=== PATIENT | male | born 1960 | race Caucasian/White ===

== ENCOUNTER 2020-02-17 07:52 | Day surgery (SDC) | payer OTHER ==
--- NOTE | 2020-02-17 08:25 | XR ---
EXAMINATION TYPE: XR shoulder complete RT DATE OF EXAM: 02/17/2020 COMPARISON: NONE HISTORY: Postsurgical change TECHNIQUE: Three views are submitted. FINDINGS: The osseous structures are intact. There is no acute fracture or dislocation. Postsurgical changes s een. A portion of a metallic screw remains isolated within the diaphysis of the right humerus correla te clinically. Underlying COPD noted. There is a linear density in the right upper lobe which may rep resent scar. Pleural-based thickening noted. There is arthropathy of the AC joint with diffuse osteop enia.. IMPRESSION: 1. Postsurgical changes see above. 2. COPD. Probable scar right upper lobe could be correlated with standard chest x-ray.
[2020-02-17] MEDS ORDERED: ALPRAZolam 0.5 MG TAB PO ONE (08:44)
[2020-02-17 08:52] VITALS: TEMP 99.1
[2020-02-17 09:24] VITALS: RESP 16
[2020-02-17 10:06] VITALS: BP 132/86; PULSE 97
--- NOTE | 2020-02-17 17:24 | US ---
Ultrasound guided right shoulder aspiration Date: 02/17/2020. History: 59-year-old male status post reverse right shoulder arthroplasty, prosthetic joint infection . Procedure: 1. Ultrasound of the posterior right shoulder 2. Attempted aspiration followed by washout and aspiration with ultrasound guidance. Technique: The procedure, risks, and alternatives, were discussed with the patient, who requested huan t we proceed. The consent form was signed, and teach-back occurred. The site/side of the procedure wa s marked with a line with participation by the patient. The accompanying paperwork was verified for c onsistency. A directed history and physical exam was performed prior to the procedure. Medication rec onciliation was performed by ancillary personnel. A critical pause was performed with assisting renee thompson just prior to the procedure and the patient's identity was confirmed using 2 identifiers. Imagin g guidance was utilized to select the precise skin entry point just prior to the procedure. The posterior recess of the prosthetic glenohumeral joint was targeted. A low echo area was identifie d and felt to represent the posterior recess of the joint. The posterior right shoulder was prepped and draped in the usual sterile fashion and local 1% lidocai ne anesthesia was instilled. Under ultrasound guidance, an 18 gauge spinal needle was advanced to the hypoechoic area. Needle tip contact resulted in pain and the area was firm. Needle tip could not successfully be advanced through this area. Aspiration yielded only a drop of blood tinged fluid. Subsequent wash at the margin of th e joint with approximately 5 mL of saline yielded only 1 mL of aspirate. Total 3 mL of saline/aspirat e was present in the syringe, labeled, and sent to the lab for requested analysis. The needle was then removed. The patient tolerated the procedure well. Hemostasis obtained and Tegade rm dressing was placed. Patient instructed to leave the dressing on for 2 days. There were no immediate complications. After the procedure, the patient's condition was unchanged. Es timated blood loss was minimal. IMPRESSION: Attempted aspiration from a posterior approach of the prosthetic glenohumeral joint. What appeared to be the posterior recess of the joint was found to be firm and contact with the needle tip resulted i n pain. Findings may reflect granulation tissue. We were unable to successfully advance the needle th rough this area. A wash was performed directly adjacent and the fluid was sent for analysis.
== END 2020-02-17 10:20 | disposition home or self-care (01) ==
LOC: RADPROMAIN 07:52
PROVIDERS: ATTEND Orthopaedic Surgery
DX: T84.59XA Infection and inflammatory reaction due to other internal joint prosthesis, initial encounter (principal); Z96.611 Presence of right artificial shoulder joint
CPT/HCPCS: 20611; 87070; 87075; 87102; 87205; 89060

== ENCOUNTER → 2020-05-08 | Outpatient (CLI) | payer OTHER ==
[2020-05-08 11:20] LABS: Appearance,Urine Clear (Clear); Bilirubin,Urine Negative (Negative); Blood,Urine Negative (Negative); Color,Urine Yellow; Glucose,Urine (UA) Negative (Negative); Ketones,Urine Negative (Negative); Leukocyte Esterase,Urine Negative (Negative); Nitrite,Urine Negative (Negative); PH, Urine 5.5 (5.0-8.0); Protein,Urine Negative (Negative); Urobilinogen,Urine <2.0 mg/dL (<2.0)
[2020-05-08 11:21] LABS: Basophils # (A) 0.1 k/uL (0-0.2); Basophils % (A) 1 %; Eosinophils # (A) 0.2 k/uL (0-0.7); Eosinophils % (A) 2 %; HCT 54.8 % (39.0-53.0); HGB 18.3 gm/dL (13.0-17.5); Lymphocytes # (A) 1.9 k/uL (1.0-4.8); Lymphocytes % (A) 20 %; MCH 28.5 pg (25.0-35.0); MCHC 33.5 g/dL (31.0-37.0); Mean Platelet Volume 7.6; Monocytes # (A) 0.7 k/uL (0-1.0); Monocytes % (A) 8 %; Neutrophils # (A) 6.5 k/uL (1.3-7.7); Neutrophils % (A) 68 %; Platelet Count 268 k/uL (150-450); RBC 6.45 m/uL (4.30-5.90); RDW 14.5 % (11.5-15.5); WBC 9.6 k/uL (3.8-10.6)
[2020-05-08 11:26] LABS: African American GFR (CKD) >90 (>60 ml/min/1.73 sqM); Anion Gap 5 mmol/L; Blood Urea Nitrogen 16 mg/dL (9-20); Calcium 9.3 mg/dL (8.4-10.2); Carbon Dioxide 28 mmol/L (22-30); Chloride 106 mmol/L (98-107); Glucose 96 mg/dL (74-99); Non-African American GFR(CKD) >90 (>60 ml/min/1.73 sqM); Potassium 4.8 mmol/L (3.5-5.1); Sodium 139 mmol/L (137-145)
== END | disposition home or self-care (01) ==
LOC: LABPAT 09:28
PROVIDERS: ATTEND Urology
DX: Z01.818 Encounter for other preprocedural examination (principal); R35.0 Frequency of micturition; R97.20 Elevated prostate specific antigen [PSA]; Z79.899 Other long term (current) drug therapy
CPT/HCPCS: 36415; 80048; 81003; 85025; 87086

== ENCOUNTER 2020-05-15 07:35 | Day surgery (SDC) | payer OTHER ==
[2020-05-11 13:24] VITALS: BMI 27.0
--- NOTE | 2020-05-14 23:39 | P.HPIHPCON ---
History of Present Illness H&P Date: 05/15/20 Chief Complaint: elevated PSA Mr Mcdaniels is 59 yo male with hx of elevated PSA, he underwent TRUS biopsy on 09/08/19 showing REBECCA. Discussed with him given this finding the recommendation is to repeat a biopsy in 6 months. I discussed with him with the finding of REBECCA there is concern upgrading to prostate cancer in subsequent biopsy. Patient has hx of poor tolerance of office biopsy, I discussed with him the option of doing biopsy under anesthesia. Discussed the risk of bleeding, infection. I also discussed risk from anesthesia. He understood all risks and agreed to proceed Consent for Procedure: I have explained the operation/procedure to the patient, including the risks, benefits, side effects, alternative therapies (including not receiving the proposed treatment or service), the likelihood of the patient achieving his/her goals, and potential recuperation problems for the procedure/sedation/analgesia, as well as any blood products, if indicated. I also explained to the patient the risks, benefits and side effects of the alternatives, as well as the risks related to not receiving the proposed procedure, care, treatment, or services. Past Medical History Past Medical History: COPD, Hyperlipidemia, Hypertension, Respiratory Disorder History of Any Multi-Drug Resistant Organisms: None Reported Past Surgical History: Orthopedic Surgery Additional Past Surgical History / Comment(s): Right rotator cuff - total 4 surgeries of rt shoulder Past Anesthesia/Blood Transfusion Reactions: No Reported Reaction Past Psychological History: No Psychological Hx Reported Smoking Status: Current every day smoker Past Alcohol Use History: None Reported Past Drug Use History: None Reported Additional Drug Use History / Comment(s): pt refuses smoking cessation information, states he will quit on his own - declines info - Past Family History Father Family Medical History: Cancer Additional Family Medical History / Comment(s): unsure what kind of cancer - per pt Medications and Allergies Home Medications Medication Instructions Recorded Confirmed Type Hydrocodone/Acetaminophen [[place] 1 tab PO Q6HR PRN 01/28/20 05/11/20 History 5-325] Ibuprofen [Motrin] 800 mg PO DAILY PRN 05/11/20 05/11/20 History Allergies Allergy/AdvReac Type Severity Reaction Status Date / Time No Known Allergies Allergy Verified 05/11/20 13:17 Surgical - Exam - General well developed, well nourished, no distress - Eyes PERRL, normal ocular movement - ENT normal mucosa, no hearing loss - Respiratory normal expansion, normal respiratory effort - Psychiatric oriented to time, oriented to person, oriented to place Assessment and Plan Assessment: 59 yo male with hx of elevated PSA -OR for TRUS biopsy
[~2020-05-15 07:35] MED LIST: DEXAMETHASONE SOD PHOSPHATE 4 MG/ML 1 ML VIAL IV ONE; HYDROmorphone 0.5 MG/0.5 ML SYRINGE IVP PRN; LACTATED RINGERS 1,000 ML IV SCH; LIDOCAINE 1% (10MG/ML) FOR IV START INTRADERMA PRN; ONDANSETRON 4 MG/2 ML VIAL IVP ONE
[2020-05-15 08:19] LABS: Glucose,Whole Blood 96 mg/dL (75-99)
[2020-05-15] MEDS ORDERED: PHENYLEPHRINE-0.9% NACL SYG 1 MG/10 ML SYRINGE ONE ×2 (08:56)
[2020-05-15] MEDS ORDERED: LIDOCAINE 1% INJ 10MG/ML (20 ML MDV) ONE ×2 (08:56)
[2020-05-15] MEDS ORDERED: PROPOFOL 10 MG/ML 20 ML VIAL IV ONE ×2 (08:56)
[2020-05-15] MEDS ORDERED: fentaNYL (PF) 50 MCG/ML 2 ML AMP ONE ×2 (08:56)
[2020-05-15] MEDS ORDERED: MIDAZOLAM 2 MG/2 ML VIAL ONE ×2 (08:56)
[2020-05-15] MEDS ORDERED: KETOROLAC 15 MG/ML 1 ML VIAL ONE ×2 (08:56)
[2020-05-15] MEDS ORDERED: HYDROmorphone (PF) 1 MG/ML ONE ×2 (08:56)
[2020-05-15] MEDS ORDERED: LIDOCAINE 2% INJ 20 MG/ML SQ ONE (09:35)
[2020-05-15 10:18] VITALS: TEMP 97.2
[2020-05-15 10:32] VITALS: RESP 16
--- NOTE | 2020-05-15 10:37 | P.OP ---
Date of Procedure: 05/15/20 Preoperative Diagnosis: elevated PSA Postoperative Diagnosis: same Procedure(s) Performed: Transperineal prostate saturation biopsy Implants: none Anesthesia: SHERI Surgeon: Horacio Avilez Estimated Blood Loss (ml): 5 Indications for Procedure: Mr Mcdaniels is 59 yo male with hx of elevated PSA, he underwent TRUS biopsy on 09/08/19 showing REBECCA. Discussed with him given this finding the recommendation is to repeat a biopsy in 6 months. I discussed with him with the finding of REBECCA there is concern upgrading to prostate cancer in subsequent biopsy. Patient has hx of poor tolerance of office biopsy, I discussed with him the option of doing biopsy under anesthesia. Discussed the risk of bleeding, infection. I also discussed risk from anesthesia. He understood all risks and agreed to proceed Description of Procedure: Patient was brought to the operating room, general anesthesia was induced. He was prepped and drapped in sterile fashion and placed in dorsal lithotimy position. Local anesthesia was induced, Transrectal ultrasound of the prostate was performed, the prostate was measured using the ultrasound and measured 53g. Ultrasound showed no hypoechoic lesion. Using the template grid, a total of 24 biopsies were performed through the perineum , and each two core were placed in one specimen cup. Patient tolerated the procedure well and taken to recovery in stable condition.
[2020-05-15 11:01] VITALS: BP 116/77; PULSE 89
== END 2020-05-15 11:16 | disposition home or self-care (01) ==
LOC: OR 07:35
PROVIDERS: ATTEND Urology
DX: R97.20 Elevated prostate specific antigen [PSA] (principal); I10 Essential (primary) hypertension; E78.5 Hyperlipidemia, unspecified; J44.9 Chronic obstructive pulmonary disease, unspecified; F17.210 Nicotine dependence, cigarettes, uncomplicated; Z79.899 Other long term (current) drug therapy; Z98.890 Other specified postprocedural states; Z80.9 Family history of malignant neoplasm, unspecified
CPT/HCPCS: 88305; 55700; J2001 ×2; J2250; J1100; J0690; J2405; J3010; J1170; J1885; J2370; J2704

== ENCOUNTER 2023-04-07 08:35 | Emergency (ER) | payer OTHER ==
[2023-04-07 08:48] VITALS: RESP 18; TEMP 97.8
--- NOTE | 2023-04-07 09:09 | XR ---
EXAMINATION TYPE: XR chest 2V DATE OF EXAM: 04/07/2023 COMPARISON: 03/17/2014 TECHNIQUE: PA and lateral views submitted. HISTORY: Shortness of breath FINDINGS: Hyperinflation. Coarsened interstitium suggests chronic interstitial lung disease. There is a vague 1 .5 cm density in the left upper lobe which could represent early infiltrate or mass. Recommend CT [address]. Postsurgical change right shoulder. Bilateral shoulder arthropathy.. Heart size normal and no ov ert failure. Osseous structures demonstrate hypertrophic and degenerative changes of the spine. IMPRESSION: 1. COPD with expected pulmonary fibrosis. Irregular 1.5 cm density left upper lobe could represent ma ss or early infiltrate. Recommend CT scan of the chest.
[2023-04-07] MEDS ORDERED: MORPHINE SULFATE 4 MG/ML SYRINGE IV STA (09:11)
--- NOTE | 2023-04-07 09:11 | XR ---
EXAMINATION TYPE: XR shoulder complete LT DATE OF EXAM: 04/07/2023 COMPARISON: NONE HISTORY: Pain TECHNIQUE: Three views are submitted. FINDINGS: The osseous structures are intact. There is no acute fracture or dislocation. [id number] AC leeann int arthropathy. Diffuse osteopenia. IMPRESSION: 1. AC joint arthropathy correlate for rotator cuff disease.
--- NOTE | 2023-04-07 09:26 | ED ---
General Adult HPI - General Chief complaint: Extremity Injury, Upper Stated complaint: Left shoulder pain Time Seen by Provider: 04/07/23 08:38 Source: patient, EMS Mode of arrival: EMS Limitations: no limitations - History of Present Illness Initial comments: Dictation was produced using [employer] dictation software. please excuse any grammatical, word or spelling errors. Chief Complaint: 62-year-old male with left shoulder pain History of Present Illness: Patient is a 62-year-old male presents to the ER for left shoulder pain. Patient states that he has had dislocations and surgery to the right shoulder. He states that her seizure was 2 years ago. Has not seen a surgeon since because a surgeon apparently moved to [place]. Patient denies any chronic issues with his left shoulder. States that yesterday he was walking with a flat plate in his arm when all of a sudden drop is secondary to the pain. Denies any trauma to the arm. No numbness and paresthesias to the left upper extremity. The ROS documented in this emergency department record has been reviewed and confirmed by me. Those systems with pertinent positive or negative responses have been documented in the HPI. All other systems are other negative and/or noncontributory. - Related Data Home Medications Medication Instructions Recorded Confirmed Hydrocodone/Acetaminophen [[place] 1 tab PO Q6HR PRN 01/28/20 05/11/20 5-325] Ibuprofen [Motrin] 800 mg PO DAILY PRN 05/11/20 05/11/20 Previous Rx's Medication Instructions Recorded Levofloxacin [Levaquin] 500 mg PO DAILY 1 Days #1 tab 05/15/20 oxyCODONE-APAP 10-325MG [Percocet 1 tab PO Q6H PRN 3 Days #12 tab 04/07/23 10-325 mg] Allergies Allergy/AdvReac Type Severity Reaction Status Date / Time No Known Allergies Allergy Verified 05/15/20 07:53 Review of Systems ROS Statement: Those systems with pertinent positive or pertinent negative responses have been documented in the HPI. ROS Other: All systems not noted in ROS Statement are negative. Past Medical History Past Medical History: Cancer, COPD, Hyperlipidemia, Hypertension, Respiratory Disorder Additional Past Medical History / Comment(s): colon CA History of Any Multi-Drug Resistant Organisms: None Reported Past Surgical History: Orthopedic Surgery Additional Past Surgical History / Comment(s): Right rotator cuff - total 4 surgeries of rt shoulder Past Anesthesia/Blood Transfusion Reactions: No Reported Reaction Past Psychological History: No Psychological Hx Reported Smoking Status: Current every day smoker Past Alcohol Use History: Occasional Past Drug Use History: None Reported - Past Family History Father Family Medical History: Cancer Additional Family Medical History / Comment(s): unsure what kind of cancer - per pt General Exam - General Exam Comments Initial Comments: PHYSICAL EXAM: General Impression: Alert and oriented x3, acute distress secondary pain HEENT: Normocephalic atraumatic, extra-ocular movements intact, pupils equal and reactive to light bilaterally, mucous membranes moist. Cardiovascular: Heart regular rate and rhythm Chest: Able to complete full sentences, no retractions, no tachypnea Abdomen: abdomen soft, non-tender, non-distended, no organomegaly Musculoskeletal: Pulses present and equal in all extremities, no peripheral edema Motor: no focal deficits noted Neurological: CN II-XII grossly intact, no focal motor or sensory deficits noted Skin: Intact with no visualized rashes Psych: Normal affect and mood Left shoulder: Palpatory tenderness along the acromion clavicular joint and the entire left shoulder, active range of motion intact to 90. Passive range of motion intact though antalgic Limitations: no limitations Course Vital Signs 04/07/23 04/07/23 08:37 08:42 Temperature 97.8 F Pulse Rate 105 H Respiratory 18 Rate Blood Pressure 139/85 O2 Sat by Pulse 99 Oximetry Medical Decision Making - Medical Decision Making Was pt. sent in by a medical professional or institution (, PA, CLAM GRADER, urgent care, hospital, or jail...) When possible be specific @ -No Did you speak to anyone other than the patient for history (EMS, parent, family, police, friend...)? What history was obtained from this source @ -No Did you review nursing and triage notes (agree or disagree)? Why? @ -I reviewed and agree with nursing and triage notes Were old charts reviewed (outside hosp., previous admission, EMS record, old EKG, old radiological studies, urgent care reports/EKG's, jail records)? Report findings @ -No old charts were reviewed Differential Diagnosis (chest pain, altered mental status, abdominal pain women, abdominal pain men, vaginal bleeding, musculoskeletal, weakness, fever, dyspnea, syncope, headache, dizziness, GI bleed, back pain, seizure, CVA, palpatations, mental health)? @ -not applicable EKG interpreted by me (3pts min.). @ -My EKG interpretation: Ventricular rate 95, sinus rhythm,. Interval 144, QRS 1I, QTC 392. No OR prolongation, no QTC prolongation, no ST or T-wave changes noted. Overall, this EKG is unremarkable X-rays interpreted by me (1pt min.). @ -Shoulder X-ray shows arthropathy at the before meals joint and within the shoulder joint. No dislocation CT interpreted by me (1pt min.). @ -None done U/S interpreted by me (1pt. min.). @ -None done What testing was considered but not performed or refused? (CT, X-rays, U/S, labs)? Why? @ -None What meds were considered but not given or refused? Why? @ -None Did you discuss the management of the patient with other professionals (professionals i.e. , PA, CLAM GRADER, lab, RT, psych nurse, social security specialist, glass bulb silverer, teacher, registration officer, case managers)? Give summary @ -No Was smoking cessation discussed for >3mins.? @ -No Was critical care preformed (if so, how long)? @ -No Were there social determinants of health that impacted care today? How? (Homeles sness, low income, unemployed, alcoholism, drug addiction, transportation, low edu. Level, literacy, decrease access to med. care, custodial, rehab)? @ -No Was there de-escalation of care discussed even if they declined (Discuss DNR or withdrawal of care, Hospice)? DNR status @ -No What co-morbidities impacted this encounter? (DM, HTN, Smoking, COPD, CAD, Cancer, CVA, ARF, Chemo, Hep., AIDS, mental health diagnosis, sleep apnea, morbid obesity)? @ -None Was patient admitted / discharged? Hospital course, mention meds given and route, prescriptions, significant lab abnormalities, going to OR and other pertinent info. @ -62 Year-old male presents with atraumatic left shoulder pain. Vital signs stable. Patient given analgesics. Shoulder x-ray shows before meals joint arthropathy. He has palpatory tenderness to that area. Chest x-ray is nonacute however this does appear to be a nodule that may represent mass or early infiltrate. Patient told the results discharge. Work. Advised up with primary care doctor regarding these changes. She was given referral to surgery for shoulder pain. Undiagnosed new problem with uncertain prognosis? @ -No Drug Therapy requiring intensive monitoring for toxicity (Heparin, Nitro, Insulin, Cardizem)? @ -No Were any procedures done? @ -No Diagnosis/symptom? Acute, or Chronic, or Acute on Chronic? Uncomplicated (without systemic symptoms) or Complicated (systemic symptoms)? @ -Shoulder Arthropathy, incidental finding of lung mass Side effects of treatment? @ -No Exacerbation, Progression, or Severe Exacerbation? @ -No Poses a threat to life or bodily function? How? (Chest pain, [place], [place], pneumonia, PE, COPD, DKA, ARF, appy, cholecystitis, CVA, Diverticulitis, Homicidal, Suicidal, threat to staff... and all critical care pts) @ -yes Disposition Clinical Impression: AC joint arthropathy, Incidental lung nodule Disposition: HOME SELF-CARE Condition: Good Instructions (If sedation given, give patient instructions): Shoulder Pain (ED) Additional Instructions: there was an incidental lung nodule found on your CXR. you must follow up with PCP regarding this. Prescriptions: oxyCODONE-APAP 10-325MG [Percocet 10-325 mg] 1 tab PO Q6H PRN 3 Days #12 tab PRN Reason: Pain Is patient prescribed a controlled substance at d/c from ED?: Yes If prescribed controlled substance>3 days was MAPS reviewed?: Prescribed <3 Days Referrals: Martin Feliz MD [Primary Care Provider] - 1-2 days Marcelo Oconnell DO [Doctor of Osteopathic Medicine] - 1-2 days Time of Disposition: 10:05
[2023-04-07 10:18] VITALS: BP 141/88; PULSE 102
== END 2023-04-07 10:35 | disposition home or self-care (01) ==
LOC: EC 08:35
DX: M19.012 Primary osteoarthritis, left shoulder (principal); R91.1 Solitary pulmonary nodule; J44.9 Chronic obstructive pulmonary disease, unspecified; I10 Essential (primary) hypertension; F17.200 Nicotine dependence, unspecified, uncomplicated; Z79.899 Other long term (current) drug therapy
CPT/HCPCS: 73030; 71046; 99284; 96374; J2270

== ENCOUNTER 2023-06-23 08:33 | Observation (INO) | payer OTHER ==
--- NOTE | 2023-06-23 09:02 | ED ---
General Adult HPI - General Chief complaint: Shortness of Breath Stated complaint: SOB Time Seen by Provider: 06/23/23 08:45 Source: patient, EMS, RN notes reviewed, old records reviewed Mode of arrival: EMS Limitations: no limitations - History of Present Illness Initial comments: This is a 62-year-old male who presents emergency Department with a past medical history significant for COPD and smoking. Patient states he continues to smoke. Patient states over the last 9 days he's been getting more short of breath. Patient states she's also not been eating over the last 9 days. Patient states she's not having any nausea or vomiting patient denies any diarrhea. Patient denies any abdominal pain. Patient denies chest pain palpitations. Patient states he thinks he might of had a fever but he can take his temperature. - Related Data Home Medications Medication Instructions Recorded Confirmed Hydrocodone/Acetaminophen [Cofield 1 tab PO Q6HR PRN 01/28/20 05/11/20 5-325] Ibuprofen [Motrin] 800 mg PO DAILY PRN 05/11/20 05/11/20 Previous Rx's Medication Instructions Recorded Levofloxacin [Levaquin] 500 mg PO DAILY 1 Days #1 tab 05/15/20 oxyCODONE-APAP 10-325MG [Percocet 1 tab PO Q6H PRN 3 Days #12 tab 04/07/23 10-325 mg] Allergies Allergy/AdvReac Type Severity Reaction Status Date / Time No Known Allergies Allergy Verified 05/15/20 07:53 Review of Systems ROS Statement: Those systems with pertinent positive or pertinent negative responses have been documented in the HPI. ROS Other: All systems not noted in ROS Statement are negative. Past Medical History Past Medical History: Cancer, COPD, Hyperlipidemia, Hypertension, Respiratory Disorder Additional Past Medical History / Comment(s): colon CA History of Any Multi-Drug Resistant Organisms: None Reported Past Surgical History: Orthopedic Surgery Additional Past Surgical History / Comment(s): Right rotator cuff - total 4 surgeries of rt shoulder Past Anesthesia/Blood Transfusion Reactions: No Reported Reaction Past Psychological History: No Psychological Hx Reported Smoking Status: Current every day smoker Past Alcohol Use History: Occasional Past Drug Use History: None Reported - Past Family History Father Family Medical History: Cancer Additional Family Medical History / Comment(s): unsure what kind of cancer - per pt General Exam - General Exam Comments Initial Comments: GENERAL: Patient is well-developed and well-nourished. Patient is nontoxic and well-hydrated and is in mild distress. ENT: Neck is soft and supple. No significant lymphadenopathy is noted. Oropharynx is clear. Moist mucous membranes. Neck has full range of motion without eliciting any pain. EYES: The sclera were anicteric and conjunctiva were pink and moist. Extraocular movements were intact and pupils were equal round and reactive to light. Eyelids were unremarkable. PULMONARY: Decreased breath sounds. CARDIOVASCULAR: Patient is tachycardic at 120 beats a minute ABDOMEN: Soft and nontender with normal bowel sounds. SKIN: Skin is clear with no lesions or rashes and otherwise unremarkable. NEUROLOGIC: Patient is alert and oriented x3. Cranial nerves II through XII are grossly intact. Motor and sensory are also intact. Normal speech, volume and content. Symmetrical smile. MUSCULOSKELETAL: Normal extremities with adequate strength and full range of motion. No lower extremity swelling or edema. No calf tenderness. LYMPHATICS: No significant lymphadenopathy is noted PSYCHIATRIC: Normal psychiatric evaluation. Limitations: no limitations Course Vital Signs 06/23/23 06/23/23 06/23/23 08:35 08:38 08:40 Temperature 97.8 F Pulse Rate 107 H 113 H 106 H Respiratory 18 18 18 Rate Blood Pressure 127/90 127/90 O2 Sat by Pulse 98 99 97 Oximetry 06/23/23 06/23/23 06/23/23 08:50 09:00 09:10 Temperature Pulse Rate 110 H 100 106 H Respiratory 18 18 18 Rate Blood Pressure 127/90 127/90 121/80 O2 Sat by Pulse 99 98 98 Oximetry 06/23/23 06/23/23 06/23/23 09:20 09:30 09:40 Temperature Pulse Rate 105 H 112 H 107 H Respiratory 18 30 H 12 Rate Blood Pressure 121/80 121/80 121/80 O2 Sat by Pulse 98 95 99 Oximetry 06/23/23 06/23/23 06/23/23 09:50 10:00 10:10 Temperature Pulse Rate 105 H 101 H 101 H Respiratory 9 L 5 L 26 H Rate Blood Pressure 121/80 121/80 118/87 O2 Sat by Pulse 95 96 96 Oximetry 06/23/23 06/23/23 06/23/23 10:20 10:30 10:40 Temperature Pulse Rate 101 H 105 H 104 H Respiratory 18 11 L 27 H Rate Blood Pressure 118/87 118/87 118/87 O2 Sat by Pulse 95 95 97 Oximetry 06/23/23 06/23/23 06/23/23 10:50 11:00 11:10 Temperature Pulse Rate 101 H 108 H 103 H Respiratory 7 L 20 11 L Rate Blood Pressure 118/87 118/87 117/98 O2 Sat by Pulse 97 98 96 Oximetry 06/23/23 06/23/23 06/23/23 11:20 11:30 11:40 Temperature Pulse Rate 105 H 109 H 100 Respiratory 23 23 33 H Rate Blood Pressure 117/98 117/98 117/98 O2 Sat by Pulse 98 99 97 Oximetry 06/23/23 06/23/23 11:50 11:56 Temperature Pulse Rate 96 100 Respiratory 14 18 Rate Blood Pressure 117/98 117/98 O2 Sat by Pulse 97 98 Oximetry Medical Decision Making - Medical Decision Making EKG is interpreted by myself. EKG shows sinus tachycardia at 109 bpm OR interval 224 QRS is under 4 QT interval 335 QTC is 399. Patient's EKG shows no ST segment elevation or depression. Was pt. sent in by a medical professional or institution (, PA, FLOOR REPRESENTATIVE, urgent care, hospital, or long-term...) When possible be specific @ -No Did you speak to anyone other than the patient for history (EMS, parent, family, police, friend...)? What history was obtained from this source @ -No Did you review nursing and triage notes (agree or disagree)? Why? @ -I reviewed and agree with nursing and triage notes Were old charts reviewed (outside hosp., previous admission, EMS record, old EKG, old radiological studies, urgent care reports/EKG's, long-term records)? Report findings @ -I reviewed prior labs and prior radiological studies in this patient Differential Diagnosis (chest pain, altered mental status, abdominal pain women, abdominal pain men, vaginal bleeding, weakness, fever, dyspnea, syncope, headache, dizziness, GI bleed, back pain, seizure, CVA, palpatations, mental health, musculoskeletal)? @ -Differential Dyspnea: Coronary syndrome, arrhythmia, tamponade, asthma, COPD, pulmonary embolism, pneumonia, pneumothorax, pulmonary effusion, anaphylaxis, diabetic ketoacidosis, flailed chest, pulmonary contusion, diaphragmatic rupture, anemia, neur omuscular, this is not meant to be an all-inclusive list. EKG interpreted by me (3pts min.). @ -As above X-rays interpreted by me (1pt min.). @ -Chest x-ray is consistent with atypical pneumonia CT interpreted by me (1pt min.). @ -None done U/S interpreted by me (1pt. min.). @ -None done What testing was considered but not performed or refused? (CT, X-rays, U/S, labs)? Why? @ -None What meds were considered but not given or refused? Why? @ -None Did you discuss the management of the patient with other professionals (professionals i.e. DrBridger, PA, FLOOR REPRESENTATIVE, lab, RT, psych nurse, social media manager, alley tender, teacher, credit risk officer, renal case manager)? Give summary @ -I spoke with Dr. Feliz and he agreed to admit the patient Was smoking cessation discussed for >3mins.? @ -No Was critical care preformed (if so, how long)? @ -No Were there social determinants of health that impacted care today? How? (Homelessness, low income, unemployed, alcoholism, drug addiction, transportation, low edu. Level, literacy, decrease access to med. care, residential, rehab)? @ -No Was there de-escalation of care discussed even if they declined (Discuss DNR or withdrawal of care, Hospice)? DNR status @ -No What co-morbidities impacted this encounter? (DM, HTN, Smoking, COPD, CAD, Cancer, CVA, ARF, Chemo, Hep., AIDS, mental health diagnosis, sleep apnea, morbid obesity)? @ -None Was patient admitted / discharged? Hospital course, mention meds given and route, prescriptions, significant lab abnormalities, going to OR and other pertinent info. @ -Patient received antibiotics for pneumonia because the chest x-ray indicated pneumonia. I spoke with Dr. Feliz and he agreed to admit the patient admitted the patient wrote admitting orders Undiagnosed new problem with uncertain prognosis? @ -No Drug Therapy requiring intensive monitoring for toxicity (Heparin, Nitro, Insu keira, Cardizem)? @ -No Were any procedures done? @ -No Diagnosis/symptom? @ -Pneumonia Acute, or Chronic, or Acute on Chronic? @ -Acute Uncomplicated (without systemic symptoms) or Complicated (systemic symptoms)? @ -Complicated Side effects of treatment? @ -No Exacerbation, Progression, or Severe Exacerbation? @ -No Poses a threat to life or bodily function? How? (Chest pain, USA, ID, pneumonia, PE, COPD, DKA, ARF, appy, cholecystitis, CVA, Diverticulitis, Homicidal, Suicidal, threat to staff... and all critical care pts) @ -No - Lab Data Result diagrams: 06/23/23 09:30 06/23/23 09:12 Lab Results 06/23/23 06/23/23 06/23/23 Range/Units 09:12 09:12 09:12 WBC (3.8-10.6) k/uL RBC (4.30-5.90) m/uL Hgb (13.0-17.5) gm/dL Hct (39.0-53.0) % MCV (80.0-100.0) fL MCH (25.0-35.0) pg MCHC (31.0-37.0) g/dL RDW (11.5-15.5) % Plt Count (150-450) k/uL MPV Neutrophils % % Lymphocytes % % Monocytes % % Eosinophils % % Basophils % % Neutrophils # (1.3-7.7) k/uL Lymphocytes # (1.0-4.8) k/uL Monocytes # (0-1.0) k/uL Eosinophils # (0-0.7) k/uL Basophils # (0-0.2) k/uL PT (10.0-12.5) sec INR (<1.2) APTT (22.0-30.0) sec D-Dimer (<0.60) mg/L FEU Sodium 140 (137-145) mmol/L Potassium 4.0 (3.5-5.1) mmol/L Chloride 108 H (98-107) mmol/L Carbon Dioxide 16 L (22-30) mmol/L Anion Gap 16 mmol/L BUN 13 (9-20) mg/dL Creatinine 0.59 L (0.66-1.25) mg/dL Est GFR (CKD-EPI)AfAm >90 (>60 ml/min/1.73 sqM) Est GFR (CKD-EPI)NonAf >90 (>60 ml/min/1.73 sqM) Glucose 100 H (74-99) mg/dL Plasma Lactic Acid M[place]hi 1.5 (0.7-2.0) mmol/L Calcium 9.5 (8.4-10.2) mg/dL Magnesium 1.9 (1.6-2.3) mg/dL Total Bilirubin 1.1 (0.2-1.3) mg/dL AST 20 (17-59) U/L ALT 21 (4-49) U/L Alkaline Phosphatase 94 (38-126) U/L Troponin I <0.012 (0.000-0.034) ng/mL Total Protein 6.9 (6.3-8.2) g/dL Albumin 4.0 (3.5-5.0) g/dL Influenza Type A (PCR) (Not Detectd) Influenza Type B (PCR) (Not Detectd) RSV (PCR) (Not Detectd) SARS-CoV-2 (PCR) (Not Detectd) 06/23/23 06/23/23 06/23/23 Range/Units 09:12 09:30 09:30 WBC 12.4 H (3.8-10.6) k/uL RBC 6.64 H (4.30-5.90) m/uL Hgb 18.7 H (13.0-17.5) gm/dL Hct 54.8 H (39.0-53.0) % MCV 82.5 (80.0-100.0) fL MCH 28.2 (25.0-35.0) pg MCHC 34.1 (31.0-37.0) g/dL RDW 14.5 (11.5-15.5) % Plt Count 362 (150-450) k/uL MPV 8.9 Neutrophils % 74 % Lymphocytes % 15 % Monocytes % 8 % Eosinophils % 1 % Basophils % 0 % Neutrophils # 9.2 H (1.3-7.7) k/uL Lymphocytes # 1.8 (1.0-4.8) k/uL Monocytes # 1.0 (0-1.0) k/uL Eosinophils # 0.1 (0-0.7) k/uL Basophils # 0.1 (0-0.2) k/uL PT 12.7 H (10.0-12.5) sec INR 1.2 H (<1.2) APTT 23.9 (22.0-30.0) sec D-Dimer 0.31 (<0.60) mg/L FEU Sodium (137-145) mmol/L Potassium (3.5-5.1) mmol/L Chloride (98-107) mmol/L Carbon Dioxide (22-30) mmol/L Anion Gap mmol/L BUN (9-20) mg/dL Creatinine (0.66-1.25) mg/dL Est GFR (CKD-EPI)AfAm (>60 ml/min/1.73 sqM) Est GFR (CKD-EPI)NonAf (>60 ml/min/1.73 sqM) Glucose (74-99) mg/dL Plasma Lactic Acid M[place] (0.7-2.0) mmol/L Calcium (8.4-10.2) mg/dL Magnesium (1.6-2.3) mg/dL Total Bilirubin (0.2-1.3) mg/dL AST (17-59) U/L ALT (4-49) U/L Alkaline Phosphatase (38-126) U/L Troponin I (0.000-0.034) ng/mL Total Protein (6.3-8.2) g/dL Albumin (3.5-5.0) g/dL Influenza Type A (PCR) Not Detected (Not Detectd) Influenza Type B (PCR) Not Detected (Not Detectd) RSV (PCR) Not Detected (Not Detectd) SARS-CoV-2 (PCR) Not Detected (Not Detectd) Disposition Clinical Impression: Pneumonia Disposition: ADMITTED IP TO THIS [facility] Referrals: Martin Feliz MD [Primary Care Provider] - 1-2 days Time of Disposition: 12:11
[2023-06-23 09:40] LABS: ALT 21 U/L (4-49); AST 20 U/L (17-59); African American GFR (CKD) >90 (>60 ml/min/1.73 sqM); Alkaline Phosphatase 94 U/L (38-126); Anion Gap 16 mmol/L; Blood Urea Nitrogen 13 mg/dL (9-20); Calcium 9.5 mg/dL (8.4-10.2); Carbon Dioxide 16 mmol/L (22-30); Chloride 108 mmol/L (98-107); Glucose 100 mg/dL (74-99); Magnesium 1.9 mg/dL (1.6-2.3); Non-African American GFR(CKD) >90 (>60 ml/min/1.73 sqM); Sodium 140 mmol/L (137-145); Total Bilirubin 1.1 mg/dL (0.2-1.3); Total Protein 6.9 g/dL (6.3-8.2)
--- NOTE | 2023-06-23 09:43 | XR ---
EXAMINATION TYPE: XR chest 2V DATE OF EXAM: 06/23/2023 COMPARISON: 04/07/2023 HISTORY: 62 year-old male shortness of breath, difficulty breathing TECHNIQUE: PA and lateral views FINDINGS: Right shoulder plasty. Heart normal size. Aorta and pulmonary vasculature within normal limits. Nippl e shadow at the right lower lung. Patchy interstitial changes bilaterally. No pleural effusion. IMPRESSION: COPD. However, there are some patchy interstitial changes bilaterally. Consider superimposed acute br onchitis or atypical pneumonias.
[2023-06-23 10:03] LABS: Basophils # (A) 0.1 k/uL (0-0.2); Basophils % (A) 0 %; Eosinophils # (A) 0.1 k/uL (0-0.7); Eosinophils % (A) 1 %; HCT 54.8 % (39.0-53.0); HGB 18.7 gm/dL (13.0-17.5); Lymphocytes # (A) 1.8 k/uL (1.0-4.8); Lymphocytes % (A) 15 %; MCH 28.2 pg (25.0-35.0); MCHC 34.1 g/dL (31.0-37.0); MCV 82.5 fL (80.0-100.0); Mean Platelet Volume 8.9; Monocytes % (A) 8 %; Neutrophils # (A) 9.2 k/uL (1.3-7.7); Neutrophils % (A) 74 %; Platelet Count 362 k/uL (150-450); RBC 6.64 m/uL (4.30-5.90); RDW 14.5 % (11.5-15.5); WBC 12.4 k/uL (3.8-10.6)
[2023-06-23 10:15] LABS: INR 1.2 (<1.2); Partial Thromboplastin Time 23.9 sec (22.0-30.0); Prothrombin Time 12.7 sec (10.0-12.5)
[2023-06-23] MEDS ORDERED: cefTRIAXone IN SWFI 1,000 MG/10 ML SYRINGE IVP STA (10:43)
[2023-06-23] MEDS ORDERED: AZITHROMYCIN 500 MG in SODIUM CHLORIDE 0.9% 250 ML IVPB STA (12:11)
[2023-06-23] MEDS ORDERED: PNEUMONIA PROTOCOL UTILIZED 1 EACH MISC PO PRN (12:11)
[2023-06-23] MEDS ORDERED: HYDROcodone/APAP 7.5-325MG 1 EACH TAB PO ONE (14:02)
[2023-06-23] MEDS: IPRATROPIUM-ALBUTEROL 3 ML NEB INHALATION PRN (18:05)
[2023-06-23] MEDS ORDERED: ALBUTEROL NEBULIZED 2.5 MG/3 ML INHALATION PRN (18:38)
[2023-06-23] MEDS: IBUPROFEN 600 MG TAB PO SCH (20:51)
[2023-06-23] MEDS: HYDROcodone/APAP 7.5-325MG 1 EACH TAB PO SCH (20:51)
--- NOTE | 2023-06-23 22:26 | HP ---
HISTORY AND PHYSICAL CHIEF COMPLAINT: Cough and fever. HISTORY OF PRESENT ILLNESS: This 62-year-old male was healthy up until a day or 2 prior to coming to the emergency room. He woke up with discomfort in the chest and started coughing. He was not bringing up any blood or sputum. He came to the emergency room. He was found to have bronchial pneumonia and was admitted. REVIEW OF SYSTEMS: He has had no shortness of breath, nausea, vomiting, diarrhea, abdominal pain, urinary symptoms, etc. Past medical history, family history, personal and social histories were all otherwise unremarkable and noncontributory. He does smoke. PHYSICAL EXAMINATION: VITAL SIGNS: Normal. HEAD, EARS, EYES, NOSE, MOUTH AND THROAT: Normal. CHEST: Clear. CARDIAC: Normal. ABDOMEN: Soft, nontender. EXTREMITIES: Normal. IMPRESSION: 1. Bronchial pneumonia. 2. Chronic obstructive pulmonary disease. PLAN: 1. Bed rest. 2. IV fluids. 3. IV antibiotics. 4. Updrafts. MMJANN / AMYN: [id number] /
--- NOTE | 2023-06-24 07:29 | XR ---
EXAMINATION TYPE: XR chest 2V DATE OF EXAM: 06/24/2023 6:18 AM CLINICAL INDICATION:Male, 62 years old with history of pneumonia; [facility] COMPARISON: Chest radiograph from one day prior. TECHNIQUE: XR chest 2V Frontal and lateral views of the chest. FINDINGS: Right shoulder arthroplasty appears intact. Heart normal size. Aorta and pulmonary vasculature within normal limits. Nipple shadow at the right lower lung. Patchy interstitial changes bilaterally. No pl eural effusion. IMPRESSION: 1. Stable COPD. 2. Stable patchy interstitial changes bilaterally. Consider superimposed acute bronchitis or atypica l pneumonias.
[2023-06-24] MEDS: IBUPROFEN 600 MG TAB PO SCH ×3 (09:14→21:01)
[2023-06-24] MEDS: HYDROcodone/APAP 7.5-325MG 1 EACH TAB PO SCH ×2 (09:15→21:01)
[2023-06-24] MEDS: AZITHROMYCIN 500 MG TAB PO SCH (09:15)
[2023-06-24] MEDS: IPRATROPIUM-ALBUTEROL 3 ML NEB INHALATION PRN (09:20)
--- NOTE | 2023-06-25 02:43 | PN ---
PROGRESS NOTE DATE OF SERVICE: 06/24/2023 CHIEF COMPLAINT: Pneumonitis. HISTORY OF PRESENT ILLNESS: This gentleman is doing a little bit better. He feels less short of breath, but during the night he had another episode where he got quite tight. PHYSICAL EXAMINATION: LUNGS: He has rales at the bases with slightly decreased breath sounds. CARDIAC: Normal. ABDOMEN: Soft, nontender. IMPRESSION: 1. Bronchopneumonia. 2. Chronic obstructive pulmonary disease. PLAN: Continue with current program. Chest x-ray actually looks fairly good. MMODL / IJN: [id number] /
[2023-06-25] MEDS: IPRATROPIUM-ALBUTEROL 3 ML NEB INHALATION PRN (07:59)
[2023-06-25] MEDS: HYDROcodone/APAP 7.5-325MG 1 EACH TAB PO SCH ×2 (08:17→21:04)
[2023-06-25] MEDS: IBUPROFEN 600 MG TAB PO SCH ×3 (08:18→21:03)
[2023-06-25] MEDS: AZITHROMYCIN 500 MG TAB PO SCH (08:20)
--- NOTE | 2023-06-25 12:56 | XR ---
EXAMINATION TYPE: XR chest 2V DATE OF EXAM: 06/25/2023 11:23 AM CLINICAL INDICATION:Male, 62 years old with history of pneumonia, COPD; [facility] COMPARISON: Chest radiograph from one day prior. TECHNIQUE: XR chest 2V Frontal and lateral views of the chest. FINDINGS: Lungs/Pleura: Prominent interstitial lung markings are seen scattered throughout the lungs. Flattenin g of the diaphragms. No evidence of focal consolidation, pneumothorax or pleural effusion. Pulmonary vascularity: Unremarkable. Heart/mediastinum: Cardiomediastinal silhouette is unremarkable. Musculoskeletal: No acute osseous pathology. Additional arthroplasty appears intact. IMPRESSION: Chronic changes without acute pulmonary process. No significant change from prior. Stable COPD.
[2023-06-25 19:15] LABS: Basophils # (A) 0.05 X 10*3/uL (0.00-0.10); Basophils % (A) 0.5 %; HCT 50.8 % (39.6-50.0); HGB 16.7 g/dL (13.0-17.0); Lymphocytes # (A) 2.19 X 10*3/uL (0.90-5.00); Lymphocytes % (A) 21.7 %; MCH 27.3 pg (27.0-32.0); MCHC 32.9 g/dL (32.0-37.0); Mean Platelet Volume 10.4 FL (9.5-12.2); Monocytes # (A) 1.32 X 10*3/uL (0.20-1.00); Monocytes % (A) 13.1 %; NRBC Per 100 WBC 0 X 10*3/uL (0.00-0.01); Neutrophils # (A) 6.32 X 10*3/uL (1.80-7.70); Neutrophils % (A) 62.4 %; Platelet Count 363 X 10*3/uL (140-440); RBC 6.12 X 10*6/uL (4.40-5.60); RDW 15.7 % (11.5-14.5); WBC 10.11 X 10*3/uL (4.50-10.00)
[2023-06-25 19:31] LABS: ALT 19 U/L (10-49); AST 13 U/L (14-35); Albumin 3.7 g/dL (3.8-4.9); Albumin/Globulin Ratio 1.68 Ratio (1.60-3.17); Alkaline Phosphatase 71 U/L (41-126); BUN/Creat Ratio 10.88 Ratio (12.00-20.00); Blood Urea Nitrogen 8.7 mg/dL (9.0-27.0); Calcium 9.3 mg/dL (8.7-10.3); Carbon Dioxide 24.5 mmol/L (21.6-31.8); Chloride 104 mmol/L (96-109); Globulin 2.2 g/dL (1.6-3.3); Glucose 83 mg/dL (70-110); Potassium 4.2 mmol/L (3.5-5.5); Sodium 140 mmol/L (135-145); Total Bilirubin 0.4 mg/dL (0.3-1.2); Total Protein 5.9 g/dL (6.2-8.2)
--- NOTE | 2023-06-26 00:55 | PN ---
PROGRESS NOTE CHIEF COMPLAINT: Bronchitis and pneumonitis. HISTORY OF PRESENT ILLNESS: This gentleman is breathing a little bit better, but he has a persistent cough. He is not bringing up anything. PHYSICAL EXAMINATION: VITAL SIGNS: Normal. CHEST: Demonstrates decreased breath sounds with very few rales or rhonchi. CARDIAC: Normal. ABDOMEN: Soft, nontender. IMPRESSION: 1. Pneumonitis. 2. Chronic obstructive pulmonary disease. PLAN: Repeat chest x-ray and laboratory studies. MMODL / IJN: [id number] /
[2023-06-26 05:18] VITALS: RESP 16; TEMP 98.2
[2023-06-26 08:07] VITALS: BP 120/86; PULSE 88
[2023-06-26] MEDS: IBUPROFEN 600 MG TAB PO SCH (08:35)
[2023-06-26] MEDS: HYDROcodone/APAP 7.5-325MG 1 EACH TAB PO SCH (08:35)
[2023-06-26] MEDS ORDERED: AMOXIC-POT CLAV 875-125MG 1 EACH TAB PO SCH (21:00)
--- NOTE | 2023-06-27 04:14 | DS ---
DISCHARGE SUMMARY CHIEF COMPLAINTS: Cough, shortness of breath, and pneumonitis. HISTORY OF PRESENT ILLNESS: The details of this man's history and physical can be found in the initial workup. COURSE IN HOSPITAL: After admission, he was placed on bedrest, started intravenous fluids, improved quite quickly and he was stable and doing well and sent home on the . He will go home on antibiotics and will be followed up in the office in several days. FINAL DIAGNOSES: 1. Bronchopneumonia. 2. Bronchitis. 3. Chronic obstructive pulmonary disease. OPERATIONS: None. CONSULTATIONS: None, he is improved. MMODL / IJN: [id number] /
== END 2023-06-26 12:36 | disposition home or self-care (01) ==
LOC: EC 08:33 → 6NMEDSUR 12:12
PROVIDERS: ADMIT Family Medicine; ATTEND Family Medicine
DX: J18.0 Bronchopneumonia, unspecified organism (principal); J44.89 Other specified chronic obstructive pulmonary disease; E78.5 Hyperlipidemia, unspecified; I10 Essential (primary) hypertension; F17.200 Nicotine dependence, unspecified, uncomplicated; Z85.038 Personal history of other malignant neoplasm of large intestine; Z20.822 Contact with and (suspected) exposure to COVID-19
CPT/HCPCS: 96366 ×3; 96367; 96376; 96365; 99285; 36415; 94640 ×3; 93005; 85379; 80053 ×2; 87449; 83605; 83735; 84484; 85025 ×2; 85610; 85730; 87040; 87070; 87205; 87636; 71046 ×3; G0378 ×4; J0456; J0696 ×4

== ENCOUNTER → 2023-07-14 | Outpatient (CLI) | payer OTHER ==
--- NOTE | 2023-07-14 10:46 | MR ---
EXAMINATION TYPE: MR Prostate wo/w con DATE OF EXAM: 07/14/2023 9:35 AM COMPARISON: None. CLINICAL INDICATION:Male, 62 years old with history of R97.20 ELEVATED PROSTATE SPECIFIC ANTIGEN; Simin vated PSA. TECHNIQUE: Multi-planar, multi-sequence imaging of the pelvis is performed prior to and following the uncomplicated administration of bolus intravenous gadolinium. CONTRAST: 7 Gadavist Interpretive Criteria: PI-RADS v2.1 SERUM PSA: 48.10 on 06/18/2023. 14.6 on 08/23/2021. SURGICAL PATHOLOGY: No data available. FINDINGS: Prostatic dimensions: 5.8 x 6.3 x 4.7 cm. Ellipsoid Volume:89.92 (PSA density=0.53 ng/mL/mL) CENTRAL GLAND (Central and Transition Zones/CZ+TZ): Multiple bilateral, heterogenous appearing hypertrophic stromal nodules, without suspicious lesion. M edian lobe hypertrophy with protrusion into the base of the bladder. (PI-RADS 2) PERIPHERAL ZONE (PZ): Bilateral linear, indistinct wedgelike areas of low ADC, and low T2 signal, No evidence of masslike a bnormality, or localized perfusional hypervascularity, to further suggest a focus of clinically signi ficant prostate cancer. (PI-RADS 2) SEMINAL VESICLES (SV): Symmetric and unremarkable. PERIPROSTATIC TISSUES: Unremarkable. LYMPH NODES: No enlarged pelvic lymph node. REMAINING PELVIS: Bladder wall is within normal limits given distention. No abnormal free or organized intrapelvic fluid collection. No pathologic bowel dilation or mural thickening. Left fat containing inguinal hernia OSSEOUS STRUCTURES: No suspicious osseous abnormality. IMPRESSION: 1. No specific features for high-risk prostate cancer. Maximum PI-RADS score: 2. Elevated PSA suggest s prostatitis. Trending of PSA and short-term follow-up should be considered in 6 months. 2. Substantial BPH, estimated gland volume 89.92 mL. 3. No suspicious osseous lesion. No lymphadenopathy. No evidence of prostate adenocarcinoma involving the periprostatic tissues.
== END | disposition home or self-care (01) ==
LOC: RADMRIMAIN 08:26
PROVIDERS: ATTEND Urology
DX: N40.0 Benign prostatic hyperplasia without lower urinary tract symptoms (principal); R97.20 Elevated prostate specific antigen [PSA]
CPT/HCPCS: 72197; A9585

== ENCOUNTER 2023-07-22 17:25 | Emergency (ER) | payer OTHER ==
--- NOTE | 2023-07-22 17:40 | ED ---
SOB HPI - General Chief Complaint: Shortness of Breath Stated Complaint: Fever Time Seen by Provider: 07/22/23 17:27 Source: patient, EMS, RN notes reviewed Mode of arrival: EMS Limitations: no limitations - History of Present Illness Initial Comments: Patient is a 62-year-old male presented to the ER with a chief complaint of dyspnea. Pat has a past medical history of COPD, HLD, HTN and cancer. Patient states he has been experiencing dyspnea and intermittent sharp chest pain for the past 2 to 3 days. Patient states his friend came over today and took his temperature which was 101. EMS was then called. Patient did not take any medication at that time. Patient is not on any oxygen at home, denies CPAP use, denies orthopnea. He is an everyday smoker. He does state that he uses an inhaler as needed. Patient reports that he does get sharp chest pain intermittently. There is no known triggers. Patient states that his dyspnea increases when the chest pain is happening. Patient was recently admitted for pneumonia and has since resolved. Patient denies any cough, congestion, headache, abdominal pain, urinary complaints, constipation/diarrhea. - Related Data Home Medications Medication Instructions Recorded Confirmed Albuterol Sulfate [Ventolin HFA] 2 puff INHALATION RT-QID PRN 06/23/23 06/23/23 Ergocalciferol (Vitamin D2) 1,250 mcg PO QMONTHLY 06/23/23 06/23/23 [Drisdol (50,000 Iu)] HYDROcodone/APAP 7.5-325MG [[place] 1 tab PO BID 06/23/23 06/23/23 7.5-325] Ibuprofen [Motrin] 600 mg PO TID 06/23/23 06/23/23 Previous Rx's Medication Instructions Recorded Amoxic-Pot Clav 875-125Mg 1 each PO Q12HR #20 tab 06/26/23 [Augmentin 875-125] Allergies Allergy/AdvReac Type Severity Reaction Status Date / Time No Known Allergies Allergy Verified 07/22/23 18:00 Review of Systems ROS Statement: Those systems with pertinent positive or pertinent negative responses have been documented in the HPI. ROS Other: All systems not noted in ROS Statement are negative. Past Medical History Past Medical History: Cancer, COPD, Hyperlipidemia, Hypertension, Respiratory Disorder Additional Past Medical History / Comment(s): colon CA History of Any Multi-Drug Resistant Organisms: None Reported Past Surgical History: Orthopedic Surgery Additional Past Surgical History / Comment(s): Right rotator cuff - total 5 neil geries of rt shoulder Past Anesthesia/Blood Transfusion Reactions: No Reported Reaction Past Psychological History: No Psychological Hx Reported Smoking Status: Current every day smoker Past Alcohol Use History: Occasional Past Drug Use History: None Reported - Past Family History Father Family Medical History: Cancer Additional Family Medical History / Comment(s): unsure what kind of cancer - per pt General Exam Limitations: no limitations General appearance: alert, in no apparent distress Head exam: Present: atraumatic, normocephalic, normal inspection Eye exam: Present: normal appearance, PERRL, EOMI. Absent: scleral icterus, conjunctival injection, periorbital swelling ENT exam: Present: normal exam, normal oropharynx, mucous membranes moist, TM's normal bilaterally Neck exam: Present: normal inspection. Absent: tenderness, meningismus, lymphadenopathy Respiratory exam: Present: normal lung sounds bilaterally. Absent: respiratory distress, wheezes, rales, rhonchi, stridor Cardiovascular Exam: Present: regular rate, normal rhythm, normal heart sounds. Absent: systolic murmur, diastolic murmur, rubs, gallop, clicks GI/Abdominal exam: Present: soft, normal bowel sounds. Absent: distended, tenderness, guarding, rebound, rigid Neurological exam: Present: alert, oriented X3, CN II-XII intact Psychiatric exam: Present: normal affect, normal mood Skin exam: Present: warm, dry, intact, normal color. Absent: rash Course Vital Signs 07/22/23 07/22/23 17:27 22:44 Temperature 98.4 F Pulse Rate 111 H 84 Respiratory 22 18 Rate Blood Pressure 151/92 132/80 O2 Sat by Pulse 99 100 Oximetry Medical Decision Making - Medical Decision Making Was pt. sent in by a medical professional or institution (, PA, STAFF DEVELOPMENT NURSE, urgent care, hospital, or long term...) When possible be specific @ -No Did you speak to anyone other than the patient for history (EMS, parent, family, police, friend...)? What history was obtained from this source @ -No Did you review nursing and triage notes (agree or disagree)? Why? @ -I reviewed and agree with nursing and triage notes Were old charts reviewed (outside hosp., previous admission, EMS record, old EKG, old radiological studies, urgent care reports/EKG's, long term records)? Report findings @ -No old charts were reviewed Differential Diagnosis (chest pain, altered mental status, abdominal pain women, abdominal pain men, vaginal bleeding, weakness, fever, dyspnea, syncope, headache, dizziness, GI bleed, back pain, seizure, CVA, palpatations, mental health, musculoskeletal)? @ -Differential Dyspnea: Coronary syndrome, arrhythmia, tamponade, asthma, COPD, pulmonary embolism, pneumonia, pneumothorax, pulmonary effusion, anaphylaxis, diabetic ketoacidosis, flailed chest, pulmonary contusion, diaphragmatic rupture, anemia, neuromuscular, this is not meant to be an all-inclusive list. EKG interpreted by me (3pts min.). @ -As above X-rays interpreted by me (1pt min.). @ -Chest x-ray interpreted by me shows no acute process. CT interpreted by me (1pt min.). @ -None done U/S interpreted by me (1pt. min.). @ -None done What testing was considered but not performed or refused? (CT, X-rays, U/S, labs)? Why? @ -None What meds were considered but not given or refused? Why? @ -None Did you discuss the management of the patient with other professionals (professionals i.e. , PA, STAFF DEVELOPMENT NURSE, lab, RT, psych nurse, rn social work, optical lens manufacturing tech, teacher, medical laboratory technical officer, supervisor case loading)? Give summary @ -No Was smoking cessation discussed for >3mins.? @ -No Was critical care preformed (if so, how long)? @ -No Were there social determinants of health that impacted care today? How? (Homelessness, low income, unemployed, alcoholism, drug addiction, transportation, low edu. Level, literacy, decrease access to med. care, alf, rehab)? @ -Yes, patient had limited transportation access. Was there de-escalation of care discussed even if they declined (Discuss DNR or withdrawal of care, Hospice)? DNR status @ -No What co-morbidities impacted this encounter? (DM, HTN, Smoking, COPD, CAD, Ca ncer, CVA, ARF, Chemo, Hep., AIDS, mental health diagnosis, sleep apnea, morbid obesity)? @ -COPD, hypertension, smoking Was patient admitted / discharged? Hospital course, mention meds given and rou te, prescriptions, significant lab abnormalities, going to OR and other pertinent info. @ -Discharge. Patient is a 62-year-old male presented to the ER via EMS with a chief complaint of dyspnea. Vitals stable on arrival. Patient was O2 saturation 98% on room air and afebrile. Patient is not on home O2 but does use an inhaler as needed. History and physical exam were completed. Patient was in no signs of acute distress. Patient did appear anxious. Patient also was complaining of a sharp intermittent chest pain. On palpation of chest wall patient was exquisitely tender to left pectoral muscle. Patient was recently hospitalized for pneumonia which has resolved. Labs obtained in the ER are unremarkable. Serial troponins were completed which were negative. D-dimer 0.22. Urinalysis without signs of infection. COVID-19, influenza, RSV negative. Chest x-ray showed no acute process. EKG showed no signs of acute ischemia or infarct. Concern for cardiac etiology was low and pain was believed to be due for musculoskeletal source. Patient received IV Toradol and fluids in the ER. Lab and imaging findings were discussed with the patient. All questions answered. Return parameters were discussed. Patient be discharged in stable condition with follow-up to PCP. Patient expressed understanding and agreement with care plan. Undiagnosed new problem with uncertain prognosis? @ -No Drug Therapy requiring intensive monitoring for toxicity (Heparin, Nitro, Insulin, Cardizem)? @ -No Were any procedures done? @ -No Diagnosis/symptom? @ -Atypical chest pain/dyspnea Acute, or Chronic, or Acute on Chronic? @ -Acute Uncomplicated (without systemic symptoms) or Complicated (systemic symptoms)? @ -Uncomplicated Side effects of treatment? @ -No Exacerbation, Progression, or Severe Exacerbation? @ -No Poses a threat to life or bodily function? How? (Chest pain, USA, PA, pneumonia, PE, COPD, DKA, ARF, appy, cholecystitis, CVA, Diverticulitis, Homicidal, Suicidal, threat to staff... and all critical care pts) @ -No - Lab Data Result diagrams: 07/22/23 17:53 07/22/23 17:53 Lab Results 07/22/23 07/22/23 07/22/23 Range/Units 17:51 17:53 17:53 WBC 10.4 (3.8-10.6) k/uL RBC 5.96 H (4.30-5.90) m/uL Hgb 17.1 (13.0-17.5) gm/dL Hct 50.4 (39.0-53.0) % MCV 84.6 (80.0-100.0) fL MCH 28.7 (25.0-35.0) pg MCHC 34.0 (31.0-37.0) g/dL RDW 15.2 (11.5-15.5) % Plt Count 277 (150-450) k/uL MPV 8.4 Neutrophils % 64 % Lymphocytes % 22 % Monocytes % 8 % Eosinophils % 1 % Basophils % 1 % Neutrophils # 6.7 (1.3-7.7) k/uL Lymphocytes # 2.3 (1.0-4.8) k/uL Monocytes # 0.9 (0-1.0) k/uL Eosinophils # 0.1 (0-0.7) k/uL Basophils # 0.1 (0-0.2) k/uL PT (10.0-12.5) sec INR (<1.2) APTT (22.0-30.0) sec D-Dimer (<0.60) mg/L FEU Sodium (137-145) mmol/L Potassium (3.5-5.1) mmol/L Chloride (98-107) mmol/L Carbon Dioxide (22-30) mmol/L Anion Gap mmol/L BUN (9-20) mg/dL Creatinine (0.66-1.25) mg/dL Est GFR (CKD-EPI)AfAm (>60 ml/min/1.73 sqM) Est GFR (CKD-EPI)NonAf (>60 ml/min/1.73 sqM) Glucose (74-99) mg/dL Lactic Ac Sepsis Rflx Plasma Lactic Acid [place] (0.7-2.0) mmol/L Calcium (8.4-10.2) mg/dL Magnesium (1.6-2.3) mg/dL Total Bilirubin (0.2-1.3) mg/dL AST (17-59) U/L ALT (4-49) U/L Alkaline Phosphatase (38-126) U/L Troponin I (0.000-0.034) ng/mL Total Protein (6.3-8.2) g/dL Albumin (3.5-5.0) g/dL Urine Color Light Yellow Urine Appearance Clear (Clear) Urine pH 6.0 (5.0-8.0) Ur Specific [place] 1.010 (1.001-1.035) Urine Protein Negative (Negative) Urine Glucose (UA) Negative (Negative) Urine Ketones Negative (Negative) Urine Blood Negative (Negative) Urine Nitrite Negative (Negative) Urine Bilirubin Negative (Negative) Urine Urobilinogen <2.0 (<2.0) mg/dL Ur Leukocyte Esterase Negative (Negative) Influenza Type A (PCR) Not Detected (Not Detectd) Influenza Type B (PCR) Not Detected (Not Detectd) RSV (PCR) Not Detected (Not Detectd) SARS-CoV-2 (PCR) Not Detected (Not Detectd) 07/22/23 07/22/23 07/22/23 Range/Units 17:53 17:53 17:53 WBC (3.8-10.6) k/uL RBC (4.30-5.90) m/uL Hgb (13.0-17.5) gm/dL Hct (39.0-53.0) % MCV (80.0-100.0) fL MCH (25.0-35.0) pg MCHC (31.0-37.0) g/dL RDW (11.5-15.5) % Plt Count (150-450) k/uL MPV Neutrophils % % Lymphocytes % % Monocytes % % Eosinophils % % Basophils % % Neutrophils # (1.3-7.7) k/uL Lymphocytes # (1.0-4.8) k/uL Monocytes # (0-1.0) k/uL Eosinophils # (0-0.7) k/uL Basophils # (0-0.2) k/uL PT 11.4 (10.0-12.5) sec INR 1.0 (<1.2) APTT 25.0 (22.0-30.0) sec D-Dimer 0.22 (<0.60) mg/L FEU Sodium 139 (137-145) mmol/L Potassium 3.4 L (3.5-5.1) mmol/L Chloride 108 H (98-107) mmol/L Carbon Dioxide 22 (22-30) mmol/L Anion Gap 9 mmol/L BUN 11 (9-20) mg/dL Creatinine 0.71 (0.66-1.25) mg/dL Est GFR (CKD-EPI)AfAm >90 (>60 ml/min/1.73 sqM) Est GFR (CKD-EPI)NonAf >90 (>60 ml/min/1.73 sqM) Glucose 117 H (74-99) mg/dL Lactic Ac Sepsis Rflx Plasma Lactic Acid [place] 2.3 H* (0.7-2.0) mmol/L Calcium 9.5 (8.4-10.2) mg/dL Magnesium 2.0 (1.6-2.3) mg/dL Total Bilirubin 0.5 (0.2-1.3) mg/dL AST 19 (17-59) U/L ALT 19 (4-49) U/L Alkaline Phosphatase 74 (38-126) U/L Troponin I (0.000-0.034) ng/mL Total Protein 6.4 (6.3-8.2) g/dL Albumin 3.8 (3.5-5.0) g/dL Urine Color Urine Appearance (Clear) Urine pH (5.0-8.0) Ur Specific [place] (1.001-1.035) Urine Protein (Negative) Urine Glucose (UA) (Negative) Urine Ketones (Negative) Urine Blood (Negative) Urine Nitrite (Negative) Urine Bilirubin (Negative) Urine Urobilinogen (<2.0) mg/dL Ur Leukocyte Esterase (Negative) Influenza Type A (PCR) (Not Detectd) Influenza Type B (PCR) (Not Detectd) RSV (PCR) (Not Detectd) SARS-CoV-2 (PCR) (Not Detectd) 07/22/23 07/22/23 07/22/23 Range/Units 17:53 18:47 19:28 WBC (3.8-10.6) k/uL RBC (4.30-5.90) m/uL Hgb (13.0-17.5) gm/dL Hct (39.0-53.0) % MCV (80.0-100.0) fL MCH (25.0-35.0) pg MCHC (31.0-37.0) g/dL RDW (11.5-15.5) % Plt Count (150-450) k/uL MPV Neutrophils % % Lymphocytes % % Monocytes % % Eosinophils % % Basophils % % Neutrophils # (1.3-7.7) k/uL Lymphocytes # (1.0-4.8) k/uL Monocytes # (0-1.0) k/uL Eosinophils # (0-0.7) k/uL Basophils # (0-0.2) k/uL PT (10.0-12.5) sec INR (<1.2) APTT (22.0-30.0) sec D-Dimer (<0.60) mg/L FEU Sodium (137-145) mmol/L Potassium (3.5-5.1) mmol/L Chloride (98-107) mmol/L Carbon Dioxide (22-30) mmol/L Anion Gap mmol/L BUN (9-20) mg/dL Creatinine (0.66-1.25) mg/dL Est GFR (CKD-EPI)AfAm (>60 ml/min/1.73 sqM) Est GFR (CKD-EPI)NonAf (>60 ml/min/1.73 sqM) Glucose (74-99) mg/dL Lactic Ac Sepsis Rflx Y Plasma Lactic Acid [place] (0.7-2.0) mmol/L Calcium (8.4-10.2) mg/dL Magnesium (1.6-2.3) mg/dL Total Bilirubin (0.2-1.3) mg/dL AST (17-59) U/L ALT (4-49) U/L Alkaline Phosphatase (38-126) U/L Troponin I <0.012 <0.012 (0.000-0.034) ng/mL Total Protein (6.3-8.2) g/dL Albumin (3.5-5.0) g/dL Urine Color Urine Appearance (Clear) Urine pH (5.0-8.0) Ur Specific [place] (1.001-1.035) Urine Protein (Negative) Urine Glucose (UA) (Negative) Urine Ketones (Negative) Urine Blood (Negative) Urine Nitrite (Negative) Urine Bilirubin (Negative) Urine Urobilinogen (<2.0) mg/dL Ur Leukocyte Esterase (Negative) Influenza Type A (PCR) (Not Detectd) Influenza Type B (PCR) (Not Detectd) RSV (PCR) (Not Detectd) SARS-CoV-2 (PCR) (Not Detectd) 07/22/23 07/22/23 Range/Units 21:04 21:19 WBC (3.8-10.6) k/uL RBC (4.30-5.90) m/uL Hgb (13.0-17.5) gm/dL Hct (39.0-53.0) % MCV (80.0-100.0) fL MCH (25.0-35.0) pg MCHC (31.0-37.0) g/dL RDW (11.5-15.5) % Plt Count (150-450) k/uL MPV Neutrophils % % Lymphocytes % % Monocytes % % Eosinophils % % Basophils % % Neutrophils # (1.3-7.7) k/uL Lymphocytes # (1.0-4.8) k/uL Monocytes # (0-1.0) k/uL Eosinophils # (0-0.7) k/uL Basophils # (0-0.2) k/uL PT (10.0-12.5) sec INR (<1.2) APTT (22.0-30.0) sec D-Dimer (<0.60) mg/L FEU Sodium (137-145) mmol/L Potassium (3.5-5.1) mmol/L Chloride (98-107) mmol/L Carbon Dioxide (22-30) mmol/L Anion Gap mmol/L BUN (9-20) mg/dL Creatinine (0.66-1.25) mg/dL Est GFR (CKD-EPI)AfAm (>60 ml/min/1.73 sqM) Est GFR (CKD-EPI)NonAf (>60 ml/min/1.73 sqM) Glucose (74-99) mg/dL Lactic Ac Sepsis Rflx Plasma Lactic Acid [place] 0.7 (0.7-2.0) mmol/L Calcium (8.4-10.2) mg/dL Magnesium (1.6-2.3) mg/dL Total Bilirubin (0.2-1.3) mg/dL AST (17-59) U/L ALT (4-49) U/L Alkaline Phosphatase (38-126) U/L Troponin I <0.012 (0.000-0.034) ng/mL Total Protein (6.3-8.2) g/dL Albumin (3.5-5.0) g/dL Urine Color Urine Appearance (Clear) Urine pH (5.0-8.0) Ur Specific [place] (1.001-1.035) Urine Protein (Negative) Urine Glucose (UA) (Negative) Urine Ketones (Negative) Urine Blood (Negative) Urine Nitrite (Negative) Urine Bilirubin (Negative) Urine Urobilinogen (<2.0) mg/dL Ur Leukocyte Esterase (Negative) Influenza Type A (PCR) (Not Detectd) Influenza Type B (PCR) (Not Detectd) RSV (PCR) (Not Detectd) SARS-CoV-2 (PCR) (Not Detectd) - EKG Data -: EKG Interpreted by [facility] EKG Comments: EKG taken at 18: 19 shows sinus tachycardia with no acute ST segment or T wave abnormalities. Ventricular rate 107, MA interval 135, QRS duration 104, QT/QTc 327/390. - Radiology Data Radiology results: report reviewed, image reviewed Disposition Clinical Impression: Atypical chest pain Disposition: HOME SELF-CARE Condition: Stable Instructions (If sedation given, give patient instructions): Chest Pain (ED) Additional Instructions: Please follow-up with PCP in the next 1 to 2 days. Return to ER for any new or worsening symptoms. Is patient prescribed a controlled substance at d/c from ED?: No Referrals: Martin Feliz MD [Primary Care Provider] - 1-2 days Time of Disposition: 22:23
[2023-07-22 17:49] VITALS: TEMP 98.4
[2023-07-22 18:13] LABS: Basophils # (A) 0.1 k/uL (0-0.2); Basophils % (A) 1 %; Eosinophils # (A) 0.1 k/uL (0-0.7); Eosinophils % (A) 1 %; HCT 50.4 % (39.0-53.0); HGB 17.1 gm/dL (13.0-17.5); Lymphocytes # (A) 2.3 k/uL (1.0-4.8); Lymphocytes % (A) 22 %; MCH 28.7 pg (25.0-35.0); MCV 84.6 fL (80.0-100.0); Mean Platelet Volume 8.4; Monocytes # (A) 0.9 k/uL (0-1.0); Monocytes % (A) 8 %; Neutrophils # (A) 6.7 k/uL (1.3-7.7); Neutrophils % (A) 64 %; Platelet Count 277 k/uL (150-450); RBC 5.96 m/uL (4.30-5.90); RDW 15.2 % (11.5-15.5); WBC 10.4 k/uL (3.8-10.6)
[2023-07-22 18:18] LABS: Appearance,Urine Clear (Clear); Bilirubin,Urine Negative (Negative); Blood,Urine Negative (Negative); Color,Urine Light Yellow; Glucose,Urine (UA) Negative (Negative); Ketones,Urine Negative (Negative); Leukocyte Esterase,Urine Negative (Negative); Nitrite,Urine Negative (Negative); Protein,Urine Negative (Negative); Urobilinogen,Urine <2.0 mg/dL (<2.0)
[2023-07-22 18:21] LABS: ALT 19 U/L (4-49); AST 19 U/L (17-59); African American GFR (CKD) >90 (>60 ml/min/1.73 sqM); Albumin 3.8 g/dL (3.5-5.0); Alkaline Phosphatase 74 U/L (38-126); Anion Gap 9 mmol/L; Blood Urea Nitrogen 11 mg/dL (9-20); Calcium 9.5 mg/dL (8.4-10.2); Carbon Dioxide 22 mmol/L (22-30); Chloride 108 mmol/L (98-107); Glucose 117 mg/dL (74-99); Non-African American GFR(CKD) >90 (>60 ml/min/1.73 sqM); Potassium 3.4 mmol/L (3.5-5.1); Sodium 139 mmol/L (137-145); Total Bilirubin 0.5 mg/dL (0.2-1.3); Total Protein 6.4 g/dL (6.3-8.2)
--- NOTE | 2023-07-22 18:26 | XR ---
EXAMINATION TYPE: XR chest 2V DATE OF EXAM: 07/22/2023 6:16 PM CLINICAL INDICATION:Male, 62 years old with history of difficulty breathing; COMPARISON: Chest radiographs from 06/25/2023. TECHNIQUE: XR chest 2V Frontal and lateral views of the chest. FINDINGS: Lungs/Pleura: Prominent interstitial lung markings are seen scattered throughout the lungs. No eviden ce of focal consolidation, pneumothorax or pleural effusion. Pulmonary vascularity: Unremarkable. Heart/mediastinum: Cardiomediastinal silhouette is unremarkable. Musculoskeletal: No acute osseous pathology. Right shoulder arthroplasty. Other findings: None IMPRESSION: Chronic changes without acute pulmonary process. No significant change from prior.
[2023-07-22 18:35] LABS: Prothrombin Time 11.4 sec (10.0-12.5)
[2023-07-22] MEDS ORDERED: SODIUM CHLORIDE 0.9% 1,000 ML IV STA (19:16)
[2023-07-22] MEDS ORDERED: KETOROLAC 15 MG/ML 1 ML VIAL IVP STA (19:27)
[2023-07-22 23:01] VITALS: BP 132/80; PULSE 84; RESP 18
== END 2023-07-22 22:45 | disposition home or self-care (01) ==
LOC: EC 17:25
DX: R07.89 Other chest pain (principal); R00.0 Tachycardia, unspecified; J44.9 Chronic obstructive pulmonary disease, unspecified; I10 Essential (primary) hypertension; F17.200 Nicotine dependence, unspecified, uncomplicated; Z20.822 Contact with and (suspected) exposure to COVID-19; Z88.0 Allergy status to penicillin
CPT/HCPCS: 36415; 93005; 85379; 80053; 83605; 83735; 84484; 85025; 85610; 85730; 81003; 87636; 71046; 99285; 96374; 96361; J1885

== ENCOUNTER 2024-01-04 15:43 | Observation (INO) | payer OTHER ==
[2024-01-04 16:15] LABS: Basophils # (A) 0.1 k/uL (0-0.2); Basophils % (A) 1 %; Eosinophils # (A) 0.2 k/uL (0-0.7); Eosinophils % (A) 3 %; HCT 51.5 % (39.0-53.0); HGB 16.6 gm/dL (13.0-17.5); Lymphocytes # (A) 2.3 k/uL (1.0-4.8); Lymphocytes % (A) 26 %; MCHC 32.2 g/dL (31.0-37.0); Mean Platelet Volume 8.3; Monocytes # (A) 0.7 k/uL (0-1.0); Monocytes % (A) 8 %; Neutrophils # (A) 5.3 k/uL (1.3-7.7); Neutrophils % (A) 60 %; Platelet Count 273 k/uL (150-450); RBC 5.92 m/uL (4.30-5.90); WBC 8.8 k/uL (3.8-10.6)
[2024-01-04 16:23] LABS: INR 1.1 (<1.2); Partial Thromboplastin Time 24.7 sec (22.0-30.0); Prothrombin Time 11.9 sec (10.0-12.5)
--- NOTE | 2024-01-04 16:24 | ED ---
Chest Pain HPI - General Chief Complaint: Chest Pain Stated Complaint: Chest Pain Time Seen by Provider: 01/04/24 15:46 Source: EMS, RN notes reviewed, old records reviewed Mode of arrival: EMS Limitations: no limitations - History of Present Illness Initial Comments: This is a 63-year-old male with sudden onset chest pain left-sided chest pain heaviness feels like there is a heaviness on his chest inability to take a deep breath history of COPD. This feels different than her normal COPD exacerbation the pain is severe heaviness tightness left-sided over his heart with some sweating. Patient comes to the ER for shortness of breath and chest pain MD Complaint: chest pain -: minutes(s) Onset: during rest, during exertion Pain Location: left chest Pain Radiation: LUE Severity: moderate Severity scale (1-10): 4 Quality: tightness, heaviness Consistency: constant Improves With: nothing Worsens With: nothing Anginal Symptoms: dyspnea Other Symptoms: syncope, palpitations - Related Data Home Medications Medication Instructions Recorded Confirmed Albuterol Sulfate [Ventolin HFA] 2 puff INHALATION RT-TID PRN 06/23/23 01/08/24 Ergocalciferol (Vitamin D2) 1,250 mcg PO MO 06/23/23 01/08/24 [Drisdol (50,000 Iu)] HYDROcodone/APAP 7.5-325MG [Ocate 1 tab PO BID 06/23/23 01/08/24 7.5-325] Atorvastatin [Lipitor] 40 mg PO DAILY 01/04/24 01/08/24 Fluticasone/Umeclidin/Vilanter 1 puff INHALATION RT-DAILY 01/04/24 01/08/24 [Trelegy Ellipta 100-62.5-25] Ibuprofen [Motrin] 800 mg PO BID 01/04/24 01/08/24 Allergies Allergy/AdvReac Type Severity Reaction Status Date / Time No Known Allergies Allergy Verified 01/08/24 17:38 Review of Systems ROS Statement: Those systems with pertinent positive or pertinent negative responses have been documented in the HPI. ROS Other: All systems not noted in ROS Statement are negative. EKG Findings - EKG Comments: EKG Findings:: EKG is sinus 91 NM 149 QRS 110 QTc 405 - EKG Results: EKG: interpreted by GEOFFREY Past Medical History Past Medical History: Cancer, COPD, Hyperlipidemia, Hypertension, Respiratory Disorder Additional Past Medical History / Comment(s): colon CA History of Any Multi-Drug Resistant Organisms: None Reported Past Surgical History: Orthopedic Surgery Additional Past Surgical History / Comment(s): Right rotator cuff - total 5 surgeries of rt shoulder Past Anesthesia/Blood Transfusion Reactions: No Reported Reaction Past Psychological History: No Psychological Hx Reported Smoking Status: Current every day smoker Past Alcohol Use History: Occasional Past Drug Use History: None Reported - Past Family History Father Family Medical History: Cancer Additional Family Medical History / Comment(s): unsure what kind of cancer - per pt General Exam General appearance: alert, in no apparent distress Head exam: Present: atraumatic, normocephalic, normal inspection Eye exam: Present: normal appearance, PERRL, EOMI. Absent: scleral icterus, conjunctival injection, periorbital swelling ENT exam: Present: normal exam, mucous membranes moist Neck exam: Present: normal inspection. Absent: tenderness, meningismus, lymphadenopathy Respiratory exam: Present: normal lung sounds bilaterally. Absent: respiratory distress, wheezes, rales, rhonchi, stridor Cardiovascular Exam: Present: regular rate, normal rhythm, normal heart sounds. Absent: systolic murmur, diastolic murmur, rubs, gallop, clicks GI/Abdominal exam: Present: soft, normal bowel sounds. Absent: distended, tenderness, guarding, rebound, rigid Extremities exam: Present: normal inspection, full ROM, normal capillary refill. Absent: tenderness, pedal edema, joint swelling, calf tenderness Back exam: Present: normal inspection Neurological exam: Present: alert, oriented X3, CN II-XII intact Psychiatric exam: Present: normal affect, normal mood Skin exam: Present: warm, dry, intact, normal color. Absent: rash Course Vital Signs 01/04/24 01/04/24 01/04/24 15:46 17:15 18:08 Temperature Pulse Rate 94 86 82 Respiratory 20 18 Rate Blood Pressure 105/60 108/73 O2 Sat by Pulse 99 98 Oximetry 01/04/24 01/04/24 01/04/24 18:16 18:31 21:09 Temperature Pulse Rate 84 81 82 Respiratory 18 18 Rate Blood Pressure 115/83 100/74 O2 Sat by Pulse 96 99 Oximetry 01/04/24 22:06 Temperature 98.1 F Pulse Rate 81 Respiratory 18 Rate Blood Pressure 115/76 O2 Sat by Pulse 97 Oximetry - Reevaluation(s) Reevaluation #1: 01/04/24 18:34 Medical records reviewed Reevaluation #2: 01/04/24 18:34 Patient still with chest pain Reevaluation #3: 01/04/24 18:34 Patient informed of results questions answered Reevaluation #4: Was pt. sent in by a medical professional or institution (, DIONE, PRODUCTION MATERIAL COORDINATOR, urgent care, hospital, or long term...) When possible be specific @ -no Did you speak to anyone other than the patient for history (EMS, parent, family, police, friend...)? What history was obtained from this source @ -no Did you review nursing and triage notes (agree or disagree)? Why? @ -agree Are old charts reviewed (outside hosp., previous admission, EMS record, old EKG, old radiological studies, urgent care reports/EKG's, long term records)? Report findings @ -yes Differential Diagnosis (chest pain, altered mental status, abdominal pain women, abdominal pain men, vaginal bleeding, weakness, fever, dyspnea, syncope, headache, dizziness, GI bleed, back pain, seizure, CVA, palpatations, mental health, musculoskeletal)? @ -prior EKG interpreted by me (3pts min.). @ -yes X-rays interpreted by me (1pt min.). @ -yes negative for acute disease CT interpreted by me (1pt min.). @ -no U/S interpreted by me (1pt. min.). @ -no What testing was considered but not performed or refused? (CT, X-rays, U/S, labs)? Why? @ -none What meds were considered but not given or refused? Why? @ -none Did you discuss the management of the patient with other professionals (professionals i.e. DIONE Farris, PRODUCTION MATERIAL COORDINATOR, lab, RT, psych nurse, social economist, software asset management analyst, teacher, customs patrol officer, medical case manager)? Give summary @ -no Was smoking cessation discussed for >3mins.? @ -no Was critical care preformed (if so, how long)? @ -yes31 Were there social determinants of health that impacted care today? How? (Homelessness, low income, unemployed, alcoholism, drug addiction, transportation, low edu. Level, literacy, decrease access to med. care, prison, rehab)? @ -none Was there de-escalation of care discussed even if they declined (Discuss DNR or withdrawal of care, Hospice)? DNR status @ -no What co-morbidities impacted this encounter? (DM, HTN, Smoking, COPD, CAD, Cancer, CVA, ARF, Chemo, Hep., AIDS, mental health diagnosis, sleep apnea, morbid obesity)? @ -none Was patient admitted / discharged? Hospital course, mention meds given and route, prescriptions, significant lab abnormalities, going to OR and other pertinent info. @ - 63 male to ER for evaluation of chest pain presenting to the ER just this pain has history of smoking no history of heart disease patient admitted for cardiac observation Admitted Undiagnosed new problem with uncertain prognosis? @ -no Drug Therapy requiring intensive monitoring for toxicity (Heparin, Nitro, Insulin, Cardizem)? @ -no Were any procedures done? @ -no Diagnosis/symptom? @ -Chest pain Acute, or Chronic, or Acute on Chronic? @ -Acute Uncomplicated (without systemic symptoms) or Complicated (systemic symptoms)? @ -Complicated Side effects of treatment? @ -no Exacerbation, Progression, or Severe Exacerbation? @ -exacerbation Poses a threat to life or bodily function? How? (Chest pain, [place], [place], pneumonia, PE, COPD, DKA, ARF, appy, cholecystitis, CVA, Diverticulitis, Homicidal, Suicidal, threat to staff... and all critical care pts) @ -ye with chest pains Reevaluation #5: [facility] differential Chest Pain: Stable Angina, Unstable Angina, STEMI, NSTEMI Aortic Dissection, Pneumothorax, Musculoskeletal, Esophageal Spasm GERD, Cholecystitis, Pancreatitis, Zoster, this is not meant to be an all-inclusive list. - Consultations Consultation #1: Spoke with [facility] who agrees to admit this patient Chest Pain MDM - MDM 63 male to ER for evaluation of chest pain presenting to the ER just this pain has history of smoking no history of heart disease patient admitted for cardiac observation Critical Care Time Critical Care Time: Yes Total Critical Care Time: 31 Disposition Clinical Impression: Chest wall syndrome, Chest pain, COPD (chronic obstructive pulmonary disease), CAD, multiple vessel Disposition: ADMITTED IP TO THIS HOSP Condition: Good Is patient prescribed a controlled substance at d/c from ED?: No Time of Disposition: 18:30
--- NOTE | 2024-01-04 16:27 | XR ---
EXAMINATION TYPE: XR chest 1V portable DATE OF EXAM: 01/04/2024 4:12 PM CLINICAL INDICATION:Male, 63 years old with history of chest pain; H COMPARISON: Chest radiographs from 07/22/2023 TECHNIQUE: XR chest 1V portable Frontal view of the chest. FINDINGS: Lungs/Pleura: Prominent interstitial lung markings are seen scattered throughout the lungs with lalo ening of the diaphragm and increased lucency of the lung apices. No evidence of focal consolidation, pneumothorax or pleural effusion. Pulmonary vascularity: Unremarkable. Heart/mediastinum: Cardiomediastinal silhouette is unremarkable. Musculoskeletal: No acute osseous pathology. Right shoulder arthroplasty appears intact. Other findings: None IMPRESSION: 1. Chronic changes without acute pulmonary process. No significant change from prior. 2. COPD changes.
[2024-01-04 16:34] LABS: ALT 12 U/L (4-49); AST 17 U/L (17-59); African American GFR (CKD) >90 (>60 ml/min/1.73 sqM); Alkaline Phosphatase 62 U/L (38-126); Anion Gap 6 mmol/L; Blood Urea Nitrogen 12 mg/dL (9-20); Calcium 8.1 mg/dL (8.4-10.2); Carbon Dioxide 19 mmol/L (22-30); Chloride 113 mmol/L (98-107); Glucose 95 mg/dL (74-99); Lipase 97 U/L (23-300); Magnesium 1.9 mg/dL (1.6-2.3); Non-African American GFR(CKD) >90 (>60 ml/min/1.73 sqM); Potassium 3.6 mmol/L (3.5-5.1); Sodium 138 mmol/L (137-145); Total Bilirubin 0.6 mg/dL (0.2-1.3); Total Protein 5.3 g/dL (6.3-8.2)
[2024-01-04 16:42] LABS: NT-Pro-B-Type Natriuretic Pept <20 pg/mL
[2024-01-04] MEDS: KETOROLAC 15 MG/ML 1 ML VIAL IVP STA (17:13)
[2024-01-04] MEDS: methylPREDNISolone SOD SUCCI 125 MG/2 ML VIAL IV STA (17:14)
[2024-01-04] MEDS: IPRATROPIUM-ALBUTEROL 3 ML NEB INHALATION STA (18:08)
[2024-01-04] MEDS ORDERED: NITROGLYCERIN SL TABS 0.4 MG TAB SUBLINGUAL PRN (18:29)
[2024-01-04] MEDS: ASPIRIN 81 MG PO STA (18:39)
[2024-01-04] MEDS: HEPARIN SOD,PORK IN 0.45% NACL 25,000 UNIT in 0.45% NACL 1 250ML.BAG IV SCH (18:51)
[2024-01-04] MEDS: HEPARIN SODIUM 1,000 UN/ML (10ML VL) IV ONE (18:52)
[2024-01-05] MEDS: HEPARIN SODIUM 1,000 UN/ML (10ML VL) IV PRN (02:13)
[2024-01-05] MEDS ORDERED: AMINOPHYLLINE 500 MG/20 ML VIAL IV PRN (07:26)
[2024-01-05] MEDS ORDERED: CAFFEINE CITRATE 60 MG/3 ML VIAL IV PRN (07:26)
[2024-01-05] MEDS ORDERED: REGADENOSON 0.4 MG/5 ML SYRINGE IV PRN (07:26)
[2024-01-05] MEDS: ASPIRIN 325 MG TAB PO SCH (07:52)
[2024-01-05] MEDS: ATORVASTATIN 80 MG TAB PO SCH (07:53)
--- NOTE | 2024-01-05 10:08 | P.CRDCN ---
History of Present Illness History of present illness: HISTORY OF PRESENTING ILLNESS Patient is a pleasant 63-year-old male with history of tobacco abuse, family history of CAD, asthma, COPD, hyperlipidemia who presents secondary to chest pain. He does not follow with a applique sewer. He states he had sudden onset of chest pain which was somewhat sharp and inability to take a deep breath with some shortness breath. Denies any diaphoresis or nausea. He states symptoms persisted and therefore went emergency department. He states it was very severe and therefore more concerns. He does admit to some vague recent chill. Denies any trauma. He is concerned with strong family history including dad, mom, sister all having stents and bypass in their 40s to 50s. He has been on the cholesterol regimen, statin for the last 3 or 4 years. He is still smoking however is cut down to approximately 9 cigarettes per his previously was 20 ciga rettes a day. REVIEW OF SYSTEMS At the time of my exam: CONSTITUTIONAL: Denies fever or chills. CARDIOVASCULAR: +chest pain, +shortness of breath, orthopnea, PND or palpitations. RESPIRATORY: Denies cough. GASTROINTESTINAL: Denies abdominal pain, diarrhea, constipation, nausea or vomiting. MUSCULOSKELETAL: Denies myalgias. NEUROLOGIC: Denies numbness, tingling or weakness. ENDOCRINE: Denies fatigue, weight change, polydipsia or polyurina. GENITOURINARY: Denies burning, hematuria or urgency with micturation. HEMATOLOGIC: Denies history of anemia or bleeding. PHYSICAL EXAMINATION Vital signs reviewed. CONSTITUTIONAL: No apparent distress. HEENT: Head is normocephalic. Pupils are equal, round. Sclerae anicteric. Mucous membranes of the mouth are moist. No JVD. No carotid bruit. CHEST EXAMINATION: Lungs are clear to auscultation. +reproducible chest pain. HEART EXAMINATION: Regular rate and rhythm. S1, S2 heard. No murmurs, gallops or rub. ABDOMEN: Soft, nontender. Positive bowel sounds. EXTREMITIES: 2+ peripheral pulses, no lower extremity edema and no calf tenderness. NEUROLOGIC EXAMINATION: Patient is awake, alert and oriented x3. ASSESSMENT Chest pain some reproducible, some may be more anginal Dyspnea Tobacco abuse Hyperlipidemia Family history of CAD PLAN Patient's troponin is normal and EKG unrevealing. He does have multiple risk factors and therefore discussed stress testing patient is agreeable. Check stress test as well as echo. Most of his pain is reproducible with palpation however having other chest pain as well and check workup. Past Medical History Past Medical History: Cancer, COPD, Hyperlipidemia, Hypertension, Respiratory Disorder Additional Past Medical History / Comment(s): colon CA History of Any Multi-Drug Resistant Organisms: None Reported Past Surgical History: Orthopedic Surgery Additional Past Surgical History / Comment(s): Right rotator cuff - total 5 surgeries of rt shoulder Past Anesthesia/Blood Transfusion Reactions: No Reported Reaction Past Psychological History: No Psychological Hx Reported Smoking Status: Current every day smoker Past Alcohol Use History: Occasional Past Drug Use History: None Reported - Past Family History Father Family Medical History: Cancer Additional Family Medical History / Comment(s): unsure what kind of cancer - per pt Medications and Allergies Home Medications Medication Instructions Recorded Confirmed Type Albuterol Sulfate [Ventolin HFA] 2 puff INHALATION RT-TID PRN 06/23/23 01/04/24 History Ergocalciferol (Vitamin D2) 1,250 mcg PO MO 06/23/23 01/04/24 History [Drisdol (50,000 Iu)] HYDROcodone/APAP 7.5-325MG [Ridge 1 tab PO BID 06/23/23 01/04/24 History 7.5-325] Atorvastatin [Lipitor] 40 mg PO DAILY 01/04/24 01/04/24 History Fluticasone/Umeclidin/Vilanter 1 puff INHALATION RT-DAILY 01/04/24 01/04/24 History [Trelegy Ellipta 100-62.5-25] Ibuprofen [Motrin] 800 mg PO BID 01/04/24 01/04/24 History Allergies Allergy/AdvReac Type Severity Reaction Status Date / Time No Known Allergies Allergy Verified 01/04/24 18:13 Physical Exam Vitals: Vital Signs Temp Pulse Pulse Resp BP BP Pulse Ox 01/05/24 08:00 93 01/05/24 07:00 97.7 F 92 12 123/80 99 01/05/24 02:19 98.0 F 92 15 96/63 97 01/04/24 23:11 97.9 F 92 15 102/69 99 01/04/24 22:06 98.1 F 81 18 115/76 97 01/04/24 21:09 82 18 100/74 99 01/04/24 18:31 81 18 115/83 96 01/04/24 18:16 84 01/04/24 18:08 82 01/04/24 17:15 86 18 108/73 98 01/04/24 15:46 94 20 105/60 99 Intake and Output 01/04/24 01/05/24 01/05/24 22:59 06:59 14:59 Intake Total 61.92 Balance 61.92 Intake: Intake, IV Titration 61.92 Amount Heparin Sod,Pork in 0.45% 61.92 NaCl 25,000 unit In 0.45 % NaCl 1 250ml.bag @ 12 UNITS/KG/HR 8.6 mls/hr IV .Q24H [facility] Rx#:[id number] Other: Voiding Method Toilet # Voids 2 Weight 71.668 kg Results 01/04/24 16:02 01/04/24 16:02 Cardiac Enzymes 01/04/24 01/04/24 01/04/24 Range/Units 16:02 16:02 19:14 AST 17 (17-59) U/L Troponin I <0.012 <0.012 (0.000-0.034) ng/mL 01/04/24 Range/Units 22:46 AST (17-59) U/L Troponin I <0.012 (0.000-0.034) ng/mL Coagulation 01/04/24 01/04/24 01/05/24 Range/Units 16:02 19:14 00:33 PT 11.9 (10.0-12.5) sec APTT 24.7 127.8 H* 31.2 H (22.0-30.0) sec 01/05/24 01/05/24 Range/Units 07:48 07:48 PT (10.0-12.5) sec APTT 48.6 H 47.1 H (22.0-30.0) sec CBC 01/04/24 Range/Units 16:02 WBC 8.8 (3.8-10.6) k/uL RBC 5.92 H (4.30-5.90) m/uL Hgb 16.6 (13.0-17.5) gm/dL Hct 51.5 (39.0-53.0) % Plt Count 273 (150-450) k/uL Comprehensive Metabolic Panel 01/04/24 Range/Units 16:02 Sodium 138 (137-145) mmol/L Potassium 3.6 (3.5-5.1) mmol/L Chloride 113 H (98-107) mmol/L Carbon Dioxide 19 L (22-30) mmol/L BUN 12 (9-20) mg/dL Creatinine 0.64 L (0.66-1.25) mg/dL Glucose 95 (74-99) mg/dL Calcium 8.1 L (8.4-10.2) mg/dL AST 17 (17-59) U/L ALT 12 (4-49) U/L Alkaline Phosphatase 62 (38-126) U/L Total Protein 5.3 L (6.3-8.2) g/dL Albumin 3.0 L (3.5-5.0) g/dL Current Medications Generic Name Dose Route Start Last Admin Trade Name Freq PRN Reason Stop Dose Admin Aminophylline 100 mg 01/05/24 07:26 Aminophylline 500 Mg/20 Ml Vial IV 01/05/24 11:26 ONCE PRN Patient Response Aspirin 325 mg 01/05/24 09:00 01/05/24 07:52 Aspirin 325 Mg Tab PO 325 mg DAILY JUSTIN Administration Atorvastatin Calcium 80 mg 01/05/24 09:00 01/05/24 07:53 Atorvastatin 80 Mg Tab PO 80 mg DAILY JUSTIN Administration Caffeine Citrate 60 mg 01/05/24 07:26 Caffeine Citrate 60 Mg/3 Ml Vial IV 01/05/24 11:26 ONCE PRN Patient Response Heparin Sodium (Porcine) 0 unit 01/05/24 02:05 01/05/24 02:13 Heparin Sodium 1,000 Un/Ml (10ml Vl) IV 3,583 unit PER PROTOCOL PRN Administration Low PTT Protocol Heparin Sodium/Sodium Chloride 250 mls @ 8.6 mls/hr 01/04/24 18:30 01/05/24 02:03 25,000 unit/ Sodium Chloride IV 15 units/kg/hr .Q24H JUSTIN 10.75 mls/hr Titration Protocol 12 UNITS/KG/HR Morphine Sulfate 4 mg 01/04/24 18:29 Morphine Sulfate 4 Mg/Ml Syringe IV Q4HR PRN Chest Pain Nitroglycerin 0.4 mg 01/04/24 18:29 Nitroglycerin Sl Tabs 0.4 Mg Tab SUBLINGUAL Q5M PRN Chest Pain Regadenoson 0.4 mg 01/05/24 07:26 Regadenoson 0.4 Mg/5 Ml Syringe IV 01/05/24 11:26 ONCE PRN Per Protocol Intake and Output 01/04/24 01/05/24 01/05/24 22:59 06:59 14:59 Intake Total 61.92 Balance 61.92 Intake: Intake, IV Titration 61.92 Amount Heparin Sod,Pork in 0.45% 61.92 NaCl 25,000 unit In 0.45 % NaCl 1 250ml.bag @ 12 UNITS/KG/HR 8.6 mls/hr IV .Q24H [facility] Rx#:[id number] Other: Voiding Method Toilet # Voids 2 Weight 71.668 kg 01/04/24 16:02 01/04/24 16:02
[2024-01-05 10:50] LABS: Platelet Count 295 X 10*3/uL (140-440); VLDL Calculation 15.28 mg/dL (5.00-40.00)
--- NOTE | 2024-01-05 12:18 | NM ---
EXAMINATION TYPE: NM stress lexiscan cardiolite DATE OF EXAM: 01/05/2024 COMPARISON: NONE CLINICAL INDICATION: Male, 63 years old with history of re: Chest pain; TECHNIQUE: After the intravenous administration of 10.16 mCi Tc 99m Sestamibi - Cardiolite resting S PECT images acquired 45 minutes post injection. The patient received 0.4mg Lexiscan, 25.8 mCi Tc 99m Sestamibi - Stress images obtained [address] injection FINDINGS: Review of stress and rest SPECT images demonstrates a moderate-sized is calculated at 1.0, limits of normal. Fixed perfusion defect along the mid and no discrete reversibility is seen. Gated analysis sh ows normal wall motion with an estimated left ventricular ejection fraction of 65 %. TID is calculate d at 1.0, within normal limits. IMPRESSION: Moderate-sized fixed defect in the mid to apical inferior wall. Findings could reflect di aphragmatic attenuation artifact versus an area of old infarct. Clinically correlate. No discrete rev ersibility is seen.
--- NOTE | 2024-01-05 12:22 | CA ---
Lexiscan Nuclear Stress Test Report Name: Ryan Mcdaniels Exam Date: 01/05/2024 09:50 Exam Location: [facility] Stress Ht (in): 68 Wt (lb): 154 BSA: 1.83 Ordering Phys: Eusebio Bolanos DO Referring Phys: TITI Technologist: Gray Berry Age: 63 Gender: M : 1960 Procedure CPT: Indications: Reflex order-Stress test ICD-10 Codes: Patient History: Medications: SEE CHART Meds past 24 hrs: Pretest Chest Pain: STRESS TEST Lexiscan Protocol Exercise Duration (min:sec): 02:[address] Depressions (mm): Angina Score: Menezes Score: Resting HR (bpm): 90 Peak HR (bpm): 113 Resting BP (mmHg): 114 / 83 Peak BP (mmHg): 116 / 75 MPHR: 159 Target HR: 135 % MPHR: 71 METS: 1.0 Total Dose: Peak Dose: Atropine: Double Product: 23372 BP Response: Stress Termination: PROTOCOL COMPLETE Stress Symptoms: HEADACHE Stress Summary: ECG ANALYSIS Resting ECG: Stress ECG: CONCLUSIONS At baseline EKG showed normal sinus rhythm, normal axis, no significant ST or T wave abnormalities. Patient recieved IV infusion of Lexiscan 0.4mg and at peak infusion EKG showed no significant change from baseline. Conclusions: 1. Normal EKG response to Lexiscan infusion 2. Nuclear imaging to be reported separately. Dr. Eusebio Bolanos DO (Electronically Signed) Final Date: 05 January 2024 12:21
[2024-01-05] MEDS: MORPHINE SULFATE 4 MG/ML SYRINGE IV PRN (20:27)
[2024-01-05] MEDS ORDERED: ALBUTEROL HFA INHALER INHALATION PRN (21:47)
[2024-01-05] MEDS ORDERED: IPRATROPIUM-ALBUTEROL 3 ML NEB INHALATION PRN (21:50)
--- NOTE | 2024-01-05 22:02 | P.HPIM ---
History of Present Illness H&P Date: 01/05/24 Chief Complaint: Chest pain Patient is a 63-year-old male with a past medical history of COPD, hypertension, hyperlipidemia, history of colon cancer and currently everyday smoker presents to ER with complaints of left-sided chest heaviness and inability to take deep breaths. Chest pressure is mainly over the left upper chest. Denies any radiation of the pain. Patient felt heavy and diaphoretic and short of breath. Presented to ER for evaluation. Patient states that he fell about a week ago. Denies any cough or sputum production. No nausea vomiting or diarrhea. Denies any fever or chills. Chest x-ray showed chronic changes without acute pulmonary process. No significant change from prior. COPD changes. EKG showed sinus rhythm with incomplete right bundle branch block. Laboratory data showed WBC 8.8 hemoglobin 16.6 and platelets 273 sodium 138 potassium 3.6 chloride 103 bicarb is 19 BUN 12 and creatinine 0.64 and blood sugar 95 calcium 8.1 proBNP less than 20 and albumin 3.0 total cholesterol 224 and LDL 162 lipase 97. Review of Systems Constitutional: Patient denies any fever or chills . No generalized weakness or weight loss. Abdomen: Patient denied nausea vomiting and diarrhea and abdominal pain. Cardiovascular: Patient complains of chest pain. No short of breath no palpitations. No leg swelling Respiratory: patient denied any cough or sputum production. No shortness of breath Neurologic: Patient denied any numbness or tingling. no headache. Musculoskeletal: Patient denies any complaints of joint swelling or deformity. Skin: Negative Psychiatric: Negative Endocrine: No heat or cold intolerance. No recent weight gain. Genitourinary: No dysuria or hematuria. All other 14 point ROS negative except the above Past Medical History Past Medical History: Cancer, COPD, Hyperlipidemia, Hypertension, Respiratory Disorder Additional Past Medical History / Comment(s): colon CA History of Any Multi-Drug Resistant Organisms: None Reported Past Surgical History: Orthopedic Surgery Additional Past Surgical History / Comment(s): Right rotator cuff - total 5 surgeries of rt shoulder Past Anesthesia/Blood Transfusion Reactions: No Reported Reaction Past Psychological History: No Psychological Hx Reported Smoking Status: Current every day smoker Past Alcohol Use History: Occasional Past Drug Use History: None Reported - Past Family History Father Family Medical History: Cancer Additional Family Medical History / Comment(s): unsure what kind of cancer - per pt Medications and Allergies Home Medications Medication Instructions Recorded Confirmed Type Albuterol Sulfate [Ventolin HFA] 2 puff INHALATION RT-TID PRN 06/23/23 01/04/24 History Ergocalciferol (Vitamin D2) 1,250 mcg PO MO 06/23/23 01/04/24 History [Drisdol (50,000 Iu)] HYDROcodone/APAP 7.5-325MG [[place] 1 tab PO BID 06/23/23 01/04/24 History 7.5-325] Atorvastatin [Lipitor] 40 mg PO DAILY 01/04/24 01/04/24 History Fluticasone/Umeclidin/Vilanter 1 puff INHALATION RT-DAILY 01/04/24 01/04/24 History [Trelegy Ellipta 100-62.5-25] Ibuprofen [Motrin] 800 mg PO BID 01/04/24 01/04/24 History Allergies Allergy/AdvReac Type Severity Reaction Status Date / Time No Known Allergies Allergy Verified 01/04/24 18:13 Physical Exam Vitals: Vital Signs Temp Pulse Pulse Resp BP BP Pulse Ox 01/05/24 08:00 93 01/05/24 07:00 97.7 F 92 12 123/80 99 01/05/24 02:19 98.0 F 92 15 96/63 97 01/04/24 23:11 97.9 F 92 15 102/69 99 01/04/24 22:06 98.1 F 81 18 115/76 97 01/04/24 21:09 82 18 100/74 99 01/04/24 18:31 81 18 115/83 96 01/04/24 18:16 84 01/04/24 18:08 82 01/04/24 17:15 86 18 108/73 98 01/04/24 15:46 94 20 105/60 99 Intake and Output 01/04/24 01/05/24 01/05/24 22:59 06:59 14:59 Intake Total 61.92 74.713 Balance 61.92 74.713 Intake: Intake, IV Titration 61.92 74.713 Amount Heparin Sod,Pork in 0.45% 61.92 74.713 NaCl 25,000 unit In 0.45 % NaCl 1 250ml.bag @ 12 UNITS/KG/HR 8.6 mls/hr IV .Q24H [facility] Rx#:[id number] Other: Voiding Method Toilet # Voids 2 Weight 71.668 kg PHYSICAL EXAMINATION: Patient is lying in the bed comfortably, no acute distress, awake alert and oriented.. HEENT: Normocephalic. Neck is supple. Pupils reactive. Nostrils clear. Oral cavity is moist. Neck reveals no JVD, carotid bruits, or thyromegaly. CHEST EXAMINATION: Trachea is central. Symmetrical expansion. Tender to palpation over the left upper chest. Bibasilar diminished sounds. No wheezing nonlabored breathing.. CARDIAC: Normal S1, S2 with no gallops. No murmurs ABDOMEN: Soft. Bowel sounds normal. No organomegaly. No abdominal bruits. Extremities: reveal no edema. No clubbing or cyanosis Neurologically awake, alert, oriented x3 with well-coordinated movements. No focal deficits noted Skin: No rash or skin lesions. Psychiatric: Coperative. Nonsuicidal Musculoskeletal: No joint swelling or deformity. Normal range of motion. Results CBC & Chem 7: 01/05/24 07:48 01/04/24 16:02 Labs: Abnormal Lab Results - Last 24 Hours (Table) 01/04/24 01/04/24 01/04/24 Range/Units 16:02 16:02 19:14 RBC 5.92 H (4.30-5.90) m/uL APTT 127.8 H* (22.0-30.0) sec Chloride 113 H (98-107) mmol/L Carbon Dioxide 19 L (22-30) mmol/L Creatinine 0.64 L (0.66-1.25) mg/dL Calcium 8.1 L (8.4-10.2) mg/dL Total Protein 5.3 L (6.3-8.2) g/dL Albumin 3.0 L (3.5-5.0) g/dL Cholesterol (0.00-200.00) mg/dL LDL Cholesterol, Calc (0.0-131.0) mg/dL 01/05/24 01/05/24 01/05/24 Range/Units 00:33 07:48 07:48 RBC (4.30-5.90) m/uL APTT 31.2 H 48.6 H (22.0-30.0) sec Chloride (98-107) mmol/L Carbon Dioxide (22-30) mmol/L Creatinine (0.66-1.25) mg/dL Calcium (8.4-10.2) mg/dL Total Protein (6.3-8.2) g/dL Albumin (3.5-5.0) g/dL Cholesterol 224.00 H (0.00-200.00) mg/dL LDL Cholesterol, Calc 162.0 H (0.0-131.0) mg/dL 01/05/24 Range/Units 07:48 RBC (4.30-5.90) m/uL APTT 47.1 H (22.0-30.0) sec Chloride (98-107) mmol/L Carbon Dioxide (22-30) mmol/L Creatinine (0.66-1.25) mg/dL Calcium (8.4-10.2) mg/dL Total Protein (6.3-8.2) g/dL Albumin (3.5-5.0) g/dL Cholesterol (0.00-200.00) mg/dL LDL Cholesterol, Calc (0.0-131.0) mg/dL Thrombosis Risk Factor Assmnt - DVT/VTE Prophylaxis DVT/VTE Prophylaxis: Pharmacologic Prophylaxis ordered - Choose All That Apply Each Risk Factor Represents 2 Points: Age 61-74 years Thrombosis Risk Factor Assessment Total Risk Factor Score: 2 Thrombosis Risk Factor Assessment Level: Low Risk Assessment and Plan Assessment: Chest pain patient is likely reproducible. Ruled out ACS COPD Ongoing nicotine addiction Hyperlipidemia Hypertension Family history of coronary disease DVT prophylaxis Plan: Patient will be continued on telemonitoring. Serial EKG and troponin x 3 negative. Continue with [employer] and [employer] tobintica and follow-up respiratory status closely. Patient was seen by cardiology and recommends stress test. Continue to follow closely. Time with Patient: Greater than 30
[2024-01-06 07:35] VITALS: TEMP 97.6
[2024-01-06] MEDS: IPRATROPIUM 0.5 MG/2.5 ML NEBU INHALATION SCH (09:20)
[2024-01-06] MEDS: SYMBICORT 80-4.5 MCG INHALER INHALATION SCH (09:20)
[2024-01-06 10:32] LABS: Basophils # (A) 0.07 X 10*3/uL (0.00-0.10); Basophils % (A) 0.6 %; Eosinophils # (A) 0.16 X 10*3/uL (0.04-0.35); Eosinophils % (A) 1.4 %; HCT 50.5 % (39.6-50.0); HGB 16.8 g/dL (13.0-17.0); Lymphocytes # (A) 2.18 X 10*3/uL (0.90-5.00); Lymphocytes % (A) 18.7 %; MCH 27.9 pg (27.0-32.0); MCHC 33.3 g/dL (32.0-37.0); MCV 83.9 FL (80.0-97.0); Mean Platelet Volume 10.6 FL (9.5-12.2); Monocytes # (A) 1.12 X 10*3/uL (0.20-1.00); Monocytes % (A) 9.6 %; NRBC Per 100 WBC 0 X 10*3/uL (0.00-0.01); Neutrophils # (A) 8.03 X 10*3/uL (1.80-7.70); Platelet Count 290 X 10*3/uL (140-440); RBC 6.02 X 10*6/uL (4.40-5.60); RDW 14.6 % (11.5-14.5); WBC 11.64 X 10*3/uL (4.50-10.00)
[2024-01-06 10:47] LABS: BUN/Creat Ratio 16.78 Ratio (12.00-20.00); Blood Urea Nitrogen 15.1 mg/dL (9.0-27.0); Calcium 8.9 mg/dL (8.7-10.3); Carbon Dioxide 25.4 mmol/L (21.6-31.8); Chloride 106 mmol/L (96-109); Glucose 89 mg/dL (70-110); Potassium 4.6 mmol/L (3.5-5.5); Sodium 140 mmol/L (135-145)
[2024-01-06] MEDS: ACETAMINOPHEN TAB 325 MG TAB PO PRN (14:14)
[2024-01-06 14:38] VITALS: BP 112/76; RESP 12
[2024-01-06 15:27] VITALS: PULSE 88
--- NOTE | 2024-01-06 17:53 | P.PN ---
Subjective HISTORY OF PRESENTING ILLNESS Patient is a pleasant 63-year-old male with history of tobacco abuse, family history of CAD, asthma, COPD, hyperlipidemia who presents secondary to chest pain. 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 He states he had sudden onset of chest pain which was somewhat sharp and inability to take a deep breath with some shortness breath. Denies any diaphoresis or nausea. He states symptoms persisted and therefore went emergency department. He states it was very severe and therefore more concerns. He does admit to some vague recent chill. Denies any trauma. He is concerned with strong family history including dad, mom, sister all having stents and bypass in their 40s to 50s. He has been on the cholesterol regimen, statin for the last 3 or 4 years. He is still smoking however is cut down to approximately 9 cigarettes per his previously was 20 cigarettes a day. 01/05 Patient seen and examined. Patient denies any further chest pain or pressure. States overall he is feeling better. Lexiscan stress test showed a fixed apical inferior perfusion defect. Personally reviewed and no reversibility. PHYSICAL EXAMINATION Vital signs reviewed. CONSTITUTIONAL: No apparent distress. HEENT: Head is normocephalic. Pupils are equal, round. Sclerae anicteric. Mucous membranes of the mouth are moist. No JVD. No carotid bruit. CHEST EXAMINATION: Lungs are clear to auscultation. +reproducible chest pain. HEART EXAMINATION: Regular rate and rhythm. S1, S2 heard. No murmurs, gallops or rub. ABDOMEN: Soft, nontender. Positive bowel sounds. EXTREMITIES: 2+ peripheral pulses, no lower extremity edema and no calf tenderness. NEUROLOGIC EXAMINATION: Patient is awake, alert and oriented x3. ASSESSMENT Chest pain some reproducible, some may be more anginal Dyspnea Tobacco abuse Hyperlipidemia Family history of CAD PLAN Lexiscan stress test showing any abnormal reversible ischemia. Not had any further chest pain and appeared musculoskeletal to begin with. Cleared from a cardiology standpoint for discharge with outpatient follow-up. Objective - Vital Signs Vital signs: Vital Signs Temp 97.6 F 01/06/24 14:38 Pulse 88 01/06/24 15:26 Resp 12 01/06/24 14:38 BP 112/76 01/06/24 14:38 Pulse Ox 99 01/06/24 14:38 FiO2 Intake & Output 01/05/24 01/06/24 01/06/24 18:59 06:59 18:59 Intake Total 428.713 222 Balance 428.713 222 Intake: Intake, IV Titration 74.713 Amount Heparin Sod,Pork in 0.45% 74.713 NaCl 25,000 unit In 0.45 % NaCl 1 250ml.bag @ 12 UNITS/KG/HR 8.6 mls/hr IV .Q24H [facility] Rx#:[id number] Oral 354 222 Other: Voiding Method Toilet Toilet # Voids 3 2 1 - Labs CBC & Chem 7: 01/06/24 06:58 01/06/24 06:58 Labs: Abnormal Lab Results - Last 24 Hours (Table) 01/06/24 Range/Units 06:58 WBC 11.64 H (4.50-10.00) X 10*3/uL RBC 6.02 H (4.40-5.60) X 10*6/uL Hct 50.5 H (39.6-50.0) % RDW 14.6 H (11.5-14.5) % Immature Gran # 0.08 H (0.00-0.04) X 10*3/uL Neutrophils # 8.03 H (1.80-7.70) X 10*3/uL Monocytes # 1.12 H (0.20-1.00) X 10*3/uL
--- NOTE | 2024-01-06 21:31 | P.DS ---
Providers Date of admission: 01/04/24 18:31 Expected date of discharge: 01/06/24 Attending physician: Martin Feliz Consults: 01/04/24 18:29 Consult Physician Urgent Consulting Provider: Lucian De La Rosa Consult Reason/Comments: cp Do you want consulting provider notified?: Yes Primary care physician: Martin Feliz Patient Condition at Discharge: Good Plan - Discharge Summary New Discharge Prescriptions: Continue HYDROcodone/APAP 7.5-325MG [[place] 7.5-325] 1 tab PO BID Ergocalciferol (Vitamin D2) [Drisdol (50,000 Iu)] 1,250 mcg PO MO Atorvastatin [Lipitor] 40 mg PO DAILY Albuterol Sulfate [Ventolin HFA] 2 puff INHALATION RT-TID PRN PRN Reason: Shortness Of Breath Fluticasone/Umeclidin/Vilanter [Trelegy Ellipta 100-62.5-25] 1 puff INHALATION RT-DAILY No Action Ibuprofen [Motrin] 800 mg PO BID Discharge Medication List Albuterol Sulfate [Ventolin HFA] 2 puff INHALATION RT-TID PRN 06/23/23 [History] Ergocalciferol (Vitamin D2) [Drisdol (50,000 Iu)] 1,250 mcg PO MO 06/23/23 [History] HYDROcodone/APAP 7.5-325MG [[place] 7.5-325] 1 tab PO BID 06/23/23 [History] Atorvastatin [Lipitor] 40 mg PO DAILY 01/04/24 [History] Fluticasone/Umeclidin/Vilanter [Trelegy Ellipta 100-62.5-25] 1 puff INHALATION RT-DAILY 01/04/24 [History] Ibuprofen [Motrin] 800 mg PO BID 01/04/24 [History] Follow up Appointment(s)/Referral(s): Martin Feliz MD [Primary Care Provider] - 1-2 days Patient Instructions/Handouts: Chest Pain (ED) Discharge Disposition: HOME SELF-CARE
--- NOTE | 2024-01-06 23:18 | PN ---
PROGRESS NOTE DATE OF SERVICE: 01/06/2024 CHIEF COMPLAINT: Chest pain. HISTORY OF PRESENT ILLNESS: This gentleman is doing fairly well. He is going down for studies today and he is not sure what it is. It may be a cardiac cath. His chest pain is gone. His troponins are negative. PHYSICAL EXAMINATION: CHEST: Clear. CARDIAC: Normal. IMPRESSION: 1. Chest pain. 2. Hyperlipidemia. 3. COPD. PLAN: Further cardiac studies today. MMODL / IJN: [id number] /
--- NOTE | 2024-01-08 03:07 | DS ---
DISCHARGE SUMMARY can be found in the initial workup. LABORATORY STUDIES: While he was in the hospital, he had laboratory studies, details DICTATION ENDS HERE MMODL / IJN: [id number] /
== END 2024-01-06 20:00 | disposition home or self-care (01) ==
LOC: EC 15:43 → 6NMEDSUR 18:31
PROVIDERS: ADMIT Family Medicine; ATTEND Family Medicine
DX: R07.89 Other chest pain (principal); R61 Generalized hyperhidrosis; J44.89 Other specified chronic obstructive pulmonary disease; R94.39 Abnormal result of other cardiovascular function study; I45.10 Unspecified right bundle-branch block; I10 Essential (primary) hypertension; E78.5 Hyperlipidemia, unspecified; F17.210 Nicotine dependence, cigarettes, uncomplicated; Z79.51 Long term (current) use of inhaled steroids; Z79.891 Long term (current) use of opiate analgesic; Z79.1 Long term (current) use of non-steroidal anti-inflammatories (NSAID); Z79.899 Other long term (current) drug therapy; Z85.038 Personal history of other malignant neoplasm of large intestine; Z82.49 Family history of ischemic heart disease and other diseases of the circulatory system
CPT/HCPCS: 96376 ×3; 96366 ×3; 96375 ×2; 96365; 99285; 36415; 94640 ×3; 93005 ×2; 93017; 83880; 80061; 80053; 80048; 83690; 83735; 84484; 85025 ×2; 85049; 85610; 85730 ×2; 71045; 78452; G0378 ×3; A9500; J2270 ×2; J1644 ×3; J2785; J1885; J2919

== ENCOUNTER 2024-01-08 16:46 | Inpatient (IN) | payer OTHER ==
--- NOTE | 2024-01-08 17:39 | ED ---
Chest Pain HPI - General Chief Complaint: Chest Pain Stated Complaint: chest pain Time Seen by Provider: 01/08/24 17:00 Source: EMS Mode of arrival: EMS Limitations: no limitations - History of Present Illness Initial Comments: This patient is a 63-year-old man who presents with complaint of left-sided chest pain. Patient states that the pain came on tonight at rest while he was watching television. It is similar to pain for which she was seen here on January 03. The patient states that he was admitted at that time and he had the impression that he was going to have a stent placed but that the procedure was canceled. Complaint: chest pain Onset/Timin -: hour(s) Onset: during rest Pain Location: left chest Pain Radiation: LUE Severity: moderate Quality: aching Consistency: constant Improves With: nothing Worsens With: nothing Treatments Prior to Arrival: aspirin - Related Data Home Medications Medication Instructions Recorded Confirmed Albuterol Sulfate [Ventolin HFA] 2 puff INHALATION RT-TID PRN 06/23/23 01/08/24 Ergocalciferol (Vitamin D2) 1,250 mcg PO MO 06/23/23 01/08/24 [Drisdol (50,000 Iu)] HYDROcodone/APAP 7.5-325MG [[place] 1 tab PO BID 06/23/23 01/08/24 7.5-325] Atorvastatin [Lipitor] 40 mg PO DAILY 01/04/24 01/08/24 Fluticasone/Umeclidin/Vilanter 1 puff INHALATION RT-DAILY 01/04/24 01/08/24 [Trelegy Ellipta 100-62.5-25] Ibuprofen [Motrin] 800 mg PO BID 01/04/24 01/08/24 Previous Rx's Medication Instructions Recorded Acetaminophen Tab [Tylenol] 650 mg PO Q4HR PRN tab 01/16/24 Amiodarone [Cordarone] 400 mg PO BID #43 tab 01/16/24 Aspirin 325 mg PO DAILY #30 tab 01/16/24 Clopidogrel [Plavix] 75 mg PO DAILY #30 tab 01/16/24 Metoprolol Tartrate [Lopressor] 25 mg PO BID #60 tab 01/16/24 Pantoprazole [Protonix] 40 mg PO AC-BRKFST #30 tab 01/16/24 Sennosides-Docusate Sodium 2 each PO HS PRN tab 01/16/24 [Senokot-S] amLODIPine [Norvasc] 2.5 mg PO 1200 #30 tab 01/16/24 Allergies Allergy/AdvReac Type Severity Reaction Status Date / Time No Known Allergies Allergy Verified 01/08/24 17:38 Review of Systems ROS Statement: Those systems with pertinent positive or pertinent negative responses have been documented in the HPI. ROS Other: All systems not noted in ROS Statement are negative. Constitutional: Denies: fever, chills, weakness Respiratory: Denies: cough, dyspnea Cardiovascular: Reports: chest pain. Denies: palpitations, orthopnea, edema, syncope Gastrointestinal: Reports: nausea. Denies: abdominal pain, vomiting, diarrhea Genitourinary: Denies: dysuria, hematuria Musculoskeletal: Denies: back pain Skin: Denies: rash Neurological: Denies: headache, weakness EKG Findings - EKG Results: EKG: interpreted by ERMD, sinus rhythm, normal axis, normal ST/T EKG shows: tachycardia (Rate 100 bpm) - Blocks, [place], Hypertrophy, ST Abn: AV and intraventricular conduction: right bundle branch block (fixed/intermittent, complete/incomplete) (Incomplete) Past Medical History Past Medical History: Cancer, COPD, Hyperlipidemia, Hypertension, Respiratory Disorder Additional Past Medical History / Comment(s): colon CA History of Any Multi-Drug Resistant Organisms: None Reported Past Surgical History: Orthopedic Surgery Additional Past Surgical History / Comment(s): Right rotator cuff - total 5 surgeries of rt shoulder Past Anesthesia/Blood Transfusion Reactions: No Reported Reaction Past Psychological History: No Psychological Hx Reported Smoking Status: Current every day smoker Past Alcohol Use History: Occasional Past Drug Use History: None Reported - Past Family History Father Family Medical History: Cancer Additional Family Medical History / Comment(s): unsure what kind of cancer - per pt General Exam Limitations: no limitations General appearance: alert, in no apparent distress Head exam: Present: atraumatic, normocephalic Eye exam: Present: normal appearance. Absent: scleral icterus, conjunctival injection ENT exam: Present: normal oropharynx Neck exam: Present: normal inspection Respiratory exam: Present: normal lung sounds bilaterally. Absent: respiratory distress, wheezes, rales, rhonchi, stridor, accessory muscle use Cardiovascular Exam: Present: regular rate, normal rhythm, normal heart sounds. Absent: systolic murmur, diastolic murmur, rubs, gallop GI/Abdominal exam: Present: soft. Absent: distended, tenderness, guarding, rebound, rigid, mass Extremities exam: Present: normal inspection, normal capillary refill. Absent: pedal edema, calf tenderness Back exam: Present: normal inspection. Absent: CVA tenderness (R), CVA tenderness (L) Neurological exam: Present: alert Skin exam: Present: warm, dry, intact, normal color. Absent: rash Course Vital Signs 01/08/24 01/08/24 01/08/24 16:47 16:55 17:01 Temperature 97.3 F L Pulse Rate 103 H 97 Pulse Rate [ 97 Guest Services Manager ] Respiratory 18 18 Rate Blood Pressure 173/132 120/82 Blood Pressure [Left Arm] O2 Sat by Pulse 100 100 Oximetry 01/08/24 01/08/24 01/08/24 17:50 18:46 18:58 Temperature Pulse Rate 92 93 88 Pulse Rate [ Guest Services Manager ] Respiratory 18 18 16 Rate Blood Pressure 166/77 120/90 113/74 Blood Pressure [Left Arm] O2 Sat by Pulse 95 99 97 Oximetry 01/08/24 01/08/24 01/09/24 20:00 21:00 01:00 Temperature 97.1 F L 98.4 F Pulse Rate 91 87 84 Pulse Rate [ Guest Services Manager ] Respiratory 17 19 15 Rate Blood Pressure 108/76 106/84 104/66 Blood Pressure [Left Arm] O2 Sat by Pulse 95 96 94 L Oximetry 01/09/24 01/09/24 01/09/24 03:45 04:00 04:15 Temperature Pulse Rate 79 84 80 Pulse Rate [ Guest Services Manager ] Respiratory 29 H 30 H 22 Rate Blood Pressure 105/77 105/77 97/67 Blood Pressure [Left Arm] O2 Sat by Pulse 95 94 L 94 L Oximetry 01/09/24 01/09/24 01/09/24 04:30 04:45 05:00 Temperature Pulse Rate 81 80 81 Pulse Rate [ Guest Services Manager ] Respiratory 21 22 17 Rate Blood Pressure 97/67 97/67 97/67 Blood Pressure [Left Arm] O2 Sat by Pulse 97 96 94 L Oximetry 01/09/24 01/09/24 01/09/24 05:15 05:30 05:45 Temperature Pulse Rate 85 80 81 Pulse Rate [ Guest Services Manager ] Respiratory 8 L 11 L 18 Rate Blood Pressure 98/67 98/67 98/67 Blood Pressure [Left Arm] O2 Sat by Pulse 96 Oximetry 01/09/24 01/09/24 01/09/24 06:00 06:15 06:22 Temperature Pulse Rate 80 80 86 Pulse Rate [ Guest Services Manager ] Respiratory 10 L 12 20 Rate Blood Pressure 98/67 92/79 92/79 Blood Pressure [Left Arm] O2 Sat by Pulse 96 Oximetry 01/09/24 01/09/24 01/09/24 06:30 06:45 07:00 Temperature 97.7 F Pulse Rate 86 86 83 Pulse Rate [ 89 Guest Services Manager ] Respiratory 18 20 18 Rate Blood Pressure 92/79 92/79 92/79 Blood Pressure 114/82 [Left Arm] O2 Sat by Pulse 97 98 98 Oximetry 01/09/24 07:15 Temperature Pulse Rate 84 Pulse Rate [ Guest Services Manager ] Respiratory 15 Rate Blood Pressure 106/78 Blood Pressure [Left Arm] O2 Sat by Pulse 98 Oximetry Chest Pain MDM - [facility] The patient had chest x-ray which I interpreted as negative for acute infiltrate, pneumothorax, congestive heart failure Was pt. sent in by a medical professional or institution (, PA, EVENTS ADMINISTRATIVE ASSISTANT, urgent care, hospital, or correction...) When possible be specific @ -[No] Did you speak to anyone other than the patient for history (EMS, parent, family, police, friend...)? What history was obtained from this source @ -[No] Did you review nursing and triage notes (agree or disagree)? Why? @ -[I reviewed and agree with nursing and triage notes] Were old charts reviewed (outside hosp., previous admission, EMS record, old EKG, old radiological studies, urgent care reports/EKG's, correction records)? Report findings @ -Yes, old charts were reviewed] Differential Diagnosis (chest pain, altered mental status, abdominal pain women, abdominal pain men, vaginal bleeding, weakness, fever, dyspnea, syncope, headache, dizziness, GI bleed, back pain, seizure, CVA, palpatations, mental health, musculoskeletal)? @ -[Differential Chest Pain: Stable Angina, Unstable Angina, STEMI, NSTEMI Aortic Dissection, Pneumothorax, Musculoskeletal, Esophageal Spasm GERD, Cholecystitis, Pancreatitis, Zoster, this is not meant to be an all-inclusive list. EKG interpreted by me (3pts min.). @ -[I interpreted as above] X-rays interpreted by me (1pt min.). @ -[I interpreted as above CT interpreted by me (1pt min.). @ -[None done] U/S interpreted by me (1pt. min.). @ -[None done] What testing was considered but not performed or refused? (CT, X-rays, U/S, labs)? Why? @ -[None] What meds were considered but not given or refused? Why? @ -[None] Did you discuss the management of the patient with other professionals (professionals i.e. DrBridger, PA, EVENTS ADMINISTRATIVE ASSISTANT, lab, RT, psych nurse, social research assistant, mechanical maintenance, teacher, tactical debriefer officer, watch caser)? Give summary @ -[Case discussed with admitting physician and treatment recommendations incorporated Was smoking cessation discussed for >3mins.? @ -[No] Was critical care preformed (if so, how long)? @ -[No] Were there social determinants of health that impacted care today? How? (Homelessness, low income, unemployed, alcoholism, drug addiction, transportation, low edu. Level, literacy, decrease access to med. care, skilled nursing, rehab)? @ -[No] Was there de-escalation of care discussed even if they declined (Discuss DNR or withdrawal of care, Hospice)? DNR status @ -[No] What co-morbidities impacted this encounter? (DM, HTN, Smoking, COPD, CAD, Cancer, CVA, ARF, Chemo, Hep., AIDS, mental health diagnosis, sleep apnea, morbid obesity)? @ -[Hypertension, smoking, previous coronary artery disease Was patient admitted / discharged? Hospital course, mention meds given and route, prescriptions, significant lab abnormalities, going to OR and other pertinent info. @ -[Patient is admitted to have cardiology consultation, serial cardiac enzymes, telemetry monitoring. Undiagnosed new problem with uncertain prognosis? @ -[No] Drug Therapy requiring intensive monitoring for toxicity (Heparin, Nitro, Insulin, Cardizem)? @ -[No] Were any procedures done? @ -[No] Diagnosis/symptom? @ -[Acute chest pain Acute, or Chronic, or Acute on Chronic? @ -[Acute Uncomplicated (without systemic symptoms) or Complicated (systemic symptoms)? @ -[Uncomplicated Side effects of treatment? @ -[No] Exacerbation, Progression, or Severe Exacerbation? @ -[No] Poses a threat to life or bodily function? How? (Chest pain, [place], [place], pneumonia, PE, COPD, DKA, ARF, appy, cholecystitis, CVA, Diverticulitis, Homicidal, Suicidal, threat to staff... and all critical care pts) @ -[No] Disposition Clinical Impression: Chest pain Disposition: ADMITTED IP TO THIS HOSP Condition: Stable Is patient prescribed a controlled substance at d/c from ED?: No
[2024-01-08 17:41] LABS: Basophils # (A) 0.1 k/uL (0-0.2); Basophils % (A) 1 %; Eosinophils # (A) 0.3 k/uL (0-0.7); Eosinophils % (A) 3 %; HGB 18.7 gm/dL (13.0-17.5); Lymphocytes # (A) 2.7 k/uL (1.0-4.8); Lymphocytes % (A) 30 %; MCH 28.3 pg (25.0-35.0); MCHC 32.9 g/dL (31.0-37.0); Mean Platelet Volume 8.6; Monocytes # (A) 0.7 k/uL (0-1.0); Monocytes % (A) 8 %; Neutrophils # (A) 4.8 k/uL (1.3-7.7); Neutrophils % (A) 55 %; Platelet Count 314 k/uL (150-450); RBC 6.62 m/uL (4.30-5.90); RDW 13.9 % (11.5-15.5); WBC 8.8 k/uL (3.8-10.6)
[2024-01-08] MEDS: NITROGLYCERIN OINT 1 INCH/GM PACKET TOPICAL STA (17:46)
[2024-01-08 17:50] LABS: ALT 15 U/L (4-49); AST 18 U/L (17-59); African American GFR (CKD) >90 (>60 ml/min/1.73 sqM); Albumin 4.2 g/dL (3.5-5.0); Alkaline Phosphatase 83 U/L (38-126); Amylase 58 U/L (30-110); Anion Gap 8 mmol/L; Blood Urea Nitrogen 10 mg/dL (9-20); Calcium 9.7 mg/dL (8.4-10.2); Carbon Dioxide 21 mmol/L (22-30); Chloride 109 mmol/L (98-107); Glucose 87 mg/dL (74-99); Lipase 48 U/L (23-300); Magnesium 2.1 mg/dL (1.6-2.3); Non-African American GFR(CKD) >90 (>60 ml/min/1.73 sqM); Potassium 3.9 mmol/L (3.5-5.1); Sodium 138 mmol/L (137-145); Total Protein 6.7 g/dL (6.3-8.2)
[2024-01-08 17:51] LABS: HCT 56.9 % (39.0-53.0)
[2024-01-08] MEDS: MORPHINE SULFATE 4 MG/ML SYRINGE IV STA (17:51)
[2024-01-08 17:59] LABS: NT-Pro-B-Type Natriuretic Pept <20 pg/mL
--- NOTE | 2024-01-08 18:23 | XR ---
EXAMINATION TYPE: XR chest 2V DATE OF EXAM: 01/08/2024 COMPARISON: 01/04/2024 INDICATION: Pain TECHNIQUE: Frontal and lateral views of the chest are obtained. FINDINGS: The heart size is normal. The pulmonary vasculature is normal. The lungs are clear. There is hyperinflation flattening of diaphragms compatible COPD IMPRESSION: 1. COPD
[2024-01-08] MEDS ORDERED: NITROGLYCERIN SL TABS 0.4 MG TAB SUBLINGUAL PRN (19:36)
[2024-01-09] MEDS: SODIUM CHLORIDE 0.9% 1,000 ML IV SCH ×2 (00:13→12:55)
[2024-01-09] MEDS ORDERED: ALBUTEROL NEBULIZED 2.5 MG/3 ML INHALATION PRN (03:07)
[2024-01-09] MEDS: HYDROcodone/APAP 7.5-325MG 1 EACH TAB PO PRN (03:29)
[2024-01-09] MEDS ORDERED: HEPARIN SODIUM,PORCINE (1 ML) 2,500 UNIT in SODIUM CHLORIDE 0.9% 250 ML IRRIGATION PRN (07:00)
[2024-01-09] MEDS ORDERED: HEPARIN SODIUM,PORCINE 10,000 UNIT in SODIUM CHLORIDE 0.9% 1,000 ML IRRIGATION PRN (07:00)
[2024-01-09] MEDS: SYMBICORT 80-4.5 MCG INHALER INHALATION SCH (08:51)
[2024-01-09] MEDS: IPRATROPIUM 0.5 MG/2.5 ML NEBU INHALATION SCH (08:51)
[2024-01-09 08:58] LABS: Chol/HDL Ratio 5.78 Ratio
[2024-01-09] MEDS ORDERED: HYDROcodone/APAP 7.5-325MG 1 EACH TAB PO SCH (09:00)
[2024-01-09 09:05] LABS: LDL Cholesterol,Calculated 135.7 mg/dL (0.0-131.0)
[2024-01-09] MEDS: IBUPROFEN 800 MG TAB PO SCH (09:15)
[2024-01-09] MEDS: ATORVASTATIN 40 MG TAB PO SCH (09:16)
[2024-01-09] MEDS: ASPIRIN 325 MG TAB PO SCH (09:16)
[2024-01-09] MEDS ORDERED: NITROGLYCERIN SL TABS 0.4 MG TAB SUBLINGUAL PRN (11:36)
[2024-01-09] MEDS ORDERED: ASPIRIN 325 MG TAB PO STA (11:36)
[2024-01-09] MEDS ORDERED: ALPRAZolam 0.5 MG TAB PO PRN (11:36)
--- NOTE | 2024-01-09 11:36 | P.CRDCN ---
History of Present Illness History of present illness: HISTORY OF PRESENTING ILLNESS Patient is a pleasant 63-year-old male with history of tobacco abuse, family history of CAD, asthma, COPD, hyperlipidemia who presents secondary to chest pain. 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 He has strong family history including dad, mom, sister all having stents and bypass in their 40s to 50s. He has been on the cholesterol regimen, statin for the last 3 or 4 years. He is still smoking however is cut down to approximately 9 cigarettes per his previously was 20 cigarettes a day. He had presented a few days ago with chest pain and underwent workup with Lexiscan stress test showing fixed defect however no reversible ischemia. Therefore he was discharged home. Unfortunately he had recurrent episode while he was not doing anything particularly strenuous and his girlfriend checked his pulse ox was noted to be normal however he believes his heart rate was 220 bpm. EMS was called however by the time he got there he states he was still having some symptoms however EKG showed sinus rhythm, sinus tachycardia. He states he still intermittently has been having chest pain. Troponins normal. He had a brief run of 6 beat SVT overnight. REVIEW OF SYSTEMS At the time of my exam: CONSTITUTIONAL: Denies fever or chills. CARDIOVASCULAR: +chest pain, +shortness of breath, orthopnea, PND or palpitations. RESPIRATORY: Denies cough. GASTROINTESTINAL: Denies abdominal pain, diarrhea, constipation, nausea or vomiting. MUSCULOSKELETAL: Denies myalgias. NEUROLOGIC: Denies numbness, tingling or weakness. ENDOCRINE: Denies fatigue, weight change, polydipsia or polyurina. GENITOURINARY: Denies burning, hematuria or urgency with micturation. HEMATOLOGIC: Denies history of anemia or bleeding. PHYSICAL EXAMINATION Vital signs reviewed. CONSTITUTIONAL: No apparent distress. HEENT: Head is normocephalic. Pupils are equal, round. Sclerae anicteric. Mucous membranes of the mouth are moist. No JVD. No carotid bruit. CHEST EXAMINATION: Lungs are clear to auscultation. +reproducible chest pain. HEART EXAMINATION: Regular rate and rhythm. S1, S2 heard. No murmurs, gallops or rub. ABDOMEN: Soft, nontender. Positive bowel sounds. EXTREMITIES: 2+ peripheral pulses, no lower extremity edema and no calf tenderness. NEUROLOGIC EXAMINATION: Patient is awake, alert and oriented x3. ASSESSMENT Chest pain some reproducible, some may be more anginal Dyspnea Tobacco abuse Hyperlipidemia Family history of CAD questionable palpitations, questionable heart rate up to 220 during symptoms PLAN Prior workup with Lexiscan stress test was unrevealing. We will check a echo with for completeness sake. Given strong family history of multiple risk factors we discussed definitive evaluation with heart catheterization patient is agreeable. Heart catheterization likely today or tomorrow and further recommendations to follow. Likely outpatient monitor to evaluate for any arrhythmia that could be also causing some of his symptoms. Past Medical History Past Medical History: Cancer, COPD, Hyperlipidemia, Hypertension, Respiratory Disorder Additional Past Medical History / Comment(s): colon CA History of Any Multi-Drug Resistant Organisms: None Reported Past Surgical History: Orthopedic Surgery Additional Past Surgical History / Comment(s): Right rotator cuff - total 5 surgeries of rt shoulder Past Anesthesia/Blood Transfusion Reactions: No Reported Reaction Past Psychological History: No Psychological Hx Reported Smoking Status: Current every day smoker Past Alcohol Use History: Occasional Past Drug Use History: None Reported Additional Drug Use History / Comment(s): pt refuses smoking cessation information, states he will quit on his own - declines info - Past Family History Father Family Medical History: Cancer Additional Family Medical History / Comment(s): unsure what kind of cancer - per pt Medications and Allergies Home Medications Medication Instructions Recorded Confirmed Type Albuterol Sulfate [Ventolin HFA] 2 puff INHALATION RT-TID PRN 06/23/23 01/08/24 History Ergocalciferol (Vitamin D2) 1,250 mcg PO MO 06/23/23 01/08/24 History [Drisdol (50,000 Iu)] HYDROcodone/APAP 7.5-325MG [Naselle 1 tab PO BID 06/23/23 01/08/24 History 7.5-325] Atorvastatin [Lipitor] 40 mg PO DAILY 01/04/24 01/08/24 History Fluticasone/Umeclidin/Vilanter 1 puff INHALATION RT-DAILY 01/04/24 01/08/24 History [Trelegy Ellipta 100-62.5-25] Ibuprofen [Motrin] 800 mg PO BID 01/04/24 01/08/24 History Allergies Allergy/AdvReac Type Severity Reaction Status Date / Time No Known Allergies Allergy Verified 01/08/24 17:38 Physical Exam Vitals: Vital Signs Temp Pulse Pulse Resp BP BP Pulse Ox 01/09/24 09:01 87 01/09/24 08:54 97 01/09/24 08:51 84 01/09/24 07:00 97.7 F 89 14 114/82 98 01/09/24 06:22 86 20 92/79 96 01/09/24 01:00 98.4 F 84 15 104/66 94 L 01/08/24 21:00 87 19 106/84 96 01/08/24 20:00 97.1 F L 91 17 108/76 95 01/08/24 18:58 88 16 113/74 97 01/08/24 18:46 93 18 120/90 99 01/08/24 17:50 92 18 166/77 95 01/08/24 17:01 97 01/08/24 16:55 97 18 120/82 100 01/08/24 16:47 97.3 F L 103 H 18 173/132 100 Intake and Output 01/08/24 01/09/24 01/09/24 22:59 06:59 14:59 Output Total 675 Balance -675 Output: Urine 675 Other: # Voids 3 Weight 71.668 kg 71.668 kg Results 01/08/24 17:26 01/08/24 17:26 Cardiac Enzymes 01/08/24 01/08/24 01/08/24 Range/Units 17:26 17:26 20:23 AST 18 (17-59) U/L Troponin I <0.012 <0.012 (0.000-0.034) ng/mL 01/08/24 Range/Units 23:58 AST (17-59) U/L Troponin I <0.012 (0.000-0.034) ng/mL Coagulation 01/08/24 Range/Units 18:04 PT (10.0-12.5) sec APTT (22.0-30.0) sec Lipids 01/08/24 Range/Units 17:26 Triglycerides 161.00 H (0.00-149.00) mg/dL Cholesterol 203.00 H (0.00-200.00) mg/dL HDL Cholesterol 35.10 L (40.00-60.00) mg/dL Cholesterol/HDL Ratio 5.78 Ratio CBC 01/08/24 Range/Units 17:26 WBC 8.8 (3.8-10.6) k/uL RBC 6.62 H (4.30-5.90) m/uL Hgb 18.7 H (13.0-17.5) gm/dL Hct 56.9 H (39.0-53.0) % Plt Count 314 (150-450) k/uL Comprehensive Metabolic Panel 01/08/24 Range/Units 17:26 Sodium 138 (137-145) mmol/L Potassium 3.9 (3.5-5.1) mmol/L Chloride 109 H (98-107) mmol/L Carbon Dioxide 21 L (22-30) mmol/L BUN 10 (9-20) mg/dL Creatinine 0.68 (0.66-1.25) mg/dL Glucose 87 (74-99) mg/dL Calcium 9.7 (8.4-10.2) mg/dL AST 18 (17-59) U/L ALT 15 (4-49) U/L Alkaline Phosphatase 83 (38-126) U/L Total Protein 6.7 (6.3-8.2) g/dL Albumin 4.2 (3.5-5.0) g/dL Current Medications Generic Name Dose Route Start Last Admin Trade Name Freq PRN Reason Stop Dose Admin Hydrocodone Bitart/Acetaminophen 1 each 01/09/24 03:10 01/09/24 03:29 Hydrocodone/Apap 7.5-325mg 1 Each Tab PO 1 each BID PRN Administration Moderate to Severe Pain (4-10) Albuterol Sulfate 2.5 mg 01/09/24 03:07 Albuterol Nebulized 2.5 Mg/3 Ml INHALATION RT-TID PRN Shortness Of Breath Aspirin 325 mg 01/09/24 09:00 01/09/24 09:16 Aspirin 325 Mg Tab PO 325 mg DAILY JUSTIN Administration Atorvastatin Calcium 40 mg 01/09/24 09:00 01/09/24 09:16 Atorvastatin 40 Mg Tab PO 40 mg DAILY JUSTIN Administration Budesonide/Formoterol Fumarate 2 puff 01/09/24 08:00 01/09/24 08:51 Symbicort 80-4.5 Mcg Inhaler INHALATION 2 puff RT-BID JUSTIN Administration Sodium Chloride 1,000 mls @ 20 mls/hr 01/08/24 19:45 01/09/24 00:13 Saline 0.9% IV Not Given .Q24H JUSTIN Ibuprofen 800 mg 01/09/24 09:00 01/09/24 09:15 Ibuprofen 800 Mg Tab PO 800 mg BID JUSTIN Administration Ipratropium [place] 0.5 mg 01/09/24 08:00 01/09/24 08:51 Ipratropium 0.5 Mg/2.5 Ml Nebu INHALATION 0.5 mg RT-QID JUSTIN Administration Nitroglycerin 0.4 mg 01/08/24 19:36 Nitroglycerin Sl Tabs 0.4 Mg Tab SUBLINGUAL Q5M PRN Chest Pain Intake and Output 01/08/24 01/09/24 01/09/24 22:59 06:59 14:59 Output Total 675 Balance -675 Output: Urine 675 Other: # Voids 3 Weight 71.668 kg 71.668 kg Patient Weight 01/10/24 06:59 Weight 71.668 kg 01/08/24 17:26 01/08/24 17:26
[2024-01-09] MEDS: ATORVASTATIN 40 MG TAB PO STA (12:07)
[2024-01-09 12:08] LABS: Glucose,Whole Blood 125 mg/dL (70-110)
[2024-01-09] MEDS: ATORVASTATIN 80 MG TAB PO STA (12:12)
--- NOTE | 2024-01-09 21:16 | HP ---
HISTORY AND PHYSICAL CHIEF COMPLAINT: Chest pain. HISTORY OF PRESENT ILLNESS: This is another recent admission for this 63-year-old white male. He was in the hospital a week or 2 ago with chest pain and underwent a workup that apparently was negative for coronary artery disease. He came back in with chest pain once again. EKG and troponins are normal. REVIEW OF SYSTEMS: He denies any shortness of breath, diaphoresis, etc. He is a smoker. Past medical history, family history, personal and social histories are all otherwise unremarkable and unchanged from his recent admission. PHYSICAL EXAMINATION: VITAL SIGNS: Normal. HEENT: Head, ears, eyes, nose, mouth and throat were normal. CHEST: Demonstrated increased AP diameter with poor breath sounds. CARDIAC: Normal. ABDOMEN: Soft and nontender. EXTREMITIES: Normal. IMPRESSION: 1. Chest pain. 2. Family history of coronary artery disease. 3. Chronic obstructive pulmonary disease. 4. Neurofibromatosis. PLAN: 1. Bedrest. 2. IV fluids. 3. Cardiology consult. MMODL / IJN: [id number] /
--- NOTE | 2024-01-09 23:30 | PN ---
PROGRESS NOTE CHIEF COMPLAINT: Chest pain. HISTORY OF PRESENT ILLNESS: This gentleman is doing well. His studies have been negative. Because of his recurrent episodes of pain, Cardiology will be taking him for cardiac cath today. PHYSICAL EXAMINATION: CHEST: Clear. CARDIAC: Normal. ABDOMEN: Flat, soft, nontender. IMPRESSION: 1. Chest pain. 2. Chronic obstructive pulmonary disease. PLAN: Cardiac cath today. MMODL / AMYN: [id number] /
--- NOTE | 2024-01-10 09:25 | CA ---
Transthoracic Echo Report Name: Ryan Mcdaniels Age: 63 Gender: M : 1960 Exam Date: 01/10/2024 07:45 Exam Location: [facility] Ht (in): 68 Wt (lb): 158 Ordering Physician: Eusebio Bolanos DO ([id number]) Attending/Referring Phys: Receiving Teller Era Mroeau RDCS Procedure CPT: Indications: re: LV function Cardiac Hx: Technical Quality: Fair Contrast 1: Definity Total Dose (mL): 2 Contrast 2: Total Dose (mL): MEASUREMENTS (Male / Female) Normal Values 2D ECHO LV Diastolic Diameter PLAX 4.6 cm 4.2 - 5.9 / 3.9 - 5.3 cm LV Systolic Diameter PLAX 3.0 cm IVS Diastolic Thickness 0.8 cm 0.6 - 1.0 / 0.6 - 0.9 cm LVPW Diastolic Thickness 0.9 cm 0.6 - 1.0 / 0.6 - 0.9 cm LV Relative Wall Thickness 0.4 RV Internal Dim ED PLAX 1.5 cm LA Systolic Diameter LX 3.5 cm 3.0 - 4.0 / 2.7 - 3.8 cm LA Volume 43.5 cm??? 18 - 58 / 22 - 52 cm??? LA Volume Index 23.4 cm???/m??? 16 - 28 cm???/m??? M-MODE Aortic Root Diameter MM 3.7 cm LA Systolic Diameter MM 2.7 cm LA Ao Ratio MM 0.7 AV Cusp Separation MM 2.0 cm DOPPLER MV Area PHT 3.8 cm??? Mitral E Point Velocity 57.8 cm/s Mitral A Point Velocity 74.8 cm/s Mitral E to A Ratio 0.8 MV Deceleration Time 197.2 ms TR Peak Velocity 172.4 cm/s TR Peak Gradient 11.9 mmHg Right Ventricular Systolic Press 16.9 mmHg FINDINGS Left Ventricle Left ventricular ejection fraction is estimated at 60-65 %. Normal left ventricular systolic function with no obvious regional wall motion abnormalities. Left ventricular cavity size normal. Right Ventricle Normal right ventricular size and function. Right ventricular systolic pressure within normal limits. Right Atrium Normal right atrial size. Left Atrium Normal left atrial size. Mitral Valve Structurally normal mitral valve. Trace mitral regurgitation. No mitral stenosis. Aortic Valve Trileaflet aortic valve. No aortic valve stenosis or regurgitation. Tricuspid Valve Structurally normal tricuspid valve. Trace tricuspid regurgitation. Pulmonic Valve Structurally normal pulmonic valve. No pulmonic stenosis. No pulmonic regurgitation. Pericardium No pericardial or pleural effusion. Aorta Mildly dilated aortic annulus. CONCLUSIONS Left ventricular ejection fraction 60-65% RVSP 17 Trace mitral regurgitation Trace tricuspid regurgitation Previewed by: Dr. Eusebio Bolanos DO (Electronically Signed) Final Date: 10 January 2024 09:24
[2024-01-10] MEDS ORDERED: LIDOCAINE 1% INJ 10MG/ML (20 ML MDV) ONE (12:55)
[2024-01-10] MEDS ORDERED: fentaNYL (PF) 50 MCG/ML 2 ML AMP ONE (12:56)
[2024-01-10] MEDS ORDERED: VERAPAMIL 2.5 MG/ML 2 ML AMP ONE (13:01)
[2024-01-10] MEDS: MIDAZOLAM 2 MG/2 ML VIAL IVP ONE ×2 (13:02→13:05)
[2024-01-10] MEDS: fentaNYL (PF) 50 MCG/ML 2 ML AMP IVP ONE ×2 (13:03→13:05)
[2024-01-10] MEDS: LIDOCAINE 1% INJ 10MG/ML (20 ML MDV) SQ ONE (13:05)
[2024-01-10] MEDS: VERAPAMIL SYRINGE (5 MG/10 ML) INTRAARTER ONE (13:05)
[2024-01-10] MEDS: HEPARIN SODIUM 1,000 UN/ML (10ML VL) IVP ONE (13:07)
[2024-01-10] MEDS: SODIUM CHLORIDE 0.9% 1,000 ML IV ONE (13:20)
[2024-01-10] MEDS: IOPAMIDOL-370 100ML BTL INJ ONE (13:20)
--- NOTE | 2024-01-10 13:28 | P.CARDCATH ---
Description of Procedure: PROCEDURES PERFORMED: Left heart catheterization, bilateral coronary angiography, ultrasound guided arterial access INDICATION: unstable angina CONSENT:I have discussed the risks, benefits and alternative therapies for the above-mentioned procedure and for both sedation/analgesia as well as necessary blood product administration, if indicated, as they pertain to this patient. The patient has indicated understanding and acceptance of the risks and procedures discussed. PROCEDURE: After the risks, benefits and alternatives of the above mentioned procedure explained in detail with the patient, informed consent was obtained. Patient was taken to the catheterization lab and prepped and draped in usual fashion. Ultrasound guidance was used to assess for arterial access. 1% lidocaine was used to anesthetize the right radial artery. A 6-Lithuanian sheath was placed in the right radial artery using modified Seldinger technique and ultrasound guidance. Left coronary angiography was performed with a 5-Lithuanian JL 3.5 catheter and right coronary angiography was performed with a 5-Lithuanian FR5 catheter in various views. A 5-Lithuanian FR5 catheter was inserted into the left ventricle and pressure measurements were obtained. The right radial sheath was removed and a TR band was placed with hemostasis achieved. The patient tolerat ed the procedure well. Patient was transported back to the post catheterization holding area in stable condition. Conscious Sedation: Patient was monitored under the direct supervision of myself for conscious sedation using Versed and fentanyl for a total duration of 10 minutes HEMODYNAMICS: aorta: 138/72 LV: 137/1, LVEDP 4 SELECTIVE CORONARY ARTERIOGRAPHY: LEFT MAIN: The left main is a large caliber vessel which bifurcates into the LAD and circumflex. There is no significant stenosis. LEFT ANTERIOR DESCENDING CORONARY ARTERY: LAD is a large caliber vessel which wraps around to the apex. There is in mid LAD 80% stenosis just after a small to moderate caliber diagonal 1 branch. Otherwise there are mild luminal irregularities. LEFT CIRCUMFLEX CORONARY ARTERY: Left circumflex is a moderate caliber vessel with a proximal circumflex 90% stenosis. This gives off an OM1 and OM 2 branch with OM1 being small caliber and having a proximal 90% stenosis. OM 2 has mild luminal irregularities. RIGHT CORONARY ARTERY: The right coronary artery is a large caliber vessel which gives off a PDA and PLV branch and is the dominant vessel. There is a mid RCA 90% stenosis. FINAL IMPRESSION: 1. 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 Low normal left sided filling pressures PLAN: 1. Aggressive risk factor modification per most recent ACC/AHA guidelines. 2. Given multivessel disease CABG evaluation. If felt to be a higher risk with CABG, stenting would be an option.
[2024-01-10] MEDS: METOPROLOL TARTRATE 12.5 MG TAB PO SCH (14:08)
[2024-01-10 15:39] LABS: Appearance,Urine Clear (Clear); Bilirubin,Urine Negative (Negative); Blood,Urine Negative (Negative); Color,Urine Colorless; Glucose,Urine (UA) Trace (Negative); Ketones,Urine 2+ (Negative); Leukocyte Esterase,Urine Negative (Negative); Nitrite,Urine Negative (Negative); Protein,Urine Negative (Negative); Urobilinogen,Urine <2.0 mg/dL (<2.0)
[2024-01-10 15:45] LABS: Specific Gravity,Urine >1.050 (1.001-1.035)
[2024-01-10] MEDS: MUPIROCIN 2% OINT 22 GM TUBE NASAL SCH (21:53)
[2024-01-10] MEDS: ALPRAZolam 0.25 MG TAB PO PRN (22:01)
[2024-01-11] MEDS: NICOTINE 14MG/24HR PATCH TRANSDERM STA (04:10)
--- NOTE | 2024-01-11 08:06 | US ---
EXAMINATION TYPE: Pre-Operative Non-Invasive Evaluation of the hand for Potential Radial Artery Lizbet , Measurements only DATE OF EXAM: 01/10/2024 4:09 PM CLINICAL INDICATION: Male, 63 years old with history of Pre-Op Cardiac Surgery; Pre CABG, IV left ant ecubital SIDE PERFORMED: Left TECHNIQUE: Radial artery is measured utilizing real time linear array sonography. Dominant hand: Right Duplex Findings: Radial Artery: Color flow seen Measurements in mm, transverse view: Left Radial: Proximal: 3.9 x 3.4mm Mid: 2.3 x 2.6mm Distal: 2.7 x 3.2mm IMPRESSION: 1. Left Radial artery measurements listed above. 2. Performing surgeon to determine viability as conduit.
--- NOTE | 2024-01-11 08:06 | US ---
EXAMINATION TYPE: US vein mapping BILAT DATE OF EXAM: 01/10/2024 3:52 PM COMPARISON: NONE CLINICAL INDICATION: Male, 63 years old with history of PreOp Cardiac Surgery; Pre CABG SIDE PERFORMED: Bilateral TECHNIQUE: Lower extremity saphenous vein is examined and measured utilizing real time linear array sonography. DUPLEX FINDINGS: Greater Saphenous: Color flow seen Measurements in mm: Right Greater Saphenous: Groin: 3.5 x 3.7mm High Thigh: 3.0 x 3.5mm Mid Thigh: 2.8 x 3.7mm Above Knee: 4.2 x 4.5mm Knee: 3.9 x 3.7mm Below Knee: 2.4 x 2.4mm Mid Calf: 3.3 x 3.4mm At Ankle: 3.0 x 4.8mm Left Greater Saphenous: Groin: 8.0 x 7.4mm High Thigh: 5.1 x 6.1mm Mid Thigh: 4.2 x 5.5mm Above Knee: 3.8 x 4.7mm Knee: 4.2 x 6.1mm Below Knee: 3.9 x 4.9mm Mid Calf: 2.7 x 3.5mm At Ankle: 3.8 x 6.0mm IMPRESSION: 1. Bilateral GSV measurements listed above. 2. Performing surgeon to determine viability as conduit.
--- NOTE | 2024-01-11 08:07 | US ---
EXAMINATION TYPE: US carotid duplex BILAT DATE OF EXAM: 01/10/2024 COMPARISON: NONE CLINICAL INDICATION: Male, 63 years old with history of Pre-Op Cardiac Surgery; Pre CABG, no h/o stro ke TECHNIQUE: Carotid duplex ultrasound examination. Indirect Doppler criteria was utilized. FINDINGS: EXAM MEASUREMENTS: RIGHT: Peak Systolic Velocity (PSV) cm/sec ----- Right CCA: 73.5 ----- Right ICA: 82.0 ----- Right ECA: 102.0 ICA/CCA ratio: 1.1 RIGHT: End Diastole cm/sec ----- Right CCA: 14.9 ----- Right ICA: 22.0 ----- Right ECA: 12.4 LEFT: Peak Systolic Velocity (PSV) cm/sec ----- Left CCA: 63.2 ----- Left ICA: 98.7 ----- Left ECA: 127.0 ICA/CCA ratio: 1.5 LEFT: End Diastole cm/sec ----- Left CCA: 15.4 ----- Left ICA: 25.2 ----- Left ECA: 16.1 VERTEBRALS (direction of flow): Right Vertebral: Antegrade Left Vertebral: Antegrade Rhythm: Normal SIGN DESIGNER NOTES: No significant stenosis seen, soft plaque noted on left proximal ICA IMPRESSION: No evidence for hemodynamically significant stenosis. Criteria for Assigning % of Stenosis / Diameter reduction (Estimation based on the indirect measurements of the internal carotid artery velocities (ICA PSV). 1. Normal (no stenosis)=ICA PSV < 125 cm/s: ratio < 2.0: ICA EDV<40 cm/s. 2. Less than 50% stenosis=ICA PSV < 125 cm/s: ratio < 2.0: ICA EDV<40 cm/s. 3. 50 to 69% stenosis=ICA PSV of 125 to 230 cm/s: ration 2.0 ? 4.0: ICA EDV 40-100 cm/s. 4. Greater than 70% stenosis to near occlusion= ICA PSV > 230 cm/s: ratio > 4.0: ICA EDV > 100 cm/s. 5. Near occlusion= ICA PSV velocities may be low or undetectable: variable ratio and ICA EDV. 6. Total occlusion=unable to detect flow.
--- NOTE | 2024-01-11 08:08 | US ---
EXAMINATION TYPE: US arterial LE single level DATE OF EXAM: 01/10/2024 7:19 PM CLINICAL INDICATION: Male, 63 years old with history of Ankle Brachial Index (ALEXANDREA) ; pre cabg History of: Smoker: y Hypertension: n Diabetic: n Hyperlipidemia: y TIA/CVA: n Previous Vascular Surgery: n CAD: n DE: n Vascular Ulcers: n Claudication: n Gangrene: n Doppler Waveforms: Right: Multiphasic Left: Multiphasic Right Brachial Pressure: deferred due to radial heart cath Left Brachial Pressure: 107 Ankle-Brachial Indices: Right: 1.1 Left: 1.2 (Vessel hardening > 1.4; Normal 0.9 - 1.4, Moderate 0.7 - 0.9, Severe 0.5-0.7) IMPRESSION: ABIs are within normal limits bilaterally.
[2024-01-11 08:31] LABS: Hepatitis A Antibody IgM Nonreactive (Nonreactive); Hepatitis B Surface Antigen Nonreactive (Nonreactive); Hepatitis C IgG Antibody Nonreactive (Nonreactive)
[2024-01-11 09:09] LABS: Hepatitis B Core IgM Nonreactive (Nonreactive)
[2024-01-11] MEDS ORDERED: MD COMMUNICATION TO PHARMACY 1 EACH MISC PO ONE ×4 (09:19→09:23)
[2024-01-11] MEDS: ASPIRIN 81 MG PO SCH (09:49)
--- NOTE | 2024-01-11 10:32 | P.GSCN ---
History of Present Illness Consult date: 01/11/24 Reason for Consult: Multivessel coronary artery disease Requesting physician: Eusebio Bolanos History of present illness: This is a 63-year-old gentleman who follows on an outpatient basis for his primary care with Dr. Martin Feliz. He has a past medical history significant for hyperlipidemia, family history of early onset coronary artery disease with his father being diagnosed in his early 40s with coronary artery disease, neurofibromatosis, chronic obstructive pulmonary disease, daily marijuana use and chronic ongoing tobacco dependence in which she smokes about 1-1/2 packs of cigarettes per day. The patient reports he was recently admitted to the hospital due to complaints of chest pain and some associated shortness of breath. At that time he underwent workup with a Lexiscan stress test showing fixed defect however no reversible ischemia. He was subsequently discharged home last Friday, January 06, 2024 with medical therapy. He presented back to the emergency department here at [facility] on December with recurrent episodes of chest pain and he was concerned as he was checking his pulse with a home pulse ox machine and reports his heart rate was in the 200s. He denies any recent fever, chills, nausea, vomiting, hemoptysis, hematemesis, visual disturbances, constipation, diarrhea, headache, palpitations, presyncope or syncope. The patient is reporting episodes of anxiety. A twelve-lead EKG was completed in the emergency department which showed sinus tachycardia with a heart rate of 100 bpm. It also demonstrated an incomplete right bundle branch block. A chest x-ray was completed which showed COPD. Laboratory workup was completed which showed a proBNP less than 20 and serial troponins less than 0.012. Due to the patient's recent history of chest pain and admission to the hospital and presenting symptoms a consult was placed to cardiology for further evaluation and treatment recommendations. The patient underwent a transthoracic 2D echocardiogram which showed a left ventricular ejection fraction estimated at 60 to 65%, no obvious regional wall motion abnormalities, trace mitral valve regurgitation, trace tricuspid valve regurgitation, no pericardial or pleural effusion and a mildly dilated aortic annulus. The patient was recommended to undergo a cardiac catheterization which was completed yesterday January 10, 2024 which revealed multivessel coronary artery disease with an 80% stenosis to his mid left anterior descending coronary artery, a 90% stenosis to his proximal circumflex coronary artery, a 90% stenosis to his obtuse marginal 1 coronary artery, and a 90% stenosis to his mid right coronary artery. Given the findings on the cardiac catheterization a consult was placed to Dr. Haider Gonzalez from cardiothoracic surgery for further evaluation and treatment recommendations including myocardial vascularization surgery. Review of Systems A review of systems was completed and was negative except as mentioned in the HPI. Past Medical History Past Medical History: COPD, Hyperlipidemia, Hypertension, Respiratory Disorder Additional Past Medical History / Comment(s): History of elevated PSA concerning for prostate cancer History of Any Multi-Drug Resistant Organisms: None Reported Past Surgical History: Orthopedic Surgery Additional Past Surgical History / Comment(s): Right rotator cuff - total 5 surgeries of rt shoulder, history of prostate biopsy Past Anesthesia/Blood Transfusion Reactions: No Reported Reaction Past Psychological History: Anxiety Smoking Status: Current every day smoker Past Alcohol Use History: Rare Past Drug Use History: Marijuana Additional Drug Use History / Comment(s): Daily marijuana use - Past Family History Father Family Medical History: Cancer, Coronary Artery Disease (CAD) (History of coronary artery bypass grafting surgery in his 40s) Additional Family Medical History / Comment(s): unsure what kind of cancer - per pt Medications and Allergies Home Medications Medication Instructions Recorded Confirmed Type Albuterol Sulfate [Ventolin HFA] 2 puff INHALATION RT-TID PRN 06/23/23 01/08/24 History Ergocalciferol (Vitamin D2) 1,250 mcg PO MO 06/23/23 01/08/24 History [Drisdol (50,000 Iu)] HYDROcodone/APAP 7.5-325MG [[place] 1 tab PO BID 06/23/23 01/08/24 History 7.5-325] Atorvastatin [Lipitor] 40 mg PO DAILY 01/04/24 01/08/24 History Fluticasone/Umeclidin/Vilanter 1 puff INHALATION RT-DAILY 01/04/24 01/08/24 H istory [Trelegy Ellipta 100-62.5-25] Ibuprofen [Motrin] 800 mg PO BID 01/04/24 01/08/24 History Allergies Allergy/AdvReac Type Severity Reaction Status Date / Time No Known Allergies Allergy Verified 01/08/24 17:38 Surgical - Exam Vital Signs Temp Pulse Resp BP Pulse Ox 97.3 F L 103 H 18 173/132 100 01/08/24 16:47 01/08/24 16:47 01/08/24 16:47 01/08/24 16:47 01/08/24 16:47 - General well developed, well nourished, no distress, no pain - Eyes PERRL, normal ocular movement, no pale, no icteric - ENT normal pinna, normal nares, normal mucosa, no hearing loss, no congestion, dentures - Neck Neck is supple, no lymphadenopathy. no masses, no bruits, trachea midline, no venous distension - Respiratory Lung sounds essentially clear throughout. Respirations are symmetrical and nonlabored. No wheezes, rhonchi or crackles. - Cardiovascular Regular rhythm and rate. S1 and S2 present, negative for S3, gallop or murmur. No edema present. - Abdomen Abdomen is soft, nontender and nondistended. Active bowel sounds present all 4 abdominal quadrants. No guarding or rigidity. - Genitourinary Deferred - Rectum Deferred - Integumentary Skin is warm and dry. No clubbing or cyanosis is present. Chronic neurofibromatosis no rash, no growths, no abnormal pigmentation - Neurologic No focal deficits. normal coordination, normal sensation - Musculoskeletal Moves all 4 extremities with equal strength bilateral. normal gait, normal posture - Psychiatric oriented to time, oriented to person, oriented to place, speech is normal, memory intact Results - Labs 01/08/24 17:26 01/08/24 17:26 Abnormal Lab Results - Last 24 Hours (Table) 01/10/24 Range/Units 15:10 Ur Specific [place] >1.050 H (1.001-1.035) Urine Glucose (UA) Trace H (Negative) Urine Ketones 2+ H (Negative) Diabetes panel 01/10/24 Range/Units 16:40 Hemoglobin A1c 5.6 (<=6.0) % Thyroid panel 01/10/24 Range/Units 16:40 TSH 0.840 (0.465-4.680) mIU/L Pituitary panel 01/10/24 Range/Units 16:40 TSH 0.840 (0.465-4.680) mIU/L - Imaging Chest x-ray: report reviewed, image reviewed Assessment and Plan Assessment: Multivessel CAD including 80% mid LAD, 90% proximal circumflex, 90% OM1, 90% mid RCA stenosis Hyperlipidemia, triglycerides 161, cholesterol 203, LDL 135 COPD with a preoperative FEV1 3.06 which is a predicted value of 92% Chronic ongoing tobacco dependence Daily marijuana use Family history of coronary artery disease with his father being diagnosed in his early 40s and undergoing a coronary artery bypass grafting surgery Elevated PSA followed by urology Neurofibromatosis Plan: The patient was seen and examined at his bedside on the 6 floor cardiac observation unit in conjunction with Dr. Haider Gonzalez from cardiothoracic surgery. His chart and diagnostics were reviewed. Dr. Gonzalez discussed the findings on the cardiac catheterization films with the patient, treatment options were discussed including myocardial vascularization surgery. The usual course of myocardial vascularization surgery was discussed with the patient and his questions were answered by Dr. Gonzalez. Preoperative testing and preoperative teaching has been initiated. Recommendations are to proceed with myocardial revascularization surgery tomorrow January 12, 2024 with left internal mammary artery, endoscopic vein harvest, possible endoscopic left radial artery harvest, exclusion left atrial appendage, and intraoperative transesophageal echocardiogram to be performed by Dr. Gonzalez. He will be made n.p.o. after midnight. Risks and benefits of surgery were discussed with the patient including the STS risk score. Knowing and understanding the risks the patient wished to proceed with the surgical option. This was also discussed with the patient's Sister Kirsten per the patient's request. A clinical frailty score was calculated and the score equal 2, which shows mild frailty. A 5 m walk test was completed with the patient, time 1: 2.98 seconds, time 2: 3.01 seconds, time 3: 2.88 seconds, the patient tolerated the walk without any complaints of chest pain or shortness of breath. He will be made n.p.o. after midnight. Continue to maximize medical management with aspirin, statin and beta-mirna. Medical management other comorbidities per primary care and cardiology service. More recommendations to follow based on patient's clinical course. Thank you Dr. Bolanos for this consult and we look forward to working with you in the care of this patient. I have personally seen and examined the patient, performed the documentation and the assessment and plan as written. Number of minutes spent on the visit: 30. AMADA Martines Attending Addendum: Pt seen and evaluated with FLORIST DESIGNER above. Agree with his assessment and plan. This is a 63 y/o M who presents with anginal symptoms. Angiography reveals 3v CAD. We have recommended CABG this admission. I spent 45 minutes reviewing the data and discussing the plan of care with the team. Time with Patient: Greater than 30
--- NOTE | 2024-01-11 11:04 | P.PN ---
Subjective Progress Note Date: 01/11/24 HISTORY OF PRESENTING ILLNESS Patient is a pleasant 63-year-old male with history of tobacco abuse, family history of CAD, asthma, COPD, hyperlipidemia who presents secondary to chest pain. He does not follow with a scanner operator. He has strong family history including dad, mom, sister all having stents and bypass in their 40s to 50s. He has been on the cholesterol regimen, statin for the last 3 or 4 years. He is still smoking however is cut down to approximately 9 cigarettes per his previously was 20 cigarettes a day. He had presented a few days ago with chest pain and underwent workup with Miguel iscan stress test showing fixed defect however no reversible ischemia. Therefore he was discharged home. Unfortunately he had recurrent episode while he was not doing anything particularly strenuous and his girlfriend checked his pulse ox was noted to be normal however he believes his heart rate was 220 bpm. EMS was called however by the time he got there he states he was still having some symptoms however EKG showed sinus rhythm, sinus tachycardia. He states he still intermittently has been having chest pain. Troponins normal. He had a brief run of 6 beat SVT overnight. 01/10 Yesterday, patient underwent cardiac catheterization with Dr. Bolanos which revealed multivessel CAD including 80% mid LAD, 90% proximal circumflex, 90% OM1, 90% mid RCA stenosis. Low normal left-sided filling pressures. Cardiothoracic surgery team was added to evaluate for CABG. If patient is felt to be high risk for CABG, stenting would be an option. Blood pressure 116/79, heart rate 74, pulse ox 98% on room air. Hemoglobin A1c 5.6. TSH 0.84. Hepatitis panel negative. Carotid duplex revealed no evidence of hemodynamically significant stenosis. Echocardiogram reveals EF of 60 to 65%, RVSP 17, trace mitral regurgitation, trace tricuspid regurgitation. PHYSICAL EXAMINATION Vital signs reviewed. CONSTITUTIONAL: No apparent distress. HEENT: Head is normocephalic. Pupils are equal, round. Sclerae anicteric. Mucous membranes of the mouth are moist. No JVD. No carotid bruit. CHEST EXAMINATION: Lungs are clear to auscultation. +reproducible chest pain. HEART EXAMINATION: Regular rate and rhythm. S1, S2 heard. No murmurs, gallops or rub. ABDOMEN: Soft, nontender. Positive bowel sounds. EXTREMITIES: 2+ peripheral pulses, no lower extremity edema and no calf tenderness. NEUROLOGIC EXAMINATION: Patient is awake, alert and oriented x3. ASSESSMENT Multivessel coronary artery disease Dyspnea Tobacco abuse Hyperlipidemia Family history of CAD questionable palpitations, questionable heart rate up to 220 during symptoms PLAN Cardiothoracic surgery team consult appreciated Continue patient on the current cardiac medications: Atorvastatin 40 mg daily, Lopressor 12.5 mg twice daily Reduce aspirin to 81 mg daily Continue nicotine patch Smoking cessation. Patient will be provided with the [employer] quit line information at the time of discharge. Nurse practitioner note has been reviewed, I agree with documented findings and plan of care. Patient was seen and examined. Objective - Vital Signs Vital signs: Vital Signs Temp 97.5 F L 01/11/24 07:00 Pulse 80 01/11/24 07:54 Resp 17 01/11/24 07:00 BP 116/79 01/11/24 07:00 Pulse Ox 98 01/11/24 07:00 FiO2 Intake & Output 01/10/24 01/11/24 01/11/24 18:59 06:59 18:59 Intake Total 618 240 Balance 618 240 Intake: IV 500 Oral 118 240 Other: # Voids 1 3 - Labs CBC & Chem 7: 01/08/24 17:26 01/08/24 17:26 Labs: Abnormal Lab Results - Last 24 Hours (Table) 01/10/24 Range/Units 15:10 Ur Specific [place] >1.050 H (1.001-1.035) Urine Glucose (UA) Trace H (Negative) Urine Ketones 2+ H (Negative)
--- NOTE | 2024-01-11 11:17 | CT ---
EXAMINATION TYPE: CT chest wo con DATE OF EXAM: 01/11/2024 COMPARISON: HISTORY: evaluate aorta CT DLP: 232.[address] of the chest was performed with lung and mediastinal window settings submitted. The la ck of contrast limits evaluation of the vascular, mediastinal and parenchymal structures including th e upper abdomen. LUNGS: Moderate to severe centrilobular and paraseptal emphysema greatest at the lung apices. Parench ymal scarring noted. 5 mm pulmonary nodule left upper lobe anteromedially. MEDIASTINUM/CAM: Thoracic aorta is of normal caliber with limited evaluation given lack of contrast . The heart is not enlarged. No evidence for mediastinal mass. No lymph nodes greater than 1cm. UPPER ABDOMEN: No significant abnormality is seen. OTHER: No significant other abnormality. IMPRESSION: 1. Emphysematous changes.
[2024-01-12 03:34] LABS: B/A1 Ratio 0.71 Ratio (0.35 - 1.00)
[2024-01-12] MEDS ORDERED: PAPAVERINE 360 MG in SODIUM CHLORIDE 0.9% 90 ML IV ONE (05:00)
[2024-01-12] MEDS ORDERED: NITROGLYCERIN-D5W PMX 25 MG/250 ML BTL IV ONE (05:00)
[2024-01-12] MEDS ORDERED: MANNITOL 25% 12.5 GM/50 ML VIAL IV ONE ×2 (05:00)
[2024-01-12] MEDS ORDERED: TRANEXAMIC ACID 2,000 MG in SODIUM CHLORIDE 0.9% 80 ML IV ONE (05:00)
[2024-01-12] MEDS ORDERED: NITROGLYCERIN-D5W PMX 50 MG in DEXTROSE/WATER 1 250ML.BAG IV SCH (05:00)
[2024-01-12] MEDS ORDERED: INSULIN REGULAR 100 UNIT in SODIUM CHLORIDE 0.9% 100 ML IV SCH (05:00)
[2024-01-12] MEDS ORDERED: HEPARIN SODIUM,PORCINE (1 ML) 5,000 UNIT in SODIUM CHLORIDE 0.9% 500 ML 500 ML IV ONE (05:00)
[2024-01-12] MEDS ORDERED: ceFAZolin 1,000 MG in SODIUM CHLORIDE 0.9% IRRIGATIO 1,000 ML IRRIGATION ONE (05:00)
[2024-01-12] MEDS ORDERED: CHLORHEXIDINE GLUCONATE 15 ML CUP MUCOUS MEM ONE (05:00)
[2024-01-12] MEDS ORDERED: PHENYLEPHRINE 40 MG in SODIUM CHLORIDE 0.9% 250 ML IV ONE (05:00)
[2024-01-12] MEDS ORDERED: SODIUM BICARB 8.4% 50 ML SYR (1 MEQ/ML) IV ONE (05:00)
[2024-01-12] MEDS ORDERED: CLEVIDIPINE BUTYRATE 25 MG in EMPTY BAG 1 BAG IV SCH (05:00)
[2024-01-12] MEDS ORDERED: NOREPINEPHRINE 4 MG in SODIUM CHLORIDE 0.9% 250 ML IV SCH (05:00)
[2024-01-12] MEDS ORDERED: ELECTROLYTE-A SOLUTION 1,000 ML with POTASSIUM CHLORIDE 40 MEQ, MAGNESIUM SULFATE 16 ME... IV ONE (05:00)
[2024-01-12] MEDS ORDERED: MAGNESIUM SULFATE 16.24 MEQ in EMPTY SYRINGE 1 SYR IV ONE (05:00)
[2024-01-12] MEDS ORDERED: PROTAMINE SULFATE 250 MG in EMPTY BAG 1 BAG IV ONE (05:00)
[2024-01-12] MEDS ORDERED: PROTAMINE SULFATE 10 MG/ML 25 ML VIAL IV ONE ×2 (05:00→07:53)
[2024-01-12] MEDS ORDERED: ELECTROLYTE-A SOLUTION 1,000 ML with POTASSIUM CHLORIDE 100 MEQ, MAGNESIUM SULFATE 16 M... IV ONE (05:00)
[2024-01-12] MEDS ORDERED: ALBUMIN HUMAN 5% 500 ML in EMPTY BAG 1 BAG IVPB ONE ×4 (05:00)
[2024-01-12] MEDS ORDERED: CALCIUM CHLORIDE 100 MG/ML 10 ML SYRINGE IVP ONE (05:00)
[2024-01-12] MEDS ORDERED: HEPARIN SODIUM 1,000 UN/ML (10ML VL) IV ONE (05:00)
[2024-01-12] MEDS: ATORVASTATIN 10 MG TAB PO ONE (05:34)
[2024-01-12] MEDS: METOPROLOL TARTRATE 12.5 MG TAB PO ONE (05:34)
[2024-01-12] MEDS: ASPIRIN 325 MG TAB PO ONE (05:34)
[2024-01-12 06:30] LABS: Glucose,Whole Blood 87 mg/dL (70-110)
[2024-01-12] MEDS: LIDOCAINE 1% (10MG/ML) FOR IV START INTRADERMA PRN (06:47)
[2024-01-12] MEDS: IV FLUID CONTINUATION 900 ML IV ONE (06:48)
[2024-01-12] MEDS ORDERED: PHENYLEPHRINE-0.9% NACL SYG 1,000 MCG/10 ML SYRINGE ONE (07:53)
[2024-01-12] MEDS ORDERED: SODIUM BICARB 8.4% 50 ML SYR (1 MEQ/ML) ONE (07:53)
[2024-01-12] MEDS ORDERED: fentaNYL (PF) 50 MCG/ML 50 ML VIAL ONE (07:53)
[2024-01-12] MEDS ORDERED: VECURONIUM 10 MG VIAL IV ONE (07:53)
[2024-01-12] MEDS ORDERED: ALBUMIN HUMAN 5% (25gm) 500 ML VIAL IVPB ONE (07:53)
[2024-01-12] MEDS ORDERED: CALCIUM CHLORIDE 100 MG/ML 10 ML SYRINGE ONE (07:53)
[2024-01-12] MEDS ORDERED: MIDAZOLAM HCL 10 MG/10 ML VIAL ONE (07:53)
[2024-01-12] MEDS ORDERED: HEPARIN SODIUM,PORCINE 10,000 UNIT/ML 1 ML VIAL ONE (07:53)
[2024-01-12] MEDS ORDERED: ePHEDrine 50 MG/ML 1 ML VIAL ONE (07:53)
[2024-01-12] MEDS ORDERED: PROPOFOL 10 MG/ML 20 ML VIAL IV ONE (07:53)
[2024-01-12 08:55] LABS: ABG Glucose Whole Blood 91 mg/dL (75-99); ABG HCO3 24 mmol/L (21-25); ABG Ionized Calcium 4.7 mg/dL (4.5-5.3); ABG Lactic Acid Whole Blood 1.3 mmol/L (0.5-1.6); ABG PCO2 45 mmHg (35-45); ABG PH 7.33 (7.35-7.45); ABG PO2 207 mmHg (83-108); ABG Potassium Whole Blood 4.2 mmol/L (3.4-4.5); ABG Sodium Whole Blood 140 mmol/L (135-146)
[2024-01-12 09:45] LABS: ABG Glucose Whole Blood 136 mg/dL (75-99); ABG HCO3 24 mmol/L (21-25); ABG Ionized Calcium 4.6 mg/dL (4.5-5.3); ABG Lactic Acid Whole Blood 0.6 mmol/L (0.5-1.6); ABG PCO2 57 mmHg (35-45); ABG PH 7.23 (7.35-7.45); ABG PO2 138 mmHg (83-108); ABG Potassium Whole Blood 4.9 mmol/L (3.4-4.5); ABG Sodium Whole Blood 139 mmol/L (135-146)
--- NOTE | 2024-01-12 09:53 | P.ANPRN ---
Procedure Note - Anesthesia - Invasive Line Right Arterial Line Time Out Performed: Yes (0733) Date of Procedure: 01/12/24 Time of Procedure: 07:34 Location of Patient: PreOp Preparation: Sterile Prep, Sterile Dressing Arterial Line Location: Radial (right radial) Ultrasound Used: No Purpose - Visualization and Identification of Vasculature: No Needle Guage: 20g Image Stored and Saved: No Narrative: Invasive line placement per sterile protocol utilized. lumen bled and flushed
[2024-01-12 09:55] LABS: ABG Base Excess -2.7 mmol/L; ABG Hematocrit 47 % (34.0-46.0); ABG Oxygen Saturation 98.8 % (94-97); ABG TCO2 21 mmol/L (19-24)
[2024-01-12 09:56] LABS: ABG Base Excess -4.5 mmol/L; ABG Hematocrit 45 % (34.0-46.0); ABG Oxygen Saturation 97.9 % (94-97); ABG TCO2 22 mmol/L (19-24)
--- NOTE | 2024-01-12 09:56 | P.ANPRN ---
Procedure Note - Anesthesia - Invasive Line Right Byram Josefina Time Out Performed: Yes (0733) Date of Procedure: 01/12/24 Time of Procedure: 07:50 Location of Patient: Phase I Preparation: Sterile Prep, Sterile Dressing Byram Josefina Line Location: Internal Jugular (right) Ultrasound Used: No Purpose - Visualization and Identification of Vasculature: No Image Stored and Saved: No Narrative: Invasive line placement per sterile protocol utilized. Anesthesia note Procedure right Byram-Josefina catheter placed through right internal jugular central venous catheter Sterile protocol maintained from previous procedure. Byram-Josefina catheter sterilely placed in sheath and flushed prior to insertion. After advancing 15 cm Byram-Josefina catheter was then slowly inserted with balloon up. Advanced through CVP, RV to PA waveform. Byram-Josefina catheter wedged around 51 cm. Balloon down. Catheter withdrawn 5 cm. . No wedge. Proximal and distal sites locked on sheath. Attempts x1. Sterile drapes removed and dressings applied.
--- NOTE | 2024-01-12 09:56 | P.ANPRN ---
Procedure Note - Anesthesia - Invasive Line Right Central Line Time Out Performed: Yes (0733) Date of Procedure: 01/12/24 Time of Procedure: 07:41 Location of Patient: Phase I Preparation: Sterile Prep, Sterile Dressing Central Line Location: Internal Jugular (right IJ cordis) Ultrasound Used: Yes Purpose - Visualization and Identification of Vasculature: Yes Needle Guage: 18g angio Image Stored and Saved: Yes Narrative: Invasive line placement per sterile protocol utilized. Anesthesia note Procedure: Right internal jugular central venous catheter insertion: 8.5-Serbian Cordis Sterile protocol followed. Right neck prepped. Ultrasound used. Lidocaine 1% used. Using ultrasound local anesthetic was instilled site over right Internal Jugular vein. Angiocath was used to gain access via ultrasound. Once free flow non-pulsatile blood flow was confirmed, 12 inch extension tubing was then placed on Angiocath. Once central venous pressure was confirmed, J-wire was then placed through Angiocath. Angiocath was then withdrawn. Local was instilled at J-wire site. Small skin arian was then made with provided sterile scalpel. 8.5- Serbian Cordis was then inserted over the wire while maintaining control of wire at all times. Uneventful insertion with dilation. Free flow nonpulsatile blood flow through Cordis. Hooked up to IV tubing. Secured with suture. Dressings applied. Drapes Removed. Attempts x1.
--- NOTE | 2024-01-12 09:57 | P.ANPRN ---
Procedure Note - Anesthesia - AMILCAR Intraop Pre Bypass AMILCAR Intraop - Anesthesia Indication: cad Date of Procedure: 01/12/24 Pre-operative Diagnosis: cad Post-operative Diagnosis: same Surgeon: Haider Gonzalez Left Ventricle: wnl Ejection Fraction: Normal Regional Wall Motion Abnormalities: None Left Ventricle Hypertrophy: No R. Ventricle Function: Normal Anatomy: Trileaflet Aortic Stenosis: None Aortic Regurgitation: None Mitral Stenosis: None Mitral Regurgitation: Trace Tricuspid Stenosis: None Tricuspid Regurgitation: None Pulmonic Stenosis: None Pulmonic Regurgitation: None R. Atrial Dilation: No R. Atrial PFO: No Left Atrium: aurelia clear L. Atrial Dilation: No Aortic Dissection: No Aortic Calcification: None Plural Effusion: None
[2024-01-12] MEDS: DILTIAZEM 125 MG in SODIUM CHLORIDE 0.9% 100 ML IV SCH (09:58)
[2024-01-12] MEDS: PAPAVERINE 360 MG in SODIUM CHLORIDE 0.9% 90 ML IV ONE (09:59)
[2024-01-12] MEDS: SODIUM CHLORIDE 0.9% 500 ML 500 ML with HEPARIN SODIUM,PORCINE (1 ML) 5,000 UNIT IV ONE (09:59)
[2024-01-12] MEDS: ceFAZolin 1,000 MG in SODIUM CHLORIDE 0.9% 1,000 ML IRRIGATION ONE (09:59)
[2024-01-12 11:17] LABS: ABG Glucose Whole Blood 135 mg/dL (75-99); ABG HCO3 25 mmol/L (21-25); ABG Ionized Calcium 4.7 mg/dL (4.5-5.3); ABG Lactic Acid Whole Blood 0.7 mmol/L (0.5-1.6); ABG PCO2 41 mmHg (35-45); ABG PO2 237 mmHg (83-108); ABG Potassium Whole Blood 4.5 mmol/L (3.4-4.5); ABG Sodium Whole Blood 141 mmol/L (135-146)
[2024-01-12 12:06] LABS: ABG Glucose Whole Blood 131 mg/dL (75-99); ABG HCO3 24 mmol/L (21-25); ABG Lactic Acid Whole Blood 0.8 mmol/L (0.5-1.6); ABG PCO2 42 mmHg (35-45); ABG PH 7.37 (7.35-7.45); ABG PO2 124 mmHg (83-108); ABG Sodium Whole Blood 141 mmol/L (135-146)
[2024-01-12 12:16] LABS: ABG Base Excess -1.2 mmol/L; ABG Hematocrit 38 % (34.0-46.0); ABG Oxygen Saturation 98.3 % (94-97); ABG TCO2 22 mmol/L (19-24)
[2024-01-12 12:17] LABS: ABG Hematocrit 39 % (34.0-46.0); ABG Oxygen Saturation 99.2 % (94-97); ABG TCO2 23 mmol/L (19-24)
--- NOTE | 2024-01-12 12:33 | P.OP ---
Date of Procedure: 01/12/24 Preoperative Diagnosis: 3v CAD, Unstable Angina HLD Postoperative Diagnosis: Same Procedure(s) Performed: 1. Off pump coronary artery bypass grafting x 3. Left internal thoracic artery (in-situ) to left anterior descending coronary artery. Left radial artery from aorta to obtuse marginal artery. Reverse saphenous vein from aorta to distal right coronary artery. 2. Left atrial appendage ligation with #35mm AtriClip 4. Endoscopic left radial and left greater saphenous vein harvest 5. Graft flow measurements using the Medi-Stim flow meter system 6. Trans-esophageal echo Implants: #35 AtriClip Anesthesia: GETA Surgeon: Haider Gonzalez Transporter Radiology #1: Jelani Toussaint Estimated Blood Loss (ml): 250 Pathology: none sent Condition: critical Disposition: ICU Indications for Procedure: This patient is a 63 year-old M who presented to the hospital with recurrent chest pain. Coronary angiography revealed signficiant 3v CAD. His STS risk of morbidity and mortality was discussed with him and CABG was recommended. Operative Findings: KARLA 2.0mm good conduit. LAD 1.5mm good target. CAMPBELL-LAD Flow 29ml/min, P.I. 1.7 Radial artery 2.0mm good conduit. OM 1.5mm good target. RA-OM Flow 20ml/min, P.I. 2.5 Saphenous vein 2.5mm good conduit. RCA 2.0mm good target. SVG-RCA Flow 20ml/min, P.I. 5.3 Description of Procedure: A midline incision was made on the chest. This was carried down to bone and a median sternotomy was performed. Hemostasis on the bone was achieved with electrocautery only. The left pleura was entered and the left internal thoracic artery was harvested in a skeletonized fashion. Simultaneously two other assistants harvested the left radial artery and right greater saphenous vein endoscopically. The patient was systemically heparinized and the KARLA was tr ansected and placed in a papaverine jacuzzi. A left sided chest tube was placed. The pericardium was opened in a T-fashion and a pericardial cradle was created. Heparin was given. The conduits were prepared. A 35mm AtriClip was then placed on the left atrial appendage. Next, the left anterior descending coronary artery was stabilized and once ACT>250, arteriotomy was made and 1.5mm flow through was inserted. An end to side anastomosis between the KARLA and LAD was performed usinig a running 7-0 prolene. Next, the distal right coronary artery was identified, and arteriotomy was created. 2.0mm flow through was inserted. We then performed an end to side with the saphenous vein to the right coronary artery using a running 7-0 Prolene. Next, a stay suture was placed on the pericardium along the diaphragm and in the oblique sinus to expose the lateral wall. Next the lateral wall of the heart was examined and the obtuse marginal artery was identified and arteriotomy created. 1.5mm flow through was inserted. Next we performed the distal end to side anastomosis with the radial artery to obtuse marginal artery using a running 7-0 Prolene. Lastly, both proximals were sewn to the ascending aorta using a heartstring device x 2. Graft flows were checked and they were excellent. Protamine was given. A 19F juno and 32F chest tube was placed in right pleura and mediastinum. Ventricular wires were placed on the inferior RV. The sternum was closed with cables. The fascia was closed with Ethibond. The subcutaneous tissues and skin of the sternum, arm and leg were closed in layers of vicryl. All counts were correct and the patient was transported to the CVICU in critical condition on nitro gtt.
[2024-01-12] MEDS ORDERED: hydrALAZINE HCL 20 MG/ML 1 ML VIAL IVP PRN (12:46)
[2024-01-12] MEDS ORDERED: DEXTROSE 50% SYRINGE 50 ML IVP PRN ×2 (12:46)
[2024-01-12] MEDS ORDERED: BENZOCAINE/MENTHOL LOZENG 1 EACH LOZENGE MUCOUS MEM PRN (12:46)
[2024-01-12] MEDS ORDERED: CALCIUM GLUCONATE IN NACL 2 GM in SALINE 1 100ML.BAG IVPB PRN (12:46)
[2024-01-12] MEDS ORDERED: IPRATROPIUM-ALBUTEROL 3 ML NEB INHALATION PRN (12:46)
[2024-01-12] MEDS ORDERED: Magnesium Replacement Protocol 1 EACH MISC MISCELLANE PRN (12:46)
[2024-01-12] MEDS ORDERED: Phosphorus Replacement Protoco 1 EACH MISC MISCELLANE PRN (12:46)
[2024-01-12] MEDS ORDERED: Potassium Replacement Protocol 1 EACH MISC MISCELLANE PRN (12:46)
[2024-01-12] MEDS ORDERED: AMIODARONE 360 MG in DEXTROSE 5% IN WATER 200 ML IV PRN (12:46)
[2024-01-12 13:03] LABS: Glucose,Whole Blood 124 mg/dL (70-110)
[2024-01-12 13:10] LABS: Basophils % (A) 0 %; Eosinophils # (A) 0.2 k/uL (0-0.7); Eosinophils % (A) 1 %; HCT 41.3 % (39.0-53.0); Lymphocytes # (A) 1.6 k/uL (1.0-4.8); Lymphocytes % (A) 10 %; MCH 28.4 pg (25.0-35.0); MCHC 32.4 g/dL (31.0-37.0); MCV 87.5 fL (80.0-100.0); Mean Platelet Volume 8.3; Monocytes % (A) 6 %; Neutrophils # (A) 13.6 k/uL (1.3-7.7); Neutrophils % (A) 82 %; Platelet Count 204 k/uL (150-450); RBC 4.72 m/uL (4.30-5.90); WBC 16.6 k/uL (3.8-10.6)
[2024-01-12 13:14] LABS: HGB 13.4 gm/dL (13.0-17.5)
[2024-01-12 13:22] LABS: Ionized Calcium 5.1 mg/dL (4.5-5.3)
[2024-01-12 13:23] LABS: ABG Base Excess -1.7 mmol/L; ABG HCO3 25 mmol/L (21-25); ABG Oxygen Saturation 99.9 % (94-97); ABG PCO2 51 mmHg (35-45); ABG PO2 213 mmHg (83-108); ABG TCO2 27 mmol/L (19-24)
[2024-01-12 13:23] LABS: INR 1.2 (<1.2); Partial Thromboplastin Time 28.2 sec (22.0-30.0); Prothrombin Time 13.2 sec (10.0-12.5)
[2024-01-12 13:25] LABS: Allen Test Performed? no
--- NOTE | 2024-01-12 13:27 | P.ANPRN ---
Procedure Note - Anesthesia - AMILCAR Intraop Post Bypass AMILCAR Intraop Post Bypass Procedure Performed: Off pump bypass Left Ventricle: unchanged Ejection Fraction: Normal Regional Wall Motion Abnormalities: None R. Ventricle Function: Normal Aortic Valve: Unchanged Mitral Valve: Unchanged Tricuspid: Unchanged Pulmonic: Unchanged Aortic Dissection: No
[2024-01-12 13:31] LABS: ALT 12 U/L (4-49); AST 18 U/L (17-59); African American GFR (CKD) >90 (>60 ml/min/1.73 sqM); Albumin 3.3 g/dL (3.5-5.0); Alkaline Phosphatase 47 U/L (38-126); Anion Gap 6 mmol/L; Blood Urea Nitrogen 15 mg/dL (9-20); Calcium 8.7 mg/dL (8.4-10.2); Carbon Dioxide 21 mmol/L (22-30); Chloride 113 mmol/L (98-107); Glucose 119 mg/dL (74-99); Magnesium 1.6 mg/dL (1.6-2.3); Non-African American GFR(CKD) >90 (>60 ml/min/1.73 sqM); Potassium 4.1 mmol/L (3.5-5.1); Sodium 140 mmol/L (137-145); Total Bilirubin 0.9 mg/dL (0.2-1.3)
--- NOTE | 2024-01-12 13:47 | XR ---
EXAMINATION TYPE: XR chest 1V portable DATE OF EXAM: 01/12/2024 Comparison: 01/08/2024 Clinical History: 63-year-old male Post Operative Cardiac Surgery Findings: ET and NG tubes are satisfactory. Mediastinal drain and bilateral chest tubes. No appreciable pneumot horax. Median sternotomy wires post-CABG clips. Hyperinflation. Interstitial densities and patchy low er lung opacity. Impression: Post-CABG changes. COPD with pulmonary vascular congestion. Mild patchy atelectasis or patchy edema i n the lower lungs.
[2024-01-12] MEDS: SODIUM CHLORIDE 0.9% 1,000 ML IV SCH (13:59)
[2024-01-12] MEDS: NITROGLYCERIN-D5W PMX 50 MG in DEXTROSE/WATER 1 250ML.BAG IV SCH (13:59)
[2024-01-12 14:13] LABS: Glucose,Whole Blood 119 mg/dL (70-110)
[2024-01-12] MEDS: DEXMEDETOMIDINE/0.9% NACL(PMX) 400 MCG in EMPTY BAG 1 BAG IV SCH (14:39)
[2024-01-12] MEDS: ALBUMIN HUMAN 5% 500 ML in EMPTY BAG 1 BAG IVPB ONE (14:40)
[2024-01-12] MEDS: ALBUMIN HUMAN 25% 50 ML in EMPTY BAG 1 BAG IVPB ONE (14:40)
--- NOTE | 2024-01-12 14:43 | P.CNPUL ---
History of Present Illness Consult date: 01/12/24 Requesting physician: Bharat Reagan Reason for consult: other (Mechanical ventilator/critical care management) Chief complaint: Chest pain History of present illness: This is a 63-year-old male patient with a history of hyperlipidemia, chronic and ongoing tobacco dependence, neurofibromatosis, daily marijuana use who presented here January 07 with complaints of chest pain. He did undergo a cardiac catheterization that revealed significant coronary artery disease. Surgery was recommended. Today he did undergo an off-pump coronary artery bypass grafting x 3 with a CAMPBELL to the LAD, left radial artery to the obtuse marginal artery, reverse saphenous vein graft to the distal RCA. Left atrial appendage ligation. He is seen postoperatively in the intensive care unit. He is intubated on the mechanical ventilator. Settings are assist-control mode at a rate of 14, tidal volume 500, FiO2 100% and a PEEP of 5. Arterial blood gases reveal a P O2 of 213, pCO2 51 and a pH of 7.30. Chest x-ray reveals post CABG changes. COPD with pulmonary vascular congestion. Mild patchy atelectasis in the lower lungs. Right, left and mediastinal chest tubes remain in place. He is sedated on propofol at 40 mcg/kg/min. Nitroglycerin drip at 10 mcg/min. Normal saline at 50 MLS per hour. Cardiac output 4.5. Cardiac index 2.4. PA pressures 40/17. CVP 9. White count 16.6. Hemoglobin 13.4. Platelets 204. INR 1.2. Sodium 140. Potassium 4.1. Bicarb 21. BUN 15. Creatinine 0.59. Glucose 119. Review of Systems ROS unobtainable: due to endotracheal tube Past Medical History Past Medical History: COPD, Hyperlipidemia, Hypertension, Respiratory Disorder Additional Past Medical History / Comment(s): History of elevated PSA concerning for prostate cancer History of Any Multi-Drug Resistant Organisms: None Reported Past Surgical History: Orthopedic Surgery Additional Past Surgical History / Comment(s): Right rotator cuff - total 5 surgeries of rt shoulder, history of prostate biopsy Past Anesthesia/Blood Transfusion Reactions: No Reported Reaction Past Psychological History: Anxiety Smoking Status: Current every day smoker Past Alcohol Use History: Rare Past Drug Use History: Marijuana Additional Drug Use History / Comment(s): Daily marijuana use - Past Family History Father Family Medical History: Cancer, Coronary Artery Disease (CAD) (History of coronary artery bypass grafting surgery in his 40s) Additional Family Medical History / Comment(s): unsure what kind of cancer - per pt Medications and Allergies Home Medications Medication Instructions Recorded Confirmed Type Albuterol Sulfate [Ventolin HFA] 2 puff INHALATION RT-TID PRN 06/23/23 01/08/24 History Ergocalciferol (Vitamin D2) 1,250 mcg PO MO 06/23/23 01/08/24 History [Drisdol (50,000 Iu)] HYDROcodone/APAP 7.5-325MG [[place] 1 tab PO BID 06/23/23 01/08/24 History 7.5-325] Atorvastatin [Lipitor] 40 mg PO DAILY 01/04/24 01/08/24 History Fluticasone/Umeclidin/Vilanter 1 puff INHALATION RT-DAILY 01/04/24 01/08/24 History [Trelegy Ellipta 100-62.5-25] Ibuprofen [Motrin] 800 mg PO BID 01/04/24 01/08/24 History Allergies Allergy/AdvReac Type Severity Reaction Status Date / Time No Known Allergies Allergy Verified 01/08/24 17:38 Physical Exam Vitals: Vital Signs Temp Pulse Pulse Pulse Resp BP BP 01/12/24 13:45 70 18 01/12/24 13:30 67 12 01/12/24 13:29 01/12/24 13:15 66 01/12/24 13:00 71 12 127/82 01/12/24 12:51 68 12 01/12/24 12:49 01/12/24 12:47 01/12/24 06:51 98.2 F 77 18 112/62 01/12/24 05:37 78 126/84 01/12/24 02:00 97.7 F 82 14 01/11/24 20:00 97.9 F 85 14 BP Pulse Ox FiO2 01/12/24 13:45 98 50 01/12/24 13:30 100 01/12/24 13:29 50 01/12/24 13:15 100 01/12/24 13:00 97 100 01/12/24 12:51 93 L 01/12/24 12:49 100 01/12/24 12:47 100 01/12/24 06:51 110/65 100 01/12/24 05:37 98 01/12/24 02:00 106/61 98 01/11/24 20:00 104/52 97 Intake and Output 01/11/24 01/12/24 01/12/24 22:59 06:59 14:59 Intake Total 118 28.833 Output Total 1150 Balance 118 -1121.167 Intake: IV 4 Intake, IV Titration 24.833 Amount propofoL 1,000 mg In 24.833 Empty Bag 1 bag @ Titrate IV .Q0M [facility] Rx#: [id number] Oral 118 Output: Urine 400 Estimated Blood Loss 750 Other: # Voids 1 3 ABP, PAP, CO, CI - Last 8 Hours Arterial Blood Pressure 154/83 Arterial Blood Pressure 131/66 Arterial Blood Pressure 132/69 Arterial Blood Pressure 150/77 Pulmonary Artery Pressure 38/22 Pulmonary Artery Pressure 37/19 Pulmonary Artery Pressure 37/19 Pulmonary Artery Pressure 37/21 Cardiac Output 4.5 Cardiac Output 4 Cardiac Index 2.4 Cardiac Index 2.2 GENERAL EXAM: Intubated, sedated 63-year-old male patient, comfortable in no apparent distress. HEAD: Normocephalic. EYES: Sluggish reaction of pupils, equal size. NOSE: Clear with pink turbinates. THROAT: Oral endotracheal and gastric tube secured in place. No erythema or exudates. NECK: Right IJ Knifley-Josefina catheter in place. No masses, no JVD. CHEST: Sternal dressing dry and intact. Right, left, mediastinal chest tubes in place LUNGS: Equal air entry with few scattered rhonchi bilaterally. CVS: S1 and S2 normal with no audible murmur, regular rhythm. ABDOMEN: No hepatosplenomegaly, normal bowel sounds, no guarding or rigidity. SPINE: No scoliosis or deformity SKIN: No rashes CENTRAL NERVOUS SYSTEM: Sedated, tone is normal in all 4 extremities. EXTREMITIES: Right radial art line in place. Left radial SHAHIDA drain in place Kristian wrap to the extremity. Bilateral lower extremities with Kristian wraps and SCDs in place. No clubbing, no cyanosis. Peripheral pulses are intact. Results - Laboratory Findings CBC and BMP: 01/12/24 12:59 01/12/24 12:59 ABG ABG pH 7.30 (7.35-7.45) L 01/12/24 13:21 ABG pCO2 51 mmHg (35-45) H 01/12/24 13:21 ABG pO2 213 mmHg (83-108) H 01/12/24 13:21 ABG O2 Saturation 99.9 % (94-97) H 01/12/24 13:21 PT/INR, D-dimer PT 13.2 sec (10.0-12.5) H 01/12/24 12:59 INR 1.2 (<1.2) H 01/12/24 12:59 D-Dimer mg/L FEU (<0.60) 01/08/24 18:04 Abnormal lab findings: Abnormal Labs 01/08/24 01/08/24 01/08/24 17:26 17:26 17:26 WBC RBC 6.62 H Hgb 18.7 H Hct 56.9 H Neutrophils # PT INR ABG pH ABG pCO2 ABG pO2 ABG Total CO2 ABG O2 Saturation ABG Hematocrit ABG Potassium ABG Glucose Hemoglobin Chloride 109 H Carbon Dioxide 21 L Creatinine Glucose POC Glucose (mg/dL) Total Protein Albumin Triglycerides 161.00 H Cholesterol 203.00 H LDL Cholesterol, Calc 135.7 H HDL Cholesterol 35.10 L Apolipoprotein A-1 Lipoprotein (a) Arterial Blood Potassium Arterial Blood Glucose Ur Specific [place] Urine Glucose (UA) Urine Ketones Crossmatch 01/09/24 01/10/24 01/10/24 12:07 15:10 16:40 WBC RBC Hgb Hct Neutrophils # PT INR ABG pH ABG pCO2 ABG pO2 ABG Total CO2 ABG O2 Saturation ABG Hematocrit ABG Potassium ABG Glucose Hemoglobin Chloride Carbon Dioxide Creatinine Glucose POC Glucose (mg/dL) 125 H Total Protein Albumin Triglycerides Cholesterol LDL Cholesterol, Calc HDL Cholesterol Apolipoprotein A-1 107 L Lipoprotein (a) 69 H Arterial Blood Potassium Arterial Blood Glucose Ur Specific [place] >1.050 H Urine Glucose (UA) Trace H Urine Ketones 2+ H Crossmatch 01/11/24 01/12/24 01/12/24 11:19 08:57 09:48 WBC RBC Hgb Hct Neutrophils # PT INR ABG pH 7.33 L 7.23 L ABG pCO2 57 H ABG pO2 207 H 138 H ABG Total CO2 ABG O2 Saturation 98.8 H 97.9 H ABG Hematocrit 47 H ABG Potassium 4.9 H ABG Glucose 136 H Hemoglobin Chloride Carbon Dioxide Creatinine Glucose POC Glucose (mg/dL) Total Protein Albumin Triglycerides Cholesterol LDL Cholesterol, Calc HDL Cholesterol Apolipoprotein A-1 Lipoprotein (a) Arterial Blood Potassium 4.9 H Arterial Blood Glucose 136 H Ur Specific [place] Urine Glucose (UA) Urine Ketones Crossmatch See Detail 01/12/24 01/12/24 01/12/24 11:19 12:07 12:59 WBC 16.6 H RBC Hgb Hct Neutrophils # 13.6 H PT INR ABG pH ABG pCO2 ABG pO2 237 H 124 H ABG Total CO2 ABG O2 Saturation 99.2 H 98.3 H ABG Hematocrit ABG Potassium ABG Glucose 135 H 131 H Hemoglobin 12.8 L 12.4 L Chloride Carbon Dioxide Creatinine Glucose POC Glucose (mg/dL) Total Protein Albumin Triglycerides Cholesterol LDL Cholesterol, Calc HDL Cholesterol Apolipoprotein A-1 Lipoprotein (a) Arterial Blood Potassium Arterial Blood Glucose 135 H 131 H Ur Specific [place] Urine Glucose (UA) Urine Ketones Crossmatch 01/12/24 01/12/24 01/12/24 12:59 12:59 13:02 WBC RBC Hgb Hct Neutrophils # PT 13.2 H INR 1.2 H ABG pH ABG pCO2 ABG pO2 ABG Total CO2 ABG O2 Saturation ABG Hematocrit ABG Potassium ABG Glucose Hemoglobin Chloride 113 H Carbon Dioxide 21 L Creatinine 0.59 L Glucose 119 H POC Glucose (mg/dL) 124 H Total Protein 5.0 L Albumin 3.3 L Triglycerides Cholesterol LDL Cholesterol, Calc HDL Cholesterol Apolipoprotein A-1 Lipoprotein (a) Arterial Blood Potassium Arterial Blood Glucose Ur Specific [place] Urine Glucose (UA) Urine Ketones Crossmatch 01/12/24 01/12/24 13:21 14:12 WBC RBC Hgb Hct Neutrophils # PT INR ABG pH 7.30 L ABG pCO2 51 H ABG pO2 213 H ABG Total CO2 27 H ABG O2 Saturation 99.9 H ABG Hematocrit ABG Potassium ABG Glucose Hemoglobin Chloride Carbon Dioxide Creatinine Glucose POC Glucose (mg/dL) 119 H Total Protein Albumin Triglycerides Cholesterol LDL Cholesterol, Calc HDL Cholesterol Apolipoprotein A-1 Lipoprotein (a) Arterial Blood Potassium Arterial Blood Glucose Ur Specific [place] Urine Glucose (UA) Urine Ketones Crossmatch - Diagnostic Findings Chest x-ray: image reviewed Assessment and Plan Assessment: Coronary artery disease, status post coronary artery bypass grafting utilizing a CAMPBELL to the LAD, left radial artery to the obtuse marginal branch, reverse saphenous vein to the distal RCA. Left atrial appendage ligation. Postoperative day #0 Chronic and ongoing tobacco dependence Daily marijuana use Chronic obstructive pulmonary disease Hyperlipidemia Neurofibromatosis Family history of premature coronary artery disease Plan: The patient was seen and evaluated Chest x-ray, ABGs, labs and medications reviewed Increase the respiratory rate to 18 Decrease the FiO2 to 50% Will plan for early extubation protocol if tolerated Continue bronchodilators 4 times daily Heparin for DVT prophylaxis We will continue to follow and make further recommendations based on his clinical status I have personally seen and examined the patient, performed the documentation and the assessment and plan as written. Number of minutes spent on the visit: 20.
[2024-01-12 15:07] LABS: Glucose,Whole Blood 131 mg/dL (70-110)
[2024-01-12] MEDS: INSULIN REGULAR 100 UNIT in SODIUM CHLORIDE 0.9% 100 ML IV SCH (15:08)
[2024-01-12] MEDS: HEPARIN SODIUM,PORCINE 5,000 UNIT/ML 1 ML VIAL SQ SCH (15:34)
[2024-01-12 16:01] LABS: Glucose,Whole Blood 135 mg/dL (70-110)
[2024-01-12 16:25] LABS: Basophils % (A) 0 %; Eosinophils % (A) 0 %; HCT 41.7 % (39.0-53.0); HGB 13.8 gm/dL (13.0-17.5); Lymphocytes # (A) 1.1 k/uL (1.0-4.8); Lymphocytes % (A) 7 %; MCH 28.9 pg (25.0-35.0); MCHC 33.1 g/dL (31.0-37.0); MCV 87.4 fL (80.0-100.0); Mean Platelet Volume 8.6; Monocytes # (A) 1.2 k/uL (0-1.0); Monocytes % (A) 8 %; Neutrophils # (A) 12.8 k/uL (1.3-7.7); Neutrophils % (A) 84 %; Platelet Count 219 k/uL (150-450); RBC 4.77 m/uL (4.30-5.90); WBC 15.3 k/uL (3.8-10.6)
[2024-01-12] MEDS: ALBUMIN HUMAN 5% 250 ML in EMPTY BAG 1 BAG IVPB PRN (16:29)
[2024-01-12 17:03] LABS: Glucose,Whole Blood 109 mg/dL (70-110)
[2024-01-12] MEDS: CLEVIDIPINE BUTYRATE 25 MG in EMPTY BAG 1 BAG IV SCH (17:06)
[2024-01-12] MEDS: IPRATROPIUM-ALBUTEROL 3 ML NEB INHALATION SCH ×2 (17:27→19:24)
[2024-01-12] MEDS: ACETAMINOPHEN IV (For NPO) 1,000 MG in EMPTY BAG 1 BAG IVPB SCH (17:48)
[2024-01-12] MEDS: KETOROLAC 15 MG/ML 1 ML VIAL IVP SCH (17:54)
[2024-01-12 18:08] LABS: Glucose,Whole Blood 98 mg/dL (70-110)
[2024-01-12 18:51] LABS: Glucose,Whole Blood 98 mg/dL (70-110)
[2024-01-12 19:23] LABS: Basophils % (A) 0 %; Eosinophils % (A) 0 %; HCT 37.3 % (39.0-53.0); HGB 12.4 gm/dL (13.0-17.5); Lymphocytes # (A) 0.7 k/uL (1.0-4.8); Lymphocytes % (A) 5 %; MCHC 33.2 g/dL (31.0-37.0); MCV 87.5 fL (80.0-100.0); Monocytes % (A) 8 %; Neutrophils # (A) 10.2 k/uL (1.3-7.7); Neutrophils % (A) 84 %; Platelet Count 195 k/uL (150-450); RBC 4.26 m/uL (4.30-5.90); WBC 12.1 k/uL (3.8-10.6)
[2024-01-12 19:43] LABS: ABG Base Excess -1.1 mmol/L; ABG HCO3 23 mmol/L (21-25); ABG Oxygen Saturation 98.7 % (94-97); ABG PCO2 35 mmHg (35-45); ABG PH 7.42 (7.35-7.45); ABG PO2 100 mmHg (83-108); ABG TCO2 24 mmol/L (19-24); Allen Test Performed? Yes
[2024-01-12 20:12] LABS: Glucose,Whole Blood 90 mg/dL (70-110)
[2024-01-12 21:01] LABS: Glucose,Whole Blood 92 mg/dL (70-110)
[2024-01-12] MEDS: NOREPINEPHRINE 4 MG in SODIUM CHLORIDE 0.9% 250 ML IV SCH (21:23)
[2024-01-12 21:57] LABS: Glucose,Whole Blood 88 mg/dL (70-110)
[2024-01-12 22:58] LABS: Glucose,Whole Blood 100 mg/dL (70-110)
[2024-01-13 00:17] LABS: Glucose,Whole Blood 107 mg/dL (70-110)
--- NOTE | 2024-01-13 01:10 | P.PCN ---
Date of Procedure: 01/13/24 Preoperative Diagnosis: Postoperative open heart surgery Postoperative Diagnosis: Postoperative open heart surgery Procedure(s) Performed: Insertion of a right brachial arterial line Indications for Procedure: Hemodynamic monitoring and frequent blood draws Description of Procedure: Informed consent was obtained, and a procedural timeout was performed. The patient was placed in supine position. Local anesthesia with 1% lidocaine was administered. The right brachial region was prepared in a sterile fashion, and a sterile drape was applied. The right brachial artery was palpated, easily cannulated, and a guidewire was placed. A Cook catheter was inserted over the guidewire, and the guidewire was removed. There was good arterial blood flow, good arterial waveform, and no complications. Distal circulation intact. The line was secured with using a 3-0 silk suture.
[2024-01-13 01:22] LABS: Glucose,Whole Blood 135 mg/dL (70-110)
[2024-01-13 02:05] LABS: Glucose,Whole Blood 118 mg/dL (70-110)
--- NOTE | 2024-01-13 03:01 | PN ---
PROGRESS NOTE DATE OF SERVICE: 01/12/2024 CHIEF COMPLAINT: Triple-vessel coronary artery disease. HISTORY OF PRESENT ILLNESS: This gentleman is doing well and he is supposed to be going for surgery today. PHYSICAL EXAMINATION: CHEST: Demonstrates fairly good breath sounds. He does have emphysema. CARDIAC: Normal. IMPRESSION: 1. Triple-vessel coronary artery disease. 2. COPD. PLAN: Coronary artery bypass graft today. MMODL / IJN: [id number] /
[2024-01-13 03:02] LABS: Glucose,Whole Blood 103 mg/dL (70-110)
--- NOTE | 2024-01-13 03:15 | PN ---
PROGRESS NOTE CHIEF COMPLAINT: Coronary artery disease. HISTORY OF PRESENT ILLNESS: This gentleman is doing well and apparently cardiovascular surgery is planning CABG. PHYSICAL EXAMINATION: CHEST: Clear. CARDIAC: Normal. IMPRESSION: 1. Triple-vessel coronary artery disease. 2. COPD. 3. Neurofibromatosis. PLAN: CABG tomorrow. MMJOSE DL / AMYN: [id number] /
[2024-01-13 04:02] LABS: Glucose,Whole Blood 100 mg/dL (70-110)
[2024-01-13 04:22] LABS: Basophils % (A) 0 %; Eosinophils # (A) 0.2 k/uL (0-0.7); Eosinophils % (A) 2 %; HCT 38.4 % (39.0-53.0); HGB 12.7 gm/dL (13.0-17.5); Lymphocytes # (A) 0.3 k/uL (1.0-4.8); Lymphocytes % (A) 3 %; MCH 28.7 pg (25.0-35.0); MCV 86.8 fL (80.0-100.0); Mean Platelet Volume 8.9; Monocytes # (A) 1.1 k/uL (0-1.0); Monocytes % (A) 11 %; Neutrophils # (A) 8.5 k/uL (1.3-7.7); Neutrophils % (A) 81 %; Platelet Count 195 k/uL (150-450); RBC 4.42 m/uL (4.30-5.90); RDW 13.8 % (11.5-15.5); WBC 10.5 k/uL (3.8-10.6)
[2024-01-13] MEDS: ONDANSETRON 4 MG/2 ML VIAL IVP PRN (04:28)
[2024-01-13 04:44] LABS: Ionized Calcium 4.6 mg/dL (4.5-5.3)
[2024-01-13 05:04] LABS: Glucose,Whole Blood 129 mg/dL (70-110)
[2024-01-13 05:26] LABS: ALT 11 U/L (4-49); AST 24 U/L (17-59); African American GFR (CKD) >90 (>60 ml/min/1.73 sqM); Albumin 3.3 g/dL (3.5-5.0); Alkaline Phosphatase 41 U/L (38-126); Anion Gap 6 mmol/L; Blood Urea Nitrogen 14 mg/dL (9-20); Calcium 8.3 mg/dL (8.4-10.2); Carbon Dioxide 20 mmol/L (22-30); Chloride 112 mmol/L (98-107); Glucose 93 mg/dL (74-99); Magnesium 1.5 mg/dL (1.6-2.3); Non-African American GFR(CKD) >90 (>60 ml/min/1.73 sqM); Potassium 3.8 mmol/L (3.5-5.1); Sodium 138 mmol/L (137-145); Total Bilirubin 1.9 mg/dL (0.2-1.3); Total Protein 4.9 g/dL (6.3-8.2)
[2024-01-13] MEDS: METOCLOPRAMIDE 5 MG/ML 2 ML VIAL IVP PRN (06:17)
[2024-01-13 06:25] LABS: Glucose,Whole Blood 113 mg/dL (70-110)
--- NOTE | 2024-01-13 06:31 | PN ---
PROGRESS NOTE CHIEF COMPLAINT: Chest pain. HISTORY OF PRESENT ILLNESS: This gentleman is doing well. He does have extensive triple-vessel disease. Cardiology feels that he should be managed with an intensive medicine. He has been referred to cardiovascular surgery, however. PHYSICAL EXAMINATION: CHEST: Clear. CARDIAC: Normal. ABDOMEN: Soft, nontender. IMPRESSION: 1. Coronary artery disease. 2. COPD. 3. Neurofibromatosis. PLAN: Await consult from Cardiovascular Surgery. MMODL / IJN: [id number] /
[2024-01-13] MEDS: POTASSIUM CHLORIDE ER 20 MEQ TAB.ER PO SCH (06:47)
[2024-01-13] MEDS: MAGNESIUM SULFATE-D5W PMX 1 GM in DEXTROSE/WATER 1 100ML.BAG IVPB SCH (06:47)
[2024-01-13 07:11] LABS: Glucose,Whole Blood 131 mg/dL (70-110)
[2024-01-13] MEDS: fentaNYL (PF) 50 MCG/ML 2 ML AMP IVP ONE ×2 (07:53→16:19)
[2024-01-13] MEDS: PANTOPRAZOLE 40 MG/10 ML VIAL IVP SCH (08:02)
[2024-01-13] MEDS: ATORVASTATIN 40 MG TAB PO SCH (08:02)
[2024-01-13] MEDS: CLOPIDOGREL 75 MG TAB PO SCH (08:02)
[2024-01-13] MEDS: METOPROLOL TARTRATE 25 MG TAB PO SCH (08:02)
[2024-01-13] MEDS: ASPIRIN 325 MG TAB PO SCH (08:02)
[2024-01-13] MEDS: ACETAMINOPHEN TAB 500 MG TAB PO PRN (08:08)
[2024-01-13 08:13] LABS: Glucose,Whole Blood 151 mg/dL (70-110)
[2024-01-13] MEDS: methocarbamoL 500 MG TAB PO PRN (08:26)
[2024-01-13] MEDS ORDERED: bisacodyL 10 MG SUPP RECTAL PRN (09:00)
[2024-01-13] MEDS ORDERED: MAGNESIUM HYDROXIDE 2,400 MG/30 ML CUP PO PRN (09:00)
[2024-01-13] MEDS ORDERED: METOPROLOL TARTRATE 12.5 MG TAB PO SCH (09:00)
--- NOTE | 2024-01-13 09:17 | XR ---
EXAMINATION TYPE: XR chest 1V portable DATE OF EXAM: 01/13/2024 Comparison: 01/12/2024 Clinical History: 63-year-old male Post Operative Cardiac Surgery Findings: Partially visualized reverse right shoulder arthroplasty. Median sternotomy wires and post-CABG clips . Bilateral chest tubes in place. No appreciable pneumothorax. Interstitial and patchy densities at t he increased bilaterally. Suspect trace left pleural effusion. Background hyperinflation. Impression: COPD with post-CABG changes. Increasing interstitial and patchy opacities. Correlate for developing p atchy pulmonary edema versus underlying infiltrates.
[2024-01-13 09:18] LABS: Glucose,Whole Blood 134 mg/dL (70-110)
[2024-01-13 09:29] LABS: Glucose,Whole Blood 197 mg/dL (70-110)
--- NOTE | 2024-01-13 09:32 | P.PN ---
Subjective Progress Note Date: 01/13/24 Patient is a 63-year-old male who presented to the hospital with new onset of chest discomfort and shortness of breath. The patient underwent coronary angiogram where he was found to have multivessel disease and therefore was referred for coronary bypass. On 01/12/2024 patient underwent coronary bypass x 3 with left atrial appendage closure with Dr. Gonzalez. Overnight the patient was successfully extubated and is now up to the recliner chair. All vasopressors have been weaned. Patient interviewed and examined sitting up in the chair. He denies any current chest discomfort. He just reports buttocks pain from sitting up in the recliner. He appears quite anxious and agitated. GENERAL: Well-appearing, well-nourished and in no acute distress. NECK: Supple without JVD or thyromegaly. LUNGS: Breath sounds diminished to auscultation bilaterally. Respiration equal and unlabored. No wheezes, rales or rhonchi. HEART: Regular rate and rhythm without murmurs, rubs or gallops. S1 and S2 heard. Heart hugger in place. Sternotomy dressing in place. EXTREMITIES: Normal range of motion, no edema. No clubbing or cyanosis. Peripheral pulses intact and strong. Compression socks in place. SHAHIDA drain at left saphenous vein site. TELEMETRY: Sinus tachycardia LABS: WBC 10.5, hemoglobin 12.7, hematocrit 38.4, platelet 195, sodium 138, potassium 3.8, BUN 14, creatinine 0.71, AST 24, ALT 11 IMPRESSION: Multivessel coronary artery disease Status post CABG x3 and left atrial appendage closure Tobacco use Hyperlipidemia Sinus tachycardia PLAN: Continue supportive treatment Aggressive pulmonary hygiene Agree with resuming beta-mirna; started this morning Further recommendations to be based upon clinical course I am dictating on behalf of Dr Brandan Mendez's history/physical and assessment/plan. Objective - Vital Signs Vital signs: Vital Signs Temp 99.9 F H 01/13/24 04:00 Pulse 93 01/13/24 09:00 Resp 10 L 01/13/24 09:00 BP 94/65 01/13/24 01:00 Pulse Ox 96 01/13/24 09:00 FiO2 50 01/12/24 20:00 Intake & Output 01/12/24 01/13/24 01/13/24 18:59 06:59 18:59 Intake Total 6727.024 5292.231 368 Output Total 2615 1130 137 Balance -1298.506 692.231 231 Weight 71.3 kg Intake: IV 1197 1719 118 ACETAMINOPHEN IV (For NPO 100 100 ) 1,000 mg In Empty Bag 1 bag @ 400 mls/hr IVPB Q6HR JUSTIN Rx#:[id number] Albumin Human 5% 250 ml 500 750 In Empty Bag 1 bag @ 250 mls/hr IVPB Q1HR PRN Rx#: [id number] CO/CI 180 120 Pressure Bag 63 99 18 Sodium Chloride 0.9% 1, 350 550 100 000 ml @ 50 mls/hr IV . Q20H JUSTIN Rx#:[id number] ceFAZolin 2 gm In Sodium 100 Chloride 0.9% 50 ml @ 100 mls/hr IVPB ONCE ONE Rx# :[id number] Intake, IV Titration 119.494 103.231 0 Amount Dexmedetomidine/0.9% NaCl 38.583 29.205 (Pmx) 400 mcg In Empty Bag 1 bag @ Titrate IV . Q0M JUSTIN Rx#:[id number] Insulin Regular 100 unit 2.003 0.396 0 In Sodium Chloride 0.9% 100 ml @ Per Protocol IV .Q0M JUSTIN Rx#:[id number] Nitroglycerin-D5w Pmx 50 10.825 mg In Dextrose/Water 1 250ml.bag @ 5 MCG/MIN 1.5 mls/hr IV .Q24H JUSTIN Rx#: [id number] Norepinephrine 4 mg In 62.805 Sodium Chloride 0.9% 250 ml @ 0.03 MCG/KG/MIN 8. 192 mls/hr IV .Q24H JUSTIN Rx#:[id number] propofoL 1,000 mg In 78.908 Empty Bag 1 bag @ Titrate IV .Q0M JUSTIN Rx#: [id number] Oral 250 Output: Chest Tube Drainage 510 600 52 Chest Tube Mediastinal 250 340 10 Left Pleural Chest Tube 250 200 40 Right Pleural Chest Tube 10 60 2 Drainage 110 40 Left Lower Calf 70 20 Right Wrist 40 20 Urine 1245 490 85 Estimated Blood Loss 750 Other: Voiding Method Indwelling Catheter Indwelling Catheter Indwelling Catheter ABP, PAP, CO, CI - Last Documented Arterial Blood Pressure 95/47 Pulmonary Artery Pressure 17/4 Cardiac Output 4.9 Cardiac Index 2.6 - Labs CBC & Chem 7: 0716/24 03:58 01/13/24 03:58 Labs: Abnormal Lab Results - Last 24 Hours (Table) 01/10/24 01/11/24 01/12/24 Range/Units 16:40 11:19 08:57 WBC (3.8-10.6) k/uL RBC (4.30-5.90) m/uL Hgb (13.0-17.5) gm/dL Hct (39.0-53.0) % Neutrophils # (1.3-7.7) k/uL Lymphocytes # (1.0-4.8) k/uL Monocytes # (0-1.0) k/uL PT (10.0-12.5) sec INR (<1.2) ABG pH 7.33 L (7.35-7.45) ABG pCO2 (35-45) mmHg ABG pO2 207 H (83-108) mmHg ABG Total CO2 (19-24) mmol/L ABG O2 Saturation 98.8 H (94-97) % ABG Hematocrit 47 H (34.0-46.0) % ABG Potassium (3.4-4.5) mmol/L ABG Glucose (75-99) mg/dL Hemoglobin (13.0-17.5) gm/dL Chloride (98-107) mmol/L Carbon Dioxide (22-30) mmol/L Creatinine (0.66-1.25) mg/dL Glucose (74-99) mg/dL POC Glucose (mg/dL) (70-110) mg/dL Calcium (8.4-10.2) mg/dL Magnesium (1.6-2.3) mg/dL Total Bilirubin (0.2-1.3) mg/dL Total Protein (6.3-8.2) g/dL Albumin (3.5-5.0) g/dL Lipoprotein (a) 69 H (0-30) mg/dL Arterial Blood Potassium (3.4-4.5) mmol/L Arterial Blood Glucose (75-99) mg/dL Crossmatch See Detail 01/12/24 01/12/24 01/12/24 Range/Units 09:48 11:19 12:07 WBC (3.8-10.6) k/uL RBC (4.30-5.90) m/uL Hgb (13.0-17.5) gm/dL Hct (39.0-53.0) % Neutrophils # (1.3-7.7) k/uL Lymphocytes # (1.0-4.8) k/uL Monocytes # (0-1.0) k/uL PT (10.0-12.5) sec INR (<1.2) ABG pH 7.23 L (7.35-7.45) ABG pCO2 57 H (35-45) mmHg ABG pO2 138 H 237 H 124 H (83-108) mmHg ABG Total CO2 (19-24) mmol/L ABG O2 Saturation 97.9 H 99.2 H 98.3 H (94-97) % ABG Hematocrit (34.0-46.0) % ABG Potassium 4.9 H (3.4-4.5) mmol/L ABG Glucose 136 H 135 H 131 H (75-99) mg/dL Hemoglobin 12.8 L 12.4 L (13.0-17.5) gm/dL Chloride (98-107) mmol/L Carbon Dioxide (22-30) mmol/L Creatinine (0.66-1.25) mg/dL Glucose (74-99) mg/dL POC Glucose (mg/dL) (70-110) mg/dL Calcium (8.4-10.2) mg/dL Magnesium (1.6-2.3) mg/dL Total Bilirubin (0.2-1.3) mg/dL Total Protein (6.3-8.2) g/dL Albumin (3.5-5.0) g/dL Lipoprotein (a) (0-30) mg/dL Arterial Blood Potassium 4.9 H (3.4-4.5) mmol/L Arterial Blood Glucose 136 H 135 H 131 H (75-99) mg/dL Crossmatch 01/12/24 01/12/24 01/12/24 Range/Units 12:59 12:59 12:59 WBC 16.6 H (3.8-10.6) k/uL RBC (4.30-5.90) m/uL Hgb (13.0-17.5) gm/dL Hct (39.0-53.0) % Neutrophils # 13.6 H (1.3-7.7) k/uL Lymphocytes # (1.0-4.8) k/uL Monocytes # (0-1.0) k/uL PT 13.2 H (10.0-12.5) sec INR 1.2 H (<1.2) ABG pH (7.35-7.45) ABG pCO2 (35-45) mmHg ABG pO2 (83-108) mmHg ABG Total CO2 (19-24) mmol/L ABG O2 Saturation (94-97) % ABG Hematocrit (34.0-46.0) % ABG Potassium (3.4-4.5) mmol/L ABG Glucose (75-99) mg/dL Hemoglobin (13.0-17.5) gm/dL Chloride 113 H (98-107) mmol/L Carbon Dioxide 21 L (22-30) mmol/L Creatinine 0.59 L (0.66-1.25) mg/dL Glucose 119 H (74-99) mg/dL POC Glucose (mg/dL) (70-110) mg/dL Calcium (8.4-10.2) mg/dL Magnesium (1.6-2.3) mg/dL Total Bilirubin (0.2-1.3) mg/dL Total Protein 5.0 L (6.3-8.2) g/dL Albumin 3.3 L (3.5-5.0) g/dL Lipoprotein (a) (0-30) mg/dL Arterial Blood Potassium (3.4-4.5) mmol/L Arterial Blood Glucose (75-99) mg/dL Crossmatch 01/12/24 01/12/24 01/12/24 Range/Units 13:02 13:21 14:12 WBC (3.8-10.6) k/uL RBC (4.30-5.90) m/uL Hgb (13.0-17.5) gm/dL Hct (39.0-53.0) % Neutrophils # (1.3-7.7) k/uL Lymphocytes # (1.0-4.8) k/uL Monocytes # (0-1.0) k/uL PT (10.0-12.5) sec INR (<1.2) ABG pH 7.30 L (7.35-7.45) ABG pCO2 51 H (35-45) mmHg ABG pO2 213 H (83-108) mmHg ABG Total CO2 27 H (19-24) mmol/L ABG O2 Saturation 99.9 H (94-97) % ABG Hematocrit (34.0-46.0) % ABG Potassium (3.4-4.5) mmol/L ABG Glucose (75-99) mg/dL Hemoglobin (13.0-17.5) gm/dL Chloride (98-107) mmol/L Carbon Dioxide (22-30) mmol/L Creatinine (0.66-1.25) mg/dL Glucose (74-99) mg/dL POC Glucose (mg/dL) 124 H 119 H (70-110) mg/dL Calcium (8.4-10.2) mg/dL Magnesium (1.6-2.3) mg/dL Total Bilirubin (0.2-1.3) mg/dL Total Protein (6.3-8.2) g/dL Albumin (3.5-5.0) g/dL Lipoprotein (a) (0-30) mg/dL Arterial Blood Potassium (3.4-4.5) mmol/L Arterial Blood Glucose (75-99) mg/dL Crossmatch 01/12/24 01/12/24 01/12/24 Range/Units 15:06 16:00 16:00 WBC 15.3 H (3.8-10.6) k/uL RBC (4.30-5.90) m/uL Hgb (13.0-17.5) gm/dL Hct (39.0-53.0) % Neutrophils # 12.8 H (1.3-7.7) k/uL Lymphocytes # (1.0-4.8) k/uL Monocytes # 1.2 H (0-1.0) k/uL PT (10.0-12.5) sec INR (<1.2) ABG pH (7.35-7.45) ABG pCO2 (35-45) mmHg ABG pO2 (83-108) mmHg ABG Total CO2 (19-24) mmol/L ABG O2 Saturation (94-97) % ABG Hematocrit (34.0-46.0) % ABG Potassium (3.4-4.5) mmol/L ABG Glucose (75-99) mg/dL Hemoglobin (13.0-17.5) gm/dL Chloride (98-107) mmol/L Carbon Dioxide (22-30) mmol/L Creatinine (0.66-1.25) mg/dL Glucose (74-99) mg/dL POC Glucose (mg/dL) 131 H 135 H (70-110) mg/dL Calcium (8.4-10.2) mg/dL Magnesium (1.6-2.3) mg/dL Total Bilirubin (0.2-1.3) mg/dL Total Protein (6.3-8.2) g/dL Albumin (3.5-5.0) g/dL Lipoprotein (a) (0-30) mg/dL Arterial Blood Potassium (3.4-4.5) mmol/L Arterial Blood Glucose (75-99) mg/dL Crossmatch 01/12/24 01/12/24 01/13/24 Range/Units 18:16 19:42 01:20 WBC 12.1 H (3.8-10.6) k/uL RBC 4.26 L (4.30-5.90) m/uL Hgb 12.4 L (13.0-17.5) gm/dL Hct 37.3 L (39.0-53.0) % Neutrophils # 10.2 H (1.3-7.7) k/uL Lymphocytes # 0.7 L (1.0-4.8) k/uL Monocytes # (0-1.0) k/uL PT (10.0-12.5) sec INR (<1.2) ABG pH (7.35-7.45) ABG pCO2 (35-45) mmHg ABG pO2 (83-108) mmHg ABG Total CO2 (19-24) mmol/L ABG O2 Saturation 98.7 H (94-97) % ABG Hematocrit (34.0-46.0) % ABG Potassium (3.4-4.5) mmol/L ABG Glucose (75-99) mg/dL Hemoglobin (13.0-17.5) gm/dL Chloride (98-107) mmol/L Carbon Dioxide (22-30) mmol/L Creatinine (0.66-1.25) mg/dL Glucose (74-99) mg/dL POC Glucose (mg/dL) 135 H (70-110) mg/dL Calcium (8.4-10.2) mg/dL Magnesium (1.6-2.3) mg/dL Total Bilirubin (0.2-1.3) mg/dL Total Protein (6.3-8.2) g/dL Albumin (3.5-5.0) g/dL Lipoprotein (a) (0-30) mg/dL Arterial Blood Potassium (3.4-4.5) mmol/L Arterial Blood Glucose (75-99) mg/dL Crossmatch 01/13/24 01/13/24 01/13/24 Range/Units 02:03 03:58 03:58 WBC (3.8-10.6) k/uL RBC (4.30-5.90) m/uL Hgb 12.7 L (13.0-17.5) gm/dL Hct 38.4 L (39.0-53.0) % Neutrophils # 8.5 H (1.3-7.7) k/uL Lymphocytes # 0.3 L (1.0-4.8) k/uL Monocytes # 1.1 H (0-1.0) k/uL PT (10.0-12.5) sec INR (<1.2) ABG pH (7.35-7.45) ABG pCO2 (35-45) mmHg ABG pO2 (83-108) mmHg ABG Total CO2 (19-24) mmol/L ABG O2 Saturation (94-97) % ABG Hematocrit (34.0-46.0) % ABG Potassium (3.4-4.5) mmol/L ABG Glucose (75-99) mg/dL Hemoglobin (13.0-17.5) gm/dL Chloride 112 H (98-107) mmol/L Carbon Dioxide 20 L (22-30) mmol/L Creatinine (0.66-1.25) mg/dL Glucose (74-99) mg/dL POC Glucose (mg/dL) 118 H (70-110) mg/dL Calcium 8.3 L (8.4-10.2) mg/dL Magnesium 1.5 L (1.6-2.3) mg/dL Total Bilirubin 1.9 H (0.2-1.3) mg/dL Total Protein 4.9 L (6.3-8.2) g/dL Albumin 3.3 L (3.5-5.0) g/dL Lipoprotein (a) (0-30) mg/dL Arterial Blood Potassium (3.4-4.5) mmol/L Arterial Blood Glucose (75-99) mg/dL Crossmatch 01/13/24 01/13/24 01/13/24 Range/Units 05:03 06:23 07:09 WBC (3.8-10.6) k/uL RBC (4.30-5.90) m/uL Hgb (13.0-17.5) gm/dL Hct (39.0-53.0) % Neutrophils # (1.3-7.7) k/uL Lymphocytes # (1.0-4.8) k/uL Monocytes # (0-1.0) k/uL PT (10.0-12.5) sec INR (<1.2) ABG pH (7.35-7.45) ABG pCO2 (35-45) mmHg ABG pO2 (83-108) mmHg ABG Total CO2 (19-24) mmol/L ABG O2 Saturation (94-97) % ABG Hematocrit (34.0-46.0) % ABG Potassium (3.4-4.5) mmol/L ABG Glucose (75-99) mg/dL Hemoglobin (13.0-17.5) gm/dL Chloride (98-107) mmol/L Carbon Dioxide (22-30) mmol/L Creatinine (0.66-1.25) mg/dL Glucose (74-99) mg/dL POC Glucose (mg/dL) 129 H 113 H 131 H (70-110) mg/dL Calcium (8.4-10.2) mg/dL Magnesium (1.6-2.3) mg/dL Total Bilirubin (0.2-1.3) mg/dL Total Protein (6.3-8.2) g/dL Albumin (3.5-5.0) g/dL Lipoprotein (a) (0-30) mg/dL Arterial Blood Potassium (3.4-4.5) mmol/L Arterial Blood Glucose (75-99) mg/dL Crossmatch 01/13/24 01/13/24 Range/Units 08:12 09:16 WBC (3.8-10.6) k/uL RBC (4.30-5.90) m/uL Hgb (13.0-17.5) gm/dL Hct (39.0-53.0) % Neutrophils # (1.3-7.7) k/uL Lymphocytes # (1.0-4.8) k/uL Monocytes # (0-1.0) k/uL PT (10.0-12.5) sec INR (<1.2) ABG pH (7.35-7.45) ABG pCO2 (35-45) mmHg ABG pO2 (83-108) mmHg ABG Total CO2 (19-24) mmol/L ABG O2 Saturation (94-97) % ABG Hematocrit (34.0-46.0) % ABG Potassium (3.4-4.5) mmol/L ABG Glucose (75-99) mg/dL Hemoglobin (13.0-17.5) gm/dL Chloride (98-107) mmol/L Carbon Dioxide (22-30) mmol/L Creatinine (0.66-1.25) mg/dL Glucose (74-99) mg/dL POC Glucose (mg/dL) 151 H 134 H (70-110) mg/dL Calcium (8.4-10.2) mg/dL Magnesium (1.6-2.3) mg/dL Total Bilirubin (0.2-1.3) mg/dL Total Protein (6.3-8.2) g/dL Albumin (3.5-5.0) g/dL Lipoprotein (a) (0-30) mg/dL Arterial Blood Potassium (3.4-4.5) mmol/L Arterial Blood Glucose (75-99) mg/dL Crossmatch Microbiology - Last 24 Hours (Table) 01/10/24 16:10 Nasal Screen MRSA/MSSA - Final Nasal Swab
[2024-01-13 10:23] LABS: Glucose,Whole Blood 157 mg/dL (70-110)
[2024-01-13 11:16] LABS: Glucose,Whole Blood 106 mg/dL (70-110)
[2024-01-13] MEDS: amLODIPine 2.5 MG TAB PO SCH (11:45)
--- NOTE | 2024-01-13 11:54 | P.PN ---
Subjective Progress Note Date: 01/13/24 This is a 63-year-old male patient with a history of hyperlipidemia, chronic and ongoing tobacco dependence, neurofibromatosis, daily marijuana use who presented here January 07 with complaints of chest pain. He did undergo a cardiac catheterization that revealed significant coronary artery disease. Surgery was recommended. Today he did undergo an off-pump coronary artery bypass grafting x 3 with a CAMPBELL to the LAD, left radial artery to the obtuse marginal artery, reverse saphenous vein graft to the distal RCA. Left atrial appendage ligation. He is seen postoperatively in the intensive care unit. He is intubated on the mechanical ventilator. Settings are assist-control mode at a rate of 14, tidal volume 500, FiO2 100% and a PEEP of 5. Arterial blood gases reveal a P O2 of 213, pCO2 51 and a pH of 7.30. Chest x-ray reveals post CABG changes. COPD with pulmonary vascular congestion. Mild patchy atelectasis in the lower lungs. Right, left and mediastinal chest tubes remain in place. He is sedated on propofol at 40 mcg/kg/min. Nitroglycerin drip at 10 mcg/min. Normal saline at 50 MLS per hour. Cardiac output 4.5. Cardiac index 2.4. PA pressures 40/17. CVP 9. White count 16.6. Hemoglobin 13.4. Platelets 204. INR 1.2. Sodium 140. Potassium 4.1. Bicarb 21. BUN 15. Creatinine 0.59. Glucose 119. The patient is seen today January 13, 2024 in follow-up in the intensive care unit. Postoperative day #1. He is awake and alert in no acute distress. He is maintaining O2 saturations in the 90s on 5 L/min per nasal cannula. He is currently sitting up in a chair. He is on normal saline at 50 MLS per hour. Insulin drip currently on hold. Cardiac output 4.9. Cardiac index 2.6. X-ray reveals evidence of COPD and post CABG changes. Increased interstitial in past patchy opacities. Right, left, mediastinal chest tubes remain in place. No evidence of pneumothorax. He is again encouraged regarding the increased use of the incentive spirometer. White count 10.5. Hemoglobin 12.7. Platelets 195. Sodium 138. Potassium 3.8. Bicarb 20. BUN 14. Creatinine 0.71. Glucose 106. He is continued on bronchodilators. Heparin for DVT prophylaxis. He is presently in a -600 mL balance. Objective - Vital Signs Vital signs: Vital Signs Temp 99.9 F H 01/13/24 04:00 Pulse 85 01/13/24 11:30 Resp 17 01/13/24 11:30 BP 94/65 01/13/24 01:00 Pulse Ox 96 01/13/24 11:30 FiO2 50 01/12/24 20:00 Intake & Output 01/12/24 01/13/24 01/13/24 18:59 06:59 18:59 Intake Total 8289.931 3461.231 726 Output Total 2615 1130 395 Balance -1298.506 692.231 331 Weight 71.3 kg 71.3 kg Intake: IV 1197 1719 476 ACETAMINOPHEN IV (For NPO 100 100 ) 1,000 mg In Empty Bag 1 bag @ 400 mls/hr IVPB Q6HR [facility] Rx#:[id number] Albumin Human 5% 250 ml 500 750 250 In Empty Bag 1 bag @ 250 mls/hr IVPB Q1HR PRN Rx#: [id number] CO/CI 180 120 Pressure Bag 63 99 36 Sodium Chloride 0.9% 1, 350 550 190 000 ml @ 50 mls/hr IV . Q20H [facility] Rx#:[id number] ceFAZolin 2 gm In Sodium 100 Chloride 0.9% 50 ml @ 100 mls/hr IVPB ONCE ONE Rx# :[id number] Intake, IV Titration 119.494 103.231 0 Amount Dexmedetomidine/0.9% NaCl 38.583 29.205 (Pmx) 400 mcg In Empty Bag 1 bag @ Titrate IV . Q0M [facility] Rx#:[id number] Insulin Regular 100 unit 2.003 0.396 0 In Sodium Chloride 0.9% 100 ml @ Per Protocol IV .Q0M [facility] Rx#:[id number] Nitroglycerin-D5w Pmx 50 10.825 mg In Dextrose/Water 1 250ml.bag @ 5 MCG/MIN 1.5 mls/hr IV .Q24H [facility] Rx#: [id number] Norepinephrine 4 mg In 62.805 Sodium Chloride 0.9% 250 ml @ 0.03 MCG/KG/MIN 8. 192 mls/hr IV .Q24H [facility] Rx#:[id number] propofoL 1,000 mg In 78.908 Empty Bag 1 bag @ Titrate IV .Q0M [facility] Rx#: [id number] Oral 250 Output: Chest Tube Drainage 510 600 210 Chest Tube Mediastinal 250 340 90 Left Pleural Chest Tube 250 200 90 Right Pleural Chest Tube 10 60 30 Drainage 110 40 Left Lower Calf 70 20 Right Wrist 40 20 Urine 1245 490 185 Estimated Blood Loss 750 Other: Voiding Method Indwelling Catheter Indwelling Catheter Indwelling Catheter ABP, PAP, CO, CI - Last Documented Arterial Blood Pressure 95/49 Pulmonary Artery Pressure 17/4 Cardiac Output 4.9 Cardiac Index 2.6 - Exam GENERAL EXAM: Awake, alert 63-year-old male patient, in a chair, on 5 L nasal cannula, fairly comfortable in no apparent distress. HEAD: Normocephalic. EYES: Normal reaction of pupils, equal size. NOSE: Clear with pink turbinates. THROAT: No erythema or exudates. NECK: Right IJ [place] catheter in place. No masses, no JVD. CHEST: Sternal dressing dry and intact. Heart hugger in place. Right, left, mediastinal chest tubes in place LUNGS: Equal air entry with few scattered rhonchi bilaterally. CVS: S1 and S2 normal with no audible murmur, regular rhythm. ABDOMEN: No hepatosplenomegaly, normal bowel sounds, no guarding or rigidity. SPINE: No scoliosis or deformity SKIN: No rashes CENTRAL NERVOUS SYSTEM: Sedated, tone is normal in all 4 extremities. EXTREMITIES: Right brachial arterial line in place. Left radial SHAHIDA drain in place Kristian wrap to the extremity. Bilateral lower extremities with Kristian wraps and SCDs in place. No clubbing, no cyanosis. Peripheral pulses are intact. - Labs CBC & Chem 7: 01/13/24 03:58 01/13/24 03:58 Labs: Abnormal Lab Results - Last 24 Hours (Table) 01/11/24 01/12/24 01/12/24 Range/Units 11:19 11:19 12:07 WBC (3.8-10.6) k/uL RBC (4.30-5.90) m/uL Hgb (13.0-17.5) gm/dL Hct (39.0-53.0) % Neutrophils # (1.3-7.7) k/uL Lymphocytes # (1.0-4.8) k/uL Monocytes # (0-1.0) k/uL PT (10.0-12.5) sec INR (<1.2) ABG pH (7.35-7.45) ABG pCO2 (35-45) mmHg ABG pO2 237 H 124 H (83-108) mmHg ABG Total CO2 (19-24) mmol/L ABG O2 Saturation 99.2 H 98.3 H (94-97) % ABG Glucose 135 H 131 H (75-99) mg/dL Hemoglobin 12.8 L 12.4 L (13.0-17.5) gm/dL Chloride (98-107) mmol/L Carbon Dioxide (22-30) mmol/L Creatinine (0.66-1.25) mg/dL Glucose (74-99) mg/dL POC Glucose (mg/dL) (70-110) mg/dL Calcium (8.4-10.2) mg/dL Magnesium (1.6-2.3) mg/dL Total Bilirubin (0.2-1.3) mg/dL Total Protein (6.3-8.2) g/dL Albumin (3.5-5.0) g/dL Arterial Blood Glucose 135 H 131 H (75-99) mg/dL Crossmatch See Detail 01/12/24 01/12/24 01/12/24 Range/Units 12:59 12:59 12:59 WBC 16.6 H (3.8-10.6) k/uL RBC (4.30-5.90) m/uL Hgb (13.0-17.5) gm/dL Hct (39.0-53.0) % Neutrophils # 13.6 H (1.3-7.7) k/uL Lymphocytes # (1.0-4.8) k/uL Monocytes # (0-1.0) k/uL PT 13.2 H (10.0-12.5) sec INR 1.2 H (<1.2) ABG pH (7.35-7.45) ABG pCO2 (35-45) mmHg ABG pO2 (83-108) mmHg ABG Total CO2 (19-24) mmol/L ABG O2 Saturation (94-97) % ABG Glucose (75-99) mg/dL Hemoglobin (13.0-17.5) gm/dL Chloride 113 H (98-107) mmol/L Carbon Dioxide 21 L (22-30) mmol/L Creatinine 0.59 L (0.66-1.25) mg/dL Glucose 119 H (74-99) mg/dL POC Glucose (mg/dL) (70-110) mg/dL Calcium (8.4-10.2) mg/dL Magnesium (1.6-2.3) mg/dL Total Bilirubin (0.2-1.3) mg/dL Total Protein 5.0 L (6.3-8.2) g/dL Albumin 3.3 L (3.5-5.0) g/dL Arterial Blood Glucose (75-99) mg/dL Crossmatch 01/12/24 01/12/24 01/12/24 Range/Units 13:02 13:21 14:12 WBC (3.8-10.6) k/uL RBC (4.30-5.90) m/uL Hgb (13.0-17.5) gm/dL Hct (39.0-53.0) % Neutrophils # (1.3-7.7) k/uL Lymphocytes # (1.0-4.8) k/uL Monocytes # (0-1.0) k/uL PT (10.0-12.5) sec INR (<1.2) ABG pH 7.30 L (7.35-7.45) ABG pCO2 51 H (35-45) mmHg ABG pO2 213 H (83-108) mmHg ABG Total CO2 27 H (19-24) mmol/L ABG O2 Saturation 99.9 H (94-97) % ABG Glucose (75-99) mg/dL Hemoglobin (13.0-17.5) gm/dL Chloride (98-107) mmol/L Carbon Dioxide (22-30) mmol/L Creatinine (0.66-1.25) mg/dL Glucose (74-99) mg/dL POC Glucose (mg/dL) 124 H 119 H (70-110) mg/dL Calcium (8.4-10.2) mg/dL Magnesium (1.6-2.3) mg/dL Total Bilirubin (0.2-1.3) mg/dL Total Protein (6.3-8.2) g/dL Albumin (3.5-5.0) g/dL Arterial Blood Glucose (75-99) mg/dL Crossmatch 01/12/24 01/12/24 01/12/24 Range/Units 15:06 16:00 16:00 WBC 15.3 H (3.8-10.6) k/uL RBC (4.30-5.90) m/uL Hgb (13.0-17.5) gm/dL Hct (39.0-53.0) % Neutrophils # 12.8 H (1.3-7.7) k/uL Lymphocytes # (1.0-4.8) k/uL Monocytes # 1.2 H (0-1.0) k/uL PT (10.0-12.5) sec INR (<1.2) ABG pH (7.35-7.45) ABG pCO2 (35-45) mmHg ABG pO2 (83-108) mmHg ABG Total CO2 (19-24) mmol/L ABG O2 Saturation (94-97) % ABG Glucose (75-99) mg/dL Hemoglobin (13.0-17.5) gm/dL Chloride (98-107) mmol/L Carbon Dioxide (22-30) mmol/L Creatinine (0.66-1.25) mg/dL Glucose (74-99) mg/dL POC Glucose (mg/dL) 131 H 135 H (70-110) mg/dL Calcium (8.4-10.2) mg/dL Magnesium (1.6-2.3) mg/dL Total Bilirubin (0.2-1.3) mg/dL Total Protein (6.3-8.2) g/dL Albumin (3.5-5.0) g/dL Arterial Blood Glucose (75-99) mg/dL Crossmatch 01/12/24 01/12/24 01/13/24 Range/Units 18:16 19:42 01:20 WBC 12.1 H (3.8-10.6) k/uL RBC 4.26 L (4.30-5.90) m/uL Hgb 12.4 L (13.0-17.5) gm/dL Hct 37.3 L (39.0-53.0) % Neutrophils # 10.2 H (1.3-7.7) k/uL Lymphocytes # 0.7 L (1.0-4.8) k/uL Monocytes # (0-1.0) k/uL PT (10.0-12.5) sec INR (<1.2) ABG pH (7.35-7.45) ABG pCO2 (35-45) mmHg ABG pO2 (83-108) mmHg ABG Total CO2 (19-24) mmol/L ABG O2 Saturation 98.7 H (94-97) % ABG Glucose (75-99) mg/dL Hemoglobin (13.0-17.5) gm/dL Chloride (98-107) mmol/L Carbon Dioxide (22-30) mmol/L Creatinine (0.66-1.25) mg/dL Glucose (74-99) mg/dL POC Glucose (mg/dL) 135 H (70-110) mg/dL Calcium (8.4-10.2) mg/dL Magnesium (1.6-2.3) mg/dL Total Bilirubin (0.2-1.3) mg/dL Total Protein (6.3-8.2) g/dL Albumin (3.5-5.0) g/dL Arterial Blood Glucose (75-99) mg/dL Crossmatch 01/13/24 01/13/24 01/13/24 Range/Units 02:03 03:58 03:58 WBC (3.8-10.6) k/uL RBC (4.30-5.90) m/uL Hgb 12.7 L (13.0-17.5) gm/dL Hct 38.4 L (39.0-53.0) % Neutrophils # 8.5 H (1.3-7.7) k/uL Lymphocytes # 0.3 L (1.0-4.8) k/uL Monocytes # 1.1 H (0-1.0) k/uL PT (10.0-12.5) sec INR (<1.2) ABG pH (7.35-7.45) ABG pCO2 (35-45) mmHg ABG pO2 (83-108) mmHg ABG Total CO2 (19-24) mmol/L ABG O2 Saturation (94-97) % ABG Glucose (75-99) mg/dL Hemoglobin (13.0-17.5) gm/dL Chloride 112 H (98-107) mmol/L Carbon Dioxide 20 L (22-30) mmol/L Creatinine (0.66-1.25) mg/dL Glucose (74-99) mg/dL POC Glucose (mg/dL) 118 H (70-110) mg/dL Calcium 8.3 L (8.4-10.2) mg/dL Magnesium 1.5 L (1.6-2.3) mg/dL Total Bilirubin 1.9 H (0.2-1.3) mg/dL Total Protein 4.9 L (6.3-8.2) g/dL Albumin 3.3 L (3.5-5.0) g/dL Arterial Blood Glucose (75-99) mg/dL Crossmatch 01/13/24 01/13/24 01/13/24 Range/Units 05:03 06:23 07:09 WBC (3.8-10.6) k/uL RBC (4.30-5.90) m/uL Hgb (13.0-17.5) gm/dL Hct (39.0-53.0) % Neutrophils # (1.3-7.7) k/uL Lymphocytes # (1.0-4.8) k/uL Monocytes # (0-1.0) k/uL PT (10.0-12.5) sec INR (<1.2) ABG pH (7.35-7.45) ABG pCO2 (35-45) mmHg ABG pO2 (83-108) mmHg ABG Total CO2 (19-24) mmol/L ABG O2 Saturation (94-97) % ABG Glucose (75-99) mg/dL Hemoglobin (13.0-17.5) gm/dL Chloride (98-107) mmol/L Carbon Dioxide (22-30) mmol/L Creatinine (0.66-1.25) mg/dL Glucose (74-99) mg/dL POC Glucose (mg/dL) 129 H 113 H 131 H (70-110) mg/dL Calcium (8.4-10.2) mg/dL Magnesium (1.6-2.3) mg/dL Total Bilirubin (0.2-1.3) mg/dL Total Protein (6.3-8.2) g/dL Albumin (3.5-5.0) g/dL Arterial Blood Glucose (75-99) mg/dL Crossmatch 01/13/24 01/13/24 01/13/24 Range/Units 08:12 09:16 09:28 WBC (3.8-10.6) k/uL RBC (4.30-5.90) m/uL Hgb (13.0-17.5) gm/dL Hct (39.0-53.0) % Neutrophils # (1.3-7.7) k/uL Lymphocytes # (1.0-4.8) k/uL Monocytes # (0-1.0) k/uL PT (10.0-12.5) sec INR (<1.2) ABG pH (7.35-7.45) ABG pCO2 (35-45) mmHg ABG pO2 (83-108) mmHg ABG Total CO2 (19-24) mmol/L ABG O2 Saturation (94-97) % ABG Glucose (75-99) mg/dL Hemoglobin (13.0-17.5) gm/dL Chloride (98-107) mmol/L Carbon Dioxide (22-30) mmol/L Creatinine (0.66-1.25) mg/dL Glucose (74-99) mg/dL POC Glucose (mg/dL) 151 H 134 H 197 H (70-110) mg/dL Calcium (8.4-10.2) mg/dL Magnesium (1.6-2.3) mg/dL Total Bilirubin (0.2-1.3) mg/dL Total Protein (6.3-8.2) g/dL Albumin (3.5-5.0) g/dL Arterial Blood Glucose (75-99) mg/dL Crossmatch 01/13/24 Range/Units 10:21 WBC (3.8-10.6) k/uL RBC (4.30-5.90) m/uL Hgb (13.0-17.5) gm/dL Hct (39.0-53.0) % Neutrophils # (1.3-7.7) k/uL Lymphocytes # (1.0-4.8) k/uL Monocytes # (0-1.0) k/uL PT (10.0-12.5) sec INR (<1.2) ABG pH (7.35-7.45) ABG pCO2 (35-45) mmHg ABG pO2 (83-108) mmHg ABG Total CO2 (19-24) mmol/L ABG O2 Saturation (94-97) % ABG Glucose (75-99) mg/dL Hemoglobin (13.0-17.5) gm/dL Chloride (98-107) mmol/L Carbon Dioxide (22-30) mmol/L Creatinine (0.66-1.25) mg/dL Glucose (74-99) mg/dL POC Glucose (mg/dL) 157 H (70-110) mg/dL Calcium (8.4-10.2) mg/dL Magnesium (1.6-2.3) mg/dL Total Bilirubin (0.2-1.3) mg/dL Total Protein (6.3-8.2) g/dL Albumin (3.5-5.0) g/dL Arterial Blood Glucose (75-99) mg/dL Crossmatch Microbiology - Last 24 Hours (Table) 01/10/24 16:10 Nasal Screen MRSA/MSSA - Final Nasal Swab Assessment and Plan Assessment: Coronary artery disease, status post coronary artery bypass grafting utilizing a CAMPBELL to the LAD, left radial artery to the obtuse marginal branch, reverse saphenous vein to the distal RCA. Left atrial appendage ligation. Postoperative day #1 Chronic and ongoing tobacco dependence Daily marijuana use Chronic obstructive pulmonary disease Hyperlipidemia Neurofibromatosis Family history of premature coronary artery disease Plan: The patient was seen and evaluated Chest x-ray, labs and medications reviewed Currently on 5 L nasal cannula Continue bronchodilators 4 times daily Encouraged the increased use of the incentive spirometer Heparin for DVT prophylaxis We will continue to follow I have personally seen and examined the patient, performed the documentation and the assessment and plan as written. Number of minutes spent on the visit: 10.
[2024-01-13 12:13] LABS: Glucose,Whole Blood 108 mg/dL (70-110)
[2024-01-13 13:58] LABS: Glucose,Whole Blood 122 mg/dL (70-110)
[2024-01-13 15:13] LABS: Glucose,Whole Blood 147 mg/dL (70-110)
--- NOTE | 2024-01-13 15:34 | P.PN ---
Subjective Progress Note Date: 01/13/24 Principal diagnosis: Multivessel coronary artery disease. Past medical history significant for hyperlipidemia, family history of early onset coronary artery disease with his father being diagnosed in his early 40s with coronary artery disease, neurofibromatosis, chronic obstructive pulmonary disease, daily marijuana use and chronic ongoing tobacco dependence in which she smokes about 1-1/2 packs of cigarettes per day. POD #1 Off pump coronary artery bypass grafting x 3. Left internal thoracic artery (in-situ) to left anterior descending coronary artery. Left radial artery from aorta to obtuse marginal artery. Reverse saphenous vein from aorta to distal right coronary artery, left atrial appendage ligation with a 35 mm Atriclip, endoscopic left radial and left greater saphenous vein harvest, graft flow measurements using the [employer] flow meter system, intraoperative transesophageal echocardiogram performed by anesthesia. Acute postoperative blood loss anemia, expected given hemodilution. The patient was seen and examined in follow-up today January 13, 2024 at his bedside in the intensive care unit. He was successfully extubated at 8:04 PM, he is currently sitting up to the bedside chair, is awake, alert, oriented x 3 and is in no acute apparent distress. Oxygen saturations are 95% on 6 L nasal cannula. He is achieving 1000 mL on his incentive spirometry with encouragement. Denies any complaints of shortness of breath at this time, although is complaining of some pain to his back, currently rating his pain 8-9 out of 10 on the pain scale. Right IJ cordis and [place]-Josefina catheter remain in place with current hemodynamic showing a cardiac output 4.9, cardiac index 2.6, PA pressure 31/13, CVP 6, and SVR 1076. Bedside telemetry is showing normal si nus tachycardia heart rate 101. Mediastinal, left and right pleural chest tubes remain in place to low continuous wall suction -20 cm H2O. Intermittent airleak present to his mediastinal chest tube. Mediastinal chest tube drained 290 mL of thin serosanguineous drainage in the last 8 hours and 500 mL since surgery. Left pleural chest tube draining 190 mL of thin serosanguineous drainage in the last 8 hours and 600 mL output since surgery. Right pleural chest tube draining thin serosanguineous drainage with 55 mL output in the last 8 hours and 70 mL output since surgery. SHAHIDA drain to his left lower extremity and left wrist draining thin serosanguineous drainage with 20 mL output out of each drain in the last 8 hours. Laboratory and chest x-ray results reviewed. Objective - Vital Signs Vital signs: Vital Signs Temp 99.9 F H 01/13/24 04:00 Pulse 106 H 01/13/24 07:00 Resp 18 01/13/24 07:00 BP 94/65 01/13/24 01:00 Pulse Ox 95 01/13/24 07:00 FiO2 50 01/12/24 20:00 Intake & Output 01/12/24 01/13/24 01/13/24 18:59 06:59 18:59 Intake Total 2135.518 6928.231 59 Output Total 2615 1130 92 Balance -1298.506 692.231 -33 Weight 71.3 kg Intake: IV 1197 1719 59 ACETAMINOPHEN IV (For NPO 100 100 ) 1,000 mg In Empty Bag 1 bag @ 400 mls/hr IVPB Q6HR [facility] Rx#:[id number] Albumin Human 5% 250 ml 500 750 In Empty Bag 1 bag @ 250 mls/hr IVPB Q1HR PRN Rx#: [id number] CO/CI 180 120 Pressure Bag 63 99 9 Sodium Chloride 0.9% 1, 350 550 50 000 ml @ 50 mls/hr IV . Q20H [facility] Rx#:[id number] ceFAZolin 2 gm In Sodium 100 Chloride 0.9% 50 ml @ 100 mls/hr IVPB ONCE ONE Rx# :[id number] Intake, IV Titration 119.494 103.231 0 Amount Dexmedetomidine/0.9% NaCl 38.583 29.205 (Pmx) 400 mcg In Empty Bag 1 bag @ Titrate IV . Q0M [facility] Rx#:[id number] Insulin Regular 100 unit 2.003 0.396 0 In Sodium Chloride 0.9% 100 ml @ Per Protocol IV .Q0M [facility] Rx#:[id number] Nitroglycerin-D5w Pmx 50 10.825 mg In Dextrose/Water 1 250ml.bag @ 5 MCG/MIN 1.5 mls/hr IV .Q24H [facility] Rx#: [id number] Norepinephrine 4 mg In 62.805 Sodium Chloride 0.9% 250 ml @ 0.03 MCG/KG/MIN 8. 192 mls/hr IV .Q24H [facility] Rx#:[id number] propofoL 1,000 mg In 78.908 Empty Bag 1 bag @ Titrate IV .Q0M [facility] Rx#: [id number] Output: Chest Tube Drainage 510 600 52 Chest Tube Mediastinal 250 340 10 Left Pleural Chest Tube 250 200 40 Right Pleural Chest Tube 10 60 2 Drainage 110 40 Left Lower Calf 70 20 Right Wrist 40 20 Urine 1245 490 40 Estimated Blood Loss 750 Other: Voiding Method Indwelling Catheter Indwelling Catheter ABP, PAP, CO, CI - Last Documented Arterial Blood Pressure 108/52 Pulmonary Artery Pressure 22/7 Cardiac Output 4.9 Cardiac Index 2.6 - Exam CONSTITUTIONAL: Sitting up to the bedside chair in the intensive care unit, cooperative, no apparent acute distress. HEENT: Neck is supple, no JVD, no lymphadenopathy. Right IJ Cordis and [place] Josefina catheter in place and functioning. RESPIRATORY: Lungs sounds essentially clear throughout, diminished to his bilateral bases. Respirations are symmetrical and nonlabored. Currently on 6 L nasal cannula with oxygen saturations 95%. Able to achieve 1000 mL on their incentive spirometry. Strong cough. CARDIOVASCULAR: Regular rhythm and rate. S1 and S2 present, negative for S3, gallop or murmur. Bedside telemetry showing sinus tachycardia heart rate 100 bpm. Sternum is stable. Palpable peripheral pulses bilaterally. No calf pain or tenderness noted. Heart hugger in place with patient demonstrating appropriate use. Knee-high MERCY hose and sequential compression devices in place to his bilateral lower extremities. GASTROINTESTINAL: Abdomen soft, nontender, nondistended. Hypoactive bowel sounds present 4 quadrants. Tolerating diet. Denies passing flatus. No guarding or rigidity. GENITOURINARY: Hodgson present draining clear, yellow urine. Urine output 420 mL in the last 8 hours. INTEGUMENTARY: Skin is warm and dry with no evidence of clubbing or cyanosis. Midline sternal incision clean dry and well approximated, covered with dry intact dressing. Left lower extremity EVH sites well approximated without redness or drainage. Left arm radial artery harvest sites clean, dry and approximated. No drainage or redness is present. NEUROLOGIC: Cranial nerves II through XII intact. No focal deficits. MUSKULOSKELETAL: Able to move all extremities, strength equal bilaterally, generalized weakness. PSYCHIATRIC: Alert and oriented to person place and time, appropriate affect, intact judgment and insight. INVASIVE LINES AND TUBES: Mediastinal, left and right pleural chest tubes remain in place to low continuous wall suction -20 cm H2O. Intermittent airleak present to his mediastinal chest tube. Mediastinal chest tube drained 290 mL of thin serosanguineous drainage in the last 8 hours and 500 mL since surgery. Left pleural chest tube draining 190 mL of thin serosanguineous drainage in the last 8 hours and 600 mL output since surgery. Right pleural chest tube draining thin serosanguineous drainage with 55 mL output in the last 8 hours and 70 mL output since surgery. Atrial and ventricular epicardial pacemaker wires present, connected to generator, VVI backup rate 50 bpm. Right internal jugular S wan/Cordis, right radial arterial line present. Last CO 4.9, CI 2.6, PA 31/13 and CVP 6 mmHg. Left arm SHAHIDA drain in place with scant thin serosanguineous drainage, 20 mL output in the last 8 hours. Left lower extremity SHAHIDA drain in place with scant thin serosanguineous drainage with 20 mL output in the last 8 hours. - Allied health notes Allied health notes reviewed: nursing - Labs CBC & Chem 7: 01/13/24 03:58 01/13/24 03:58 Labs: Abnormal Lab Results - Last 24 Hours (Table) 01/10/24 01/11/24 01/12/24 Range/Units 16:40 11:19 08:57 WBC (3.8-10.6) k/uL RBC (4.30-5.90) m/uL Hgb (13.0-17.5) gm/dL Hct (39.0-53.0) % Neutrophils # (1.3-7.7) k/uL Lymphocytes # (1.0-4.8) k/uL Monocytes # (0-1.0) k/uL PT (10.0-12.5) sec INR (<1.2) ABG pH 7.33 L (7.35-7.45) ABG pCO2 (35-45) mmHg ABG pO2 207 H (83-108) mmHg ABG Total CO2 (19-24) mmol/L ABG O2 Saturation 98.8 H (94-97) % ABG Hematocrit 47 H (34.0-46.0) % ABG Potassium (3.4-4.5) mmol/L ABG Glucose (75-99) mg/dL Hemoglobin (13.0-17.5) gm/dL Chloride (98-107) mmol/L Carbon Dioxide (22-30) mmol/L Creatinine (0.66-1.25) mg/dL Glucose (74-99) mg/dL POC Glucose (mg/dL) (70-110) mg/dL Calcium (8.4-10.2) mg/dL Magnesium (1.6-2.3) mg/dL Total Bilirubin (0.2-1.3) mg/dL Total Protein (6.3-8.2) g/dL Albumin (3.5-5.0) g/dL Lipoprotein (a) 69 H (0-30) mg/dL Arterial Blood Potassium (3.4-4.5) mmol/L Arterial Blood Glucose (75-99) mg/dL Crossmatch See Detail 01/12/24 01/12/24 01/12/24 Range/Units 09:48 11:19 12:07 WBC (3.8-10.6) k/uL RBC (4.30-5.90) m/uL Hgb (13.0-17.5) gm/dL Hct (39.0-53.0) % Neutrophils # (1.3-7.7) k/uL Lymphocytes # (1.0-4.8) k/uL Monocytes # (0-1.0) k/uL PT (10.0-12.5) sec INR (<1.2) ABG pH 7.23 L (7.35-7.45) ABG pCO2 57 H (35-45) mmHg ABG pO2 138 H 237 H 124 H (83-108) mmHg ABG Total CO2 (19-24) mmol/L ABG O2 Saturation 97.9 H 99.2 H 98.3 H (94-97) % ABG Hematocrit (34.0-46.0) % ABG Potassium 4.9 H (3.4-4.5) mmol/L ABG Glucose 136 H 135 H 131 H (75-99) mg/dL Hemoglobin 12.8 L 12.4 L (13.0-17.5) gm/dL Chloride (98-107) mmol/L Carbon Dioxide (22-30) mmol/L Creatinine (0.66-1.25) mg/dL Glucose (74-99) mg/dL POC Glucose (mg/dL) (70-110) mg/dL Calcium (8.4-10.2) mg/dL Magnesium (1.6-2.3) mg/dL Total Bilirubin (0.2-1.3) mg/dL Total Protein (6.3-8.2) g/dL Albumin (3.5-5.0) g/dL Lipoprotein (a) (0-30) mg/dL Arterial Blood Potassium 4.9 H (3.4-4.5) mmol/L Arterial Blood Glucose 136 H 135 H 131 H (75-99) mg/dL Crossmatch 01/12/24 01/12/24 01/12/24 Range/Units 12:59 12:59 12:59 WBC 16.6 H (3.8-10.6) k/uL RBC (4.30-5.90) m/uL Hgb (13.0-17.5) gm/dL Hct (39.0-53.0) % Neutrophils # 13.6 H (1.3-7.7) k/uL Lymphocytes # (1.0-4.8) k/uL Monocytes # (0-1.0) k/uL PT 13.2 H (10.0-12.5) sec INR 1.2 H (<1.2) ABG pH (7.35-7.45) ABG pCO2 (35-45) mmHg ABG pO2 (83-108) mmHg ABG Total CO2 (19-24) mmol/L ABG O2 Saturation (94-97) % ABG Hematocrit (34.0-46.0) % ABG Potassium (3.4-4.5) mmol/L ABG Glucose (75-99) mg/dL Hemoglobin (13.0-17.5) gm/dL Chloride 113 H (98-107) mmol/L Carbon Dioxide 21 L (22-30) mmol/L Creatinine 0.59 L (0.66-1.25) mg/dL Glucose 119 H (74-99) mg/dL POC Glucose (mg/dL) (70-110) mg/dL Calcium (8.4-10.2) mg/dL Magnesium (1.6-2.3) mg/dL Total Bilirubin (0.2-1.3) mg/dL Total Protein 5.0 L (6.3-8.2) g/dL Albumin 3.3 L (3.5-5.0) g/dL Lipoprotein (a) (0-30) mg/dL Arterial Blood Potassium (3.4-4.5) mmol/L Arterial Blood Glucose (75-99) mg/dL Crossmatch 01/12/24 01/12/24 01/12/24 Range/Units 13:02 13:21 14:12 WBC (3.8-10.6) k/uL RBC (4.30-5.90) m/uL Hgb (13.0-17.5) gm/dL Hct (39.0-53.0) % Neutrophils # (1.3-7.7) k/uL Lymphocytes # (1.0-4.8) k/uL Monocytes # (0-1.0) k/uL PT (10.0-12.5) sec INR (<1.2) ABG pH 7.30 L (7.35-7.45) ABG pCO2 51 H (35-45) mmHg ABG pO2 213 H (83-108) mmHg ABG Total CO2 27 H (19-24) mmol/L ABG O2 Saturation 99.9 H (94-97) % ABG Hematocrit (34.0-46.0) % ABG Potassium (3.4-4.5) mmol/L ABG Glucose (75-99) mg/dL Hemoglobin (13.0-17.5) gm/dL Chloride (98-107) mmol/L Carbon Dioxide (22-30) mmol/L Creatinine (0.66-1.25) mg/dL Glucose (74-99) mg/dL POC Glucose (mg/dL) 124 H 119 H (70-110) mg/dL Calcium (8.4-10.2) mg/dL Magnesium (1.6-2.3) mg/dL Total Bilirubin (0.2-1.3) mg/dL Total Protein (6.3-8.2) g/dL Albumin (3.5-5.0) g/dL Lipoprotein (a) (0-30) mg/dL Arterial Blood Potassium (3.4-4.5) mmol/L Arterial Blood Glucose (75-99) mg/dL Crossmatch 01/12/24 01/12/24 01/12/24 Range/Units 15:06 16:00 16:00 WBC 15.3 H (3.8-10.6) k/uL RBC (4.30-5.90) m/uL Hgb (13.0-17.5) gm/dL Hct (39.0-53.0) % Neutrophils # 12.8 H (1.3-7.7) k/uL Lymphocytes # (1.0-4.8) k/uL Monocytes # 1.2 H (0-1.0) k/uL PT (10.0-12.5) sec INR (<1.2) ABG pH (7.35-7.45) ABG pCO2 (35-45) mmHg ABG pO2 (83-108) mmHg ABG Total CO2 (19-24) mmol/L ABG O2 Saturation (94-97) % ABG Hematocrit (34.0-46.0) % ABG Potassium (3.4-4.5) mmol/L ABG Glucose (75-99) mg/dL Hemoglobin (13.0-17.5) gm/dL Chloride (98-107) mmol/L Carbon Dioxide (22-30) mmol/L Creatinine (0.66-1.25) mg/dL Glucose (74-99) mg/dL POC Glucose (mg/dL) 131 H 135 H (70-110) mg/dL Calcium (8.4-10.2) mg/dL Magnesium (1.6-2.3) mg/dL Total Bilirubin (0.2-1.3) mg/dL Total Protein (6.3-8.2) g/dL Albumin (3.5-5.0) g/dL Lipoprotein (a) (0-30) mg/dL Arterial Blood Potassium (3.4-4.5) mmol/L Arterial Blood Glucose (75-99) mg/dL Crossmatch 01/12/24 01/12/24 01/13/24 Range/Units 18:16 19:42 01:20 WBC 12.1 H (3.8-10.6) k/uL RBC 4.26 L (4.30-5.90) m/uL Hgb 12.4 L (13.0-17.5) gm/dL Hct 37.3 L (39.0-53.0) % Neutrophils # 10.2 H (1.3-7.7) k/uL Lymphocytes # 0.7 L (1.0-4.8) k/uL Monocytes # (0-1.0) k/uL PT (10.0-12.5) sec INR (<1.2) ABG pH (7.35-7.45) ABG pCO2 (35-45) mmHg ABG pO2 (83-108) mmHg ABG Total CO2 (19-24) mmol/L ABG O2 Saturation 98.7 H (94-97) % ABG Hematocrit (34.0-46.0) % ABG Potassium (3.4-4.5) mmol/L ABG Glucose (75-99) mg/dL Hemoglobin (13.0-17.5) gm/dL Chloride (98-107) mmol/L Carbon Dioxide (22-30) mmol/L Creatinine (0.66-1.25) mg/dL Glucose (74-99) mg/dL POC Glucose (mg/dL) 135 H (70-110) mg/dL Calcium (8.4-10.2) mg/dL Magnesium (1.6-2.3) mg/dL Total Bilirubin (0.2-1.3) mg/dL Total Protein (6.3-8.2) g/dL Albumin (3.5-5.0) g/dL Lipoprotein (a) (0-30) mg/dL Arterial Blood Potassium (3.4-4.5) mmol/L Arterial Blood Glucose (75-99) mg/dL Crossmatch 01/13/24 01/13/24 01/13/24 Range/Units 02:03 03:58 03:58 WBC (3.8-10.6) k/uL RBC (4.30-5.90) m/uL Hgb 12.7 L (13.0-17.5) gm/dL Hct 38.4 L (39.0-53.0) % Neutrophils # 8.5 H (1.3-7.7) k/uL Lymphocytes # 0.3 L (1.0-4.8) k/uL Monocytes # 1.1 H (0-1.0) k/uL PT (10.0-12.5) sec INR (<1.2) ABG pH (7.35-7.45) ABG pCO2 (35-45) mmHg ABG pO2 (83-108) mmHg ABG Total CO2 (19-24) mmol/L ABG O2 Saturation (94-97) % ABG Hematocrit (34.0-46.0) % ABG Potassium (3.4-4.5) mmol/L ABG Glucose (75-99) mg/dL Hemoglobin (13.0-17.5) gm/dL Chloride 112 H (98-107) mmol/L Carbon Dioxide 20 L (22-30) mmol/L Creatinine (0.66-1.25) mg/dL Glucose (74-99) mg/dL POC Glucose (mg/dL) 118 H (70-110) mg/dL Calcium 8.3 L (8.4-10.2) mg/dL Magnesium 1.5 L (1.6-2.3) mg/dL Total Bilirubin 1.9 H (0.2-1.3) mg/dL Total Protein 4.9 L (6.3-8.2) g/dL Albumin 3.3 L (3.5-5.0) g/dL Lipoprotein (a) (0-30) mg/dL Arterial Blood Potassium (3.4-4.5) mmol/L Arterial Blood Glucose (75-99) mg/dL Crossmatch 01/13/24 01/13/24 01/13/24 Range/Units 05:03 06:23 07:09 WBC (3.8-10.6) k/uL RBC (4.30-5.90) m/uL Hgb (13.0-17.5) gm/dL Hct (39.0-53.0) % Neutrophils # (1.3-7.7) k/uL Lymphocytes # (1.0-4.8) k/uL Monocytes # (0-1.0) k/uL PT (10.0-12.5) sec INR (<1.2) ABG pH (7.35-7.45) ABG pCO2 (35-45) mmHg ABG pO2 (83-108) mmHg ABG Total CO2 (19-24) mmol/L ABG O2 Saturation (94-97) % ABG Hematocrit (34.0-46.0) % ABG Potassium (3.4-4.5) mmol/L ABG Glucose (75-99) mg/dL Hemoglobin (13.0-17.5) gm/dL Chloride (98-107) mmol/L Carbon Dioxide (22-30) mmol/L Creatinine (0.66-1.25) mg/dL Glucose (74-99) mg/dL POC Glucose (mg/dL) 129 H 113 H 131 H (70-110) mg/dL Calcium (8.4-10.2) mg/dL Magnesium (1.6-2.3) mg/dL Total Bilirubin (0.2-1.3) mg/dL Total Protein (6.3-8.2) g/dL Albumin (3.5-5.0) g/dL Lipoprotein (a) (0-30) mg/dL Arterial Blood Potassium (3.4-4.5) mmol/L Arterial Blood Glucose (75-99) mg/dL Crossmatch Microbiology - Last 24 Hours (Table) 01/10/24 16:10 Nasal Screen MRSA/MSSA - Final Nasal Swab - Imaging and Cardiology Chest x-ray: report reviewed, image reviewed Assessment and Plan Assessment: Multivessel CAD including 80% mid LAD, 90% proximal circumflex, 90% OM1, 90% mid RCA stenosis status post three-vessel coronary artery bypass grafting surgery Hyperlipidemia, triglycerides 161, cholesterol 203, LDL 135 COPD with a preoperative FEV1 3.06 which is a predicted value of 92% Chronic ongoing tobacco dependence Daily marijuana use Family history of coronary artery disease with his father being diagnosed in his early 40s and undergoing a coronary artery bypass grafting surgery Elevated PSA followed by urology Neurofibromatosis Acute postoperative blood loss anemia, expected given hemodilution Plan: Continue to maximize medical therapy with aspirin, statin, Plavix and beta- mirna. Will increase metoprolol tartrate to 25 mg p.o. twice daily with hold parameters Discontinue nitroglycerin drip. Start Norvasc 2.5 mg p.o. daily at noon for radial artery spasm prophylaxis with hold parameters. Wean oxygen as tolerated. Bronchodilator management per pulmonary/critical care medicine recommendations. Encourage incentive spirometry use 10 times every hour while awake. Increase activity, ambulate as tolerated. PT/OT/cardiac rehab consulted. Will monitor daily labs and chest x-rays. Electrolyte replacement per protocol. GI/DVT prophylaxis. Insulin management per internal medicine, patient should remain on continuous IV insulin for 48 hours, then may transition to subcutaneous per protocol. The patient is a not diabetic, with a preoperative hemoglobin A1c 5.6%. Pain control with current medication regimen. Toradol added for additional pain control. Remove right IJ [place] Opal catheter, keep right IJ cordis in place with continuous CVP monitoring, continue arterial line for now. Continue mediastinal and left pleural chest tubes for another 24 hours, monitor output. Continue to monitor for airleak resolution on his mediastinal chest tube. We will remove his right pleural chest tube today. Continue Hodgson catheter for another 24 hours, continue to monitor strict accurate intake and output. Continue atrial and ventricular epicardial pacemaker wires, VVI backup mode of 50. More recommendations to follow based on patient's clinical course Time with Patient: Greater than 30
[2024-01-13 16:11] LABS: Glucose,Whole Blood 120 mg/dL (70-110)
[2024-01-13 18:16] LABS: Glucose,Whole Blood 132 mg/dL (70-110)
[2024-01-13 20:02] LABS: Glucose,Whole Blood 137 mg/dL (70-110)
[2024-01-13] MEDS: SENNOSIDES-DOCUSATE SODIUM 1 EACH TAB PO SCH (20:22)
[2024-01-13 22:16] LABS: Glucose,Whole Blood 120 mg/dL (70-110)
[2024-01-13 23:55] LABS: Glucose,Whole Blood 115 mg/dL (70-110)
[2024-01-14 03:22] LABS: Glucose,Whole Blood 107 mg/dL (70-110)
[2024-01-14 04:12] LABS: Glucose,Whole Blood 106 mg/dL (70-110)
[2024-01-14] MEDS: DEXTROSE 5% IN WATER 100 ML with AMIODARONE 150 MG IV PRN (05:05)
[2024-01-14 05:21] LABS: Ionized Calcium 4.8 mg/dL (4.5-5.3)
[2024-01-14 05:25] LABS: ALT 14 U/L (4-49); AST 27 U/L (17-59); African American GFR (CKD) >90 (>60 ml/min/1.73 sqM); Albumin 3.1 g/dL (3.5-5.0); Alkaline Phosphatase 61 U/L (38-126); Anion Gap 6 mmol/L; Basophils # (A) 0.1 k/uL (0-0.2); Basophils % (A) 0 %; Blood Urea Nitrogen 11 mg/dL (9-20); Calcium 8.4 mg/dL (8.4-10.2); Carbon Dioxide 20 mmol/L (22-30); Chloride 109 mmol/L (98-107); Eosinophils # (A) 0.2 k/uL (0-0.7); Eosinophils % (A) 1 %; Glucose 94 mg/dL (74-99); HCT 34.4 % (39.0-53.0); HGB 11.5 gm/dL (13.0-17.5); Lymphocytes # (A) 1.7 k/uL (1.0-4.8); Lymphocytes % (A) 11 %; MCHC 33.3 g/dL (31.0-37.0); MCV 87.1 fL (80.0-100.0); Mean Platelet Volume 9.7; Monocytes # (A) 1.5 k/uL (0-1.0); Monocytes % (A) 9 %; Neutrophils # (A) 12.7 k/uL (1.3-7.7); Neutrophils % (A) 78 %; Non-African American GFR(CKD) >90 (>60 ml/min/1.73 sqM); Platelet Count 158 k/uL (150-450); Potassium 3.7 mmol/L (3.5-5.1); RBC 3.95 m/uL (4.30-5.90); RDW 14.1 % (11.5-15.5); Sodium 135 mmol/L (137-145); Total Bilirubin 1.8 mg/dL (0.2-1.3); Total Protein 4.8 g/dL (6.3-8.2); WBC 16.4 k/uL (3.8-10.6)
[2024-01-14] MEDS ORDERED: Potassium Replacement Protocol 1 EACH MISC MISCELLANE PRN (05:39)
[2024-01-14] MEDS: PANTOPRAZOLE 40 MG TABLET PO SCH (06:04)
[2024-01-14] MEDS: POTASSIUM CHLORIDE ER 20 MEQ TAB.ER PO SCH (06:04)
[2024-01-14 06:05] LABS: Glucose,Whole Blood 130 mg/dL (70-110)
--- NOTE | 2024-01-14 08:59 | XR ---
EXAMINATION TYPE: XR chest 1V portable DATE OF EXAM: 01/14/2024 Comparison: 01/13/2024 Clinical History: 63-year-old male Post Operative Cardiac Surgery Findings: Median sternotomy wires and post-CABG clips. Mediastinal drain remains in place. Right IJ sheath in p lace with removal of the [place]-Josefina catheter. Left-sided chest tube in place. Right-sided chest tube r emoved in the interval. No appreciable pneumothorax. Diffuse interstitial opacities persist with slig ht improvement. The patchy bibasilar opacities also show slight improvement. Partially visualized rev ersed right shoulder arthroplasty. Heart mildly enlarged. Hyperinflation. Impression: Post-CABG changes with residual but improving interstitial pulmonary edema. Patchy bibasilar opacitie s also show slight improvement.
[2024-01-14] MEDS ORDERED: fentaNYL (PF) 50 MCG/ML 2 ML AMP IVP PRN (09:10)
[2024-01-14] MEDS ORDERED: ACETAMINOPHEN TAB 325 MG TAB PO PRN (09:11)
--- NOTE | 2024-01-14 10:00 | P.PN ---
Subjective Progress Note Date: 01/14/24 The patient is a 63-year-old male who presented to the hospital with new onset of chest discomfort and shortness of breath. The patient underwent coronary angiogram where he was found to have multivessel disease and therefore was referred for coronary bypass. On 01/12/2024 patient underwent coronary bypass x 3 with left atrial appendage closure with Dr. Gonzalez. The patient is now postop day 2 and has been doing well. He is back up to the recliner chair. He does report some shortness of breath this morning and appears quite anxious and agitated. He states he has minimal chest discomfort, localized to his incision. Overnight the patient did have atrial fibrillation and was started on amiodarone drip per protocol. He is now back in sinus rhythm GENERAL: Well-appearing, well-nourished and in no acute distress. Notably anxious. NECK: Supple without JVD or thyromegaly. LUNGS: Breath sounds diminished to auscultation bilaterally. Respiration equal and unlabored. No wheezes, rales or rhonchi. HEART: Regular rate and rhythm without murmurs, rubs or gallops. S1 and S2 heard. Heart hugger in place. Sternotomy dressing in place. EXTREMITIES: Normal range of motion, no edema. No clubbing or cyanosis. Peripheral pulses intact and strong. TELEMETRY: Sinus tachycardia IMPRESSION: Multivessel coronary artery disease Status post CABG x3 and left atrial appendage closure Postoperative atrial fibrillation Tobacco use Hyperlipidemia Sinus tachycardia PLAN: Continue supportive treatment Aggressive pulmonary hygiene Continue amiodarone and beta-mirna per protocol Further recommendations to be based upon clinical course I am dictating on behalf of Dr Brandan Mendez's history/physical and assessment/plan. Objective - Vital Signs Vital signs: Vital Signs Temp 99.1 F 01/14/24 04:00 Pulse 94 01/14/24 08:01 Resp 18 01/14/24 08:01 BP 104/60 01/14/24 08:00 Pulse Ox 96 01/14/24 08:00 FiO2 50 01/12/24 20:00 Intake & Output 01/13/24 01/14/24 01/14/24 18:59 06:59 18:59 Intake Total 7126 050 602 Output Total 101 1030 80 Balance 1308 -562 196 Weight 71.3 kg 72.4 kg Intake: IV 728 468 36 Albumin Human 5% 250 ml 250 In Empty Bag 1 bag @ 250 mls/hr IVPB Q1HR PRN Rx#: [id number] Pressure Bag 78 78 6 Sodium Chloride 0.9% 1, 400 390 30 000 ml @ 20 mls/hr IV . Q24H [facility] Rx#:[id number] Intake, IV Titration 0 Amount Insulin Regular 100 unit 0 In Sodium Chloride 0.9% 100 ml @ Per Protocol IV .Q0M [facility] Rx#:[id number] Oral 1250 240 Output: Chest Tube Drainage 210 310 30 Chest Tube Mediastinal 90 190 10 Left Pleural Chest Tube 90 120 20 Right Pleural Chest Tube 30 Urine 460 720 50 Other: Voiding Method Indwelling Catheter Indwelling Catheter Indwelling Catheter ABP, PAP, CO, CI - Last Documented Arterial Blood Pressure 109/50 Pulmonary Artery Pressure 17/4 Cardiac Output 4.9 Cardiac Index 2.6 - Labs CBC & Chem 7: 01/14/24 04:11 01/14/24 04:11 Labs: Abnormal Lab Results - Last 24 Hours (Table) 01/13/24 01/13/24 01/13/24 Range/Units 10:21 13:57 15:11 WBC (3.8-10.6) k/uL RBC (4.30-5.90) m/uL Hgb (13.0-17.5) gm/dL Hct (39.0-53.0) % Neutrophils # (1.3-7.7) k/uL Monocytes # (0-1.0) k/uL Sodium (137-145) mmol/L Chloride (98-107) mmol/L Carbon Dioxide (22-30) mmol/L Creatinine (0.66-1.25) mg/dL POC Glucose (mg/dL) 157 H 122 H 147 H (70-110) mg/dL Total Bilirubin (0.2-1.3) mg/dL Total Protein (6.3-8.2) g/dL Albumin (3.5-5.0) g/dL 01/13/24 01/13/24 01/13/24 Range/Units 16:10 18:15 20:00 WBC (3.8-10.6) k/uL RBC (4.30-5.90) m/uL Hgb (13.0-17.5) gm/dL Hct (39.0-53.0) % Neutrophils # (1.3-7.7) k/uL Monocytes # (0-1.0) k/uL Sodium (137-145) mmol/L Chloride (98-107) mmol/L Carbon Dioxide (22-30) mmol/L Creatinine (0.66-1.25) mg/dL POC Glucose (mg/dL) 120 H 132 H 137 H (70-110) mg/dL Total Bilirubin (0.2-1.3) mg/dL Total Protein (6.3-8.2) g/dL Albumin (3.5-5.0) g/dL 01/13/24 01/13/24 01/14/24 Range/Units 22:15 23:53 04:11 WBC 16.4 H (3.8-10.6) k/uL RBC 3.95 L (4.30-5.90) m/uL Hgb 11.5 L (13.0-17.5) gm/dL Hct 34.4 L (39.0-53.0) % Neutrophils # 12.7 H (1.3-7.7) k/uL Monocytes # 1.5 H (0-1.0) k/uL Sodium (137-145) mmol/L Chloride (98-107) mmol/L Carbon Dioxide (22-30) mmol/L Creatinine (0.66-1.25) mg/dL POC Glucose (mg/dL) 120 H 115 H (70-110) mg/dL Total Bilirubin (0.2-1.3) mg/dL Total Protein (6.3-8.2) g/dL Albumin (3.5-5.0) g/dL 01/14/24 01/14/24 Range/Units 04:11 06:04 WBC (3.8-10.6) k/uL RBC (4.30-5.90) m/uL Hgb (13.0-17.5) gm/dL Hct (39.0-53.0) % Neutrophils # (1.3-7.7) k/uL Monocytes # (0-1.0) k/uL Sodium 135 L (137-145) mmol/L Chloride 109 H (98-107) mmol/L Carbon Dioxide 20 L (22-30) mmol/L Creatinine 0.55 L (0.66-1.25) mg/dL POC Glucose (mg/dL) 130 H (70-110) mg/dL Total Bilirubin 1.8 H (0.2-1.3) mg/dL Total Protein 4.8 L (6.3-8.2) g/dL Albumin 3.1 L (3.5-5.0) g/dL
--- NOTE | 2024-01-14 10:32 | P.PN ---
Subjective Progress Note Date: 01/14/24 Principal diagnosis: Multivessel coronary artery disease, unstable angina. Previous medical history of hyperlipidemia, neurofibromatosis, current chronic ongoing tobacco dependence , COPD, daily marijuana use, family history of premature coronary artery disease with father being diagnosed in his early 40s POD #2 off pump coronary artery bypass grafting x 3, left internal thoracic artery (in-situ) to left anterior descending coronary artery, left radial artery from aorta to obtuse marginal artery, reverse saphenous vein from aorta to distal right coronary artery, left atrial appendage ligation with a 35 mm Atriclip, endoscopic left radial and left greater saphenous vein harvest, graft flow measurements using the Medi-Stim flow meter system, intraoperative transesophageal echocardiogram performed by anesthesia Acute postoperative blood loss anemia, expected given hemodilution Paroxysmal atrial fibrillation, known common occurrence after open heart surgery, not a complication, currently sinus The patient was seen and examined with Dr. Gonzalez this morning sitting up in a recliner. Does complain of significant back pain which is chronic for him but worse since surgery. This gentleman went into rapid atrial fibrillation early this morning, was given 2 IV boluses of amiodarone and started on amnio drip per protocol with conversion back to sinus rhythm. Remains on 6 L high flow nasal cannula with oxygen saturation in the mid 90s, able to achieve 1500 mL on his incentive spirometry. Right internal jugular cordis, mediastinal/left pleural chest tubes remain. He was ambulatory a short distance yesterday with therapy. No other new concerns. Objective - Vital Signs Vital signs: Vital Signs Temp 99.1 F 01/14/24 04:00 Pulse 94 01/14/24 08:01 Resp 18 01/14/24 08:01 BP 104/60 01/14/24 08:00 Pulse Ox 96 01/14/24 08:00 FiO2 50 01/12/24 20:00 Intake & Output 01/13/24 01/14/24 01/14/24 18:59 06:59 18:59 Intake Total 0985 468 276 Output Total 291 1030 80 Balance 1308 -562 196 Weight 71.3 kg 72.4 kg Intake: IV 447 468 36 Albumin Human 5% 250 ml 250 In Empty Bag 1 bag @ 250 mls/hr IVPB Q1HR PRN Rx#: [id number] Pressure Bag 78 78 6 Sodium Chloride 0.9% 1, 400 390 30 000 ml @ 20 mls/hr IV . Q24H JUSTIN Rx#:[id number] Intake, IV Titration 0 Amount Insulin Regular 100 unit 0 In Sodium Chloride 0.9% 100 ml @ Per Protocol IV .Q0M JUSTIN Rx#:[id number] Oral 1250 240 Output: Chest Tube Drainage 210 310 30 Chest Tube Mediastinal 90 190 10 Left Pleural Chest Tube 90 120 20 Right Pleural Chest Tube 30 Urine 460 720 50 Other: Voiding Method Indwelling Catheter Indwelling Catheter Indwelling Catheter ABP, PAP, CO, CI - Last Documented Arterial Blood Pressure 109/50 Pulmonary Artery Pressure 17/4 Cardiac Output 4.9 Cardiac Index 2.6 - Exam CONSTITUTIONAL: Appears uncomfortable but cooperative RESPIRATORY: Lungs sounds diminished bilaterally. Respirations even, nonlabored. Currently on 6 L high flow nasal cannula with oxygen saturation 94%. Able to achieve 1500 mL on incentive spirometry. Strong nonproductive cough. CARDIOVASCULAR: S1, S2 present. Regular rate and rhythm, sinus rhythm on telemetry. Sternum stable. Palpable peripheral pulses bilaterally. No edema present. No calf pain or tenderness noted. Heart hugger in place with patient demonstrating appropriate use. Antiembolism stockings, SCDs present. GASTROINTESTINAL: Abdomen soft, nontender, nondistended. Active bowel sounds present 4 quadrants. Tolerating diet. Denies flatus GENITOURINARY: Hodgson present draining clear, yellow urine. Output overnight 45-100 mL per hour, 1180 mL in the last 24 hours INTEGUMENTARY: Skin is warm and dry with evidence of good perfusion. Anterior chest incision well approximated and covered with dry intact dressing. Left radial artery as well as left lower extremity EVH site well approximated without redness or drainage. NEUROLOGIC: Cranial nerves II through XII intact MUSKULOSKELETAL: Able to move all extremities, strength equal bilaterally, gait normal PSYCHIATRIC: Alert and oriented to person place and time, appropriate affect, intact judgment and insight INVASIVE LINES AND TUBES: Mediastinal/left pleural chest tubes present and connected to wall suction, tiny intermittent air leak present in the mediastinal chest tube. Mediastinal tube with 100 mL serosanguineous drainage overnight, 3 50 mL in the last 24 hours. Left pleural chest tube with 50 mL serosanguineous drainage overnight, 200 mL in the last 24 hours. Ventricular epicardial pacemaker wires present, connected to generator, backup rate 50 bpm. Right internal jugular cordis, right radial arterial line present - Allied health notes Allied health notes reviewed: nursing - Labs CBC & Chem 7: 01/14/24 04:11 01/14/24 04:11 Labs: Abnormal Lab Results - Last 24 Hours (Table) 01/13/24 01/13/24 01/13/24 Range/Units 10:21 13:57 15:11 WBC (3.8-10.6) k/uL RBC (4.30-5.90) m/uL Hgb (13.0-17.5) gm/dL Hct (39.0-53.0) % Neutrophils # (1.3-7.7) k/uL Monocytes # (0-1.0) k/uL Sodium (137-145) mmol/L Chloride (98-107) mmol/L Carbon Dioxide (22-30) mmol/L Creatinine (0.66-1.25) mg/dL POC Glucose (mg/dL) 157 H 122 H 147 H (70-110) mg/dL Total Bilirubin (0.2-1.3) mg/dL Total Protein (6.3-8.2) g/dL Albumin (3.5-5.0) g/dL 01/13/24 01/13/24 01/13/24 Range/Units 16:10 18:15 20:00 WBC (3.8-10.6) k/uL RBC (4.30-5.90) m/uL Hgb (13.0-17.5) gm/dL Hct (39.0-53.0) % Neutrophils # (1.3-7.7) k/uL Monocytes # (0-1.0) k/uL Sodium (137-145) mmol/L Chloride (98-107) mmol/L Carbon Dioxide (22-30) mmol/L Creatinine (0.66-1.25) mg/dL POC Glucose (mg/dL) 120 H 132 H 137 H (70-110) mg/dL Total Bilirubin (0.2-1.3) mg/dL Total Protein (6.3-8.2) g/dL Albumin (3.5-5.0) g/dL 01/13/24 01/13/24 01/14/24 Range/Units 22:15 23:53 04:11 WBC 16.4 H (3.8-10.6) k/uL RBC 3.95 L (4.30-5.90) m/uL Hgb 11.5 L (13.0-17.5) gm/dL Hct 34.4 L (39.0-53.0) % Neutrophils # 12.7 H (1.3-7.7) k/uL Monocytes # 1.5 H (0-1.0) k/uL Sodium (137-145) mmol/L Chloride (98-107) mmol/L Carbon Dioxide (22-30) mmol/L Creatinine (0.66-1.25) mg/dL POC Glucose (mg/dL) 120 H 115 H (70-110) mg/dL Total Bilirubin (0.2-1.3) mg/dL Total Protein (6.3-8.2) g/dL Albumin (3.5-5.0) g/dL 01/14/24 01/14/24 Range/Units 04:11 06:04 WBC (3.8-10.6) k/uL RBC (4.30-5.90) m/uL Hgb (13.0-17.5) gm/dL Hct (39.0-53.0) % Neutrophils # (1.3-7.7) k/uL Monocytes # (0-1.0) k/uL Sodium 135 L (137-145) mmol/L Chloride 109 H (98-107) mmol/L Carbon Dioxide 20 L (22-30) mmol/L Creatinine 0.55 L (0.66-1.25) mg/dL POC Glucose (mg/dL) 130 H (70-110) mg/dL Total Bilirubin 1.8 H (0.2-1.3) mg/dL Total Protein 4.8 L (6.3-8.2) g/dL Albumin 3.1 L (3.5-5.0) g/dL - Imaging and Cardiology Chest x-ray: image reviewed Assessment and Plan Assessment: Multivessel coronary artery disease, unstable angina, status post off-pump three-vessel CABG History of hyperlipidemia, treated, cholesterol 203, LDL 135, triglycerides 161 Neurofibromatosis Current chronic ongoing tobacco dependence COPD, preoperative FEV1 92% of predicted Daily marijuana use Family history of premature coronary artery disease Acute postoperative blood loss anemia, expected given hemodilution Paroxysmal atrial fibrillation, known common occurrence after open heart surgery, not a complication, currently sinus, status post ligation of the left atrial appendage Plan: Continue to maximize medical therapy with aspirin, statin, Plavix and beta- mirna. Will increase beta-mirna as tolerated Continue amiodarone for A-fib prophylaxis, will transition to oral. No anticoagulation at this time Continue low-dose calcium channel mirna for radial artery spasm prophylaxis with hold parameters. Wean oxygen as tolerated. Encourage incentive spirometry use 10 times every hour while awake. Bronchodilators per pulmonology Increase activity, ambulate as tolerated. PT/OT/cardiac rehab consulted Will monitor daily labs and chest x-rays. Electrolyte replacement per protocol. Will give IV Lasix today GI/DVT prophylaxis Insulin management per internal medicine, the patient is a not diabetic, preoperative hemoglobin A1c 5.6% Pain control with current medication regimen. Toradol and Robaxin added yeste rday, Oxy changed to [place] per patient's home regimen for back pain Continue cordis for another 24 hours, discontinue arterial line Left pleural chest tube discontinued, continue mediastinal chest tubes for another 24 hours, monitor output Discontinue Hodgson catheter after diuresis from Lasix, may bladder scan and straight cath for greater than 300 mL residual Continue to monitor strict accurate intake and output Daily weights More recommendations to follow
[2024-01-14] MEDS: FUROSEMIDE 10 MG/ML 2 ML VIAL IV ONE (11:24)
[2024-01-14] MEDS: KETOROLAC 15 MG/ML 1 ML VIAL IVP SCH (11:26)
[2024-01-14 11:27] LABS: Glucose,Whole Blood 136 mg/dL (70-110)
[2024-01-14] MEDS ORDERED: DEXTROSE 50% SYRINGE 50 ML IVP PRN ×2 (11:42)
[2024-01-14] MEDS: AMIODARONE 450 MG in DEXTROSE 5% IN WATER 250 ML IV PRN (12:00)
[2024-01-14] MEDS: INSULIN ASPART (NovoLOG) 100 UNIT/ML VIAL SQ SCH (12:01)
--- NOTE | 2024-01-14 14:04 | PN ---
PROGRESS NOTE DATE OF SERVICE: 01/13/2024 CHIEF COMPLAINT: Status post CABG. HISTORY OF PRESENT ILLNESS: This gentleman seems to be doing well. He is up on the chair and he is not having any significant shortness of breath or pain. He is awake and alert with no neurologic symptoms. PHYSICAL EXAMINATION: CHEST: Breath sounds are heard bilaterally. CARDIAC: Sinus. IMPRESSION: 1. Status post CABG. 2. Chronic obstructive pulmonary disease. 3. Neurofibromatosis. PLAN: No change in management. He is doing well. MMODL / IJN: [id number] /
--- NOTE | 2024-01-14 14:06 | P.PN ---
Subjective Progress Note Date: 01/14/24 This is a 63-year-old male patient with a history of hyperlipidemia, chronic and ongoing tobacco dependence, neurofibromatosis, daily marijuana use who presented here January 07 with complaints of chest pain. He did undergo a cardiac catheterization that revealed significant coronary artery disease. Surgery was recommended. Today he did undergo an off-pump coronary artery bypass grafting x 3 with a CAMPBELL to the LAD, left radial artery to the obtuse marginal artery, reverse saphenous vein graft to the distal RCA. Left atrial appendage ligation. He is seen postoperatively in the intensive care unit. He is intubated on the mechanical ventilator. Settings are assist-control mode at a rate of 14, tidal volume 500, FiO2 100% and a PEEP of 5. Arterial blood gases reveal a P O2 of 213, pCO2 51 and a pH of 7.30. Chest x-ray reveals post CABG changes. COPD with pulmonary vascular congestion. Mild patchy atelectasis in the lower lungs. Right, left and mediastinal chest tubes remain in place. He is sedated on propofol at 40 mcg/kg/min. Nitroglycerin drip at 10 mcg/min. Normal saline at 50 MLS per hour. Cardiac output 4.5. Cardiac index 2.4. PA pressures 40/17. CVP 9. White count 16.6. Hemoglobin 13.4. Platelets 204. INR 1.2. Sodium 140. Potassium 4.1. Bicarb 21. BUN 15. Creatinine 0.59. Glucose 119. The patient is seen today January 13, 2024 in follow-up in the intensive care unit. Postoperative day #1. He is awake and alert in no acute distress. He is maintaining O2 saturations in the 90s on 5 L/min per nasal cannula. He is currently sitting up in a chair. He is on normal saline at 50 MLS per hour. Insulin drip currently on hold. Cardiac output 4.9. Cardiac index 2.6. X-ray reveals evidence of COPD and post CABG changes. Increased interstitial in past patchy opacities. Right, left, mediastinal chest tubes remain in place. No evidence of pneumothorax. He is again encouraged regarding the increased use of the incentive spirometer. White count 10.5. Hemoglobin 12.7. Platelets 195. Sodium 138. Potassium 3.8. Bicarb 20. BUN 14. Creatinine 0.71. Glucose 106. He is continued on bronchodilators. Heparin for DVT prophylaxis. He is presently in a -600 mL balance. The patient is seen today January 14, 2024 in follow-up in the intensive care unit. Postoperative day #2. He is currently up in a chair. Awake and alert in no acute distress. He is maintaining good O2 saturations in the 90s on 4 L/min per nasal cannula. He has been afebrile. Hemodynamically stable. White count 16.4. Hemoglobin 11.5. Platelets 158. Sodium 135. Potassium 3.7. Bicarb 20. BUN 11. Creatinine 0.55. Glucose 106. He is working well with the incentive spirometer. Continued on bronchodilators. Heparin for DVT prophylaxis. Chest x-ray shows post CABG changes with residual but improving interstitial pulmonary edema. He is currently in a -750 mL balance. He did go into atrial fibrillation. Currently on amiodarone drip at 1 mg/min. Objective - Vital Signs Vital signs: Vital Signs Temp 98.2 F 01/14/24 12:00 Pulse 128 H 01/14/24 13:00 Resp 16 01/14/24 13:00 BP 111/50 01/14/24 13:00 Pulse Ox 94 L 01/14/24 13:00 FiO2 50 01/12/24 20:00 Intake & Output 01/13/24 01/14/24 01/14/24 18:59 06:59 18:59 Intake Total 1978 468 756 Output Total 670 1030 625 Balance 1308 -562 131 Weight 71.3 kg 72.4 kg Intake: IV 728 468 216 Albumin Human 5% 250 ml 250 In Empty Bag 1 bag @ 250 mls/hr IVPB Q1HR PRN Rx#: [id number] Pressure Bag 78 78 36 Sodium Chloride 0.9% 1, 400 390 180 000 ml @ 20 mls/hr IV . Q24H JUSTIN Rx#:[id number] Intake, IV Titration 0 Amount Insulin Regular 100 unit 0 In Sodium Chloride 0.9% 100 ml @ Per Protocol IV .Q0M JUSTIN Rx#:[id number] Oral 1250 540 Output: Chest Tube Drainage 210 310 70 Chest Tube Mediastinal 90 190 50 Left Pleural Chest Tube 90 120 20 Right Pleural Chest Tube 30 Urine 460 720 555 Other: Voiding Method Indwelling Catheter Indwelling Catheter Indwelling Catheter ABP, PAP, CO, CI - Last Documented Arterial Blood Pressure 109/50 Pulmonary Artery Pressure 17/4 Cardiac Output 4.9 Cardiac Index 2.6 - Exam GENERAL EXAM: Awake, alert 63-year-old male patient, sitting up in a chair, on 4 L nasal cannula, comfortable in no apparent distress. HEAD: Normocephalic. EYES: Normal reaction of pupils, equal size. NOSE: Clear with pink turbinates. THROAT: No erythema or exudates. NECK: Right IJ [place] catheter in place. No masses, no JVD. CHEST: Sternal dressing dry and intact. Heart hugger in place. Mediastinal chest tube in place LUNGS: Equal air entry with few scattered rhonchi bilaterally. CVS: S1 and S2 normal with no audible murmur, irregular rhythm. ABDOMEN: No hepatosplenomegaly, normal bowel sounds, no guarding or rigidity. SPINE: No scoliosis or deformity SKIN: No rashes CENTRAL NERVOUS SYSTEM: Sedated, tone is normal in all 4 extremities. EXTREMITIES: Bilateral lower extremities with Kristian wraps and SCDs in place. No clubbing, no cyanosis. Peripheral pulses are intact. - Labs CBC & Chem 7: 01/14/24 04:11 01/14/24 04:11 Labs: Abnormal Lab Results - Last 24 Hours (Table) 01/13/24 01/13/24 01/13/24 Range/Units 13:57 15:11 16:10 WBC (3.8-10.6) k/uL RBC (4.30-5.90) m/uL Hgb (13.0-17.5) gm/dL Hct (39.0-53.0) % Neutrophils # (1.3-7.7) k/uL Monocytes # (0-1.0) k/uL Sodium (137-145) mmol/L Chloride (98-107) mmol/L Carbon Dioxide (22-30) mmol/L Creatinine (0.66-1.25) mg/dL POC Glucose (mg/dL) 122 H 147 H 120 H (70-110) mg/dL Total Bilirubin (0.2-1.3) mg/dL Total Protein (6.3-8.2) g/dL Albumin (3.5-5.0) g/dL 01/13/24 01/13/24 01/13/24 Range/Units 18:15 20:00 22:15 WBC (3.8-10.6) k/uL RBC (4.30-5.90) m/uL Hgb (13.0-17.5) gm/dL Hct (39.0-53.0) % Neutrophils # (1.3-7.7) k/uL Monocytes # (0-1.0) k/uL Sodium (137-145) mmol/L Chloride (98-107) mmol/L Carbon Dioxide (22-30) mmol/L Creatinine (0.66-1.25) mg/dL POC Glucose (mg/dL) 132 H 137 H 120 H (70-110) mg/dL Total Bilirubin (0.2-1.3) mg/dL Total Protein (6.3-8.2) g/dL Albumin (3.5-5.0) g/dL 01/13/24 01/14/24 01/14/24 Range/Units 23:53 04:11 04:11 WBC 16.4 H (3.8-10.6) k/uL RBC 3.95 L (4.30-5.90) m/uL Hgb 11.5 L (13.0-17.5) gm/dL Hct 34.4 L (39.0-53.0) % Neutrophils # 12.7 H (1.3-7.7) k/uL Monocytes # 1.5 H (0-1.0) k/uL Sodium 135 L (137-145) mmol/L Chloride 109 H (98-107) mmol/L Carbon Dioxide 20 L (22-30) mmol/L Creatinine 0.55 L (0.66-1.25) mg/dL POC Glucose (mg/dL) 115 H (70-110) mg/dL Total Bilirubin 1.8 H (0.2-1.3) mg/dL Total Protein 4.8 L (6.3-8.2) g/dL Albumin 3.1 L (3.5-5.0) g/dL 01/14/24 01/14/24 Range/Units 06:04 11:25 WBC (3.8-10.6) k/uL RBC (4.30-5.90) m/uL Hgb (13.0-17.5) gm/dL Hct (39.0-53.0) % Neutrophils # (1.3-7.7) k/uL Monocytes # (0-1.0) k/uL Sodium (137-145) mmol/L Chloride (98-107) mmol/L Carbon Dioxide (22-30) mmol/L Creatinine (0.66-1.25) mg/dL POC Glucose (mg/dL) 130 H 136 H (70-110) mg/dL Total Bilirubin (0.2-1.3) mg/dL Total Protein (6.3-8.2) g/dL Albumin (3.5-5.0) g/dL Assessment and Plan Assessment: Coronary artery disease, status post coronary artery bypass grafting utilizing a CAMPBELL to the LAD, left radial artery to the obtuse marginal branch, reverse saphenous vein to the distal RCA. Left atrial appendage ligation. Postoperati ve day #2 Atrial fibrillation, an expected outcome of surgery Chronic and ongoing tobacco dependence Daily marijuana use Chronic obstructive pulmonary disease Hyperlipidemia Neurofibromatosis Family history of premature coronary artery disease Plan: The patient was seen and evaluated Chest x-ray, labs and medications reviewed On amiodarone for atrial fibrillation Currently on 4 L nasal cannula Continue bronchodilators Encouraged the increased use of the incentive spirometer Heparin for DVT prophylaxis Titrate down the FiO2 as tolerated Increase his activity as tolerated We will continue to follow I have personally seen and examined the patient, performed the documentation and the assessment and plan as written. Number of minutes spent on the visit: 10.
[2024-01-14] MEDS: HYDROcodone/APAP 10-325MG 1 EACH TAB PO PRN (14:14)
[2024-01-14 16:39] LABS: Glucose,Whole Blood 120 mg/dL (70-110)
[2024-01-14 20:02] LABS: Glucose,Whole Blood 147 mg/dL (70-110)
[2024-01-14 20:13] LABS: Glucose,Whole Blood 124 mg/dL (70-110)
[2024-01-14] MEDS: AMIODARONE 200 MG TAB PO SCH (20:16)
--- NOTE | 2024-01-15 02:16 | PN ---
PROGRESS NOTE DATE OF SERVICE: 01/14/2024 CHIEF COMPLAINT: Status post CABG. HISTORY OF PRESENT ILLNESS: This gentleman is doing well. He has had no significant problems with shortness of breath or chest pain. He has had no arrhythmias. Laboratory studies are excellent. PHYSICAL EXAMINATION: CHEST: Clear. CARDIAC: Normal with sinus rhythm. IMPRESSION: 1. Status post coronary artery bypass graft. 2. Chronic obstructive pulmonary disease. 3. Neurofibromatosis. PLAN: The patient is doing well. Continue to follow. No change in management on my part. MMODL / IJN: [id number] /
[2024-01-15 03:35] LABS: Basophils % (A) 0 %; Eosinophils # (A) 0.3 k/uL (0-0.7); Eosinophils % (A) 2 %; HCT 34.2 % (39.0-53.0); HGB 11.6 gm/dL (13.0-17.5); Lymphocytes # (A) 1.5 k/uL (1.0-4.8); Lymphocytes % (A) 11 %; MCH 29.3 pg (25.0-35.0); MCHC 33.8 g/dL (31.0-37.0); MCV 86.8 fL (80.0-100.0); Mean Platelet Volume 9.1; Monocytes # (A) 1.1 k/uL (0-1.0); Monocytes % (A) 8 %; Neutrophils # (A) 10.3 k/uL (1.3-7.7); Neutrophils % (A) 77 %; Platelet Count 169 k/uL (150-450); RBC 3.94 m/uL (4.30-5.90); RDW 14.3 % (11.5-15.5); WBC 13.5 k/uL (3.8-10.6)
[2024-01-15 04:06] LABS: ALT 16 U/L (4-49); AST 25 U/L (17-59); African American GFR (CKD) >90 (>60 ml/min/1.73 sqM); Albumin 2.9 g/dL (3.5-5.0); Alkaline Phosphatase 96 U/L (38-126); Anion Gap 6 mmol/L; Blood Urea Nitrogen 14 mg/dL (9-20); Calcium 8.5 mg/dL (8.4-10.2); Carbon Dioxide 23 mmol/L (22-30); Chloride 108 mmol/L (98-107); Glucose 100 mg/dL (74-99); Magnesium 1.9 mg/dL (1.6-2.3); Non-African American GFR(CKD) >90 (>60 ml/min/1.73 sqM); Potassium 3.6 mmol/L (3.5-5.1); Sodium 137 mmol/L (137-145); Total Bilirubin 1.8 mg/dL (0.2-1.3); Total Protein 4.7 g/dL (6.3-8.2)
[2024-01-15] MEDS ORDERED: Magnesium Replacement Protocol 1 EACH MISC MISCELLANE PRN (04:11)
[2024-01-15] MEDS: MAGNESIUM SULFATE-D5W PMX 1 GM in DEXTROSE/WATER 1 100ML.BAG IVPB ONE (04:27)
[2024-01-15 06:44] LABS: Glucose,Whole Blood 109 mg/dL (70-110)
[2024-01-15] MEDS: POTASSIUM CHLORIDE ER 20 MEQ TAB.ER PO SCH ×2 (06:44→16:49)
--- NOTE | 2024-01-15 08:26 | XR ---
EXAMINATION TYPE: XR chest 1V portable DATE OF EXAM: 01/15/2024 Comparison: 01/14/2024 Clinical History: 63-year-old male post cardiac surgery Findings: Reverse right shoulder arthroplasty. Right IJ sheath. Median sternotomy wires are present with post-C ABG clips. Mediastinal drain. Left-sided chest tube removed in the interval. No appreciable pneumotho rax. Diffuse interstitial and patchy opacities persist without significant change. Patchy density may be slightly increased at the right base. Suspected trace left effusion. Impression: Removal of left-sided chest tube. No appreciable pneumothorax. Ongoing diffuse interstitial and patch y opacities. Similar to prior. Possibly minimally worsened at the right base.
--- NOTE | 2024-01-15 08:27 | P.PN ---
Subjective Progress Note Date: 01/15/24 Principal diagnosis: Multivessel coronary artery disease, unstable angina. Previous medical history of hyperlipidemia, neurofibromatosis, current chronic ongoing tobacco dependence , COPD, daily marijuana use, family history of premature coronary artery disease with father being diagnosed in his early 40s POD #3 off pump coronary artery bypass grafting x 3, left internal thoracic artery (in-situ) to left anterior descending coronary artery, left radial artery from aorta to obtuse marginal artery, reverse saphenous vein from aorta to distal right coronary artery, left atrial appendage ligation with a 35 mm Atriclip, endoscopic left radial and left greater saphenous vein harvest, graft flow measurements using the Medi-Stim flow meter system, intraoperative transesophageal echocardiogram performed by anesthesia Acute postoperative blood loss anemia, expected given hemodilution Paroxysmal atrial fibrillation, known common occurrence after open heart surgery, not a complication, currently sinus The patient was seen and examined with Dr. Reagan this morning sitting up in a recliner. Does complain of back pain which is chronic for him, a bit better after removal of chest tube yesterday and increase in pain medication. Currently in sinus rhythm, hemodynamically stable on no inotropes or pressors. Remains on 3 L nasal cannula with oxygen saturation in the high 90s, weaned to room air with oxygen saturation in the mid 90s, able to achieve 1500 mL on his incentive spirometry. Right internal jugular cordis, mediastinal chest tube remains. He was ambulatory around the hallway yesterday with therapy. No other new concerns. Objective - Vital Signs Vital signs: Vital Signs Temp 98.1 F 01/15/24 00:00 Pulse 88 01/15/24 06:00 Resp 31 H 01/15/24 06:00 BP 131/83 01/15/24 06:00 Pulse Ox 95 01/15/24 06:00 FiO2 50 01/12/24 20:00 Intake & Output 01/14/24 01/15/24 01/15/24 18:59 06:59 18:59 Intake Total 1521 429 Output Total 940 965 Balance 581 -536 Weight 72.2 kg Intake: IV 381 429 Pressure Bag 51 39 Sodium Chloride 0.9% 1, 330 390 000 ml @ 20 mls/hr IV . Q24H [facility] Rx#:[id number] Oral 1140 Output: Chest Tube Drainage 80 30 Chest Tube Mediastinal 60 30 Left Pleural Chest Tube 20 Urine 860 935 Other: Voiding Method Indwelling Catheter Indwelling Catheter ABP, PAP, CO, CI - Last Documented Arterial Blood Pressure 109/50 Pulmonary Artery Pressure 17/4 Cardiac Output 4.9 Cardiac Index 2.6 - Exam CONSTITUTIONAL: Appears comfortable, cooperative, no acute distress RESPIRATORY: Lungs sounds diminished bilaterally. Respirations even, nonlabored. Currently on room air with oxygen saturation 95%. Able to achieve 1500 mL on incentive spirometry. Strong nonproductive cough. CARDIOVASCULAR: S1, S2 present. Regular rate and rhythm, sinus rhythm on telemetry. Sternum stable. Palpable peripheral pulses bilaterally. No edema present. No calf pain or tenderness noted. Heart hugger in place with patient demonstrating appropriate use. Antiembolism stockings, SCDs present. GASTROINTESTINAL: Abdomen soft, nontender, nondistended. Active bowel sounds present 4 quadrants. Tolerating diet. Positive flatus GENITOURINARY: Hodgson present draining clear, yellow urine. Output overnight 30-45 mL per hour, 1795 mL in the last 24 hours INTEGUMENTARY: Skin is warm and dry with evidence of good perfusion. Anterior chest incision well approximated and covered with dry intact dressing. Left radial artery as well as left lower extremity EVH site well approximated without redness or drainage. NEUROLOGIC: Cranial nerves II through XII intact MUSKULOSKELETAL: Able to move all extremities, strength equal bilaterally, gait normal PSYCHIATRIC: Alert and oriented to person place and time, appropriate affect, intact judgment and insight INVASIVE LINES AND TUBES: Mediastinal chest tube present and connected to wall suction, no air leak present. Mediastinal tube with 30 mL serosanguineous drainage overnight, 160 mL in the last 24 hours. Ventricular epicardial pacemaker wires present, grounded. Right internal jugular cordis present - Allied health notes Allied health notes reviewed: nursing - Labs CBC & Chem 7: 01/15/24 03:06 01/15/24 03:06 Labs: Abnormal Lab Results - Last 24 Hours (Table) 01/14/24 01/14/24 01/14/24 Range/Units 11:25 16:38 20:01 WBC (3.8-10.6) k/uL RBC (4.30-5.90) m/uL Hgb (13.0-17.5) gm/dL Hct (39.0-53.0) % Neutrophils # (1.3-7.7) k/uL Monocytes # (0-1.0) k/uL Chloride (98-107) mmol/L Creatinine (0.66-1.25) mg/dL Glucose (74-99) mg/dL POC Glucose (mg/dL) 136 H 120 H 147 H (70-110) mg/dL Total Bilirubin (0.2-1.3) mg/dL Total Protein (6.3-8.2) g/dL Albumin (3.5-5.0) g/dL 01/14/24 01/15/24 01/15/24 Range/Units 20:12 03:06 03:06 WBC 13.5 H (3.8-10.6) k/uL RBC 3.94 L (4.30-5.90) m/uL Hgb 11.6 L (13.0-17.5) gm/dL Hct 34.2 L (39.0-53.0) % Neutrophils # 10.3 H (1.3-7.7) k/uL Monocytes # 1.1 H (0-1.0) k/uL Chloride 108 H (98-107) mmol/L Creatinine 0.65 L (0.66-1.25) mg/dL Glucose 100 H (74-99) mg/dL POC Glucose (mg/dL) 124 H (70-110) mg/dL Total Bilirubin 1.8 H (0.2-1.3) mg/dL Total Protein 4.7 L (6.3-8.2) g/dL Albumin 2.9 L (3.5-5.0) g/dL - Imaging and Cardiology Chest x-ray: image reviewed Assessment and Plan Assessment: Multivessel coronary artery disease, unstable angina, status post off-pump three-vessel CABG History of hyperlipidemia, treated, cholesterol 203, LDL 135, triglycerides 161 Neurofibromatosis Current chronic ongoing tobacco dependence COPD, preoperative FEV1 92% of predicted Daily marijuana use Family history of premature coronary artery disease Acute postoperative blood loss anemia, expected given hemodilution Paroxysmal atrial fibrillation, known common occurrence after open heart surgery, not a complication, currently sinus, status post ligation of the left atrial appendage Plan: Continue to maximize medical therapy with aspirin, statin, Plavix and beta- mirna. Will increase beta-mirna as tolerated Continue amiodarone for A-fib prophylaxis. No anticoagulation at this time Continue low-dose calcium channel mirna for radial artery spasm prophylaxis with hold parameters. Wean oxygen as tolerated. Encourage incentive spirometry use 10 times every hour while awake. Bronchodilators per pulmonology Increase activity, ambulate as tolerated. PT/OT/cardiac rehab consulted Will monitor daily labs and chest x-rays. Electrolyte replacement per protocol. Will give IV lasix today GI/DVT prophylaxis Insulin management per internal medicine, the patient is a not diabetic, preoperative hemoglobin A1c 5.6% Pain control with current medication regimen Discontinue cordis Will discontinue mediastinal chest tube Discontinue Hodgson catheter after diuresis from Lasix, may bladder scan and straight cath for greater than 300 mL residual Continue to monitor strict accurate intake and output Daily weights Will discontinue pacer wires, patient to remain on bedrest for 1 hour post wire removal Will place transfer orders for 3 S. cardiac stepdown unit, may transfer when bed available More recommendations to follow
[2024-01-15] MEDS: FUROSEMIDE 10 MG/ML 4 ML VIAL IV ONE (08:42)
--- NOTE | 2024-01-15 08:52 | PN ---
PROGRESS NOTE DATE OF SERVICE: 01/11/2024 CHIEF COMPLAINT: Chest pain, CAD, and COPD. HISTORY OF PRESENT ILLNESS: This gentleman does have triple-vessel disease. Seen by Cardiology who recommended conservative management, but cardiac surgery is taking tomorrow for CABG. REVIEW OF SYSTEMS: He feels fine. He is not having any chest pain or shortness of breath. PHYSICAL EXAMINATION: CHEST: He has breath sounds bilaterally slightly diminished due to COPD. CARDIAC: He is in sinus rhythm. ABDOMEN: Soft, nontender. IMPRESSION: 1. Coronary artery disease. 2. Unstable angina pectoris. 3. Chronic obstructive pulmonary disease. 4. Neurofibromatosis. PLAN: Surgery tomorrow. MMODL / IJN: [id number] /
--- NOTE | 2024-01-15 09:39 | P.PN ---
Subjective Progress Note Date: 01/15/24 The patient is a 63-year-old male who presented to the hospital with new onset of chest discomfort and shortness of breath. The patient underwent coronary angiogram where he was found to have multivessel disease and therefore was referred for coronary bypass. On 01/12/2024 patient underwent coronary bypass x 3 with left atrial appendage closure with Dr. Gonzalez. The patient is now postop day 3. He states his pain is much better controlled and appears less anxious today. No difficulty breathing. No dizziness or lightheadedness. GENERAL: Well-appearing, well-nourished and in no acute distress. NECK: Supple without JVD or thyromegaly. LUNGS: Breath sounds diminished to auscultation bilaterally. Respiration equal and unlabored. No wheezes, rales or rhonchi. HEART: Regular rate and rhythm without murmurs, rubs or gallops. S1 and S2 heard. Heart hugger in place. Sternotomy dressing in place. EXTREMITIES: Normal range of motion, no edema. No clubbing or cyanosis. Peripheral pulses intact and strong. TELEMETRY: Sinus tachycardia LABS: WBC 13.5, hemoglobin 11.6, hematocrit 34.2, platelet 169, sodium 137, potassium 3.6, BUN 14, creatinine 0.65, AST 25, ALT 16 IMPRESSION: Multivessel coronary artery disease Status post CABG x3 and left atrial appendage closure Postoperative atrial fibrillation Tobacco use Hyperlipidemia Sinus tachycardia PLAN: Continue supportive treatment Aggressive pulmonary hygiene Further recommendations to be based upon clinical course I am dictating on behalf of Dr Brandan Mendez's history/physical and assessment/plan. Objective - Vital Signs Vital signs: Vital Signs Temp 97.7 F 01/15/24 08:00 Pulse 92 01/15/24 09:13 Resp 18 01/15/24 09:00 BP 112/66 01/15/24 09:00 Pulse Ox 94 L 01/15/24 09:04 FiO2 50 01/12/24 20:00 Intake & Output 01/14/24 01/15/24 01/15/24 18:59 06:59 18:59 Intake Total 1521 429 533 Output Total 940 965 40 Balance 581 -536 493 Weight 72.2 kg Intake: IV 381 429 33 Pressure Bag 51 39 3 Sodium Chloride 0.9% 1, 330 390 30 000 ml @ 20 mls/hr IV . Q24H [facility] Rx#:[id number] Oral 1140 500 Output: Chest Tube Drainage 80 30 Chest Tube Mediastinal 60 30 Left Pleural Chest Tube 20 Urine 860 935 40 Other: Voiding Method Indwelling Catheter Indwelling Catheter Indwelling Catheter ABP, PAP, CO, CI - Last Documented Arterial Blood Pressure 109/50 Pulmonary Artery Pressure 17/4 Cardiac Output 4.9 Cardiac Index 2.6 - Labs CBC & Chem 7: 01/15/24 03:06 01/15/24 03:06 Labs: Abnormal Lab Results - Last 24 Hours (Table) 01/14/24 01/14/24 01/14/24 Range/Units 11:25 16:38 20:01 WBC (3.8-10.6) k/uL RBC (4.30-5.90) m/uL Hgb (13.0-17.5) gm/dL Hct (39.0-53.0) % Neutrophils # (1.3-7.7) k/uL Monocytes # (0-1.0) k/uL Chloride (98-107) mmol/L Creatinine (0.66-1.25) mg/dL Glucose (74-99) mg/dL POC Glucose (mg/dL) 136 H 120 H 147 H (70-110) mg/dL Total Bilirubin (0.2-1.3) mg/dL Total Protein (6.3-8.2) g/dL Albumin (3.5-5.0) g/dL 01/14/24 01/15/24 01/15/24 Range/Units 20:12 03:06 03:06 WBC 13.5 H (3.8-10.6) k/uL RBC 3.94 L (4.30-5.90) m/uL Hgb 11.6 L (13.0-17.5) gm/dL Hct 34.2 L (39.0-53.0) % Neutrophils # 10.3 H (1.3-7.7) k/uL Monocytes # 1.1 H (0-1.0) k/uL Chloride 108 H (98-107) mmol/L Creatinine 0.65 L (0.66-1.25) mg/dL Glucose 100 H (74-99) mg/dL POC Glucose (mg/dL) 124 H (70-110) mg/dL Total Bilirubin 1.8 H (0.2-1.3) mg/dL Total Protein 4.7 L (6.3-8.2) g/dL Albumin 2.9 L (3.5-5.0) g/dL
[2024-01-15] MEDS: POTASSIUM BICARBONATE/CIT AC 20 MEQ TABLET.EFF PO ONE (11:15)
--- NOTE | 2024-01-15 11:19 | P.PN ---
Subjective Progress Note Date: 01/15/24 This is a 63-year-old male patient with a history of hyperlipidemia, chronic and ongoing tobacco dependence, neurofibromatosis, daily marijuana use who presented here January 07 with complaints of chest pain. He did undergo a cardiac catheterization that revealed significant coronary artery disease. Surgery was recommended. Today he did undergo an off-pump coronary artery bypass grafting x 3 with a CAMPBELL to the LAD, left radial artery to the obtuse marginal artery, reverse saphenous vein graft to the distal RCA. Left atrial appendage ligation. He is seen postoperatively in the intensive care unit. He is intubated on the mechanical ventilator. Settings are assist-control mode at a rate of 14, tidal volume 500, FiO2 100% and a PEEP of 5. Arterial blood gases reveal a P O2 of 213, pCO2 51 and a pH of 7.30. Chest x-ray reveals post CABG changes. COPD with pulmonary vascular congestion. Mild patchy atelectasis in the lower lungs. Right, left and mediastinal chest tubes remain in place. He is sedated on propofol at 40 mcg/kg/min. Nitroglycerin drip at 10 mcg/min. Normal saline at 50 MLS per hour. Cardiac output 4.5. Cardiac index 2.4. PA pressures 40/17. CVP 9. White count 16.6. Hemoglobin 13.4. Platelets 204. INR 1.2. Sodium 140. Potassium 4.1. Bicarb 21. BUN 15. Creatinine 0.59. Glucose 119. The patient is seen today January 13, 2024 in follow-up in the intensive care unit. Postoperative day #1. He is awake and alert in no acute distress. He is maintaining O2 saturations in the 90s on 5 L/min per nasal cannula. He is currently sitting up in a chair. He is on normal saline at 50 MLS per hour. Insulin drip currently on hold. Cardiac output 4.9. Cardiac index 2.6. X-ray reveals evidence of COPD and post CABG changes. Increased interstitial in past patchy opacities. Right, left, mediastinal chest tubes remain in place. No evidence of pneumothorax. He is again encouraged regarding the increased use of the incentive spirometer. White count 10.5. Hemoglobin 12.7. Platelets 195. Sodium 138. Potassium 3.8. Bicarb 20. BUN 14. Creatinine 0.71. Glucose 106. He is continued on bronchodilators. Heparin for DVT prophylaxis. He is presently in a -600 mL balance. The patient is seen today January 14, 2024 in follow-up in the intensive care unit. Postoperative day #2. He is currently up in a chair. Awake and alert in no acute distress. He is maintaining good O2 saturations in the 90s on 4 L/min per nasal cannula. He has been afebrile. Hemodynamically stable. White count 16.4. Hemoglobin 11.5. Platelets 158. Sodium 135. Potassium 3.7. Bicarb 20. BUN 11. Creatinine 0.55. Glucose 106. He is working well with the incentive spirometer. Continued on bronchodilators. Heparin for DVT prophylaxis. Chest x-ray shows post CABG changes with residual but improving interstitial pulmonary edema. He is currently in a -750 mL balance. He did go into atrial fibrillation. Currently on amiodarone drip at 1 mg/min. The patient is seen today January 15, 2024 in follow-up in the intensive care unit. Postoperative day #3. He is currently sitting up in a chair. Awake and alert in no acute distress. Maintaining good O2 saturation in the 90s on room air. No IV fluids. Chest tubes have been removed. X-ray shows no appreciable pneumothorax. Ongoing diffuse interstitial and patchy opacities. He remains on bronchodilators. Working well with the incentive spirometer. Heparin for DVT prophylaxis. White count 13.5. Hemoglobin 11.6. Platelets 169. Sodium 137. Potassium 3.6. Bicarb 23. BUN 14. Creatinine 0.65. Glucose 100. Objective - Vital Signs Vital signs: Vital Signs Temp 97.7 F 01/15/24 08:00 Pulse 92 01/15/24 09:13 Resp 18 01/15/24 09:00 BP 112/66 01/15/24 09:00 Pulse Ox 94 L 01/15/24 09:04 FiO2 50 01/12/24 20:00 Intake & Output 01/14/24 01/15/24 01/15/24 18:59 06:59 18:59 Intake Total 1521 429 533 Output Total 940 965 840 Balance 581 -536 -307 Weight 72.2 kg Intake: IV 381 429 33 Pressure Bag 51 39 3 Sodium Chloride 0.9% 1, 330 390 30 000 ml @ 20 mls/hr IV . Q24H [facility] Rx#:[id number] Oral 1140 500 Output: Chest Tube Drainage 80 30 Chest Tube Mediastinal 60 30 Left Pleural Chest Tube 20 Urine 860 935 840 Other: Voiding Method Indwelling Catheter Indwelling Catheter Indwelling Catheter ABP, PAP, CO, CI - Last Documented Arterial Blood Pressure 109/50 Pulmonary Artery Pressure 17/4 Cardiac Output 4.9 Cardiac Index 2.6 - Exam GENERAL EXAM: Awake, 63-year-old male patient, sitting up in a chair, on room air, comfortable in no apparent distress. HEAD: Normocephalic. EYES: Normal reaction of pupils, equal size. NOSE: Clear with pink turbinates. THROAT: No erythema or exudates. NECK: No masses, no JVD. CHEST: Sternal dressing dry and intact. Heart hugger in place. LUNGS: Equal air entry with few scattered rhonchi bilaterally. CVS: S1 and S2 normal with no audible murmur, irregular rhythm. ABDOMEN: No hepatosplenomegaly, normal bowel sounds, no guarding or rigidity. SPINE: No scoliosis or deformity SKIN: No rashes CENTRAL NERVOUS SYSTEM: Sedated, tone is normal in all 4 extremities. EXTREMITIES: Bilateral lower extremities with Kristian wraps and SCDs in place. No clubbing, no cyanosis. Peripheral pulses are intact. - Labs CBC & Chem 7: 01/15/24 03:06 01/15/24 03:06 Labs: Abnormal Lab Results - Last 24 Hours (Table) 01/14/24 01/14/24 01/14/24 Range/Units 11:25 16:38 20:01 WBC (3.8-10.6) k/uL RBC (4.30-5.90) m/uL Hgb (13.0-17.5) gm/dL Hct (39.0-53.0) % Neutrophils # (1.3-7.7) k/uL Monocytes # (0-1.0) k/uL Chloride (98-107) mmol/L Creatinine (0.66-1.25) mg/dL Glucose (74-99) mg/dL POC Glucose (mg/dL) 136 H 120 H 147 H (70-110) mg/dL Total Bilirubin (0.2-1.3) mg/dL Total Protein (6.3-8.2) g/dL Albumin (3.5-5.0) g/dL 01/14/24 01/15/24 01/15/24 Range/Units 20:12 03:06 03:06 WBC 13.5 H (3.8-10.6) k/uL RBC 3.94 L (4.30-5.90) m/uL Hgb 11.6 L (13.0-17.5) gm/dL Hct 34.2 L (39.0-53.0) % Neutrophils # 10.3 H (1.3-7.7) k/uL Monocytes # 1.1 H (0-1.0) k/uL Chloride 108 H (98-107) mmol/L Creatinine 0.65 L (0.66-1.25) mg/dL Glucose 100 H (74-99) mg/dL POC Glucose (mg/dL) 124 H (70-110) mg/dL Total Bilirubin 1.8 H (0.2-1.3) mg/dL Total Protein 4.7 L (6.3-8.2) g/dL Albumin 2.9 L (3.5-5.0) g/dL Assessment and Plan Assessment: Coronary artery disease, status post coronary artery bypass grafting utilizing a CAMPBELL to the LAD, left radial artery to the obtuse marginal branch, reverse saphenous vein to the distal RCA. Left atrial appendage ligation. Postoperative day #3 Atrial fibrillation, an expected outcome of surgery Chronic and ongoing tobacco dependence Daily marijuana use Chronic obstructive pulmonary disease Hyperlipidemia Neurofibromatosis Family history of premature coronary artery disease Plan: The patient was seen and evaluated Chest x-ray, labs and medications reviewed Currently on room air Continue bronchodilators Encouraged the increased use of the incentive spirometer Heparin for DVT prophylaxis Increase his activity as tolerated Transfer to 3 [address]. when cleared by CT services We will continue to follow I have personally seen and examined the patient, performed the documentation and the assessment and plan as written. Number of minutes spent on the visit: 10.
[2024-01-15 11:23] LABS: Glucose,Whole Blood 142 mg/dL (70-110)
[2024-01-15 11:30] VITALS: BMI 24.2
[2024-01-15 16:16] LABS: Glucose,Whole Blood 152 mg/dL (70-110)
[2024-01-15] MEDS ORDERED: Potassium Replacement Protocol 1 EACH MISC MISCELLANE PRN (16:44)
[2024-01-15 20:47] LABS: Glucose,Whole Blood 175 mg/dL (70-110)
[2024-01-15 23:58] VITALS: TEMP 98.2
[2024-01-16 05:38] LABS: Glucose,Whole Blood 112 mg/dL (70-110)
[2024-01-16 08:34] LABS: HCT 38.7 % (39.0-53.0); HGB 12.7 gm/dL (13.0-17.5); MCH 28.9 pg (25.0-35.0); MCHC 32.9 g/dL (31.0-37.0); MCV 87.8 fL (80.0-100.0); Mean Platelet Volume 8.4; Platelet Count 275 k/uL (150-450); RBC 4.41 m/uL (4.30-5.90); RDW 14.2 % (11.5-15.5); WBC 12.1 k/uL (3.8-10.6)
--- NOTE | 2024-01-16 08:43 | XR ---
EXAMINATION TYPE: XR chest 2V DATE OF EXAM: 01/16/2024 7:09 AM CLINICAL INDICATION:Male, 63 years old with history of post cardiac surgery; COMPARISON: Chest radiographs from 01/15/2024 TECHNIQUE: XR chest 2V Frontal view of the chest. FINDINGS: Lungs/Pleura: No evidence of focal consolidation or pneumothorax. Blunting of the costophrenic angles is present. Pulmonary vascularity: Unremarkable. Heart/mediastinum: Cardiomediastinal silhouette is unremarkable. Left atrial appendage occlusion jamil ce is present. Musculoskeletal: No acute osseous pathology. Midline sternotomy wires are noted.Shoulder arthroplasty appears intact. IMPRESSION: 1. Improved aeration of the lungs 2. Trace bilateral pleural effusions.
[2024-01-16 08:54] LABS: African American GFR (CKD) >90 (>60 ml/min/1.73 sqM); Anion Gap 5 mmol/L; Blood Urea Nitrogen 19 mg/dL (9-20); Calcium 8.6 mg/dL (8.4-10.2); Carbon Dioxide 25 mmol/L (22-30); Chloride 109 mmol/L (98-107); Glucose 108 mg/dL (74-99); Magnesium 1.9 mg/dL (1.6-2.3); Non-African American GFR(CKD) >90 (>60 ml/min/1.73 sqM); Potassium 3.7 mmol/L (3.5-5.1); Sodium 139 mmol/L (137-145)
--- NOTE | 2024-01-16 10:55 | P.PN ---
Subjective Progress Note Date: 01/16/24 Principal diagnosis: Multivessel coronary artery disease, unstable angina. Previous medical history of hyperlipidemia, neurofibromatosis, current chronic ongoing tobacco dependence , COPD, daily marijuana use, family history of premature coronary artery disease with father being diagnosed in his early 40s POD #4 off pump coronary artery bypass grafting x 3, left internal thoracic artery (in-situ) to left anterior descending coronary artery, left radial artery from aorta to obtuse marginal artery, reverse saphenous vein from aorta to distal right coronary artery, left atrial appendage ligation with a 35 mm Atriclip, endoscopic left radial and left greater saphenous vein harvest, graft flow measurements using the [employer] flow meter system, intraoperative transesophageal echocardiogram performed by anesthesia Acute postoperative blood loss anemia, expected given hemodilution Paroxysmal atrial fibrillation, known common occurrence after open heart surgery, not a complication, currently sinus The patient was seen and examined this morning ambulating around the hallway on the third floor. Denies pain other than his chronic back pain, states he feels much better after removal of all lines and tubes. Currently in sinus rhythm, hemodynamically stable. Currently on room air with oxygen saturation in the high 90s, able to achieve 1500 mL on his incentive spirometry. No other new concerns. Objective - Vital Signs Vital signs: Vital Signs Temp 98.2 F 01/15/24 20:00 Pulse 84 01/16/24 09:03 Resp 16 01/16/24 08:10 BP 124/72 01/16/24 08:10 Pulse Ox 96 01/16/24 08:56 FiO2 21 01/16/24 08:56 Intake & Output 01/15/24 01/16/24 01/16/24 18:59 06:59 18:59 Intake Total 1273 240 Output Total 1315 200 Balance -42 40 Weight 72.2 kg 73.5 kg Intake: IV 33 Pressure Bag 3 Sodium Chloride 0.9% 1, 30 000 ml @ 20 mls/hr IV . Q24H [facility] Rx#:[id number] Oral 1240 240 Output: Urine 1315 200 Other: Voiding Method Toilet Toilet Toilet # Voids 1 1 # Bowel Movements 1 ABP, PAP, CO, CI - Last Documented Arterial Blood Pressure 109/50 Pulmonary Artery Pressure 17/4 Cardiac Output 4.9 Cardiac Index 2.6 - Exam CONSTITUTIONAL: Appears comfortable, cooperative, no acute distress RESPIRATORY: Lungs sounds diminished bilaterally. Respirations even, nonlabored. Currently on room air with oxygen saturation 98%. Able to achieve 1500 mL on incentive spirometry. Strong nonproductive cough. CARDIOVASCULAR: S1, S2 present. Regular rate and rhythm, sinus rhythm on telemetry. Sternum stable. Palpable peripheral pulses bilaterally. No edema present. No calf pain or tenderness noted. Heart hugger in place with patient demonstrating appropriate use. Antiembolism stockings, SCDs present. GASTROINTESTINAL: Abdomen soft, nontender, nondistended. Active bowel sounds present 4 quadrants. Tolerating diet. Positive bowel movement 01/14 GENITOURINARY: Continues to void clear, yellow urine. Output 1515 mL in the l ast 24 hours INTEGUMENTARY: Skin is warm and dry with evidence of good perfusion. Anterior chest incision well approximated and covered with dry intact dressing. Left radial artery as well as left lower extremity EVH site well approximated without redness or drainage. NEUROLOGIC: Cranial nerves II through XII intact MUSKULOSKELETAL: Able to move all extremities, strength equal bilaterally, gait normal PSYCHIATRIC: Alert and oriented to person place and time, appropriate affect, intact judgment and insight - Allied health notes Allied health notes reviewed: nursing - Labs CBC & Chem 7: 01/16/24 08:20 01/16/24 08:20 Labs: Abnormal Lab Results - Last 24 Hours (Table) 01/15/24 01/15/24 01/15/24 Range/Units 11:21 12:57 16:14 WBC (3.8-10.6) k/uL Hgb (13.0-17.5) gm/dL Hct (39.0-53.0) % Potassium 3.4 L (3.5-5.1) mmol/L Chloride (98-107) mmol/L Glucose (74-99) mg/dL POC Glucose (mg/dL) 142 H 152 H (70-110) mg/dL 01/15/24 01/16/24 01/16/24 Range/Units 20:44 05:32 08:20 WBC 12.1 H (3.8-10.6) k/uL Hgb 12.7 L (13.0-17.5) gm/dL Hct 38.7 L (39.0-53.0) % Potassium (3.5-5.1) mmol/L Chloride (98-107) mmol/L Glucose (74-99) mg/dL POC Glucose (mg/dL) 175 H 112 H (70-110) mg/dL 01/16/24 Range/Units 08:20 WBC (3.8-10.6) k/uL Hgb (13.0-17.5) gm/dL Hct (39.0-53.0) % Potassium (3.5-5.1) mmol/L Chloride 109 H (98-107) mmol/L Glucose 108 H (74-99) mg/dL POC Glucose (mg/dL) (70-110) mg/dL - Imaging and Cardiology Chest x-ray: report reviewed, image reviewed Assessment and Plan Assessment: Multivessel coronary artery disease, unstable angina, status post off-pump three-vessel CABG History of hyperlipidemia, treated, cholesterol 203, LDL 135, triglycerides 161 Neurofibromatosis Current chronic ongoing tobacco dependence COPD, preoperative FEV1 92% of predicted Daily marijuana use Family history of premature coronary artery disease Acute postoperative blood loss anemia, expected given hemodilution Paroxysmal atrial fibrillation, known common occurrence after open heart surgery, not a complication, currently sinus, status post ligation of the left atrial appendage Plan: Continue to maximize medical therapy with aspirin, statin, Plavix and beta- mirna. Will increase beta-mirna as tolerated Continue amiodarone for A-fib prophylaxis, will taper weekly. No anticoagulation at this time Continue low-dose calcium channel mirna for radial artery spasm prophylaxis with hold parameters. Encourage incentive spirometry use 10 times every hour while awake. Bronchodilators per pulmonology Increase activity, ambulate as tolerated. PT/OT/cardiac rehab consulted Will monitor daily labs and chest x-rays. Electrolyte replacement per protocol. Will give IV lasix today GI/DVT prophylaxis Insulin management per internal medicine, the patient is a not diabetic, preoperative hemoglobin A1c 5.6% Pain control with current medication regimen Continue to monitor strict accurate intake and output Daily weights Shower today then daily Discharge planning in place, anticipate discharge to home with home care this afternoon vs. tomorrow morning More recommendations to follow
[2024-01-16] MEDS: FUROSEMIDE 10 MG/ML 2 ML VIAL IV ONE (11:43)
[2024-01-16] MEDS: POTASSIUM BICARBONATE/CIT AC 20 MEQ TABLET.EFF PO ONE (11:43)
[2024-01-16] MEDS: MAGNESIUM SULFATE-D5W PMX 1 GM in DEXTROSE/WATER 1 100ML.BAG IVPB SCH (11:43)
[2024-01-16 12:11] LABS: Glucose,Whole Blood 121 mg/dL (70-110)
[2024-01-16 12:47] VITALS: BP 111/72; RESP 18
--- NOTE | 2024-01-16 13:43 | P.PN ---
Subjective Progress Note Date: 01/16/24 Principal diagnosis: Coronary artery disease. This is a 63-year-old male patient with a history of hyperlipidemia, chronic and ongoing tobacco dependence, neurofibromatosis, daily marijuana use who presented here January 07 with complaints of chest pain. He did undergo a cardiac c atheterization that revealed significant coronary artery disease. Surgery was recommended. Today he did undergo an off-pump coronary artery bypass grafting x 3 with a CAMPBELL to the LAD, left radial artery to the obtuse marginal artery, reverse saphenous vein graft to the distal RCA. Left atrial appendage ligation. He is seen postoperatively in the intensive care unit. He is intubated on the mechanical ventilator. Settings are assist-control mode at a rate of 14, tidal volume 500, FiO2 100% and a PEEP of 5. Arterial blood gases reveal a P O2 of 213, pCO2 51 and a pH of 7.30. Chest x-ray reveals post CABG changes. COPD with pulmonary vascular congestion. Mild patchy atelectasis in the lower lungs. Right, left and mediastinal chest tubes remain in place. He is sedated on propofol at 40 mcg/kg/min. Nitroglycerin drip at 10 mcg/min. Normal saline at 50 MLS per hour. Cardiac output 4.5. Cardiac index 2.4. PA pressures 40/17. CVP 9. White count 16.6. Hemoglobin 13.4. Platelets 204. INR 1.2. Sodium 140. Potassium 4.1. Bicarb 21. BUN 15. Creatinine 0.59. Glucose 119. The patient is seen today January 13, 2024 in follow-up in the intensive care unit. Postoperative day #1. He is awake and alert in no acute distress. He is maintaining O2 saturations in the 90s on 5 L/min per nasal cannula. He is currently sitting up in a chair. He is on normal saline at 50 MLS per hour. Insulin drip currently on hold. Cardiac output 4.9. Cardiac index 2.6. X-ray reveals evidence of COPD and post CABG changes. Increased interstitial in past patchy opacities. Right, left, mediastinal chest tubes remain in place. No evidence of pneumothorax. He is again encouraged regarding the increased use of the incentive spirometer. White count 10.5. Hemoglobin 12.7. Platelets 195. Sodium 138. Potassium 3.8. Bicarb 20. BUN 14. Creatinine 0.71. Glucose 106. He is continued on bronchodilators. Heparin for DVT prophylaxis. He is presently in a -600 mL balance. The patient is seen today January 14, 2024 in follow-up in the intensive care unit. Postoperative day #2. He is currently up in a chair. Awake and alert in no acute distress. He is maintaining good O2 saturations in the 90s on 4 L/min per nasal cannula. He has been afebrile. Hemodynamically stable. White count 16.4. Hemoglobin 11.5. Platelets 158. Sodium 135. Potassium 3.7. Bicarb 20. BUN 11. Creatinine 0.55. Glucose 106. He is working well with the incentive spirometer. Continued on bronchodilators. Heparin for DVT prophylaxis. Chest x-ray shows post CABG changes with residual but improving interstitial pulmonary edema. He is currently in a -750 mL balance. He did go into atrial fibrillation. Currently on amiodarone drip at 1 mg/min. The patient is seen today January 15, 2024 in follow-up in the intensive care unit. Postoperative day #3. He is currently sitting up in a chair. Awake and alert in no acute distress. Maintaining good O2 saturation in the 90s on room air. No IV fluids. Chest tubes have been removed. X-ray shows no appreciable pneumothorax. Ongoing diffuse interstitial and patchy opacities. He remains on bronchodilators. Working well with the incentive spirometer. Heparin for DVT prophylaxis. White count 13.5. Hemoglobin 11.6. Platelets 169. Sodium 137. Potassium 3.6. Bicarb 23. BUN 14. Creatinine 0.65. Glucose 100. Progress note dated 01/16/2024. 63-year-old male who seen today in room 373. The patient is postoperative day #4. He is doing relatively well. He is on room air. Not receiving any IV fluids. He is hoping to be discharged tomorrow. Labs, x-rays, and medications are all reviewed. White count 12.1, he will been 12.7, hematocrit 38.7, platelet count 375,000. Sodium 139, potassium 3.7, chlorides 109, CO2 25, BUN 19, creatinine 0.76. Glucose 121.Today's chest x-ray is improved, small bilateral effusions. Objective - Vital Signs Vital signs: Vital Signs Temp 98.2 F 01/15/24 20:00 Pulse 99 01/16/24 12:00 Resp 18 01/16/24 12:00 BP 111/72 01/16/24 12:00 Pulse Ox 94 L 01/16/24 12:00 FiO2 21 01/16/24 08:56 Intake & Output 01/15/24 01/16/24 01/16/24 18:59 06:59 18:59 Intake Total 1273 240 Output Total 1315 200 Balance -42 40 Weight 72.2 kg 73.5 kg Intake: IV 33 Pressure Bag 3 Sodium Chloride 0.9% 1, 30 000 ml @ 20 mls/hr IV . Q24H [facility] Rx#:[id number] Oral 1240 240 Output: Urine 1315 200 Other: Voiding Method Toilet Toilet Toilet # Voids 1 1 # Bowel Movements 1 ABP, PAP, CO, CI - Last Documented Arterial Blood Pressure 109/50 Pulmonary Artery Pressure 17/4 Cardiac Output 4.9 Cardiac Index 2.6 - Exam No acute distress, oriented 3.Currently on room air. HEENT examination is grossly unremarkable. Mucous membranes are moist. No oral lesions. Neck supple. Full range of motion. No adenopathy thyromegaly or neck vein distention. Cardiovascular examination reveals regular rhythm rate. S1-S2 normal. No S3 or S4. No discernible murmur noted.Heart rate is 80 bpm. Lungs reveal clear breath sounds. Breath sounds are equal bilaterally. No adventitious lung sounds including wheezes rhonchi or crackles. Abdomen soft bowel sounds are heard. No masses or tenderness. Extremities are intact. No cyanosis clubbing or edema. Skin is without rash or lesion. Neurologic examination is brief but nonfocal. - Labs CBC & Chem 7: 01/16/24 08:20 01/16/24 08:20 Labs: Abnormal Lab Results - Last 24 Hours (Table) 01/15/24 01/15/24 01/16/24 Range/Units 16:14 20:44 05:32 WBC (3.8-10.6) k/uL Hgb (13.0-17.5) gm/dL Hct (39.0-53.0) % Chloride (98-107) mmol/L Glucose (74-99) mg/dL POC Glucose (mg/dL) 152 H 175 H 112 H (70-110) mg/dL 01/16/24 01/16/24 01/16/24 Range/Units 08:20 08:20 12:10 WBC 12.1 H (3.8-10.6) k/uL Hgb 12.7 L (13.0-17.5) gm/dL Hct 38.7 L (39.0-53.0) % Chloride 109 H (98-107) mmol/L Glucose 108 H (74-99) mg/dL POC Glucose (mg/dL) 121 H (70-110) mg/dL Assessment and Plan Assessment: Coronary artery disease, status post coronary artery bypass grafting utilizing a CAMPBELL to the LAD, left radial artery to the obtuse marginal branch, reverse saphenous vein to the distal RCA. Left atrial appendage ligation. Postoperative day #4. Routine postoperative ventilator management. Atrial fibrillation, an expected outcome of surgery. Chronic and ongoing tobacco dependence. Daily marijuana use. Chronic obstructive pulmonary disease. Hyperlipidemia. Neurofibromatosis. Family history of premature coronary artery disease. Plan: Plan dated 01/16/2024. The patient is seen today in room 373. Today's postoperative day #4. The leonel recio's currently on room air. Is not receiving any IV fluids. He has no specific complaints, and is hoping to be discharged tomorrow. Labs, x-rays, medications are reviewed. The patient's overall prognosis remains good. We will continue to follow the patient, until discharge. Time with Patient: Less than 30
[2024-01-16 14:29] VITALS: PULSE 65
--- NOTE | 2024-01-16 15:55 | P.DS ---
Providers Date of admission: 01/12/24 07:49 Expected date of discharge: 01/16/24 Attending physician: Haider Gonzalez MD Consults: 01/08/24 19:36 Consult Physician Routine Consulting Provider: Eusebio Bolanos Consult Reason/Comments: chest pain Do you want consulting provider notified?: Yes 01/10/24 13:28 Consult Physician Routine Consulting Provider: Bharat Reagan Consult Reason/Comments: re: CABG evaluation Do you want consulting provider notified?: Already Contacted 01/10/24 14:58 Consult to Anesthesia Routine Consulting Provider: Anesthesia,Services Consult Reason/Comments: Cardiac Surgery Pre-Op 01/12/24 12:46 Consult Physician Routine Consulting Provider: Russell Huizar Consult Reason/Comments: External Grinder Consult: post cardiac surgery Do you want consulting provider notified?: Yes Consult Physician Routine Consulting Provider: Martin Feliz Consult Reason/Comments: Medical Management Do you want consulting provider notified?: Yes Primary care physician: Martin Feliz Hospital Course: FINAL DIAGNOSIS: Multivessel coronary artery disease, unstable angina History of hyperlipidemia, treated, cholesterol 203, LDL 135, triglycerides 161 Neurofibromatosis Current chronic ongoing tobacco dependence COPD, preoperative FEV1 92% of predicted Daily marijuana use Family history of premature coronary artery disease Acute postoperative blood loss anemia, expected given hemodilution Paroxysmal atrial fibrillation, known common occurrence after open heart surgery, not a complication, currently sinus PRINCIPAL PROCEDURE: Off pump coronary artery bypass grafting x 3, left internal thoracic artery (in- situ) to left anterior descending coronary artery, left radial artery from aorta to obtuse marginal artery, reverse saphenous vein from aorta to distal right coronary artery Left atrial appendage ligation with a 35 mm Atriclip Endoscopic left radial and left greater saphenous vein harvest Graft flow measurements using the Medi-Stim flow meter system Intraoperative transesophageal echocardiogram performed by anesthesia HISTORY OF PRESENT ILLNESS: This is a 63-year-old gentleman who follows on an outpatient basis for his primary care with Dr. Feliz. The patient was recently admitted to the hospital due to complaints of chest pain and associated shortness of breath. At that time he underwent Lexiscan stress test showing fixed defect however no reversible ischemia. He was subsequently discharged home, but presented back to the emergency department at [facility] with recurrent episodes of chest pain and elevated heart rate. He denied any recent fever, chills, nausea, vomiting, hemoptysis, hematemesis, visual disturbances, constipation, diarrhea, headache, palpitations, presyncope or syncope. A twelve-lead EKG was completed in the emergency department which showed sinus tachycardia with a heart rate of 100 bpm with incomplete right bundle branch block. A chest x-ray was completed which showed COPD. Laboratory workup was completed which showed a proBNP less than 20 and serial troponins less than 0.012. Due to the patient's recent presenting symptoms cardiology was consulted. He underwent a transthoracic 2D echocardiogram which showed normal left ventricular function with ejection fraction 60-65%, no obvious regional wall motion abnormalities, trace mitral valve regurgitation, trace tricuspid valve regurgitation, no pericardial or pleural effusion and a mildly dilated aortic annulus. The patient was recommended to undergo cardiac catheterization which revealed multivessel coronary artery disease with 80% stenosis to the mid left anterior descending coronary artery, 90% stenosis to the proximal circumflex coronary artery, 90% stenosis to the first obtuse marginal coronary artery, and 90% stenosis to the mid right coronary artery. Consultation was requested of Dr. Gonzalez from cardiothoracic surgery for surgical revascularization recommendations. He was recommended to undergo elective myocardial revascularization. The usual perioperative course was discussed in detail with the patient and his family, all risks and benefits were explained, all questions were answered, and consent was obtained to proceed with surgery. The patient was discharged to home on maximal medical therapy to return as an outpatient for elective surgery. HOSPITAL COURSE: The patient was brought to the hospital on 01/12/24, taken to the preoperative area, prepared in the usual fashion, and subsequently taken to the operating room where Dr. Gonzalez performed three vessel off pump CABG. Upon completion of surgery the patient was transferred to the cardiovascular intensive care unit where he was recovered and monitored hemodynamically. He was extubated, all lines, tubes, and drips were discontinued when appropriate, and he was transferred to 3 S cardiac stepdown unit for further monitoring and rehabilitation. His did experience brief atrial fibrillation which was converted with amiodarone. His oxygen was titrated down, he continued to work with physical and occupational therapy, he was tolerating oral diet, his pain was controlled, and he was ready to be discharged to home with [facility] care on postoperative day #4. He received written and verbal instruction regarding his medications, activity restrictions, signs and symptoms requiring physician n otification, and follow-up appointments. Patient Condition at Discharge: Stable Plan - Discharge Summary Discharge Rx Participant: No New Discharge Prescriptions: New amLODIPine [Norvasc] 2.5 mg PO 1200 #30 tab Clopidogrel [Plavix] 75 mg PO DAILY #30 tab Sennosides-Docusate Sodium [Senokot-S] 2 each PO HS PRN tab PRN Reason: Constipation Acetaminophen Tab [Tylenol] 650 mg PO Q4HR PRN tab PRN Reason: Fever And/ Or Pain Aspirin 325 mg PO DAILY #30 tab Amiodarone [Cordarone] 400 mg PO BID #43 tab Metoprolol Tartrate [Lopressor] 25 mg PO BID #60 tab Pantoprazole [Protonix] 40 mg PO AC-BRKFST #30 tab Continue HYDROcodone/APAP 7.5-325MG [[place] 7.5-325] 1 tab PO BID Ergocalciferol (Vitamin D2) [Drisdol (50,000 Iu)] 1,250 mcg PO MO Atorvastatin [Lipitor] 40 mg PO DAILY Albuterol Sulfate [Ventolin HFA] 2 puff INHALATION RT-TID PRN PRN Reason: Shortness Of Breath Ibuprofen [Motrin] 800 mg PO BID Fluticasone/Umeclidin/Vilanter [Trelegy Ellipta 100-62.5-25] 1 puff INHALATION RT-DAILY Discharge Medication List Albuterol Sulfate [Ventolin HFA] 2 puff INHALATION RT-TID PRN 06/23/23 [History] Ergocalciferol (Vitamin D2) [Drisdol (50,000 Iu)] 1,250 mcg PO MO 06/23/23 [History] HYDROcodone/APAP 7.5-325MG [[place] 7.5-325] 1 tab PO BID 06/23/23 [History] Atorvastatin [Lipitor] 40 mg PO DAILY 01/04/24 [History] Fluticasone/Umeclidin/Vilanter [Trelegy Ellipta 100-62.5-25] 1 puff INHALATION RT-DAILY 01/04/24 [History] Ibuprofen [Motrin] 800 mg PO BID 01/04/24 [History] Acetaminophen Tab [Tylenol] 650 mg PO Q4HR PRN tab 01/16/24 [Rx] Amiodarone [Cordarone] 400 mg PO BID #43 tab 01/16/24 [Rx] Aspirin 325 mg PO DAILY #30 tab 01/16/24 [Rx] Clopidogrel [Plavix] 75 mg PO DAILY #30 tab 01/16/24 [Rx] Metoprolol Tartrate [Lopressor] 25 mg PO BID #60 tab 01/16/24 [Rx] Pantoprazole [Protonix] 40 mg PO AC-BRKFST #30 tab 01/16/24 [Rx] Sennosides-Docusate Sodium [Senokot-S] 2 each PO HS PRN tab 01/16/24 [Rx] amLODIPine [Norvasc] 2.5 mg PO 1200 #30 tab 01/16/24 [Rx] Follow up Appointment(s)/Referral(s): Martin Feliz MD [Primary Care Provider] - 01/19/24 1:30 pm (Your appointment is with DIANNE Mitchell) [facility] [NON-STAFF] - 4 Weeks (You will receive a phone call in approximately 4-6 weeks for evaluation for cardiac rehab) Cyndi Aguilar MD [STAFF PHYSICIAN] - 02/13/24 10:00 am (Dr. Gonzalez's partner) Eusebio Bolanos DO [STAFF PHYSICIAN] - 01/28/24 10:45 am Russell Huizar DO [Doctor of Osteopathic Medicine] - 02/17/24 11:15 am [facility], [NON-STAFF] - 1-2 Days (You should be seen the day after discharge, then 2-3 times per week until you start cardiac rehab) Gricel Ron NPC [Nurse Practitioner] - 01/21/24 10:15 am (You will be seen in the surgeon's office behind the hospital in [facility], [address]. Office phone number is ) Ambulatory/Diagnostic Orders: Complete Blood Count w/diff [LAB.AMB] Time Frame: 3 Days, Location: None Selected Comprehensive Metabolic Panel [LAB.AMB] Time Frame: 3 Days, Location: None Selected Activity/Diet/Wound Care/Special Instructions: DISCHARGE INSTRUCTIONS: 1. No driving for 4 weeks, or until physician gives their ok. 2. The patient should sleep in their own bed, no medical bed needed. 3. Stairs are not an issue. If the bedroom is upstairs, it is advised that the patient go up at night and down in the morning for the first week. Go slowly, using handrail and take 1 step at a time. 4. MERCY hose are to be worn for 30 days post surgery or until physician discontinues. 5. Heart hugger is to be worn 100% of the time until physician discontinues.(except when showering) 6. No lifting, pushing, or pulling more than 10 pounds for 12 weeks. The physician will advise of any restriction changes. 7. The patient is expected to continue the prescribed walking program. 8. Continue pain control per as needed orders. 9. Continue with incentive spirometry and splinting/heart hugger until otherwise directed by the physician. 10. Must shower daily using liquid antibacterial soap 11. Routine sternal incision care. No powders, lotions, ointments on incisions. No dressings are necessary on incisions unless they are draining. Dermabond tape is to remain on sternal incision until surgeon follow-up. 12. Please call surgeon/NUMBERER [facility] WIRER for temp greater than 101 F or purulent drainage from incisions. 13. You should weigh yourself daily, record and bring log with you to follow up appointments. 14. All prescriptions given by surgeon for 30 days. Refills need to be filled through pipeman/primary care physician. 15. A Red armband has been placed on the patient. It should be worn for 30 days post discharge from surgery and will be removed by the cardiac surgeons. If an ER visit is necessary, please make sure the number on the Red armband is called before going to ER. 16. You have been referred to and are expected to begin Cardiac Rehab in approximately 4-6 weeks. 17. Quitting smoking is the most important step you can take to improve your health. For additional information and assistance to quit smoking, please call the [place] tobacco quit line (0-195-ZFRI-NOW/ ) or online: https://www.[place].gov/[facility]/gkws-da-fbixpje/chronicdiseases/tobacco/how-to-qu it-tobacco HOME HEALTH SERVICES TO PROVIDE: RN SKILLED HOME CARE SERVICES FOR POST-OP SURGICAL PATIENTS WITH THE FOLLOWING: Coronary Artery Bypass Surgery (CABG), Mitral Valve Replacement/Repair ( MVR), Aortic Valve Replacement/Repair (AVR) RN TO CONTINUE EDUCATION FROM ``ROAD TO A HEALTH HEART PATIENT EDUCATION MANUAL (GIVEN TO PATIENT IN THE HOSPITAL) MEDICATION RECONCILIATION WITH EDUCATION NEEDED ON FIRST HOME VISIT EMPHASIZE IMPORTANCE OF WEARING BREAST SUPPORT/HEART HUGGER ENCOURAGE USE OF INCENTIVE SPIROMETER 10 X EVERY HOUR WHILE AWAKE ENCOURAGE UTILIZATION OF LOWER EXTREMITY COMPRESSION STOCKINGS/MERCY HOSE and ELEVATE LEGS ABOVE LEVEL OF HEART WHILE AT REST. ENCOURAGE AMBULATION 3-5x/day INCREASING TOLERATES, WHILE AVOIDING EXTREMES IN TEMPERATURE FREQUENCY: RN TO OPEN THE PATIENT WITHIN 24 HOURS OF DISCHARGE FROM THE HOSPITAL WITH TELEHEALTH INSTALLED AT [facility] [place], RN TO VISIT 2-3 X A WEEK FOR 4 WEEKS ESTABLISHED BY PATIENT NEEDS. LABORATORY: CBC, CMP TO BE DRAWN ON THE THIRD DAY HOME, (RAN STAT) FAX RESULTS TO [phone]. TELEHEALTH PARAMETERS: WEIGHT: NOTIFY MD OF WEIGHT GAIN OF 2 LBS IN 24 HOURS OR 5 LBS IN ONE WEEK HR: NOTIFY MD OF HR <55 BPM OR HR>100 BPM BP: NOTIFY MD IF BP <90/55 OR BP>140/100 O2 SAT: NOTIFY MD IF PO2<93% ON ROOM AIR SEND TELEHEALTH REPORT TO MANAGER DEVELOPMENTAL AND CARDIOVASCULAR SURGEON THE FIRST WEEK OF CARE AND THEN BI-WEEKLY. PLEASE ADDITIONALLY COMMUNICATE ANY ABNORMALS AND NEW FINDINGS TO THE SURGEONS OFFICE. Discharge Disposition: HOME WITH HOME HEALTH SERVICES
--- NOTE | 2024-01-18 21:19 | PN ---
PROGRESS NOTE DATE OF SERVICE: 01/15/2024 CHIEF COMPLAINT: Chest pain, status post CABG. HISTORY OF PRESENT ILLNESS: This gentleman is doing well. He has had no shortness of breath, fever and chills, arrhythmias, etc. PHYSICAL EXAMINATION: CHEST: Quite clear. CARDIAC: Sinus. ABDOMEN: Soft. Incision is dry. IMPRESSION: 1. Coronary artery disease, status post CABG. 2. Chronic obstructive pulmonary disease. 3. Neurofibromatosis. PLAN: Continue to follow with Cardiac Surgery and Cardiology. MMODL / IJN: [id number] /
--- NOTE | 2024-01-19 06:37 | DS ---
DISCHARGE SUMMARY CHIEF COMPLAINT: Chest pain. HISTORY OF PRESENT ILLNESS AND PHYSICAL EXAMINATION: Details of this man's history and physical can be found in the initial workup. LABORATORY STUDIES: While he was in the hospital, he had laboratory studies, details of which can be found in the laboratory section of his chart. COURSE IN THE HOSPITAL: After admission, he was placed on bedrest, started on intravenous fluids and subsequently, he was taken to the operating room for coronary artery bypass graft. Postoperatively, he did well without any neurologic deficits, significant chest pain, heart failure, arrhythmias, etc. He is doing well and he will go home on the and will be followed up in the office. FINAL DIAGNOSES: 1. Acute coronary syndrome. 2. Coronary artery disease. 3. Chronic obstructive pulmonary disease. 4. Von Recklinghausen disease. OPERATIONS: Coronary artery bypass graft. CONSULTATIONS: Neurology and Cardiac Surgery. LOU / DANIS: [id number] /
== END 2024-01-16 16:32 | disposition home health service (06) | DRG 166 ==
LOC: EC 16:46 → 6NMEDSUR 19:37 → OBSVTOIN 01-12 07:49 → 2SICU 01-12 12:28 → 3SCARD 01-15 18:56
PROVIDERS: ADMIT Thoracic Surgery (Cardiothoracic Vascular Surgery); ATTEND Thoracic Surgery (Cardiothoracic Vascular Surgery)
PROC: 02HV33Z Insertion of Infusion Device into Superior Vena Cava, Percutaneous Approach (ICD-10-PCS; 2024-01-12)
PROC: 021109W Bypass Coronary Artery, Two Arteries from Aorta with Autologous Venous Tissue, Open Approach (ICD-10-PCS; principal; 2024-01-12 11:10)
PROC: 02L70CK Occlusion of Left Atrial Appendage with Extraluminal Device, Open Approach (ICD-10-PCS; principal; 2024-01-12 11:10)
PROC: 06BP4ZZ Excision of Right Saphenous Vein, Percutaneous Endoscopic Approach (ICD-10-PCS; principal; 2024-01-12 11:10)
PROC: 02100Z9 Bypass Coronary Artery, One Artery from Left Internal Mammary, Open Approach (ICD-10-PCS; principal; 2024-01-12 11:10)
PROC: 03BC3ZZ Excision of Left Radial Artery, Percutaneous Approach (ICD-10-PCS; principal; 2024-01-12 11:10)
PROC: B24BZZ4 Ultrasonography of Heart with Aorta, Transesophageal (ICD-10-PCS; 2024-01-12 11:10)
PROC: 4A1239Z Monitoring of Cardiac Output, Percutaneous Approach (ICD-10-PCS; 2024-01-12 11:10)
PROC: 4A133B3 Monitoring of Arterial Pressure, Pulmonary, Percutaneous Approach (ICD-10-PCS; 2024-01-12 11:10)
PROC: 4A133B1 Monitoring of Arterial Pressure, Peripheral, Percutaneous Approach (ICD-10-PCS; 2024-01-13)
PROC: 4A133J1 Monitoring of Arterial Pulse, Peripheral, Percutaneous Approach (ICD-10-PCS; 2024-01-13)
PROC: 03HY32Z Insertion of Monitoring Device into Upper Artery, Percutaneous Approach (ICD-10-PCS; 2024-01-13)
DX: I25.110 Atherosclerotic heart disease of native coronary artery with unstable angina pectoris (principal); D62 Acute posthemorrhagic anemia; E78.5 Hyperlipidemia, unspecified; F17.200 Nicotine dependence, unspecified, uncomplicated; F41.9 Anxiety disorder, unspecified; G89.29 Other chronic pain; M54.9 Dorsalgia, unspecified; I24.9 Acute ischemic heart disease, unspecified; I45.10 Unspecified right bundle-branch block; I47.10 Supraventricular tachycardia, unspecified; I48.0 Paroxysmal atrial fibrillation; J44.9 Chronic obstructive pulmonary disease, unspecified; R97.20 Elevated prostate specific antigen [PSA]; J81.1 Chronic pulmonary edema; J98.11 Atelectasis; Q85.01 Neurofibromatosis, type 1; Z79.899 Other long term (current) drug therapy; Z82.49 Family history of ischemic heart disease and other diseases of the circulatory system; Z85.038 Personal history of other malignant neoplasm of large intestine
CPT/HCPCS: 36415; 71045; 71046; 71250; 80048; 80053; 80061; 80074; 81003; 82150; 82172; 82330; 82805; 83036; 83690; 83695; 83735; 83880; 84132; 84443; 84484; 85025; 85027; 85379; 85520; 85610; 85730; 86850; 86891; 86900; 86901; 86920; 87070; 93005; 93306; 93458; 93880; 93922; 93970; 94002; 94150; 94640; 94760; 96374; 99285

== ENCOUNTER 2024-02-05 11:11 | Emergency (ER) | payer OTHER ==
[2024-02-05] MEDS ORDERED: HYDROmorphone 1 MG/ML 1 ML SYRINGE ONE (11:29)
[2024-02-05] MEDS ORDERED: ONDANSETRON 4 MG/2 ML VIAL ONE (11:32)
--- NOTE | 2024-02-27 16:58 | XR ---
EXAMINATION TYPE: XR chest 1V DATE OF EXAM: 02/27/2024 2:56 PM CLINICAL INDICATION: Male, 63 years old with history of CHEST PAIN; COMPARISON: 01/16/2024 TECHNIQUE: XR chest 1V Frontal view of the chest. FINDINGS: Lungs/Pleura: There is no evidence of pleural effusion, focal consolidation, or pneumothorax. Pulmonary vascularity: Unremarkable. Heart/mediastinum: Cardiomediastinal silhouette is unremarkable. Left atrial appendage occlusion jamil ce is present. Musculoskeletal: No acute osseous pathology. Midline sternotomy wires are noted. Right shoulder arthr oplasty appears intact. IMPRESSION: Cardiomegaly and mild pulmonary vascular congestion. Correlate with BNP for congestive heart failure.
== END 2024-02-05 14:53 | disposition home or self-care (01) ==
LOC: EC 11:11
DX: R07.89 Other chest pain (principal)
CPT/HCPCS: 71045; 80053; 82150; 82550; 83690; 83735; 83880; 84100; 84484; 85025; 85610; 85730; 96374; 99285

== ENCOUNTER 2024-02-16 08:09 | Emergency (ER) | payer OTHER ==
[2024-02-16] MEDS ORDERED: HYDROmorphone 1 MG/ML 1 ML SYRINGE ONE ×2 (08:41→10:58)
[2024-02-16] MEDS ORDERED: SODIUM CHLORIDE 0.9% 500 ML BAG ONE (09:00)
[2024-02-16] MEDS ORDERED: diphenhydrAMINE 50 MG/ML 1 ML VIAL ONE (10:58)
[2024-02-16] MEDS ORDERED: KETOROLAC 15 MG/ML 1 ML VIAL ONE (10:58)
--- NOTE | 2024-03-16 09:49 | XR ---
Patient Ryan Mcdaniels ID [id number] 1960 Age 63 years Gender M Order # EXAMINATION TYPE: XR chest 2V DATE OF EXAM: 02/16/2024 COMPARISON: 01/16/2024 INDICATION: Chest pain TECHNIQUE: Frontal and lateral views of the chest are obtained. FINDINGS: The heart size is normal. The pulmonary vasculature is normal. The lungs are clear. Hyperinflation and flattened diaphragms which can be related to COPD. IMPRESSION: 1. No acute pulmonary process. 2. Some hyperinflation can be related to COPD.
== END 2024-02-16 13:30 | disposition home or self-care (01) ==
LOC: EC 08:09
DX: R07.9 Chest pain, unspecified (principal)
CPT/HCPCS: 71046; 93005; 96361; 96374; 96375; 99284

== ENCOUNTER 2024-02-28 16:29 | Observation (INO) | payer OTHER ==
--- NOTE | 2024-02-28 17:06 | ED ---
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 Patient was not doing anything in particular when the chest pain started. He states it is on the left and right side of his chest described as sharp pain. Worse with deep breathing. No lightheadedness or dizziness. No diaphoresis or radiation of pain. Has a cough nonproductive of sputum or blood. Denies abdominal pain or vomiting. No pain meds prior to arrival. No aspirin prior to arrival. Patient is recent CABG performed Dr. Bolanos at the end of December. - Related Data Home Medications Medication Instructions Recorded Confirmed Albuterol Sulfate [Ventolin HFA] 2 puff INHALATION RT-TID PRN 06/23/23 02/28/24 HYDROcodone/APAP 7.5-325MG [[place] 1 tab PO TID 06/23/23 02/28/24 7.5-325] Atorvastatin [Lipitor] 40 mg PO DAILY 01/04/24 02/28/24 Fluticasone/Umeclidin/Vilanter 1 puff INHALATION RT-DAILY 01/04/24 02/28/24 [Trelegy Ellipta 100-62.5-25] Ibuprofen [Motrin] 800 mg PO BID 01/04/24 02/28/24 Amiodarone [Cordarone] 200 mg PO DAILY 02/28/24 02/28/24 Cholecalciferol (Vitamin D3) 1,250 mcg PO MO 02/28/24 02/28/24 [Vitamin D3 (1250 Mcg = 50,000 Iu)] Sennosides-Docusate Sodium 2 tab PO HS PRN 02/28/24 02/28/24 [Senokot-S] amLODIPine [Norvasc] 2.5 mg PO DAILY@1200 02/28/24 02/28/24 Previous Rx's Medication Instructions Recorded Acetaminophen Tab [Tylenol] 650 mg PO Q4HR PRN tab 01/16/24 Aspirin 325 mg PO DAILY #30 tab 01/16/24 Clopidogrel [Plavix] 75 mg PO DAILY #30 tab 07/19/24 Metoprolol Tartrate [Lopressor] 25 mg PO BID #60 tab 01/16/24 Pantoprazole [Protonix] 40 mg PO AC-BRKFST #30 tab 01/16/24 Allergies Allergy/AdvReac Type Severity Reaction Status Date / Time No Known Allergies Allergy Verified 02/28/24 18:08 Review of Systems ROS Statement: Those systems with pertinent positive or pertinent negative responses have been documented in the HPI. EKG Findings - EKG Comments: EKG Findings:: EKG shows sinus rhythm, incomplete right bundle branch block, rate 93 bpm, MS interval 160 ms, QRS duration 103 ms, QT/QTc 346/397 ms, normal axis, new T wave inversions in V1, V2 when compared to EKG performed on 01/14/24 Past Medical History Past Medical History: COPD, Hyperlipidemia, Hypertension, Respiratory Disorder Additional Past Medical History / Comment(s): History of elevated PSA concerning for prostate cancer History of Any Multi-Drug Resistant Organisms: None Reported Past Surgical History: Coronary Bypass/CABG Additional Past Surgical History / Comment(s): Right rotator cuff - total 5 surgeries of rt shoulder, history of prostate biopsy Past Anesthesia/Blood Transfusion Reactions: No Reported Reaction Past Psychological History: Anxiety Smoking Status: Former smoker Past Alcohol Use History: Rare Past Drug Use History: Marijuana - Past Family History Father Family Medical History: Cancer Additional Family Medical History / Comment(s): unsure what kind of cancer - per pt General Exam - General Exam Comments Initial Comments: PE: CONSTITUTIONAL: No apparent distress, chronically ill-appearing, nontoxic, SKIN: Warm, dry, no jaundice, hives or petechiae, flesh colored dome shaped nodules across skin diffusely EYES: Pupils are equally round, extraocular movements intact without nystagmus, clear conjunctiva, non-icteric sclera HENT: Normocephalic, atraumatic, moist mucus membranes, oropharynx clear without exudates NECK: , Full range of motion, normal appearance PULMONARY: Scant wheezes in lung bases, no rhonchi, or rales, normal excursion, no accessory muscle use and no stridor, reproducible tenderness to palpation of the left and right intercostal spaces CARDIOVASCULAR: Regular rate, rhythm, normal S1 and S2. No appreciated murmurs, rubs or gallops. Strong radial pulses with intact distal perfusion. No lower extremity edema GASTROINTESTINAL: Soft, non-tender, non-distended, no palpable masses, no rebound or guarding. No hepatosplenomegaly MUSCULOSKELETAL: Extremities have no gross deformity, no edema, redness, or swelling. No calf swelling ot TTP. NEUROLOGIC:_a/o x 3, GCS 15, normal mentation and speech. Moves all extremities x 4 without motor or sensory deficit PSYCHIATRIC:_normal mood and affect, thought process is clear and linear Limitations: no limitations Course Vital Signs 02/28/24 02/28/24 02/28/24 16:32 16:52 20:09 Temperature 97.8 F Pulse Rate 94 84 Pulse Rate [ 95 Cashier Supervisor ] Respiratory 18 18 Rate Blood Pressure 134/83 114/82 Blood Pressure [Right Arm] O2 Sat by Pulse 98 98 Oximetry 02/28/24 02/28/24 02/28/24 22:08 22:10 22:40 Temperature 97.7 F Pulse Rate 92 89 Pulse Rate [ 85 Cashier Supervisor ] Respiratory 18 18 17 Rate Blood Pressure 113/82 113/82 Blood Pressure 129/81 [Right Arm] O2 Sat by Pulse 98 98 96 Oximetry 02/28/24 22:56 Temperature Pulse Rate Pulse Rate [ Cashier Supervisor ] Respiratory 17 Rate Blood Pressure Blood Pressure [Right Arm] O2 Sat by Pulse Oximetry Chest Pain MDM - MDM Was pt. sent in by a medical professional or institution (, PA, RESIDENTIAL WORKER, urgent c are, hospital, or half-way...) When possible be specific @ -[No] Did you speak to anyone other than the patient for history (EMS, parent, family, police, friend...)? What history was obtained from this source @ -[No] Did you review nursing and triage notes (agree or disagree)? Why? @ -[I reviewed and agree with nursing and triage notes] Were old charts reviewed (outside hosp., previous admission, EMS record, old EKG, old radiological studies, urgent care reports/EKG's, half-way records)? Report findings @ -Reviewed old EKG performed on 01/14/2024, please see EKG section of this note for interpretation Differential Diagnosis (chest pain, altered mental status, abdominal pain women, abdominal pain men, vaginal bleeding, weakness, fever, dyspnea, syncope, headache, dizziness, GI bleed, back pain, seizure, CVA, palpatations, mental health, musculoskeletal)? @Differential Chest Pain: ACS, pericarditis, myocarditis, pleurisy, chostochondirits, pneumonia, musculoskeletal, Esophageal Spasm GERD this is not meant to be an all-inclusive list. EKG interpreted by me (3pts min.). @ Sinus rhythm, new T wave inversion V1/2 X-rays interpreted by me (1pt min.). @Mild cardiomegaly noted, no consolidations or effusions CT interpreted by me (1pt min.). @ -[None done] U/S interpreted by me (1pt. min.). @ -[None done] What testing was considered but not performed or refused? (CT, X-rays, U/S, labs)? Why? @ -[None] What meds were considered but not given or refused? Why? @ -[None] Did you discuss the management of the patient with other professionals (professionals i.e. , PA, RESIDENTIAL WORKER, lab, RT, psych nurse, sexual assault social worker, staffing analyst, teacher, articulation officer, heel caser)? Give summary @ -Discussed case with Dr. Bolanos, who will review Was smoking cessation discussed for >3mins.? @ -[No] Was critical care preformed (if so, how long)? @ -[No] Were there social determinants of health that impacted care today? How? (Homelessness, low income, unemployed, alcoholism, drug addiction, tr ansportation, low edu. Level, literacy, decrease access to med. care, custodial, rehab)? @ -[No] Was there de-escalation of care discussed even if they declined (Discuss DNR or withdrawal of care, Hospice)? @ -[No] What co-morbidities impacted this encounter? (DM, HTN, Smoking, COPD, CAD, Cancer, CVA, ARF, Chemo, Hep., AIDS, mental health diagnosis, sleep apnea, morbid obesity)? @ -CAD Was patient admitted / discharged? Hospital course, mention meds given and route, prescriptions, significant lab abnormalities, going to OR and other pertinent info. @ -[hospital course] Patient is a pleasant 63-year-old gentleman past medical history prior smoker, recent CABG at the end of December presenting for chest pain that worsens with deep breathing. Patient no distress and nontoxic appearing on initial assessment. Exam significant for scant wheeze in lung bases, no tachypnea, normal S1-S2 on cardiac exam, 2+ radial pulses, no lower extremity edema, reproducible chest wall tenderness costochondral junctions. Differential diagnosis as above. Reviewed EKG and did contact Dr. Bolanos for new T wave inversions, he kindly agreed to see patient this afternoon. Ordered sublingual nitroglycerin morphine and aspirin. Labs reviewed, chest x-ray with mild cardiomegaly. Troponin within normal limits. Patient's pain has improved somewhat however still present. Ordered additional morphine. Plan for admission. Patient agreeable with POC. Discussed with Dr. Jennings, kindly accepts for admission. Undiagnosed new problem with uncertain prognosis? @ -[No] Drug Therapy requiring intensive monitoring for toxicity (Heparin, Nitro, Insulin, Cardizem)? @ -[No] Were any procedures done? @ -[No] Diagnosis/symptom? @ -Chest pain Acute, or Chronic, or Acute on Chronic? @ Acute Uncomplicated (without systemic symptoms) or Complicated (systemic symptoms)? @complicated Side effects of treatment? @ -[No] Exacerbation, Progression, or Severe Exacerbation? @ -[No] Poses a threat to life or bodily function? How? (Chest pain, [place], [place], pneumonia, PE, COPD, DKA, ARF, appy, cholecystitis, CVA, Diverticulitis, Homicidal, Suicidal, threat to staff... and all critical care pts) @ -Yes, chest pain, if 2/2 ACS potentially life threatening Disposition Clinical Impression: Chest pain Disposition: ADMITTED IP TO THIS HOSP Condition: Good
[2024-02-28] MEDS: SODIUM CHLORIDE 0.9% 500 ML 500 ML IV STA (17:18)
[2024-02-28] MEDS: MORPHINE SULFATE 4 MG/ML SYRINGE IV STA (17:20)
[2024-02-28] MEDS: ASPIRIN 81 MG PO STA (17:21)
[2024-02-28] MEDS: NITROGLYCERIN SL TABS 0.4 MG TAB SUBLINGUAL STA (17:21)
[2024-02-28] MEDS: ONDANSETRON 4 MG/2 ML VIAL IVP STA ×2 (17:22→20:14)
[2024-02-28 17:25] LABS: Basophils # (A) 0.1 k/uL (0-0.2); Basophils % (A) 1 %; Eosinophils # (A) 0.4 k/uL (0-0.7); Eosinophils % (A) 5 %; HCT 45.5 % (39.0-53.0); HGB 15.1 gm/dL (13.0-17.5); Lymphocytes # (A) 1.8 k/uL (1.0-4.8); Lymphocytes % (A) 21 %; MCH 27.8 pg (25.0-35.0); MCHC 33.2 g/dL (31.0-37.0); MCV 83.8 fL (80.0-100.0); Mean Platelet Volume 8.2; Monocytes # (A) 0.7 k/uL (0-1.0); Monocytes % (A) 8 %; Neutrophils # (A) 5.3 k/uL (1.3-7.7); Neutrophils % (A) 63 %; Platelet Count 332 k/uL (150-450); RBC 5.43 m/uL (4.30-5.90); RDW 14.5 % (11.5-15.5); WBC 8.5 k/uL (3.8-10.6)
--- NOTE | 2024-02-28 17:45 | XR ---
EXAMINATION TYPE: XR chest 2V DATE OF EXAM: 02/28/2024 5:29 PM CLINICAL INDICATION: Male, 63 years old with history of Chest Pain; PHH COMPARISON: None TECHNIQUE: XR chest 2V Frontal view of the chest. FINDINGS: Lungs/Pleura: There is no evidence of pleural effusion, focal consolidation, or pneumothorax. Pulmonary vascularity: Unremarkable. Heart/mediastinum: Cardiomediastinal silhouette is unremarkable. Right shoulder arthroplasty with cutler rdware intact. Left atrial appendage occlusion device is present. Musculoskeletal: No acute osseous pathology. Midline sternotomy wires are noted. IMPRESSION: Cardiomegaly and mild pulmonary vascular congestion. Correlate with BNP for congestive heart failure.
[2024-02-28 17:46] LABS: ALT 13 U/L (4-49); AST 22 U/L (17-59); African American GFR (CKD) >90 (>60 ml/min/1.73 sqM); Albumin 3.8 g/dL (3.5-5.0); Alkaline Phosphatase 92 U/L (38-126); Anion Gap 7 mmol/L; Blood Urea Nitrogen 15 mg/dL (9-20); Calcium 9.4 mg/dL (8.4-10.2); Carbon Dioxide 23 mmol/L (22-30); Chloride 109 mmol/L (98-107); Glucose 81 mg/dL (74-99); Magnesium 2.1 mg/dL (1.6-2.3); Non-African American GFR(CKD) >90 (>60 ml/min/1.73 sqM); Potassium 4.4 mmol/L (3.5-5.1); Sodium 139 mmol/L (137-145); Total Bilirubin 0.8 mg/dL (0.2-1.3); Total Protein 6.4 g/dL (6.3-8.2)
[2024-02-28 17:54] LABS: NT-Pro-B-Type Natriuretic Pept 187 pg/mL
[2024-02-28 18:04] LABS: Partial Thromboplastin Time 24.5 sec (22.0-30.0); Prothrombin Time 11.3 sec (10.0-12.5)
[2024-02-28] MEDS: MORPHINE SULFATE 4 MG/ML SYRINGE IVP STA (20:15)
[2024-02-28] MEDS ORDERED: ACETAMINOPHEN TAB 325 MG TAB PO PRN ×2 (21:08→22:27)
[2024-02-28] MEDS ORDERED: MAG HYDROX/AL HYDROX/SIMETH 30 ML CUP PO PRN (21:08)
[2024-02-28] MEDS ORDERED: CALCIUM CARBONATE 500 MG CHEWABLE PO PRN (21:08)
[2024-02-28] MEDS ORDERED: NALOXONE 0.4 MG/ML 1 ML VIAL IV PRN (21:08)
[2024-02-28] MEDS ORDERED: ALBUTEROL NEBULIZED 2.5 MG/3 ML INHALATION PRN (22:22)
[2024-02-28] MEDS ORDERED: IBUPROFEN 800 MG TAB PO PRN (22:22)
[2024-02-28] MEDS ORDERED: SENNOSIDES-DOCUSATE SODIUM 1 EACH TAB PO PRN (22:22)
[2024-02-29] MEDS: HYDROcodone/APAP 7.5-325MG 1 EACH TAB PO PRN (04:08)
[2024-02-29] MEDS: PANTOPRAZOLE 40 MG TABLET PO SCH (06:16)
[2024-02-29] MEDS: IPRATROPIUM 0.5 MG/2.5 ML NEBU INHALATION SCH (08:09)
[2024-02-29] MEDS: SYMBICORT 80-4.5 MCG INHALER INHALATION SCH (08:10)
[2024-02-29 08:27] VITALS: BP 109/62; RESP 18; TEMP 98.5
[2024-02-29] MEDS: traMADol 50 MG TAB PO PRN (09:08)
[2024-02-29] MEDS: AMIODARONE 200 MG TAB PO SCH (09:09)
[2024-02-29] MEDS: FAMOTIDINE 20 MG TAB PO SCH (09:09)
[2024-02-29] MEDS: ASPIRIN 325 MG TAB PO SCH (09:09)
[2024-02-29] MEDS: CLOPIDOGREL 75 MG TAB PO SCH (09:09)
[2024-02-29] MEDS: METOPROLOL TARTRATE 25 MG TAB PO SCH (09:09)
[2024-02-29] MEDS: ATORVASTATIN 40 MG TAB PO SCH (09:09)
[2024-02-29 12:26] VITALS: PULSE 72
[2024-02-29] MEDS: amLODIPine 2.5 MG TAB PO SCH (12:46)
[2024-02-29] MEDS ORDERED: KETOROLAC 15 MG/ML 1 ML VIAL IVP STA (13:27)
--- NOTE | 2024-02-29 13:51 | P.CRDCN ---
History of Present Illness Consult date: 02/29/24 Consult reason: chest pain Chief complaint: chest pain History of present illness: History of present illness: Patient is a pleasant 63-year-old male with significant past medical history of CAD status post triple-vessel CABG 01/12/2024, COPD, hyperlipidemia, tobacco abuse. He does see Dr. Bolanos in the office. He reports that since his surgery he has had significant chest pain mostly tenderness around the incision bilaterally. He states this is not getting worse but the pain is not getting better and he has no relief with the Exchange that he is taking. He is short of breath however reports that this is the same as prior. He did run out of his medications for a few days but these have been refilled by his primary care doctor. He denies any dizziness or lightheadedness. He did start cardiac rehab last week. Labs reviewed: Troponin negative x 3, BNP 187. EKG shows normal sinus rhythm. Chest x-ray shows cardiomegaly with mild pulmonary vascular congestion. REVIEW OF SYSTEMS: No fever or chills. No cough or expectoration. No diaphoresis. Patient denies headache, dizziness, blurred vision, double vision. Patient denies any stomach discomfort. No nausea, vomiting. No hematochezia. No hematemesis. Denies any black stools or blood in his stools. Denies dysuria or hematuria. No muscle weakness or numbness. Reports chest pain and tenderness. PHYSICAL EXAMINATION: This is a 63-year-old male in no apparent distress at the time of my examination. HEENT: Head is atraumatic, normocephalic. Pupils are equal, round. Sclerae anicteric. Conjunctivae are clear. Mucous membranes of the mouth are moist. Neck is supple. There is no jugular venous distention. No carotid bruit is heard. CHEST EXAMINATION: Lungs are clear to auscultation. He does have chest wall tenderness to light palpation, chest incision is well-healed with no redness swelling or drainage. HEART EXAMINATION: Heart regular rate and rhythm. S1, S2 heard. No murmurs, gallops or rub. ABDOMEN: Soft, nontender. Bowel sounds are heard. EXTREMITIES: 2+ peripheral pulses with no evidence of peripheral edema and no calf tenderness noted. NEUROLOGIC EXAMINATION: Patient is awake, alert and oriented x3. IMPRESSION AND PLAN: CAD status post three-vessel CABG Chest pain, reproducible on exam likely incisional Hyperlipidemia Tobacco abuse PLAN: Chest pain is reproducible on exam, will try Toradol. Otherwise, continue with current regimen. ACS ruled out. Okay to discharge home from a cardiology standpoint. Follow-up in office in 1-2 weeks. I am dictating on behalf of Dr. Eusebio Bolanos's history/physical and assessm ent/plan. Past Medical History Past Medical History: COPD, Hyperlipidemia, Hypertension, Respiratory Disorder Additional Past Medical History / Comment(s): History of elevated PSA concerning for prostate cancer History of Any Multi-Drug Resistant Organisms: None Reported Past Surgical History: Coronary Bypass/CABG Additional Past Surgical History / Comment(s): Right rotator cuff - total 5 surgeries of rt shoulder, history of prostate biopsy Past Anesthesia/Blood Transfusion Reactions: No Reported Reaction Past Psychological History: Anxiety Smoking Status: Former smoker Past Alcohol Use History: Rare Past Drug Use History: Marijuana - Past Family History Father Family Medical History: Cancer Additional Family Medical History / Comment(s): unsure what kind of cancer - per pt Medications and Allergies Home Medications Medication Instructions Recorded Confirmed Type Albuterol Sulfate [Ventolin HFA] 2 puff INHALATION RT-TID PRN 06/23/23 02/28/24 History HYDROcodone/APAP 7.5-325MG [[place] 1 tab PO TID 06/23/23 02/28/24 History 7.5-325] Atorvastatin [Lipitor] 40 mg PO DAILY 01/04/24 02/28/24 History Fluticasone/Umeclidin/Vilanter 1 puff INHALATION RT-DAILY 01/04/24 02/28/24 History [Trelegy Ellipta 100-62.5-25] Ibuprofen [Motrin] 800 mg PO BID 01/04/24 02/28/24 History Acetaminophen Tab [Tylenol] 650 mg PO Q4HR PRN tab 01/16/24 02/28/24 Rx Aspirin 325 mg PO DAILY #30 tab 01/16/24 02/28/24 Rx Clopidogrel [Plavix] 75 mg PO DAILY #30 tab 01/16/24 02/28/24 Rx Metoprolol Tartrate [Lopressor] 25 mg PO BID #60 tab 01/16/24 02/28/24 Rx Pantoprazole [Protonix] 40 mg PO AC-BRKFST #30 tab 01/16/24 02/28/24 Rx Amiodarone [Cordarone] 200 mg PO DAILY 02/28/24 02/28/24 History Cholecalciferol (Vitamin D3) 1,250 mcg PO MO 02/28/24 02/28/24 History [Vitamin D3 (1250 Mcg = 50,000 Iu)] Sennosides-Docusate Sodium 2 tab PO HS PRN 02/28/24 02/28/24 History [Senokot-S] amLODIPine [Norvasc] 2.5 mg PO DAILY@1200 02/28/24 02/28/24 History Allergies Allergy/AdvReac Type Severity Reaction Status Date / Time No Known Allergies Allergy Verified 02/28/24 18:08 Physical Exam Vitals: Vital Signs Temp Pulse Pulse Pulse Resp BP BP 02/29/24 12:26 72 02/29/24 12:18 70 02/29/24 08:21 73 02/29/24 08:13 70 02/29/24 07:00 98.5 F 89 18 109/62 02/29/24 02:00 98.8 F 84 17 113/76 02/28/24 22:56 17 02/28/24 22:40 97.7 F 85 17 129/81 02/28/24 22:10 89 18 113/82 02/28/24 22:08 92 18 113/82 02/28/24 20:09 84 18 114/82 02/28/24 16:52 95 02/28/24 16:32 97.8 F 94 18 134/83 Pulse Ox 02/29/24 12:26 02/29/24 12:18 02/29/24 08:21 02/29/24 08:13 02/29/24 07:00 98 02/29/24 02:00 97 02/28/24 22:56 02/28/24 22:40 96 02/28/24 22:10 98 02/28/24 22:08 98 02/28/24 20:09 98 02/28/24 16:52 02/28/24 16:32 98 Intake and Output 02/28/24 02/29/24 02/29/24 22:59 06:59 14:59 Other: Voiding Method Toilet # Voids 1 Weight 69.4 kg Results 02/28/24 17:14 02/28/24 17:14 Cardiac Enzymes 02/28/24 02/28/24 02/28/24 Range/Units 17:14 17:14 20:30 AST 22 (17-59) U/L Troponin I <0.012 <0.012 (0.000-0.034) ng/mL 02/29/24 Range/Units 00:00 AST (17-59) U/L Troponin I <0.012 (0.000-0.034) ng/mL Coagulation 02/28/24 Range/Units 17:14 PT 11.3 (10.0-12.5) sec APTT 24.5 (22.0-30.0) sec CBC 02/28/24 Range/Units 17:14 WBC 8.5 (3.8-10.6) k/uL RBC 5.43 (4.30-5.90) m/uL Hgb 15.1 (13.0-17.5) gm/dL Hct 45.5 (39.0-53.0) % Plt Count 332 (150-450) k/uL Comprehensive Metabolic Panel 02/28/24 Range/Units 17:14 Sodium 139 (137-145) mmol/L Potassium 4.4 (3.5-5.1) mmol/L Chloride 109 H (98-107) mmol/L Carbon Dioxide 23 (22-30) mmol/L BUN 15 (9-20) mg/dL Creatinine 0.88 (0.66-1.25) mg/dL Glucose 81 (74-99) mg/dL Calcium 9.4 (8.4-10.2) mg/dL AST 22 (17-59) U/L ALT 13 (4-49) U/L Alkaline Phosphatase 92 (38-126) U/L Total Protein 6.4 (6.3-8.2) g/dL Albumin 3.8 (3.5-5.0) g/dL Current Medications Generic Name Dose Route Start Last Admin Trade Name Freq PRN Reason Stop Dose Admin Acetaminophen 650 mg 02/28/24 22:27 Acetaminophen Tab 325 Mg Tab PO Q4HR PRN Mild Pain or Fever > 100.5 Hydrocodone Bitart/Acetaminophen 1 each 02/28/24 22:22 02/29/24 04:08 Hydrocodone/Apap 7.5-325mg 1 Each Tab PO 1 each TID PRN Administration Pain Al Hydroxide/Mg Hydroxide 15 ml 02/28/24 21:08 Mag Hydrox/Al Hydrox/Simeth 30 Ml Cup PO Q6HR PRN Indigestion Albuterol Sulfate 2.5 mg 02/28/24 22:22 Albuterol Nebulized 2.5 Mg/3 Ml INHALATION RT-TID PRN Shortness Of Breath Amiodarone HCl 200 mg 02/29/24 09:00 02/29/24 09:09 Amiodarone 200 Mg Tab PO 200 mg DAILY JUSTIN Administration Amlodipine Besylate 2.5 mg 02/29/24 12:00 Amlodipine 2.5 Mg Tab PO DAILY@1200 JUSTIN Aspirin 325 mg 02/29/24 09:00 02/29/24 09:09 Aspirin 325 Mg Tab PO 325 mg DAILY JUSTIN Administration Atorvastatin Calcium 40 mg 02/29/24 09:00 02/29/24 09:09 Atorvastatin 40 Mg Tab PO 40 mg DAILY JUSTIN Administration Budesonide/Formoterol Fumarate 2 puff 02/29/24 08:00 02/29/24 08:10 Symbicort 80-4.5 Mcg Inhaler INHALATION 2 puff RT-BID JUSTIN Administration Calcium Carbonate/Glycine 1,000 mg 02/28/24 21:08 Calcium Carbonate 500 Mg Chewable PO Q4HR PRN Dyspepsia Clopidogrel Bisulfate 75 mg 02/29/24 09:00 02/29/24 09:09 Clopidogrel 75 Mg Tab PO 75 mg DAILY JUSTIN Administration Ergocalciferol 1,250 mcg 03/01/24 09:00 Ergocalciferol 1,250 Mcg (50,000 Iu) Capsule PO MO JUSTIN Famotidine 20 mg 02/29/24 09:00 02/29/24 09:09 Famotidine 20 Mg Tab PO 20 mg BID JUSTIN Administration Ipratropium [place] 0.5 mg 02/29/24 08:00 02/29/24 12:17 Ipratropium 0.5 Mg/2.5 Ml Nebu INHALATION 0.5 mg RT-QID JUSTIN Administration Metoprolol Tartrate 25 mg 02/29/24 09:00 02/29/24 09:09 Metoprolol Tartrate 25 Mg Tab PO 25 mg BID JUSTIN Administration Naloxone HCl 0.2 mg 02/28/24 21:08 Naloxone 0.4 Mg/Ml 1 Ml Vial IV Q2M PRN Opioid Reversal Pantoprazole Sodium 40 mg 02/29/24 07:30 02/29/24 06:16 Pantoprazole 40 Mg Tablet PO 40 mg AC-BRKFST JUSTIN Administration Senna/Docusate Sodium 2 each 02/28/24 22:22 Sennosides-Docusate Sodium 1 Each Tab PO HS PRN Constipation Tramadol HCl 50 mg 02/28/24 21:08 02/29/24 09:08 Tramadol 50 Mg Tab PO 50 mg Q6H PRN Administration Moderate Pain (Scale 4 to 6) Intake and Output 02/28/24 02/29/24 02/29/24 22:59 06:59 14:59 Other: Voiding Method Toilet # Voids 1 Weight 69.4 kg 02/28/24 17:14 02/28/24 17:14
[2024-03-01] MEDS ORDERED: ERGOCALCIFEROL 1,250 MCG (50,000 IU) CAPSULE PO SCH (09:00)
== END 2024-02-29 14:48 | disposition home or self-care (01) ==
LOC: EC 16:29 → 6NMEDSUR 21:10
PROVIDERS: ADMIT Internal Medicine; ATTEND Internal Medicine
DX: R07.89 Other chest pain (principal); I25.10 Atherosclerotic heart disease of native coronary artery without angina pectoris; Z95.1 Presence of aortocoronary bypass graft; E78.5 Hyperlipidemia, unspecified; J44.9 Chronic obstructive pulmonary disease, unspecified; F17.200 Nicotine dependence, unspecified, uncomplicated; Z79.82 Long term (current) use of aspirin; Z79.02 Long term (current) use of antithrombotics/antiplatelets; Z79.51 Long term (current) use of inhaled steroids; Z79.1 Long term (current) use of non-steroidal anti-inflammatories (NSAID); Z79.899 Other long term (current) drug therapy
CPT/HCPCS: 36415; 71046; 80053; 83735; 83880; 84484; 85025; 85610; 85730; 93005; 94640; 96365; 96374; 96375; 96376; 99285

== ENCOUNTER 2024-03-24 01:14 | Emergency (ER) | payer OTHER ==
[2024-03-24 01:26] VITALS: TEMP 99.6
[2024-03-24 01:57] LABS: ALT 20 U/L (4-49); AST 23 U/L (17-59); African American GFR (CKD) >90 (>60 ml/min/1.73 sqM); Albumin 3.7 g/dL (3.5-5.0); Alkaline Phosphatase 112 U/L (38-126); Anion Gap 7 mmol/L; Blood Urea Nitrogen 15 mg/dL (9-20); Calcium 9.2 mg/dL (8.4-10.2); Carbon Dioxide 23 mmol/L (22-30); Chloride 104 mmol/L (98-107); Glucose 90 mg/dL (74-99); Non-African American GFR(CKD) 80 (>60 ml/min/1.73 sqM); Potassium 4.5 mmol/L (3.5-5.1); Sodium 134 mmol/L (137-145); Total Bilirubin 0.9 mg/dL (0.2-1.3); Total Protein 6.3 g/dL (6.3-8.2)
[2024-03-24 02:05] LABS: NT-Pro-B-Type Natriuretic Pept 557 pg/mL
--- NOTE | 2024-03-24 02:13 | ED ---
General Adult HPI - General Chief complaint: Shortness of Breath Stated complaint: Sore throat, Fever Time Seen by Provider: 03/24/24 01:30 Source: patient, EMS, RN notes reviewed Mode of arrival: EMS Limitations: no limitations - History of Present Illness Initial comments: 63-year-old male presents emergency department with chief complaint of shortness of breath, chest,. He states that started not feeling well yesterday states he has cough, body aches and possible fever. Patient states he had CABG in December. He states that he has been taking all his medications as directed denies any leg pain or leg swelling. Denies any sick contacts. Denies any other associated symptoms. - Related Data Home Medications Medication Instructions Recorded Confirmed Albuterol Sulfate [Ventolin HFA] 2 puff INHALATION RT-TID PRN 06/23/23 02/28/24 HYDROcodone/APAP 7.5-325MG [[place] 1 tab PO TID 06/23/23 02/28/24 7.5-325] Atorvastatin [Lipitor] 40 mg PO DAILY 01/04/24 02/28/24 Fluticasone/Umeclidin/Vilanter 1 puff INHALATION RT-DAILY 01/04/24 02/28/24 [Trelegy Ellipta 100-62.5-25] Ibuprofen [Motrin] 800 mg PO BID 01/04/24 02/28/24 Amiodarone [Cordarone] 200 mg PO DAILY 02/28/24 02/28/24 Cholecalciferol (Vitamin D3) 1,250 mcg PO MO 02/28/24 02/28/24 [Vitamin D3 (1250 Mcg = 50,000 Iu)] Sennosides-Docusate Sodium 2 tab PO HS PRN 02/28/24 02/28/24 [Senokot-S] amLODIPine [Norvasc] 2.5 mg PO DAILY@1200 02/28/24 02/28/24 Previous Rx's Medication Instructions Recorded Acetaminophen Tab [Tylenol] 650 mg PO Q4HR PRN tab 01/16/24 Aspirin 325 mg PO DAILY #30 tab 01/16/24 Clopidogrel [Plavix] 75 mg PO DAILY #30 tab 01/16/24 Metoprolol Tartrate [Lopressor] 25 mg PO BID #60 tab 01/16/24 Pantoprazole [Protonix] 40 mg PO AC-BRKFST #30 tab 01/16/24 Allergies Allergy/AdvReac Type Severity Reaction Status Date / Time No Known Allergies Allergy Verified 03/24/24 01:26 Review of Systems ROS Statement: Those systems with pertinent positive or pertinent negative responses have been documented in the HPI. ROS Other: All systems not noted in ROS Statement are negative. Past Medical History Past Medical History: COPD, Hyperlipidemia, Hypertension, Respiratory Disorder Additional Past Medical History / Comment(s): History of elevated PSA concerning for prostate cancer History of Any Multi-Drug Resistant Organisms: None Reported Past Surgical History: Coronary Bypass/CABG Additional Past Surgical History / Comment(s): Right rotator cuff - total 5 surgeries of rt shoulder, history of prostate biopsy Past Anesthesia/Blood Transfusion Reactions: No Reported Reaction Past Psychological History: Anxiety Smoking Status: Former smoker Past Alcohol Use History: Rare Past Drug Use History: Marijuana - Past Family History Father Family Medical History: Cancer Additional Family Medical History / Comment(s): unsure what kind of cancer - per pt General Exam Limitations: no limitations General appearance: alert, in no apparent distress Head exam: Present: atraumatic, normocephalic, normal inspection Eye exam: Present: normal appearance, PERRL, EOMI. Absent: scleral icterus, conjunctival injection, periorbital swelling ENT exam: Present: normal exam, normal oropharynx, mucous membranes moist Neck exam: Present: normal inspection, full ROM. Absent: tenderness, meningismus, lymphadenopathy Respiratory exam: Present: normal lung sounds bilaterally. Absent: respiratory distress, wheezes, rales, rhonchi, stridor Cardiovascular Exam: Present: regular rate, normal rhythm, normal heart sounds. Absent: systolic murmur, diastolic murmur, rubs, gallop, clicks GI/Abdominal exam: Present: soft, normal bowel sounds. Absent: distended, tenderness, guarding, rebound, rigid Course Vital Signs 03/24/24 03/24/24 03/24/24 01:22 01:29 02:48 Temperature 99.6 F Pulse Rate 87 88 Respiratory 20 20 18 Rate Blood Pressure 107/68 109/64 O2 Sat by Pulse 97 96 Oximetry Medical Decision Making - Medical Decision Making Was pt. sent in by a medical professional or institution (, PA, SAWDUST MACHINE OPERATOR, urgent care, hospital, or custodial...) When possible be specific @ -No Did you speak to anyone other than the patient for history (EMS, parent, family, police, friend...)? What history was obtained from this source @ -No Did you review nursing and triage notes (agree or disagree)? Why? @ -I reviewed and agree with nursing and triage notes Were old charts reviewed (outside hosp., previous admission, EMS record, old EKG, old radiological studies, urgent care reports/EKG's, custodial records)? Report findings @ -No old charts were reviewed Differential Diagnosis (chest pain, altered mental status, abdominal pain women, abdominal pain men, vaginal bleeding, weakness, fever, dyspnea, syncope, headache, dizziness, GI bleed, back pain, seizure, CVA, palpatations, mental health, musculoskeletal)? @ -COVID 19, RSV, influenza, pneumonia, acute bronchitis, URI, this list is not all inclusive EKG interpreted by me (3pts min.). @ -As above X-rays interpreted by me (1pt min.). @ -Chest x-ray shows no acute cardiopulmonary process CT interpreted by me (1pt min.). @ -None done U/S interpreted by me (1pt. min.). @ -None done What testing was considered but not performed or refused? (CT, X-rays, U/S, labs)? Why? @ -None What meds were considered but not given or refused? Why? @ -None Did you discuss the management of the patient with other professionals (professionals i.e. , PA, SAWDUST MACHINE OPERATOR, lab, RT, psych nurse, high school social studies tutor, landscaper, te acher, police officer, social work case manager)? Give summary @ -No Was smoking cessation discussed for >3mins.? @ -No Was critical care preformed (if so, how long)? @ -No Were there social determinants of health that impacted care today? How? (Homelessness, low income, unemployed, alcoholism, drug addiction, transportation, low edu. Level, literacy, decrease access to med. care, senior living, rehab)? @ -No Was there de-escalation of care discussed even if they declined (Discuss DNR or withdrawal of care, Hospice)? DNR status @ -No What co-morbidities impacted this encounter? (DM, HTN, Smoking, COPD, CAD, Cancer, CVA, ARF, Chemo, Hep., AIDS, mental health diagnosis, sleep apnea, morbid obesity)? @ -CAD Was patient admitted / discharged? Hospital course, mention meds given and route, prescriptions, significant lab abnormalities, going to OR and other pertinent info. @ -Discharge patient laboratory studies unremarkable x-ray unremarkable patient is COVID-19 positive patient discharged in stable condition Undiagnosed new problem with uncertain prognosis? @ -No Drug Therapy requiring intensive monitoring for toxicity (Heparin, Nitro, Insulin, Cardizem)? @ -No Were any procedures done? @ -No Diagnosis/symptom? @ -COVID 19 Acute, or Chronic, or Acute on Chronic? @ -Acute Uncomplicated (without systemic symptoms) or Complicated (systemic symptoms)? @ -Uncomplicated Side effects of treatment? @ -No Exacerbation, Progression, or Severe Exacerbation? @ -No Poses a threat to life or bodily function? How? (Chest pain, [place], [place], pneumonia, PE, COPD, DKA, ARF, appy, cholecystitis, CVA, Diverticulitis, Homicidal, Suicidal, threat to staff... and all critical care pts) @ -No - Lab Data Result diagrams: 03/24/24 01:32 03/24/24 01:32 Lab Results 03/24/24 03/24/24 03/24/24 Range/Units 01:32 01:32 01:32 WBC 9.8 (3.8-10.6) k/uL RBC 5.76 (4.30-5.90) m/uL Hgb 15.5 (13.0-17.5) gm/dL Hct 48.4 (39.0-53.0) % MCV 84.1 (80.0-100.0) fL MCH 27.0 (25.0-35.0) pg MCHC 32.1 (31.0-37.0) g/dL RDW 14.3 (11.5-15.5) % Plt Count 294 (150-450) k/uL MPV 7.9 Neutrophils % 73 % Lymphocytes % 8 % Monocytes % 12 % Eosinophils % 2 % Basophils % 1 % Neutrophils # 7.2 (1.3-7.7) k/uL Lymphocytes # 0.8 L (1.0-4.8) k/uL Monocytes # 1.2 H (0-1.0) k/uL Eosinophils # 0.2 (0-0.7) k/uL Basophils # 0.1 (0-0.2) k/uL Sodium 134 L (137-145) mmol/L Potassium 4.5 (3.5-5.1) mmol/L Chloride 104 (98-107) mmol/L Carbon Dioxide 23 (22-30) mmol/L Anion Gap 7 mmol/L BUN 15 (9-20) mg/dL Creatinine 1.01 (0.66-1.25) mg/dL Est GFR (CKD-EPI)AfAm >90 (>60 ml/min/1.73 sqM) Est GFR (CKD-EPI)NonAf 80 (>60 ml/min/1.73 sqM) Glucose 90 (74-99) mg/dL Calcium 9.2 (8.4-10.2) mg/dL Total Bilirubin 0.9 (0.2-1.3) mg/dL AST 23 (17-59) U/L ALT 20 (4-49) U/L Alkaline Phosphatase 112 (38-126) U/L Troponin I <0.012 (0.000-0.034) ng/mL NT-Pro-B Natriuret Pep 557 pg/mL Total Protein 6.3 (6.3-8.2) g/dL Albumin 3.7 (3.5-5.0) g/dL Influenza Type A (PCR) (Not Detectd) Influenza Type B (PCR) (Not Detectd) RSV (PCR) (Not Detectd) SARS-CoV-2 (PCR) (Not Detectd) 03/24/24 Range/Units 01:35 WBC (3.8-10.6) k/uL RBC (4.30-5.90) m/uL Hgb (13.0-17.5) gm/dL Hct (39.0-53.0) % MCV (80.0-100.0) fL MCH (25.0-35.0) pg MCHC (31.0-37.0) g/dL RDW (11.5-15.5) % Plt Count (150-450) k/uL MPV Neutrophils % % Lymphocytes % % Monocytes % % Eosinophils % % Basophils % % Neutrophils # (1.3-7.7) k/uL Lymphocytes # (1.0-4.8) k/uL Monocytes # (0-1.0) k/uL Eosinophils # (0-0.7) k/uL Basophils # (0-0.2) k/uL Sodium (137-145) mmol/L Potassium (3.5-5.1) mmol/L Chloride (98-107) mmol/L Carbon Dioxide (22-30) mmol/L Anion Gap mmol/L BUN (9-20) mg/dL Creatinine (0.66-1.25) mg/dL Est GFR (CKD-EPI)AfAm (>60 ml/min/1.73 sqM) Est GFR (CKD-EPI)NonAf (>60 ml/min/1.73 sqM) Glucose (74-99) mg/dL Calcium (8.4-10.2) mg/dL Total Bilirubin (0.2-1.3) mg/dL AST (17-59) U/L ALT (4-49) U/L Alkaline Phosphatase (38-126) U/L Troponin I (0.000-0.034) ng/mL NT-Pro-B Natriuret Pep pg/mL Total Protein (6.3-8.2) g/dL Albumin (3.5-5.0) g/dL Influenza Type A (PCR) Not Detected (Not Detectd) Influenza Type B (PCR) Not Detected (Not Detectd) RSV (PCR) Not Detected (Not Detectd) SARS-CoV-2 (PCR) Detected A (Not Detectd) Disposition Clinical Impression: COVID-19 Disposition: HOME SELF-CARE Condition: Stable Instructions (If sedation given, give patient instructions): COVID-19 (C oronavirus Disease 2019) (ED) Additional Instructions: Please return to the Emergency Department if symptoms worsen or any other concerns. Is patient prescribed a controlled substance at d/c from ED?: No Referrals: Martin Feliz MD [Primary Care Provider] - 1-2 days Time of Disposition: 02:32
[2024-03-24 02:24] LABS: Basophils # (A) 0.1 k/uL (0-0.2); Basophils % (A) 1 %; Eosinophils # (A) 0.2 k/uL (0-0.7); Eosinophils % (A) 2 %; HCT 48.4 % (39.0-53.0); HGB 15.5 gm/dL (13.0-17.5); Lymphocytes # (A) 0.8 k/uL (1.0-4.8); Lymphocytes % (A) 8 %; MCHC 32.1 g/dL (31.0-37.0); MCV 84.1 fL (80.0-100.0); Mean Platelet Volume 7.9; Monocytes # (A) 1.2 k/uL (0-1.0); Monocytes % (A) 12 %; Neutrophils # (A) 7.2 k/uL (1.3-7.7); Neutrophils % (A) 73 %; Platelet Count 294 k/uL (150-450); RBC 5.76 m/uL (4.30-5.90); RDW 14.3 % (11.5-15.5); WBC 9.8 k/uL (3.8-10.6)
[2024-03-24 02:29] LABS: INR 1.2 (<1.2); Partial Thromboplastin Time 26.8 sec (22.0-30.0); Prothrombin Time 12.4 sec (10.0-12.5)
--- NOTE | 2024-03-24 02:40 | XR ---
EXAM: XR Chest, 2 Views CLINICAL HISTORY: ITS.REASON XR Reason: difficulty breathing TECHNIQUE: Frontal and lateral views of the chest. COMPARISON: No relevant prior studies available. IMPRESSION: Mild vascular congestion
[2024-03-24 02:50] VITALS: BP 109/64; PULSE 88; RESP 18
== END 2024-03-24 02:52 | disposition home or self-care (01) ==
LOC: EC 01:14
CPT/HCPCS: 36415; 71046; 80053; 83880; 84484; 85025; 85610; 85730; 87636; 99285

== ENCOUNTER 2024-04-19 11:24 | Observation (INO) | payer OTHER ==
[2024-04-19 11:53] LABS: ALT 24 U/L (4-49); AST 20 U/L (17-59); African American GFR (CKD) >90 (>60 ml/min/1.73 sqM); Albumin 3.8 g/dL (3.5-5.0); Alkaline Phosphatase 124 U/L (38-126); Anion Gap 8 mmol/L; Blood Urea Nitrogen 10 mg/dL (9-20); Carbon Dioxide 22 mmol/L (22-30); Chloride 108 mmol/L (98-107); Glucose 90 mg/dL (74-99); Non-African American GFR(CKD) >90 (>60 ml/min/1.73 sqM); Potassium 4.1 mmol/L (3.5-5.1); Sodium 138 mmol/L (137-145); Total Bilirubin 0.6 mg/dL (0.2-1.3); Total Protein 6.5 g/dL (6.3-8.2)
[2024-04-19 11:54] LABS: Basophils # (A) 0.1 k/uL (0-0.2); Basophils % (A) 1 %; Eosinophils # (A) 0.2 k/uL (0-0.7); Eosinophils % (A) 3 %; HCT 50.3 % (39.0-53.0); HGB 16.2 gm/dL (13.0-17.5); Lymphocytes # (A) 1.5 k/uL (1.0-4.8); Lymphocytes % (A) 16 %; MCHC 32.1 g/dL (31.0-37.0); MCV 84.1 fL (80.0-100.0); Mean Platelet Volume 7.2; Monocytes # (A) 0.8 k/uL (0-1.0); Monocytes % (A) 8 %; Neutrophils # (A) 6.4 k/uL (1.3-7.7); Neutrophils % (A) 69 %; Platelet Count 325 k/uL (150-450); RBC 5.99 m/uL (4.30-5.90); RDW 15.2 % (11.5-15.5); WBC 9.4 k/uL (3.8-10.6)
--- NOTE | 2024-04-19 12:04 | ED ---
General Adult HPI - General Chief complaint: Chest Pain Stated complaint: Chest Pain Time Seen by Provider: 04/19/24 11:26 Source: EMS Mode of arrival: EMS Limitations: no limitations - History of Present Illness Initial comments: Dictation was produced using [employer] dictation software. please excuse any grammatical, word or spelling errors. Chief Complaint: 63-year-old male recent CABG presents to the ER for chest pain History of Present Illness: Patient 63-year-old male presents with sharp and stabbing pain to the anterior chest. Recent history of CABG. Patient states that his symptoms did not radiate to his upper arm or extremities. Denies any diaphoresis or nausea. Patient's CABG was performed summer of this year. Denies any cough. Feels like his pain is worse whenever he presses on his sternum. The ROS documented in this emergency department record has been reviewed and confirmed by me. Those systems with pertinent positive or negative responses have been documented in the HPI. All other systems are other negative and/or no ncontributory. - Related Data Home Medications Medication Instructions Recorded Confirmed Albuterol Sulfate [Ventolin HFA] 2 puff INHALATION RT-TID PRN 06/23/23 04/19/24 HYDROcodone/APAP 7.5-325MG [[place] 1 tab PO TID 06/23/23 04/19/24 7.5-325] Atorvastatin [Lipitor] 40 mg PO DAILY 01/04/24 04/19/24 Fluticasone/Umeclidin/Vilanter 1 puff INHALATION RT-DAILY 01/04/24 04/19/24 [Trelegy Ellipta 100-62.5-25] Ibuprofen [Motrin] 800 mg PO BID 01/04/24 04/19/24 Amiodarone [Cordarone] 200 mg PO DAILY 02/28/24 04/19/24 Cholecalciferol (Vitamin D3) 1,250 mcg PO MO 02/28/24 04/19/24 [Vitamin D3 (1250 Mcg = 50,000 Iu)] Sennosides-Docusate Sodium 2 tab PO HS PRN 02/28/24 04/19/24 [Senokot-S] amLODIPine [Norvasc] 2.5 mg PO DAILY@1300 02/28/24 04/19/24 Previous Rx's Medication Instructions Recorded Acetaminophen Tab [Tylenol] 650 mg PO Q4HR PRN tab 01/16/24 Aspirin 325 mg PO DAILY #30 tab 01/16/24 Clopidogrel [Plavix] 75 mg PO DAILY #30 tab 01/16/24 Metoprolol Tartrate [Lopressor] 25 mg PO BID #60 tab 01/16/24 Pantoprazole [Protonix] 40 mg PO AC-BRKFST #30 tab 01/16/24 Allergies Allergy/AdvReac Type Severity Reaction Status Date / Time No Known Allergies Allergy Verified 04/19/24 12:14 Review of Systems ROS Statement: Those systems with pertinent positive or pertinent negative responses have been documented in the HPI. ROS Other: All systems not noted in ROS Statement are negative. Past Medical History Past Medical History: COPD, Hyperlipidemia, Hypertension, Respiratory Disorder Additional Past Medical History / Comment(s): History of elevated PSA concerning for prostate cancer History of Any Multi-Drug Resistant Organisms: None Reported Past Surgical History: Coronary Bypass/CABG Additional Past Surgical History / Comment(s): Right rotator cuff - total 5 surgeries of rt shoulder, history of prostate biopsy Past Anesthesia/Blood Transfusion Reactions: No Reported Reaction Past Psychological History: Anxiety Smoking Status: Former smoker Past Alcohol Use History: Rare Past Drug Use History: Marijuana - Past Family History Father Family Medical History: Cancer Additional Family Medical History / Comment(s): unsure what kind of cancer - per pt General Exam - General Exam Comments Initial Comments: PHYSICAL EXAM: General Impression: Alert and oriented x3, not in acute distress HEENT: Normocephalic atraumatic, extra-ocular movements intact, pupils equal and reactive to light bilaterally, mucous membranes moist. Cardiovascular: Heart regular rate and rhythm Chest: Able to complete full sentences, no retractions, no tachypnea Abdomen: abdomen soft, non-tender, non-distended, no organomegaly Musculoskeletal: Pulses present and equal in all extremities, no peripheral edema Motor: no focal deficits noted Neurological: CN II-XII grossly intact, no focal motor or sensory deficits noted Skin: Intact with no visualized rashes Psych: Normal affect and mood Limitations: no limitations Course Vital Signs 04/19/24 04/19/24 11:25 12:09 Temperature 97.7 F Pulse Rate 86 83 Respiratory 28 H 16 Rate Blood Pressure 145/110 123/85 O2 Sat by Pulse 99 96 Oximetry EKG Findings - EKG Comments: EKG Findings:: My EKG interpretation: Ventricular rate 86, sinus rhythm, NH in terval 148, QRS 114, QTc 432. No NH prolongation, no QTC prolongation, no ST or T-wave changes noted. Overall, this EKG is unremarkable Medical Decision Making - Medical Decision Making Was pt. sent in by a medical professional or institution (, PA, EQUIPMENT TECHNICIAN, urgent care, hospital, or halfway...) When possible be specific @ -No Did you speak to anyone other than the patient for history (EMS, parent, family, police, friend...)? What history was obtained from this source @ -No Did you review nursing and triage notes (agree or disagree)? Why? @ -I reviewed and agree with nursing and triage notes Were old charts reviewed (outside hosp., previous admission, EMS record, old EKG, old radiological studies, urgent care reports/EKG's, halfway records)? Report findings @ -No old charts were reviewed Differential Diagnosis (chest pain, altered mental status, abdominal pain women, abdominal pain men, vaginal bleeding, musculoskeletal, weakness, fever, dyspnea, syncope, headache, dizziness, GI bleed, back pain, seizure, CVA, palpat ations, mental health)? @ -Differential Chest Pain: Stable Angina, Unstable Angina, STEMI, NSTEMI Aortic Dissection, Pneumothorax, Musculoskeletal, Esophageal Spasm GERD, Cholecystitis, Pancreatitis, Zoster, this is not meant to be an all-inclusive list. EKG interpreted by me (3pts min.). @ -See above X-rays interpreted by me (1pt min.). @ -Chest x-ray is nonacute CT interpreted by me (1pt min.). @ -None done U/S interpreted by me (1pt. min.). @ -None done What testing was considered but not performed or refused? (CT, X-rays, U/S, labs)? Why? @ -None What meds were considered but not given or refused? Why? @ -None Was smoking cessation discussed for >3mins.? @ -No Were there social determinants of health that impacted care today? How? (Homelessness, low income, unemployed, alcoholism, drug addiction, transportation, low edu. Level, literacy, decrease access to med. care, long term, rehab)? @ -No Was there de-escalation of care discussed even if they declined (Discuss DNR or withdrawal of care, Hospice)? DNR status @ -No What co-morbidities impacted this encounter? (DM, HTN, Smoking, COPD, CAD, Cancer, CVA, ARF, Chemo, Hep., AIDS, mental health diagnosis, sleep apnea, morbid obesity)? @ -History of coronary artery disease Was patient admitted / discharged? Hospital course, mention meds given and route, prescriptions, significant lab abnormalities, going to OR and other pertinent info. @ -63-year-old male presents emergency department chest pain. Patient mildly distressed at the bedside. Vital signs within acceptable limits. Laboratory evaluation obtained showing findings within acceptable limits. Troponin is negative. EKG does not show any signs of ischemia infarction. Patient will be admitted observation for cardiac monitoring. Patient given aspirin and analgesics. Did you discuss the management of the patient with other professionals (professionals i.e. , PA, EQUIPMENT TECHNICIAN, lab, RT, psych nurse, social worker psychiatric, drawer in stitch bonding machine, teacher, control officer, case work aide)? Give summary @ -Case discussed with Dr. Feliz for admission Was critical care preformed (if so, how long)? @ -No Undiagnosed new problem with uncertain prognosis? @ -No Drug Therapy requiring intensive monitoring for toxicity (Heparin, Nitro, Insulin, Cardizem)? @ -No Were any procedures done? @ -No Diagnosis/symptom? Acute, or Chronic, or Acute on Chronic? Uncomplicated (without systemic symptoms) or Complicated (systemic symptoms)? @ -Chest pain Side effects of treatment? @ -No Exacerbation, Progression, or Severe Exacerbation? @ -No Poses a threat to life or bodily function? How? (Chest pain, [place], [place], pneumonia, PE, COPD, DKA, ARF, appy, cholecystitis, CVA, Diverticulitis, Homicidal, Suicidal, threat to staff... and all critical care pts) @ -yes - Lab Data Result diagrams: 04/19/24 11:39 04/19/24 11:39 Lab Results 04/19/24 04/19/24 04/19/24 Range/Units 11:39 11:39 11:39 WBC 9.4 (3.8-10.6) k/uL RBC 5.99 H (4.30-5.90) m/uL Hgb 16.2 (13.0-17.5) gm/dL Hct 50.3 (39.0-53.0) % MCV 84.1 (80.0-100.0) fL MCH 27.0 (25.0-35.0) pg MCHC 32.1 (31.0-37.0) g/dL RDW 15.2 (11.5-15.5) % Plt Count 325 (150-450) k/uL MPV 7.2 Neutrophils % 69 % Lymphocytes % 16 % Monocytes % 8 % Eosinophils % 3 % Basophils % 1 % Neutrophils # 6.4 (1.3-7.7) k/uL Lymphocytes # 1.5 (1.0-4.8) k/uL Monocytes # 0.8 (0-1.0) k/uL Eosinophils # 0.2 (0-0.7) k/uL Basophils # 0.1 (0-0.2) k/uL PT 11.4 (10.0-12.5) sec INR 1.0 (<1.2) APTT 24.6 (22.0-30.0) sec Sodium 138 (137-145) mmol/L Potassium 4.1 (3.5-5.1) mmol/L Chloride 108 H (98-107) mmol/L Carbon Dioxide 22 (22-30) mmol/L Anion Gap 8 mmol/L BUN 10 (9-20) mg/dL Creatinine 0.85 (0.66-1.25) mg/dL Est GFR (CKD-EPI)AfAm >90 (>60 ml/min/1.73 sqM) Est GFR (CKD-EPI)NonAf >90 (>60 ml/min/1.73 sqM) Glucose 90 (74-99) mg/dL Calcium 9.0 (8.4-10.2) mg/dL Magnesium 2.0 (1.6-2.3) mg/dL Total Bilirubin 0.6 (0.2-1.3) mg/dL AST 20 (17-59) U/L ALT 24 (4-49) U/L Alkaline Phosphatase 124 (38-126) U/L Troponin I (0.000-0.034) ng/mL Total Protein 6.5 (6.3-8.2) g/dL Albumin 3.8 (3.5-5.0) g/dL 04/19/24 Range/Units 11:39 WBC (3.8-10.6) k/uL RBC (4.30-5.90) m/uL Hgb (13.0-17.5) gm/dL Hct (39.0-53.0) % MCV (80.0-100.0) fL MCH (25.0-35.0) pg MCHC (31.0-37.0) g/dL RDW (11.5-15.5) % Plt Count (150-450) k/uL MPV Neutrophils % % Lymphocytes % % Monocytes % % Eosinophils % % Basophils % % Neutrophils # (1.3-7.7) k/uL Lymphocytes # (1.0-4.8) k/uL Monocytes # (0-1.0) k/uL Eosinophils # (0-0.7) k/uL Basophils # (0-0.2) k/uL PT (10.0-12.5) sec INR (<1.2) APTT (22.0-30.0) sec Sodium (137-145) mmol/L Potassium (3.5-5.1) mmol/L Chloride (98-107) mmol/L Carbon Dioxide (22-30) mmol/L Anion Gap mmol/L BUN (9-20) mg/dL Creatinine (0.66-1.25) mg/dL Est GFR (CKD-EPI)AfAm (>60 ml/min/1.73 sqM) Est GFR (CKD-EPI)NonAf (>60 ml/min/1.73 sqM) Glucose (74-99) mg/dL Calcium (8.4-10.2) mg/dL Magnesium (1.6-2.3) mg/dL Total Bilirubin (0.2-1.3) mg/dL AST (17-59) U/L ALT (4-49) U/L Alkaline Phosphatase (38-126) U/L Troponin I <0.012 (0.000-0.034) ng/mL Total Protein (6.3-8.2) g/dL Albumin (3.5-5.0) g/dL Disposition Clinical Impression: Chest pain Disposition: ADMITTED IP TO THIS [facility] Condition: Fair Referrals: Martin Feliz MD [Primary Care Provider] - 1-2 days Decision Time: 13:41
[2024-04-19 12:05] LABS: Partial Thromboplastin Time 24.6 sec (22.0-30.0); Prothrombin Time 11.4 sec (10.0-12.5)
--- NOTE | 2024-04-19 12:42 | XR ---
EXAMINATION TYPE: XR chest 2V DATE OF EXAM: 04/19/2024 12:03 PM CLINICAL INDICATION: Male, 63 years old with history of Chest Pain; COMPARISON: Chest radiographs from 03/24/2024 TECHNIQUE: XR chest 2V Frontal view of the chest. FINDINGS: Lungs/Pleura: There is no evidence of pleural effusion, focal consolidation, or pneumothorax. Pulmonary vascularity: Unremarkable. Heart/mediastinum: Cardiomediastinal silhouette is unremarkable. Left atrial appendage occlusion jamil ce is present. Musculoskeletal: No acute osseous pathology. Midline sternotomy wires are noted. Right shoulder arthr oplasty changes appear intact. IMPRESSION: No acute cardiopulmonary disease/process. [facility] Derrick Larson, , 04/19/2024 12:40 PM
[2024-04-19] MEDS ORDERED: NITROGLYCERIN SL TABS 0.4 MG TAB SUBLINGUAL PRN (13:41)
[2024-04-19] MEDS: ASPIRIN 81 MG PO STA (13:46)
[2024-04-19] MEDS: oxyCODONE-APAP 10-325MG 1 EACH TAB PO STA (13:46)
[2024-04-19] MEDS: METOPROLOL TARTRATE 25 MG TAB PO SCH (20:34)
[2024-04-19] MEDS: HYDROcodone/APAP 7.5-325MG 1 EACH TAB PO PRN (20:37)
[2024-04-20] MEDS: PANTOPRAZOLE 40 MG TABLET PO SCH (06:21)
[2024-04-20] MEDS ORDERED: ACETAMINOPHEN TAB 325 MG TAB PO PRN (08:16)
[2024-04-20] MEDS: ATORVASTATIN 40 MG TAB PO SCH (08:51)
[2024-04-20] MEDS: ASPIRIN 325 MG TAB PO SCH (08:51)
[2024-04-20] MEDS: CLOPIDOGREL 75 MG TAB PO SCH (08:51)
[2024-04-20] MEDS: AMIODARONE 200 MG TAB PO SCH (08:51)
[2024-04-20] MEDS ORDERED: ASPIRIN 325 MG TAB PO SCH (09:00)
[2024-04-20 10:16] LABS: Chol/HDL Ratio 4.44 Ratio; LDL Cholesterol,Calculated 110.3 mg/dL (0.0-131.0)
--- NOTE | 2024-04-20 10:21 | P.CRDCN ---
History of Present Illness History of present illness: HISTORY OF PRESENT ILLNESS: This is a 63-year-old male with a past medical history significant for coronary artery disease with recent CABG in December 2023, hypertension, hyperlipidemia, par oxysmal atrial fibrillation, and former nicotine dependence. Patient follows in the office with Dr. Bolanos. We have been asked to see the patient in consultation for chest pain. Patient examined at the bedside. Patient states he began to have chest discomfort yesterday. Patient states it feels like a shooting pain on both sides of his chest. He states the pain is worse with chest wall palpation and deep inspiration. He denies any radiation of the pain. Denies any shortness of breath. Denies any nausea or vomiting. He does report he has been participating in cardiac rehab. DIAGNOSTICS: - EKG reveals sinus mechanism with incomplete right bundle branch block. No signs of acute ischemia. - Chest xray negative for acute process - Laboratory data: WBC 9.4. Hemoglobin 16.2. Platelet count 325. Sodium 138. Potassium 4.1. BUN 10. Creatinine 0.85. Magnesium 2.0. Troponin negative x 3. - Current home cardiac medications include amiodarone 200 mg daily, aspirin 325 mg daily, Lipitor 40 mg daily, Plavix 75 mg daily, metoprolol tartrate 25 mg twice a day, amlodipine 2.5 mg daily - Most recent echocardiogram obtained in December 2023 revealed ejection fraction 60 to 65%, no obvious regional wall motion abnormalities, trace MR, trace TR -Patient underwent low-level exercise stress test in January 2024. Patient exercised for 12 minutes. No arrhythmias were noted. Nondiagnostic EKG stress test secondary to inadequate chronotropic response. The patient did have complaints of atypical and respirophasic chest pain during exercise. REVIEW OF SYSTEMS: At the time of my exam: CONSTITUTIONAL: Denies fever or chills. HEENT: Denies blurred vision, vision changes, or eye pain. Denies hemoptysis CARDIOVASCULAR: Denies chest pain. Denies orthopnea. Denies PND. Denies palpitations RESPIRATORY: Denies shortness of breath. GASTROINTESTINAL: Denies abdominal pain. Denies nausea or vomiting. HEMATOLOGIC: Denies bleeding disorders. GENITOURINARY: Denies any blood in urine. SKIN: Denies pruitis. Denies rash. PHYSICAL EXAM: VITAL SIGNS: Reviewed. GENERAL: Well-developed in no acute distress. HEENT: Head is normocephalic. Pupils are equal, round. Sclerae anicteric. Mucous membranes of the mouth are moist. Neck supple. No JVD or thyromegaly LUNGS: Respirations even and unlabored. Lungs essentially clear to auscultation bilaterally. HEART: Regular rate and rhythm. S1 and S2 heard. ABDOMEN: Soft. Nondistended. Nontender. EXTREMITIES: Normal range of motion. No clubbing or cyanosis. Peripheral pulses intact. No lower extremity edema NEUROLOGIC: Awake and alert. Oriented x 3. ASSESSMENT: Chest pain, troponin negative x 3, musculoskeletal in nature Coronary artery disease with previous three-vessel CABG, 12/2023, CAMPBELL to LAD, left radial to OM, and SVG to RCA Hypertension Hyperlipidemia Postoperative paroxysmal atrial fibrillation, on amiodarone Former nicotine dependence PLAN: An acute coronary event has been ruled out Patient's pain appears to be musculoskeletal secondary to recent CABG. Patient instructed to take Tylenol PRN Resume home cardiac medications Patient cleared for discharge from a cardiac standpoint He is to follow-up postdischarge in the office with Dr. Bolanos Nurse practitioner note has been reviewed by physician. Signing provider agrees with the documented findings, assessment, and plan of care documented by DISASTER RECOVERY MANAGER as a scribe. Past Medical History Past Medical History: COPD, Hyperlipidemia, Hypertension, Respiratory Disorder Additional Past Medical History / Comment(s): History of elevated PSA concerning for prostate cancer History of Any Multi-Drug Resistant Organisms: None Reported Past Surgical History: Coronary Bypass/CABG Additional Past Surgical History / Comment(s): Right rotator cuff - total 5 surgeries of rt shoulder, history of prostate biopsy Past Anesthesia/Blood Transfusion Reactions: No Reported Reaction Past Psychological History: Anxiety Smoking Status: Former smoker Past Alcohol Use History: Rare Past Drug Use History: Marijuana Additional Drug Use History / Comment(s): Daily marijuana use - Past Family History Father Family Medical History: Cancer Additional Family Medical History / Comment(s): unsure what kind of cancer - per pt Medications and Allergies Home Medications Medication Instructions Recorded Confirmed Type Albuterol Sulfate [Ventolin HFA] 2 puff INHALATION RT-TID PRN 06/23/23 04/19/24 History HYDROcodone/APAP 7.5-325MG [[place] 1 tab PO TID 06/23/23 04/19/24 History 7.5-325] Atorvastatin [Lipitor] 40 mg PO DAILY 01/04/24 04/19/24 History Fluticasone/Umeclidin/Vilanter 1 puff INHALATION RT-DAILY 01/04/24 04/19/24 History [Brendan Ellipta 100-62.5-25] Ibuprofen [Motrin] 800 mg PO BID 01/04/24 04/19/24 History Acetaminophen Tab [Tylenol] 650 mg PO Q4HR PRN tab 01/16/24 04/19/24 Rx Aspirin 325 mg PO DAILY #30 tab 01/16/24 04/19/24 Rx Clopidogrel [Plavix] 75 mg PO DAILY #30 tab 01/16/24 04/19/24 Rx Metoprolol Tartrate [Lopressor] 25 mg PO BID #60 tab 01/16/24 04/19/24 Rx Pantoprazole [Protonix] 40 mg PO AC-BRKFST #30 tab 01/16/24 04/19/24 Rx Amiodarone [Cordarone] 200 mg PO DAILY 02/28/24 04/19/24 History Cholecalciferol (Vitamin D3) 1,250 mcg PO MO 02/28/24 04/19/24 History [Vitamin D3 (1250 Mcg = 50,000 Iu)] Sennosides-Docusate Sodium 2 tab PO HS PRN 02/28/24 04/19/24 History [Senokot-S] amLODIPine [Norvasc] 2.5 mg PO DAILY@1300 02/28/24 04/19/24 History Allergies Allergy/AdvReac Type Severity Reaction Status Date / Time No Known Allergies Allergy Verified 04/19/24 12:14 Physical Exam Vitals: Vital Signs Temp Pulse Pulse Resp BP BP Pulse Ox 04/20/24 08:00 98.4 F 73 18 109/73 04/20/24 02:00 98.1 F 68 17 106/67 98 04/19/24 19:54 97.5 F L 76 17 118/75 98 04/19/24 17:50 98.2 F 72 16 122/76 99 04/19/24 17:27 97.9 F 75 18 119/78 95 04/19/24 16:11 74 18 115/72 94 L 04/19/24 13:47 80 16 123/80 98 04/19/24 12:09 83 16 123/85 96 04/19/24 11:25 97.7 F 86 28 H 145/110 99 Intake and Output 04/19/24 04/20/24 04/20/24 22:59 06:59 14:59 Intake Total 240 236 Balance 240 236 Intake: Oral 240 236 Other: # Voids 1 2 Weight 70.307 kg Results 04/19/24 11:39 04/19/24 11:39 Cardiac Enzymes 04/19/24 04/19/24 04/19/24 Range/Units 11:39 11:39 14:18 AST 20 (17-59) U/L Troponin I <0.012 <0.012 (0.000-0.034) ng/mL 04/19/24 Range/Units 17:28 AST (17-59) U/L Troponin I <0.012 (0.000-0.034) ng/mL Coagulation 04/19/24 Range/Units 11:39 PT 11.4 (10.0-12.5) sec APTT 24.6 (22.0-30.0) sec CBC 04/19/24 Range/Units 11:39 WBC 9.4 (3.8-10.6) k/uL RBC 5.99 H (4.30-5.90) m/uL Hgb 16.2 (13.0-17.5) gm/dL Hct 50.3 (39.0-53.0) % Plt Count 325 (150-450) k/uL Comprehensive Metabolic Panel 04/19/24 Range/Units 11:39 Sodium 138 (137-145) mmol/L Potassium 4.1 (3.5-5.1) mmol/L Chloride 108 H (98-107) mmol/L Carbon Dioxide 22 (22-30) mmol/L BUN 10 (9-20) mg/dL Creatinine 0.85 (0.66-1.25) mg/dL Glucose 90 (74-99) mg/dL Calcium 9.0 (8.4-10.2) mg/dL AST 20 (17-59) U/L ALT 24 (4-49) U/L Alkaline Phosphatase 124 (38-126) U/L Total Protein 6.5 (6.3-8.2) g/dL Albumin 3.8 (3.5-5.0) g/dL Current Medications Generic Name Dose Route Start Last Admin Trade Name Peterq PRN Reason Stop Dose Admin Acetaminophen 650 mg 04/20/24 08:16 Acetaminophen Tab 325 Mg Tab PO Q4HR PRN Fever and/ or Pain Hydrocodone Bitart/Acetaminophen 1 each 04/19/24 19:30 04/20/24 06:23 Hydrocodone/Apap 7.5-325mg 1 Each Tab PO 1 each TID PRN Administration Pain Amiodarone HCl 200 mg 04/20/24 09:00 04/20/24 08:51 Amiodarone 200 Mg Tab PO 200 mg DAILY JUSTIN Administration Amlodipine Besylate 2.5 mg 04/20/24 13:00 Amlodipine 2.5 Mg Tab PO DAILY@1300 [facility] Aspirin 325 mg 04/20/24 09:00 04/20/24 08:51 Aspirin 325 Mg Tab PO 325 mg DAILY JUSTIN Administration Atorvastatin Calcium 40 mg 04/20/24 09:00 04/20/24 08:51 Atorvastatin 40 Mg Tab PO 40 mg DAILY JUSTIN Administration Clopidogrel Bisulfate 75 mg 04/20/24 09:00 04/20/24 08:51 Clopidogrel 75 Mg Tab PO 75 mg DAILY JUSTIN Administration Metoprolol Tartrate 25 mg 04/19/24 21:00 04/20/24 08:51 Metoprolol Tartrate 25 Mg Tab PO 25 mg BID JUSTIN Administration Nitroglycerin 0.4 mg 04/19/24 13:41 Nitroglycerin Sl Tabs 0.4 Mg Tab SUBLINGUAL Q5M PRN Chest Pain Pantoprazole Sodium 40 mg 04/20/24 07:30 04/20/24 06:21 Pantoprazole 40 Mg Tablet PO 40 mg AC-BRKFST JUSTIN Administration Intake and Output 04/19/24 04/20/24 04/20/24 22:59 06:59 14:59 Intake Total 240 236 Balance 240 236 Intake: Oral 240 236 Other: # Voids 1 2 Weight 70.307 kg 04/19/24 11:39 04/19/24 11:39
[2024-04-20 11:31] VITALS: RESP 16; TEMP 97.9
[2024-04-20] MEDS: amLODIPine 2.5 MG TAB PO SCH (13:15)
[2024-04-20 13:16] VITALS: BP 115/80; PULSE 67
--- NOTE | 2024-04-21 01:25 | DS ---
DISCHARGE SUMMARY CHIEF COMPLAINT: Chest pain. HISTORY OF PRESENT ILLNESS AND PHYSICAL EXAM: Details of this man's history and physical can be found in the initial workup. LABORATORY STUDIES: While he was in the hospital, he had laboratory studies, details of which can be found in the laboratory section of his chart. COURSE IN THE HOSPITAL: After admission, he was placed on bedrest, started on intravenous fluids and he had serial EKGs and enzymes, which were normal. Seen by Cardiology and was evaluated and released. When he was in the hospital, it was noticed that he was tender in the anterior chest and it was felt that this was the cause of his chest pain. He is stable and doing well and felt that he could be discharged on the on his usual activity, diet, and medications and he will be followed up in the office in several days. FINAL DIAGNOSES: 1. Atypical chest pain. 2. Costochondritis. 3. Coronary artery disease. 4. Neurofibromatosis. OPERATIONS: None. CONSULTATIONS: Cardiology. He is improved. MMODL / IJN: [id number] /
--- NOTE | 2024-04-21 21:50 | HP ---
HISTORY AND PHYSICAL CHIEF COMPLAINT: Chest pain. HISTORY OF PRESENT ILLNESS: This is another admission for this 63-year-old. He presented to the emergency room with chest pain. He has had a significant medical history of heart disease. Pain is in the anterior chest area and he had no diaphoresis or shortness of breath. LABORATORY DATA: Laboratory studies in the emergency room were normal. REVIEW OF SYSTEMS: He has had no fever, chills, cough, hemoptysis, sputum production, orthopnea, PND, abdominal pain, nausea, vomiting, diarrhea, renal failure, etc. Past medical history, family history, personal and social histories reveal that he is on metoprolol, amiodarone, aspirin, clopidogrel, amlodipine, Trelegy, Vicodin, atorvastatin, and albuterol. Past history includes having had a CABG and a procedure on his shoulder. PHYSICAL EXAMINATION: VITAL SIGNS: Blood pressure is 120/80 with pulse 67, respirations were 20, and he is afebrile. GENERAL: He appeared to be slender and in no acute distress. SKIN: Color is normal. Skin is warm and dry. LYMPHATICS: Lymph nodes are not enlarged. HEAD, EARS, EYES, NOSE, MOUTH AND THROAT: Normal. CHEST: Clear. CARDIAC: Normal. ABDOMEN: Soft, nontender. EXTREMITIES: Normal. NEUROLOGICAL: He is intact. He is admitted to the hospital with diagnoses of, 1. Chest pain. 2. History of coronary artery disease with coronary artery bypass graft. 3. Hyperlipidemia. 4. Chronic obstructive pulmonary disease. PLAN: 1. Bedrest. 2. IV fluids. 3. Serial EKGs and enzymes. 4. Consult Cardiology. MMODL / DANIS: [id number] /
== END 2024-04-20 13:45 | disposition home or self-care (01) ==
LOC: EC 11:24 → 6NMEDSUR 13:42
PROVIDERS: ADMIT Family Medicine; ATTEND Family Medicine
DX: M94.0 Chondrocostal junction syndrome [Tietze] (principal); I48.0 Paroxysmal atrial fibrillation; Q85.00 Neurofibromatosis, unspecified; J44.9 Chronic obstructive pulmonary disease, unspecified; I25.10 Atherosclerotic heart disease of native coronary artery without angina pectoris; I45.10 Unspecified right bundle-branch block; E78.5 Hyperlipidemia, unspecified; I10 Essential (primary) hypertension; F41.9 Anxiety disorder, unspecified; F12.90 Cannabis use, unspecified, uncomplicated; Z79.51 Long term (current) use of inhaled steroids; Z79.891 Long term (current) use of opiate analgesic; Z79.82 Long term (current) use of aspirin; Z79.02 Long term (current) use of antithrombotics/antiplatelets; Z79.899 Other long term (current) drug therapy; Z87.891 Personal history of nicotine dependence; Z95.1 Presence of aortocoronary bypass graft
CPT/HCPCS: 99285; 36415; 93005; 80061; 80053; 83735; 84484; 85025; 85610; 85730; 71046; G0378 ×2

== ENCOUNTER 2024-05-25 08:15 | Emergency (ER) | payer OTHER ==
[2024-05-25 08:31] LABS: Glucose,Whole Blood 101 mg/dL (70-110)
[2024-05-25 08:35] VITALS: RESP 18
--- NOTE | 2024-05-25 08:35 | ED ---
General Adult HPI - General Chief complaint: Dizziness Stated complaint: SOB/dizzy Time Seen by Provider: 05/25/24 08:18 Source: patient, RN notes reviewed, old records reviewed Mode of arrival: EMS Limitations: no limitations - History of Present Illness Initial comments: 63 year old male history of COPD, CAD presenting for evaluation of dyspnea and dizziness. Symptoms have been present for the past 2 days. Patient denies chest pain or abdominal pain. Denies nausea or vomiting. Denies focal numbness or weakness. Denies fever. He states he has been eating and drinking well. He denies cough. - Related Data Home Medications Medication Instructions Recorded Confirmed Albuterol Sulfate [Ventolin HFA] 2 puff INHALATION RT-TID PRN 06/23/23 04/19/24 HYDROcodone/APAP 7.5-325MG [[place] 1 tab PO TID 06/23/23 04/19/24 7.5-325] Atorvastatin [Lipitor] 40 mg PO DAILY 01/04/24 04/19/24 Fluticasone/Umeclidin/Vilanter 1 puff INHALATION RT-DAILY 01/04/24 04/19/24 [Trelegy Ellipta 100-62.5-25] Ibuprofen [Motrin] 800 mg PO BID 01/04/24 04/19/24 Amiodarone [Cordarone] 200 mg PO DAILY 02/28/24 04/19/24 Cholecalciferol (Vitamin D3) 1,250 mcg PO MO 02/28/24 04/19/24 [Vitamin D3 (1250 Mcg = 50,000 Iu)] Sennosides-Docusate Sodium 2 tab PO HS PRN 02/28/24 04/19/24 [Senokot-S] amLODIPine [Norvasc] 2.5 mg PO DAILY@1300 02/28/24 04/19/24 Previous Rx's Medication Instructions Recorded Acetaminophen Tab [Tylenol] 650 mg PO Q4HR PRN tab 01/16/24 Aspirin 325 mg PO DAILY #30 tab 01/16/24 Clopidogrel [Plavix] 75 mg PO DAILY #30 tab 01/16/24 Metoprolol Tartrate [Lopressor] 25 mg PO BID #60 tab 01/16/24 Pantoprazole [Protonix] 40 mg PO AC-BRKFST #30 tab 01/16/24 Albuterol Inhaler [Ventolin Hfa 1 - 2 puff INHALATION Q4HR PRN #1 05/25/24 Inhaler] each Azithromycin [Zithromax Z Pack] 1 tab PO DIRECTED #6 tab 05/25/24 predniSONE 50 mg PO DAILY #5 tab 05/25/24 Allergies Allergy/AdvReac Type Severity Reaction Status Date / Time No Known Allergies Allergy Verified 05/25/24 10:09 Review of Systems ROS Statement: Those systems with pertinent positive or pertinent negative responses have been documented in the HPI. ROS Other: All systems not noted in ROS Statement are negative. Past Medical History Past Medical History: COPD, Hyperlipidemia, Hypertension, Respiratory Disorder Additional Past Medical History / Comment(s): History of elevated PSA concerning for prostate cancer History of Any Multi-Drug Resistant Organisms: None Reported Past Surgical History: Coronary Bypass/CABG Additional Past Surgical History / Comment(s): Right rotator cuff - total 5 surgeries of rt shoulder, history of prostate biopsy, tripple bypass Past Anesthesia/Blood Transfusion Reactions: No Reported Reaction Past Psychological History: Anxiety Smoking Status: Former smoker Past Alcohol Use History: Rare Past Drug Use History: Marijuana - Past Family History Father Family Medical History: Cancer Additional Family Medical History / Comment(s): unsure what kind of cancer - per pt General Exam Limitations: no limitations General appearance: alert, in no apparent distress Head exam: Present: atraumatic, normocephalic Eye exam: Present: normal appearance, PERRL ENT exam: Present: mucous membranes moist Neck exam: Present: normal inspection. Absent: tenderness, meningismus Respiratory exam: Present: decreased breath sounds (Mild tachypnea). Absent: respiratory distress Cardiovascular Exam: Present: regular rate, normal rhythm GI/Abdominal exam: Present: soft. Absent: distended, tenderness, guarding Extremities exam: Present: normal inspection, normal capillary refill. Absent: pedal edema, calf tenderness Neurological exam: Present: alert, oriented X3, CN II-XII intact. Absent: motor sensory deficit Psychiatric exam: Present: normal affect, normal mood Skin exam: Present: warm, dry, intact. Absent: cyanosis, diaphoretic Course Vital Signs 05/25/24 05/25/24 05/25/24 08:19 08:23 08:34 Temperature 98.2 F Pulse Rate 77 72 Pulse Rate [ 77 Drug Safety Data Management Specialist ] Respiratory 18 20 18 Rate Blood Pressure 145/93 126/88 O2 Sat by Pulse 100 97 Oximetry Medical Decision Making - Medical Decision Making Was pt. sent in by a medical professional or institution (DIONE Farris, [employer], urgent care, hospital, or penitentiary...) When possible be specific @ -No Did you speak to anyone other than the patient for history (EMS, parent, family, police, friend...)? What history was obtained from this source @ -No Did you review nursing and triage notes (agree or disagree)? Why? @ -I reviewed and agree with nursing and triage notes Were old charts reviewed (outside hosp., previous admission, EMS record, old EKG, old radiological studies, urgent care reports/EKG's, penitentiary records)? Report findings @ -No old charts were reviewed Differential Dyspnea: Coronary syndrome, arrhythmia, tamponade, asthma, COPD, pulmonary embolism, pneumonia, pneumothorax, pulmonary effusion, anaphylaxis, diabetic ketoacidosis, flailed chest, pulmonary contusion, diaphragmatic rupture, anemia, neuromuscular, this is not meant to be an all-inclusive list. EKG interpreted by me (3pts min.). @ -Sinus rhythm incomplete right bundle branch block, rate of 73, ME interval 182, QRS duration 114, QTc [address] segment elevation. X-rays interpreted by me (1pt min.). @Chest x-ray showing early infiltrate CT interpreted by me (1pt min.). @ -None done U/S interpreted by me (1pt. min.). @ -None done What testing was considered but not performed or refused? (CT, X-rays, U/S, labs)? Why? @ -None What meds were considered but not given or refused? Why? @ -None Did you discuss the management of the patient with other professionals (professionals i.e. DIONE Farris, [employer], lab, RT, psych nurse, social worker psychiatric, swage tender, teacher, security patrol officer, block and case maker)? Give summary @ -No Was smoking cessation discussed for >3mins.? @ -No Was critical care preformed (if so, how long)? @ -No Were there social determinants of health that impacted care today? How? (Homelessness, low income, unemployed, alcoholism, drug addiction, transp ortation, low edu. Level, literacy, decrease access to med. care, shelter, rehab)? @ -No Was there de-escalation of care discussed even if they declined (Discuss DNR or withdrawal of care, Hospice)? DNR status @ -No What co-morbidities impacted this encounter? (DM, HTN, Smoking, COPD, CAD, Cancer, CVA, ARF, Chemo, Hep., AIDS, mental health diagnosis, sleep apnea, morbid obesity)? @ -COPD, CAD Was patient admitted / discharged? Hospital course, mention meds given and route, prescriptions, significant lab abnormalities, going to OR and other pertinent info. @ -63-year-old male with dizziness, mild dyspnea. Patient is diminished bilaterally. No significant respiratory distress. He is in sinus rhythm without ischemic changes on EKG. He has normal CBC, normal CMP, negative troponin. Chest x-ray does show possible early infiltrate. Patient will be covered with antibiotics and given close outpatient follow-up with return parameters. Undiagnosed new problem with uncertain prognosis? @ -No Drug Therapy requiring intensive monitoring for toxicity (Heparin, Nitro, Insulin, Cardizem)? @ -No Were any procedures done? @ -No Diagnosis/symptom? @ -COPD, pneumonia Acute, or Chronic, or Acute on Chronic? @Acute Uncomplicated (without systemic symptoms) or Complicated (systemic symptoms)? @ -Default Side effects of treatment? @ -No Exacerbation, Progression, or Severe Exacerbation? @ -No Poses a threat to life or bodily function? How? (Chest pain, USA, ME, pneumonia, PE, COPD, DKA, ARF, appy, cholecystitis, CVA, Diverticulitis, Homicidal, Suicidal, threat to staff... and all critical care pts) @ -[low risk - Lab Data Result diagrams: 05/25/24 08:30 05/25/24 08:30 Lab Results 05/25/24 05/25/24 05/25/24 Range/Units 08:30 08:30 08:30 WBC 8.5 (3.8-10.6) k/uL RBC 6.53 H (4.30-5.90) m/uL Hgb 17.3 (13.0-17.5) gm/dL Hct 52.8 (39.0-53.0) % MCV 80.9 (80.0-100.0) fL MCH 26.5 (25.0-35.0) pg MCHC 32.8 (31.0-37.0) g/dL RDW 16.8 H (11.5-15.5) % Plt Count 266 (150-450) k/uL MPV 8.0 Neutrophils % 65 % Lymphocytes % 21 % Monocytes % 8 % Eosinophils % 2 % Basophils % 1 % Neutrophils # 5.5 (1.3-7.7) k/uL Lymphocytes # 1.8 (1.0-4.8) k/uL Monocytes # 0.7 (0-1.0) k/uL Eosinophils # 0.2 (0-0.7) k/uL Basophils # 0.1 (0-0.2) k/uL Anisocytosis Slight PT 11.4 (10.0-12.5) sec INR 1.0 (<1.2) APTT 23.8 (22.0-30.0) sec Sodium 137 (137-145) mmol/L Potassium 4.5 (3.5-5.1) mmol/L Chloride 106 (98-107) mmol/L Carbon Dioxide 23 (22-30) mmol/L Anion Gap 8 mmol/L BUN 14 (9-20) mg/dL Creatinine 0.98 (0.66-1.25) mg/dL Est GFR (CKD-EPI)AfAm >90 (>60 ml/min/1.73 sqM) Est GFR (CKD-EPI)NonAf 84 (>60 ml/min/1.73 sqM) Glucose 91 (74-99) mg/dL POC Glucose (mg/dL) (70-110) mg/dL POC Glu Category Specialist ID Plasma Lactic Acid [place] (0.7-2.0) mmol/L Calcium 9.3 (8.4-10.2) mg/dL Magnesium 2.1 (1.6-2.3) mg/dL Total Bilirubin 0.6 (0.2-1.3) mg/dL AST 25 (17-59) U/L ALT 25 (4-49) U/L Alkaline Phosphatase 100 (38-126) U/L Troponin I (0.000-0.034) ng/mL NT-Pro-B Natriuret Pep 82 pg/mL Total Protein 6.8 (6.3-8.2) g/dL Albumin 4.1 (3.5-5.0) g/dL 11/05/25/24 05/25/24 Range/Units 08:30 08:30 08:30 WBC (3.8-10.6) k/uL RBC (4.30-5.90) m/uL Hgb (13.0-17.5) gm/dL Hct (39.0-53.0) % MCV (80.0-100.0) fL MCH (25.0-35.0) pg MCHC (31.0-37.0) g/dL RDW (11.5-15.5) % Plt Count (150-450) k/uL MPV Neutrophils % % Lymphocytes % % Monocytes % % Eosinophils % % Basophils % % Neutrophils # (1.3-7.7) k/uL Lymphocytes # (1.0-4.8) k/uL Monocytes # (0-1.0) k/uL Eosinophils # (0-0.7) k/uL Basophils # (0-0.2) k/uL Anisocytosis PT (10.0-12.5) sec INR (<1.2) APTT (22.0-30.0) sec Sodium (137-145) mmol/L Potassium (3.5-5.1) mmol/L Chloride (98-107) mmol/L Carbon Dioxide (22-30) mmol/L Anion Gap mmol/L BUN (9-20) mg/dL Creatinine (0.66-1.25) mg/dL Est GFR (CKD-EPI)AfAm (>60 ml/min/1.73 sqM) Est GFR (CKD-EPI)NonAf (>60 ml/min/1.73 sqM) Glucose (74-99) mg/dL POC Glucose (mg/dL) 101 (70-110) mg/dL POC Glu Category Specialist ID [facility] Plasma Lactic Acid [place] 1.5 (0.7-2.0) mmol/L Calcium (8.4-10.2) mg/dL Magnesium (1.6-2.3) mg/dL Total Bilirubin (0.2-1.3) mg/dL AST (17-59) U/L ALT (4-49) U/L Alkaline Phosphatase (38-126) U/L Troponin I <0.012 (0.000-0.034) ng/mL NT-Pro-B Natriuret Pep pg/mL Total Protein (6.3-8.2) g/dL Albumin (3.5-5.0) g/dL Disposition Clinical Impression: Pneumonia, COPD (chronic obstructive pulmonary disease) Disposition: HOME SELF-CARE Condition: Fair Instructions (If sedation given, give patient instructions): COPD (Chronic Obstructive Pulmonary Disease) (ED) Prescriptions: predniSONE 50 mg PO DAILY #5 tab Albuterol Inhaler [Ventolin Hfa Inhaler] 1 - 2 puff INHALATION Q4HR PRN #1 each PRN Reason: Shortness Of Breath Azithromycin [Zithromax Z Pack] 1 tab PO DIRECTED #6 tab Is patient prescribed a controlled substance at d/c from ED?: No Referrals: Martin Feliz MD [Primary Care Provider] - 1-2 days Time of Disposition: 10:12
[2024-05-25 08:45] LABS: Anisocytosis Slight; HCT 52.8 % (39.0-53.0); HGB 17.3 gm/dL (13.0-17.5); Lymphocytes % (A) 21 %; MCH 26.5 pg (25.0-35.0); MCHC 32.8 g/dL (31.0-37.0); MCV 80.9 fL (80.0-100.0); Neutrophils % (A) 65 %; Platelet Count 266 k/uL (150-450); RBC 6.53 m/uL (4.30-5.90); RDW 16.8 % (11.5-15.5); WBC 8.5 k/uL (3.8-10.6)
[2024-05-25 08:46] LABS: Basophils # (A) 0.1 k/uL (0-0.2); Basophils % (A) 1 %; Eosinophils # (A) 0.2 k/uL (0-0.7); Eosinophils % (A) 2 %; Lymphocytes # (A) 1.8 k/uL (1.0-4.8); Monocytes # (A) 0.7 k/uL (0-1.0); Monocytes % (A) 8 %; Neutrophils # (A) 5.5 k/uL (1.3-7.7)
--- NOTE | 2024-05-25 08:51 | XR ---
EXAMINATION TYPE: XR chest 2V DATE OF EXAM: 05/25/2024 COMPARISON: 04/19/2024 CLINICAL INDICATION: Male, 63 years old with history of difficulty breathing; , TECHNIQUE: XR chest 2V views of the chest. FINDINGS: Heart size normal. Osseous structures demonstrate hypertrophic and degenerative changes of the spine. Postsurgical change right shoulder. Postmedian sternotomy changes. Emphysematous changes with patchy left perihilar infiltrate and pulmonary fibrosis suspected. Biapical pleural thickening. Nodule over lying the right mid lung laterally could be related to nipple shadow. Stable from prior exam. IMPRESSION: 1. COPD with patchy subsegmental changes left perihilar region. Could be related to atelectasis or ea rly infiltrate. 2. Subcentimeter nodule right lower lobe laterally possibly related. Short-term follow-up exam with n ipple markers could be obtained. [facility], , 05/25/2024 8:48 AM
[2024-05-25 08:57] LABS: Partial Thromboplastin Time 23.8 sec (22.0-30.0); Prothrombin Time 11.4 sec (10.0-12.5)
[2024-05-25 09:01] LABS: ALT 25 U/L (4-49); AST 25 U/L (17-59); African American GFR (CKD) >90 (>60 ml/min/1.73 sqM); Albumin 4.1 g/dL (3.5-5.0); Alkaline Phosphatase 100 U/L (38-126); Anion Gap 8 mmol/L; Blood Urea Nitrogen 14 mg/dL (9-20); Calcium 9.3 mg/dL (8.4-10.2); Carbon Dioxide 23 mmol/L (22-30); Chloride 106 mmol/L (98-107); Glucose 91 mg/dL (74-99); Magnesium 2.1 mg/dL (1.6-2.3); Non-African American GFR(CKD) 84 (>60 ml/min/1.73 sqM); Potassium 4.5 mmol/L (3.5-5.1); Sodium 137 mmol/L (137-145); Total Bilirubin 0.6 mg/dL (0.2-1.3); Total Protein 6.8 g/dL (6.3-8.2)
[2024-05-25 09:10] LABS: NT-Pro-B-Type Natriuretic Pept 82 pg/mL
[2024-05-25 10:28] VITALS: BP 128/86; PULSE 74; TEMP 97.6
== END 2024-05-25 10:29 | disposition home or self-care (01) ==
LOC: EC 08:15
DX: J18.9 Pneumonia, unspecified organism (principal); J44.0 Chronic obstructive pulmonary disease with (acute) lower respiratory infection; Z87.891 Personal history of nicotine dependence; Z86.79 Personal history of other diseases of the circulatory system
CPT/HCPCS: 36415; 71046; 80053; 83605; 83735; 83880; 84484; 85025; 85610; 85730; 93005; 99284

== ENCOUNTER 2024-06-10 10:54 | Emergency (ER) | payer OTHER ==
[2024-06-10 11:04] VITALS: TEMP 98
--- NOTE | 2024-06-10 11:44 | ED ---
SOB HPI - General Chief Complaint: Shortness of Breath Stated Complaint: sob Time Seen by Provider: 06/10/24 11:09 Source: patient, RN notes reviewed Mode of arrival: EMS Limitations: no limitations - History of Present Illness MD Complaint: shortness of breath Onset/Timin -: hour(s) Improves With: rest Known History Of: COPD Treatments Prior to Arrival: none - Related Data Home Medications Medication Instructions Recorded Confirmed Albuterol Sulfate [Ventolin HFA] 2 puff INHALATION RT-QID PRN 06/23/23 05/25/24 HYDROcodone/APAP 7.5-325MG [[place] 1 tab PO TID PRN 06/23/23 05/25/24 7.5-325] Atorvastatin [Lipitor] 40 mg PO DAILY 01/04/24 05/25/24 Fluticasone/Umeclidin/Vilanter 1 puff INHALATION RT-DAILY 01/04/24 05/25/24 [Trelegy Ellipta 100-62.5-25] Ibuprofen [Motrin] 800 mg PO QID PRN 01/04/24 05/25/24 Amiodarone [Cordarone] 400 mg PO BID 02/28/24 05/25/24 Cholecalciferol (Vitamin D3) 1,250 mcg PO MO 02/28/24 05/25/24 [Vitamin D3 (1250 Mcg = 50,000 Iu)] Sennosides-Docusate Sodium 2 tab PO HS PRN 02/28/24 05/25/24 [Senokot-S] Acetaminophen Tab [Tylenol] 325 mg PO DAILY 05/25/24 05/25/24 Ezetimibe [Zetia] 10 mg PO DAILY 05/25/24 05/25/24 amLODIPine [Norvasc] 5 mg PO DAILY 05/25/24 05/25/24 busPIRone HCL 15 mg PO TID PRN 05/25/24 05/25/24 Previous Rx's Medication Instructions Recorded Aspirin 325 mg PO DAILY #30 tab 01/16/24 Clopidogrel [Plavix] 75 mg PO DAILY #30 tab 01/16/24 Metoprolol Tartrate [Lopressor] 25 mg PO BID #60 tab 01/16/24 Albuterol Inhaler [Ventolin Hfa 1 - 2 puff INHALATION Q4HR PRN #1 05/25/24 Inhaler] each Amoxic-Pot Clav 875-125Mg 1 tab PO Q12HR 10 Days #20 tab 05/25/24 [Augmentin 875-125] predniSONE 50 mg PO DAILY #5 tab 05/25/24 Allergies Allergy/AdvReac Type Severity Reaction Status Date / Time No Known Allergies Allergy Verified 05/25/24 10:09 Review of Systems ROS Statement: Those systems with pertinent positive or pertinent negative responses have been documented in the HPI. ROS Other: All systems not noted in ROS Statement are negative. Past Medical History Past Medical History: COPD, Hyperlipidemia, Hypertension, Respiratory Disorder Additional Past Medical History / Comment(s): History of elevated PSA concerning for prostate cancer History of Any Multi-Drug Resistant Organisms: None Reported Past Surgical History: Coronary Bypass/CABG Additional Past Surgical History / Comment(s): Right rotator cuff - total 5 surgeries of rt shoulder, history of prostate biopsy, tripple bypass Past Anesthesia/Blood Transfusion Reactions: No Reported Reaction Past Psychological History: Anxiety Smoking Status: Former smoker Past Alcohol Use History: Rare Past Drug Use History: Marijuana - Past Family History Father Family Medical History: Cancer Additional Family Medical History / Comment(s): unsure what kind of cancer - per pt General Exam Limitations: no limitations General appearance: alert, in no apparent distress Head exam: Present: atraumatic, normocephalic, normal inspection Eye exam: Present: normal appearance, PERRL, EOMI. Absent: scleral icterus, conjunctival injection, periorbital swelling ENT exam: Present: normal exam, mucous membranes moist Neck exam: Present: normal inspection. Absent: tenderness, meningismus, lymphadenopathy Respiratory exam: Present: accessory muscle use, decreased breath sounds. Absent: respiratory distress, wheezes, rales, rhonchi, stridor, prolonged expir atory Cardiovascular Exam: Present: regular rate, normal rhythm, normal heart sounds. Absent: systolic murmur, diastolic murmur, rubs, gallop, clicks GI/Abdominal exam: Present: soft, normal bowel sounds. Absent: distended, tenderness, guarding, rebound, rigid Extremities exam: Present: normal inspection, full ROM, normal capillary refill. Absent: tenderness, pedal edema, joint swelling, calf tenderness Back exam: Present: normal inspection Neurological exam: Present: alert, oriented X3, CN II-XII intact Psychiatric exam: Present: normal affect, normal mood Skin exam: Present: warm, dry, intact, normal color. Absent: rash Course Vital Signs 06/10/24 06/10/24 06/10/24 10:56 14:02 14:31 Temperature 98.0 F Pulse Rate 71 73 Respiratory 16 Rate Blood Pressure 141/82 Blood Pressure 123/80 [Right Arm Sitting] Blood Pressure 125/82 [Right Arm Standing] Blood Pressure 120/77 [Right Arm Supine] O2 Sat by Pulse 97 Oximetry Medical Decision Making - Medical Decision Making Was pt. sent in by a medical professional or institution (, DIONE, LINUX SYSTEMS ADMINISTRATOR, urgent care, hospital, or chcf...) When possible be specific @ -[No] Did you speak to anyone other than the patient for history (EMS, parent, family, police, friend...)? What history was obtained from this source @ -[No] Did you review nursing and triage notes (agree or disagree)? Why? @ -[I reviewed and agree with nursing and triage notes] Were old charts reviewed (outside hosp., previous admission, EMS record, old EKG, old radiological studies, urgent care reports/EKG's, chcf records)? Report findings @ -[No old charts were reviewed] Differential Diagnosis (chest pain, altered mental status, abdominal pain women, abdominal pain men, vaginal bleeding, weakness, fever, dyspnea, syncope, headache, dizziness, GI bleed, back pain, seizure, CVA, palpatations, mental health, musculoskeletal)? @ -[not applicable] EKG interpreted by me (3pts min.). @ -Sinus rhythm with QT prolongation and without ST changes or T wave inversion. Ventricular rate 67 bpm, ROMEO 178 ms, QRS duration 121 ms, QTc 462 ms. X-rays interpreted by me (1pt min.). @ -[None done] CT interpreted by me (1pt min.). @ -[None done] U/S interpreted by me (1pt. min.). @ -[None done] What testing was considered but not performed or refused? (CT, X-rays, U/S, labs)? Why? @ -[None] What meds were considered but not given or refused? Why? @ -[None] Did you discuss the management of the patient with other professionals (professionals i.e. , PA, LINUX SYSTEMS ADMINISTRATOR, lab, RT, psych nurse, social science manager, structural mill supervisor, teacher, network security officer, rn case manager)? Give summary @ -[No] Was smoking cessation discussed for >3mins.? @ -[No] Was critical care preformed (if so, how long)? @ -[No] Were there social determinants of health that impacted care today? How? (Homelessness, low income, unemployed, alcoholism, drug addiction, transpo rtation, low edu. Level, literacy, decrease access to med. care, fdc, rehab)? @ -[No] Was there de-escalation of care discussed even if they declined (Discuss DNR or withdrawal of care, Hospice)? DNR status @ -[No] What co-morbidities impacted this encounter? (DM, HTN, Smoking, COPD, CAD, Cancer, CVA, ARF, Chemo, Hep., AIDS, mental health diagnosis, sleep apnea, morbid obesity)? @ -COPD, CABG Was patient admitted / discharged? Hospital course, mention meds given and route, prescriptions, significant lab abnormalities, going to OR and other pertinent info. @ -[hospital course] Undiagnosed new problem with uncertain prognosis? @ -[No] Drug Therapy requiring intensive monitoring for toxicity (Heparin, Nitro, Insulin, Cardizem)? @ -[No] Were any procedures done? @ -[No] Diagnosis/symptom? @ -[default] Acute, or Chronic, or Acute on Chronic? @ -Acute Uncomplicated (without systemic symptoms) or Complicated (systemic symptoms)? @ -Complicated Side effects of treatment? @ -[No] Exacerbation, Progression, or Severe Exacerbation? @ -[No] Poses a threat to life or bodily function? How? (Chest pain, [place], [place], pneumonia, PE, COPD, DKA, ARF, appy, cholecystitis, CVA, Diverticulitis, Homicidal, Suicidal, threat to staff... and all critical care pts) @ -[No] - Lab Data Result diagrams: 06/10/24 11:20 06/10/24 11:20 Lab Results 06/10/24 06/10/24 06/10/24 Range/Units 11:20 11:20 11:20 WBC 10.5 (3.8-10.6) k/uL RBC 5.91 H (4.30-5.90) m/uL Hgb 16.0 (13.0-17.5) gm/dL Hct 49.0 (39.0-53.0) % MCV 83.0 (80.0-100.0) fL MCH 27.0 (25.0-35.0) pg MCHC 32.6 (31.0-37.0) g/dL RDW 17.0 H (11.5-15.5) % Plt Count 293 (150-450) k/uL MPV 8.0 Neutrophils % 76 % Lymphocytes % 12 % Monocytes % 8 % Eosinophils % 1 % Basophils % 1 % Neutrophils # 8.0 H (1.3-7.7) k/uL Lymphocytes # 1.2 (1.0-4.8) k/uL Monocytes # 0.8 (0-1.0) k/uL Eosinophils # 0.1 (0-0.7) k/uL Basophils # 0.1 (0-0.2) k/uL Anisocytosis Slight PT 11.0 (10.0-12.5) sec INR 1.0 (<1.2) APTT 23.6 (22.0-30.0) sec D-Dimer 0.25 (<0.60) mg/L FEU Sodium 138 (137-145) mmol/L Potassium 3.9 (3.5-5.1) mmol/L Chloride 111 H (98-107) mmol/L Carbon Dioxide 20 L (22-30) mmol/L Anion Gap 7 mmol/L BUN 16 (9-20) mg/dL Creatinine 0.80 (0.66-1.25) mg/dL Est GFR (CKD-EPI)AfAm >90 (>60 ml/min/1.73 sqM) Est GFR (CKD-EPI)NonAf >90 (>60 ml/min/1.73 sqM) Glucose 80 (74-99) mg/dL Plasma Lactic Acid [place] (0.7-2.0) mmol/L Calcium 8.7 (8.4-10.2) mg/dL Magnesium 2.1 (1.6-2.3) mg/dL Total Bilirubin 0.8 (0.2-1.3) mg/dL AST 18 (17-59) U/L ALT 20 (4-49) U/L Alkaline Phosphatase 81 (38-126) U/L Troponin I (0.000-0.034) ng/mL NT-Pro-B Natriuret Pep 108 pg/mL Total Protein 6.3 (6.3-8.2) g/dL Albumin 3.8 (3.5-5.0) g/dL Influenza Type A (PCR) (Not Detectd) Influenza Type B (PCR) (Not Detectd) RSV (PCR) (Not Detectd) SARS-CoV-2 (PCR) (Not Detectd) 06/10/24 06/10/24 06/10/24 Range/Units 11:20 11:20 11:40 WBC (3.8-10.6) k/uL RBC (4.30-5.90) m/uL Hgb (13.0-17.5) gm/dL Hct (39.0-53.0) % MCV (80.0-100.0) fL MCH (25.0-35.0) pg MCHC (31.0-37.0) g/dL RDW (11.5-15.5) % Plt Count (150-450) k/uL MPV Neutrophils % % Lymphocytes % % Monocytes % % Eosinophils % % Basophils % % Neutrophils # (1.3-7.7) k/uL Lymphocytes # (1.0-4.8) k/uL Monocytes # (0-1.0) k/uL Eosinophils # (0-0.7) k/uL Basophils # (0-0.2) k/uL Anisocytosis PT (10.0-12.5) sec INR (<1.2) APTT (22.0-30.0) sec D-Dimer (<0.60) mg/L FEU Sodium (137-145) mmol/L Potassium (3.5-5.1) mmol/L Chloride (98-107) mmol/L Carbon Dioxide (22-30) mmol/L Anion Gap mmol/L BUN (9-20) mg/dL Creatinine (0.66-1.25) mg/dL Est GFR (CKD-EPI)AfAm (>60 ml/min/1.73 sqM) Est GFR (CKD-EPI)NonAf (>60 ml/min/1.73 sqM) Glucose (74-99) mg/dL Plasma Lactic Acid [place] 0.8 (0.7-2.0) mmol/L Calcium (8.4-10.2) mg/dL Magnesium (1.6-2.3) mg/dL Total Bilirubin (0.2-1.3) mg/dL AST (17-59) U/L ALT (4-49) U/L Alkaline Phosphatase (38-126) U/L Troponin I <0.012 (0.000-0.034) ng/mL NT-Pro-B Natriuret Pep pg/mL Total Protein (6.3-8.2) g/dL Albumin (3.5-5.0) g/dL Influenza Type A (PCR) Not Detected (Not Detectd) Influenza Type B (PCR) Not Detected (Not Detectd) RSV (PCR) Not Detected (Not Detectd) SARS-CoV-2 (PCR) Not Detected (Not Detectd) Disposition Clinical Impression: COPD (chronic obstructive pulmonary disease) Disposition: HOME SELF-CARE Condition: Good Instructions (If sedation given, give patient instructions): COPD (Chronic Obstructive Pulmonary Disease) (ED) Is patient prescribed a controlled substance at d/c from ED?: No Referrals: Martin Feliz MD [Primary Care Provider] - 1-2 days Time of Disposition: 13:15
--- NOTE | 2024-06-10 11:56 | XR ---
EXAMINATION TYPE: XR chest 2V DATE OF EXAM: 06/10/2024 11:52 AM COMPARISON: Chest radiographs from 05/25/2024. CLINICAL INDICATION: Male, 63 years old with history of difficulty breathing; TECHNIQUE: XR chest 2V Frontal and lateral views of the chest. FINDINGS: Lungs/Pleura: There is no evidence of pleural effusion, focal consolidation, or pneumothorax. Pulmonary vascularity: Unremarkable. Heart/mediastinum: Cardiomediastinal silhouette is unremarkable. Left atrial appendage occlusion jamil ce is present. Musculoskeletal: No acute osseous pathology. Midline sternotomy wires are noted. IMPRESSION: No acute cardiopulmonary disease/process. [facility], , 06/10/2024 11:54 AM
[2024-06-10 11:57] LABS: Anisocytosis Slight; Basophils # (A) 0.1 k/uL (0-0.2); Basophils % (A) 1 %; Eosinophils # (A) 0.1 k/uL (0-0.7); Eosinophils % (A) 1 %; Lymphocytes # (A) 1.2 k/uL (1.0-4.8); Lymphocytes % (A) 12 %; MCHC 32.6 g/dL (31.0-37.0); Monocytes # (A) 0.8 k/uL (0-1.0); Monocytes % (A) 8 %; Neutrophils % (A) 76 %; Platelet Count 293 k/uL (150-450); RBC 5.91 m/uL (4.30-5.90); WBC 10.5 k/uL (3.8-10.6)
[2024-06-10 12:17] LABS: ALT 20 U/L (4-49); AST 18 U/L (17-59); African American GFR (CKD) >90 (>60 ml/min/1.73 sqM); Albumin 3.8 g/dL (3.5-5.0); Alkaline Phosphatase 81 U/L (38-126); Anion Gap 7 mmol/L; Blood Urea Nitrogen 16 mg/dL (9-20); Calcium 8.7 mg/dL (8.4-10.2); Carbon Dioxide 20 mmol/L (22-30); Chloride 111 mmol/L (98-107); Glucose 80 mg/dL (74-99); Magnesium 2.1 mg/dL (1.6-2.3); Non-African American GFR(CKD) >90 (>60 ml/min/1.73 sqM); Potassium 3.9 mmol/L (3.5-5.1); Sodium 138 mmol/L (137-145); Total Bilirubin 0.8 mg/dL (0.2-1.3); Total Protein 6.3 g/dL (6.3-8.2)
[2024-06-10 12:20] LABS: Partial Thromboplastin Time 23.6 sec (22.0-30.0)
[2024-06-10 12:24] LABS: NT-Pro-B-Type Natriuretic Pept 108 pg/mL
[2024-06-10] MEDS: SODIUM CHLORIDE 0.9% 1,000 ML IV STA (14:12)
[2024-06-10] MEDS: IPRATROPIUM-ALBUTEROL 3 ML NEB INHALATION STA (14:27)
[2024-06-10 14:32] VITALS: PULSE 73
[2024-06-10 14:48] VITALS: BP 119/76; RESP 17
== END 2024-06-10 15:16 | disposition home or self-care (01) ==
LOC: EC 10:54
DX: J44.9 Chronic obstructive pulmonary disease, unspecified (principal); Z95.1 Presence of aortocoronary bypass graft; Z87.891 Personal history of nicotine dependence
CPT/HCPCS: 36415; 71046; 80053; 83605; 83735; 83880; 84484; 85025; 85379; 85610; 85730; 87636; 93005; 94640; 96360; 99285

== ENCOUNTER 2024-07-17 16:44 | Emergency (ER) | payer OTHER ==
[2024-07-17] MEDS: methylPREDNISolone SOD SUCCI 125 MG/2 ML VIAL IV STA (16:54)
[2024-07-17] MEDS: SODIUM CHLORIDE 0.9% 1,000 ML IV STA (16:56)
[2024-07-17] MEDS: SODIUM CHLORIDE 0.9% 500 ML 500 ML IV STA (16:56)
--- NOTE | 2024-07-17 16:59 | ED ---
SOB HPI - General Chief Complaint: Shortness of Breath Stated Complaint: SOB Time Seen by Provider: 07/17/24 16:49 Source: patient, EMS, RN notes reviewed, old records reviewed Mode of arrival: EMS Limitations: no limitations - History of Present Illness Initial Comments: This is a 63-year-old male to ER for evaluation of shortness of breath with cough and congestion worsening shortness of breath here in the ER. History of COPD, patient does at home inhaler but not nebulized treatments. No fevers no chest pain MD Complaint: shortness of breath, cough -: days(s) Severity: moderate Severity scale (1-10): 7 Consistency: intermittent Improves With: nothing Known History Of: COPD, asthma Context: recent URI, recent illness Associated Symptoms: denies other symptoms - Related Data Home Medications Medication Instructions Recorded Confirmed Albuterol Sulfate [Ventolin HFA] 2 puff INHALATION RT-QID PRN 06/23/23 05/25/24 HYDROcodone/APAP 7.5-325MG [[place] 1 tab PO TID PRN 06/23/23 05/25/24 7.5-325] Atorvastatin [Lipitor] 40 mg PO DAILY 01/04/24 05/25/24 Fluticasone/Umeclidin/Vilanter 1 puff INHALATION RT-DAILY 01/04/24 05/25/24 [Trelegy Ellipta 100-62.5-25] Ibuprofen [Motrin] 800 mg PO QID PRN 01/04/24 05/25/24 Amiodarone [Cordarone] 400 mg PO BID 02/28/24 05/25/24 Cholecalciferol (Vitamin D3) 1,250 mcg PO MO 02/28/24 05/25/24 [Vitamin D3 (1250 Mcg = 50,000 Iu)] Sennosides-Docusate Sodium 2 tab PO HS PRN 02/28/24 05/25/24 [Senokot-S] Acetaminophen Tab [Tylenol] 325 mg PO DAILY 05/25/24 05/25/24 Ezetimibe [Zetia] 10 mg PO DAILY 05/25/24 05/25/24 amLODIPine [Norvasc] 5 mg PO DAILY 05/25/24 05/25/24 busPIRone HCL 15 mg PO TID PRN 05/25/24 05/25/24 Previous Rx's Medication Instructions Recorded Aspirin 325 mg PO DAILY #30 tab 01/16/24 Clopidogrel [Plavix] 75 mg PO DAILY #30 tab 01/16/24 Metoprolol Tartrate [Lopressor] 25 mg PO BID #60 tab 01/16/24 Albuterol Inhaler [Ventolin Hfa 1 - 2 puff INHALATION Q4HR PRN #1 05/25/24 Inhaler] each Amoxic-Pot Clav 875-125Mg 1 tab PO Q12HR 10 Days #20 tab 05/25/24 [Augmentin 875-125] predniSONE 50 mg PO DAILY #5 tab 05/25/24 Albuterol Nebulized [Ventolin 2.5 mg INHALATION Q4H PRN #25 each 07/17/24 Nebulized] predniSONE 50 mg PO DAILY #5 tab 07/17/24 Allergies Allergy/AdvReac Type Severity Reaction Status Date / Time No Known Allergies Allergy Verified 07/17/24 16:50 Review of Systems ROS Statement: Those systems with pertinent positive or pertinent negative responses have been documented in the HPI. ROS Other: All systems not noted in ROS Statement are negative. Past Medical History Past Medical History: COPD, Hyperlipidemia, Hypertension, Respiratory Disorder Additional Past Medical History / Comment(s): History of elevated PSA concerning for prostate cancer History of Any Multi-Drug Resistant Organisms: None Reported Past Surgical History: Coronary Bypass/CABG Additional Past Surgical History / Comment(s): Right rotator cuff - total 5 surgeries of rt shoulder, history of prostate biopsy, tripple bypass Past Anesthesia/Blood Transfusion Reactions: No Reported Reaction Past Psychological History: Anxiety Smoking Status: Former smoker Past Alcohol Use History: Rare Past Drug Use History: Marijuana - Past Family History Father Family Medical History: Cancer Additional Family Medical History / Comment(s): unsure what kind of cancer - per pt General Exam Limitations: no limitations General appearance: alert, in no apparent distress Head exam: Present: atraumatic, normocephalic, normal inspection Eye exam: Present: normal appearance, PERRL, EOMI. Absent: scleral icterus, conjunctival injection, periorbital swelling ENT exam: Present: normal exam, mucous membranes moist Neck exam: Present: normal inspection. Absent: tenderness, meningismus, lymphadenopathy Respiratory exam: Present: wheezes, accessory muscle use, decreased breath sounds, prolonged expiratory. Absent: respiratory distress, rales, rhonchi, stridor Cardiovascular Exam: Present: regular rate, normal rhythm, normal heart sounds. Absent: systolic murmur, diastolic murmur, rubs, gallop, clicks GI/Abdominal exam: Present: soft, normal bowel sounds. Absent: distended, tenderness, guarding, rebound, rigid Extremities exam: Present: normal inspection, full ROM, normal capillary refill. Absent: tenderness, pedal edema, joint swelling, calf tenderness Back exam: Present: normal inspection Neurological exam: Present: alert, oriented X3, CN II-XII intact Psychiatric exam: Present: normal affect, normal mood Skin exam: Present: warm, dry, intact, normal color. Absent: rash Course Vital Signs 07/17/24 07/17/24 07/17/24 16:47 16:50 17:52 Temperature 97.6 F Pulse Rate 76 73 Respiratory 18 20 Rate Blood Pressure 131/76 O2 Sat by Pulse 99 Oximetry 07/17/24 07/17/24 18:00 18:10 Temperature 98 F Pulse Rate 72 78 Respiratory 18 Rate Blood Pressure 119/67 O2 Sat by Pulse 95 Oximetry - Reevaluation(s) Reevaluation #1: 07/17/24 17:01 Records reviewed Reevaluation #2: 07/17/24 17:48 Symptoms dramatically improved Reevaluation #3: 07/17/24 17:48 Patient informed of results questions answered Reevaluation #4: Was pt. sent in by a medical professional or institution (, PA, INDUSTRIAL RENDERER, urgent care, hospital, or skilled nursing...) When possible be specific @ -no Did you speak to anyone other than the patient for history (EMS, parent, family, police, friend...)? What history was obtained from this source @ -no Did you review nursing and triage notes (agree or disagree)? Why? @ -agree Are old charts reviewed (outside hosp., previous admission, EMS record, old EKG, old radiological studies, urgent care reports/EKG's, skilled nursing records)? Report findings @ -yes Differential Diagnosis (chest pain, altered mental status, abdominal pain women, abdominal pain men, vaginal bleeding, weakness, fever, dyspnea, syncope, headache, dizziness, GI bleed, back pain, seizure, CVA, palpatations, mental health, musculoskeletal)? @ -prior EKG interpreted by me (3pts min.). @ -yes X-rays interpreted by me (1pt min.). @ -yes negative for acute disease CT interpreted by me (1pt min.). @ -no U/S interpreted by me (1pt. min.). @ -no What testing was considered but not performed or refused? (CT, X-rays, U/S, labs)? Why? @ -none What meds were considered but not given or refused? Why? @ -none Did you discuss the management of the patient with other professionals (professionals i.e. DrBridger, PA, INDUSTRIAL RENDERER, lab, RT, psych nurse, oncology social worker, senior mechanical development engineer, teacher, army officer, protective services case worker)? Give summary @ -no Was smoking cessation discussed for >3mins.? @ -no Was critical care preformed (if so, how long)? @ -no Were there social determinants of health that impacted care today? How? (Homelessness, low income, unemployed, alcoholism, drug addiction, transportation, low edu. Level, literacy, decrease access to med. care, snf, rehab)? @ -none Was there de-escalation of care discussed even if they declined (Discuss DNR or withdrawal of care, Hospice)? DNR status @ -no What co-morbidities impacted this encounter? (DM, HTN, Smoking, COPD, CAD, Cancer, CVA, ARF, Chemo, Hep., AIDS, mental health diagnosis, sleep apnea, morbid obesity)? @ -none Was patient admitted / discharged? Hospital course, mention meds given and route, prescriptions, significant lab abnormalities, going to OR and other pertinent info. @ - 63 male to ER for evaluation of cough congestion known COPD. Patient given breathing treatments here in the ER symptoms improved patient can be discharged with normal chest x-ray normal lab testing Discharge Undiagnosed new problem with uncertain prognosis? @ -no Drug Therapy requiring intensive monitoring for toxicity (Heparin, Nitro, Insulin, Cardizem)? @ -no Were any procedures done? @ -no Diagnosis/symptom? @ -Acute COPD exacerbation with pleurisy and chest pain Acute, or Chronic, or Acute on Chronic? @ -Acute Uncomplicated (without systemic symptoms) or Complicated (systemic symptoms)? @ -Complicated Side effects of treatment? @ -no Exacerbation, Progression, or Severe Exacerbation? @ -exacerbation Poses a threat to life or bodily function? How? (Chest pain, [place], [place], pneumonia, PE, COPD, DKA, ARF, appy, cholecystitis, CVA, Diverticulitis, Homicidal, Suicidal, threat to staff... and all critical care pts) @ -yes with c shortness of breath Reevaluation #5: Differential Dyspnea: Coronary syndrome, arrhythmia, tamponade, asthma, COPD, pulmonary embolism, pneumonia, pneumothorax, pulmonary effusion, anaphylaxis, diabetic ketoacidosis, flailed chest, pulmonary contusion, diaphragmatic rupture, anemia, neuromuscular, this is not meant to be an all-inclusive list. Medical Decision Making - Medical Decision Making 63 male to ER for evaluation of cough congestion known COPD. Patient given breathing treatments here in the ER symptoms improved patient can be discharged with normal chest x-ray normal lab testing - Lab Data Result diagrams: 07/17/24 16:56 07/17/24 16:56 Lab Results 07/17/24 07/17/24 07/17/24 Range/Units 16:56 16:56 16:56 WBC 7.4 (3.8-10.6) k/uL RBC 5.77 (4.30-5.90) m/uL Hgb 15.6 (13.0-17.5) gm/dL Hct 48.8 (39.0-53.0) % MCV 84.6 (80.0-100.0) fL MCH 27.0 (25.0-35.0) pg MCHC 32.0 (31.0-37.0) g/dL RDW 16.2 H (11.5-15.5) % Plt Count 271 (150-450) k/uL MPV 7.5 Neutrophils % 65 % Lymphocytes % 21 % Monocytes % 8 % Eosinophils % 3 % Basophils % 1 % Neutrophils # 4.8 (1.3-7.7) k/uL Lymphocytes # 1.6 (1.0-4.8) k/uL Monocytes # 0.6 (0-1.0) k/uL Eosinophils # 0.2 (0-0.7) k/uL Basophils # 0.1 (0-0.2) k/uL Anisocytosis Slight PT 11.4 (10.0-12.5) sec INR 1.0 (<1.2) APTT 22.9 (22.0-30.0) sec Sodium 138 (137-145) mmol/L Potassium 4.0 (3.5-5.1) mmol/L Chloride 105 (98-107) mmol/L Carbon Dioxide 24 (22-30) mmol/L Anion Gap 9 mmol/L BUN 18 (9-20) mg/dL Creatinine 0.94 (0.66-1.25) mg/dL Est GFR (CKD-EPI)AfAm >90 (>60 ml/min/1.73 sqM) Est GFR (CKD-EPI)NonAf 88 (>60 ml/min/1.73 sqM) Glucose 92 (74-99) mg/dL Calcium 8.9 (8.4-10.2) mg/dL Magnesium 2.0 (1.6-2.3) mg/dL Total Bilirubin 0.4 (0.2-1.3) mg/dL AST 21 (17-59) U/L ALT 25 (4-49) U/L Alkaline Phosphatase 88 (38-126) U/L Troponin I (0.000-0.034) ng/mL NT-Pro-B Natriuret Pep 91 pg/mL Total Protein 6.3 (6.3-8.2) g/dL Albumin 3.6 (3.5-5.0) g/dL 07/17/24 Range/Units 16:56 WBC (3.8-10.6) k/uL RBC (4.30-5.90) m/uL Hgb (13.0-17.5) gm/dL Hct (39.0-53.0) % MCV (80.0-100.0) fL MCH (25.0-35.0) pg MCHC (31.0-37.0) g/dL RDW (11.5-15.5) % Plt Count (150-450) k/uL MPV Neutrophils % % Lymphocytes % % Monocytes % % Eosinophils % % Basophils % % Neutrophils # (1.3-7.7) k/uL Lymphocytes # (1.0-4.8) k/uL Monocytes # (0-1.0) k/uL Eosinophils # (0-0.7) k/uL Basophils # (0-0.2) k/uL Anisocytosis PT (10.0-12.5) sec INR (<1.2) APTT (22.0-30.0) sec Sodium (137-145) mmol/L Potassium (3.5-5.1) mmol/L Chloride (98-107) mmol/L Carbon Dioxide (22-30) mmol/L Anion Gap mmol/L BUN (9-20) mg/dL Creatinine (0.66-1.25) mg/dL Est GFR (CKD-EPI)AfAm (>60 ml/min/1.73 sqM) Est GFR (CKD-EPI)NonAf (>60 ml/min/1.73 sqM) Glucose (74-99) mg/dL Calcium (8.4-10.2) mg/dL Magnesium (1.6-2.3) mg/dL Total Bilirubin (0.2-1.3) mg/dL AST (17-59) U/L ALT (4-49) U/L Alkaline Phosphatase (38-126) U/L Troponin I <0.012 (0.000-0.034) ng/mL NT-Pro-B Natriuret Pep pg/mL Total Protein (6.3-8.2) g/dL Albumin (3.5-5.0) g/dL - EKG Data -: EKG Interpreted by Me (EKG is sinus 76 DC 177 QRS 129 QTc 421) - Radiology Data Radiology results: report reviewed (Chest x-ray is negative for acute disease), image reviewed Disposition Clinical Impression: COPD (chronic obstructive pulmonary disease), Acute exacerbation of chronic obstructive pulmonary disease Disposition: HOME SELF-CARE Condition: Good Instructions (If sedation given, give patient instructions): Acute Bronchitis (ED), Chronic Bronchitis (ED) Prescriptions: predniSONE 50 mg PO DAILY #5 tab Albuterol Nebulized [Ventolin Nebulized] 2.5 mg INHALATION Q4H PRN #25 each PRN Reason: Shortness Of Breath Is patient prescribed a controlled substance at d/c from ED?: No Referrals: Martin Feliz MD [Primary Care Provider] - 1-2 days Time of Disposition: 18:00
[2024-07-17 17:06] LABS: Anisocytosis Slight; Basophils # (A) 0.1 k/uL (0-0.2); Basophils % (A) 1 %; Eosinophils # (A) 0.2 k/uL (0-0.7); Eosinophils % (A) 3 %; HCT 48.8 % (39.0-53.0); HGB 15.6 gm/dL (13.0-17.5); Lymphocytes # (A) 1.6 k/uL (1.0-4.8); Lymphocytes % (A) 21 %; MCV 84.6 fL (80.0-100.0); Mean Platelet Volume 7.5; Monocytes # (A) 0.6 k/uL (0-1.0); Monocytes % (A) 8 %; Neutrophils # (A) 4.8 k/uL (1.3-7.7); Neutrophils % (A) 65 %; Platelet Count 271 k/uL (150-450); RBC 5.77 m/uL (4.30-5.90); RDW 16.2 % (11.5-15.5); WBC 7.4 k/uL (3.8-10.6)
--- NOTE | 2024-07-17 17:08 | XR ---
EXAMINATION TYPE: XR chest 2V DATE OF EXAM: 07/17/2024 5:03 PM COMPARISON: Chest radiographs from 06/10/2024 CLINICAL INDICATION: Male, 63 years old with history of difficulty breathing; [facility] TECHNIQUE: XR chest 2V Frontal and lateral views of the chest. FINDINGS: Lungs/Pleura: There is no evidence of pleural effusion, focal consolidation, or pneumothorax. Pulmonary vascularity: Unremarkable. Heart/mediastinum: Cardiomediastinal silhouette is unremarkable. Left atrial appendage occlusion jamil ce is present. Musculoskeletal: No acute osseous pathology. Right shoulder arthroplasty appears intact. IMPRESSION: No acute cardiopulmonary disease/process. No significant change from prior. [facility], , 07/17/2024 5:06 PM
[2024-07-17 17:13] LABS: ALT 25 U/L (4-49); AST 21 U/L (17-59); African American GFR (CKD) >90 (>60 ml/min/1.73 sqM); Albumin 3.6 g/dL (3.5-5.0); Alkaline Phosphatase 88 U/L (38-126); Anion Gap 9 mmol/L; Blood Urea Nitrogen 18 mg/dL (9-20); Calcium 8.9 mg/dL (8.4-10.2); Carbon Dioxide 24 mmol/L (22-30); Chloride 105 mmol/L (98-107); Glucose 92 mg/dL (74-99); Non-African American GFR(CKD) 88 (>60 ml/min/1.73 sqM); Sodium 138 mmol/L (137-145); Total Bilirubin 0.4 mg/dL (0.2-1.3); Total Protein 6.3 g/dL (6.3-8.2)
[2024-07-17 17:15] LABS: Partial Thromboplastin Time 22.9 sec (22.0-30.0); Prothrombin Time 11.4 sec (10.0-12.5)
[2024-07-17 17:22] LABS: NT-Pro-B-Type Natriuretic Pept 91 pg/mL
[2024-07-17] MEDS: ALBUTEROL NEBULIZED 2.5 MG/3 ML INHALATION STA (17:51)
[2024-07-17] MEDS: IPRATROPIUM-ALBUTEROL 3 ML NEB INHALATION STA (17:51)
[2024-07-17] MEDS: IPRATROPIUM 0.5 MG/2.5 ML NEBU INHALATION STA (17:52)
[2024-07-17 18:12] VITALS: BP 119/67; PULSE 78; RESP 18; TEMP 98
[2024-07-17] MEDS: DEXAMETHASONE SOD PHOSPHATE 10 MG/ML 1 ML VIAL IVP STA (18:12)
== END 2024-07-17 18:20 | disposition home or self-care (01) ==
LOC: EC 16:44
DX: J44.1 Chronic obstructive pulmonary disease with (acute) exacerbation (principal); Z87.891 Personal history of nicotine dependence
CPT/HCPCS: 36415; 94640; 93005; 83880; 80053; 83735; 84484; 85025; 85610; 85730; 71046; 99285; 96374; 96375; 96361; J1100; J2919

== ENCOUNTER → 2024-09-22 | Outpatient (CLI) | payer OTHER ==
--- NOTE | 2024-09-22 13:23 | CT ---
CT thorax with contrast. HISTORY: Follow-up pulmonary nodule: 01/11/2024 TECHNIQUE: Multiple axial images are obtained through the thorax following IV contrast administration . FINDINGS: There are marked emphysematous changes. There are 3 stable approximate 6 mm pulmonary nodules one in the right lower lobe and another in the left upper lobe medially and a third in the left lower lobe laterally. There are multiple new small focal areas of groundglass density scattered throughout the right upper and lower lobe and to a lesser extent the left lower lobe. These are nonspecific findings represent c hronic or acute inflammatory changes and less likely neoplasm. There is no pleural effusion or pneumothorax. The great vessels chest are normal. No mediastinal, hilar or axillary adenopathy. Limited scanning through the upper abdomen reveals no gross abnormality. No focal osseous lesions are seen. IMPRESSION: 1. Marked emphysematous changes. 2. 3 stable pulmonary nodules as described above. 3. Interval development of small multifocal areas of groundglass opacity which are nonspecific abnorm alities and could represent acute or chronic inflammatory processes, much less likely neoplasm. Short -term follow-up is recommended. [facility], , 09/22/2024 1:21 PM
== END | disposition home or self-care (01) ==
LOC: RADCTMAIN 12:47
PROVIDERS: ATTEND Family Medicine
DX: J43.9 Emphysema, unspecified (principal); R91.8 Other nonspecific abnormal finding of lung field
CPT/HCPCS: 71260; Q9967